=== PATIENT | male | born 1945 | race African-American/Black ===

== ENCOUNTER → 2016-07-05 | Outpatient (CLI) | payer MEDICARE, OTHER ==
[2015-01-11 22:18] VITALS: BP 159/89
[~2016-07-05] MED LIST: AMLO5TAB2 PO; APIX5TAB PO; BUSP10TA PO; CLON0.1T PO; CLON1TAB3 PO; FURO-69 PO; FURO20TA3 PO; HYDR12.58 PO; MECL12.52 PO; MEMA10TA PO; MEMA5TAB PO; POTA10CA PO; POTA10TA31 PO; WARF6TAB PO
--- NOTE | 2016-07-05 15:11 | RAD ---
Indication: Left chronic DVT and left leg swelling. Grayscale, color-flow and duplex Doppler evaluation of the left lower extremity deep venous system was performed. The left common femoral vein is patent. There is occlusive DVT in the left superficial femoral vein with partially occlusive DVT in the popliteal and posterior tibial veins. Greater saphenous vein is patent. Impression: Extensive left lower extremity DVT.
== END | disposition home or self-care (01) ==
LOC: US 14:15
PROVIDERS: ATTEND Internal Medicine
DX: I82.512 Chronic embolism and thrombosis of left femoral vein (principal); I82.402 Acute embolism and thrombosis of unspecified deep veins of left lower extremity
CPT/HCPCS: 93971

== ENCOUNTER 2018-04-04 14:15 | Inpatient (IN) | payer MEDICARE, OTHER ==
[~2018-04-04] VITALS: Ht 177.8 cm; Wt 71.7 kg
[~2018-04-04 14:15] MED LIST changes: -AMLO5TAB2 PO; +AMLO5TAB7 PO; -CLON1TAB3 PO; +CLON1TAB4 PO; -POTA10CA PO; +POTA10TA12 PO; -WARF6TAB PO; +WARF6TAB49 PO
[2018-04-04 15:00] VITALS: BP 107/58
[2018-04-04] MEDS ORDERED: ALBU0.63 NEB (16:03)
[2018-04-04] MEDS ORDERED: FLUT16SP NS (16:03)
[2018-04-04] MEDS ORDERED: WARF-31 PO (16:03)
[2018-04-04] MEDS ORDERED: GABA100C6 PO (16:03)
[2018-04-04] MEDS ORDERED: TRAM50TA PO (16:03)
[2018-04-04] MEDS ORDERED: AMLO10TA6 PO (16:03)
[2018-04-04] MEDS ORDERED: METH500T7 PO (16:03)
[2018-04-04] MEDS ORDERED: CITA20TA6 PO (16:03)
[2018-04-04] MEDS ORDERED: ATOR40TA59 PO (16:03)
[2018-04-04] MEDS: IV NORMAL SALINE 1000ML BAG 1,000 ML IV SCH (16:15)
--- NOTE | 2018-04-04 17:01 | EKG ---
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
[2018-04-04 17:09] LABS: PROTHROMBIN TIME PATIENT 52.4 SEC (11.7-14.0)
[2018-04-04 17:16] LABS: ALBUMIN 2.2 g/dL (3.4-5.0); ALBUMIN/GLOBULIN RATIO 0.4 (1.0-1.7); CALCIUM 9.2 mg/dL (8.5-10.1); CREATININE 1.7 mg/dL (0.7-1.3); GFR 48.5; POTASSIUM 4.1 mmol/L (3.5-5.1); TOTAL BILIRUBIN 0.9 mg/dL (0.2-1.0); TOTAL PROTEIN 7.7 g/dL (6.4-8.2)
[2018-04-04 18:07] LABS: BASO # 0.1 x10^3/uL (0.0-0.2); BASO % 0 % (0-3); EOS % 0 % (0-3); HEMATOCRIT 34.5 % (39.0-53.0); HEMOGLOBIN 10.8 g/dL (13.0-17.5); LYMPH # 1.3 x10^3/uL (1.0-4.8); LYMPH % 4 % (24-48); MEAN CORPUSCULAR HEMOGLOBIN 24 pg (25-35); MEAN CORPUSCULAR HGB CONC 31 g/dL (31-37); MEAN CORPUSCULAR VOLUME 76 fL (79-100); MONO % 7 % (0-9); NEUT # 26.5 x10^3uL (1.8-7.7); NEUT % 89 % (31-73); PLATELET COUNT 272 x10^3/uL (140-400); RED BLOOD COUNT 4.56 x10^6/uL (4.30-5.70); RED CELL DISTRIBUTION WIDTH 18.7 % (11.5-14.5); WHITE BLOOD COUNT 29.9 x10^3/uL (4.0-11.0)
[2018-04-04 18:49] LABS: % BANDS 16 % (0-9); % LYMPHS 6 % (24-48); % MONOS 7 % (0-10); % SEGS 71 % (35-66); ANISOCYTOSIS SLIGHT; HYPOCHROMIA SLIGHT; PLT ESTIMATE ADEQUATE (ADEQUATE)
[2018-04-04 18:50] LABS: OVALOCYTES FEW; TOXIC VACUOLATION SLIGHT
[2018-04-04 19:00] VITALS: BP 106/61
[2018-04-04] MEDS ORDERED: VANCOMYCIN PER PHARMACY MC PRN (19:00)
[2018-04-04] MEDS ORDERED: VANCOMYCIN 1.5 GM in IV NORMAL SALINE 500ML BAG 500 ML IV ONE (19:00)
[2018-04-04] MEDS ORDERED: PIP/TAZO PER PHARMACY MC PRN ×2 (19:15→19:30)
[2018-04-04] MEDS: IPRATRPIUM/ALBUTEROL 0.5/2.5MG 3 ML NEBU. NEB SCH (19:57)
[2018-04-04] MEDS ORDERED: VANCOMYCIN 1.75 GM in IV NORMAL SALINE 500ML BAG 500 ML IV ONE (20:00)
[2018-04-04] MEDS: PIPERACILLIN/TAZOBACTAM 3.375 GM in IV NORMAL SALINE 50ML 50 ML IV SCH (20:20)
[2018-04-04 20:25] LABS: INFLUENZA A PATIENT NEGATIVE (NEGATIVE); INFLUENZA B PATIENT NEGATIVE (NEGATIVE)
[2018-04-04 23:00] VITALS: BP 100/54
[2018-04-05] MEDS: PIPERACILLIN/TAZOBACTAM 3.375 GM in IV NORMAL SALINE 50ML 50 ML IV SCH ×2 (01:21→06:25)
[2018-04-05 07:00] VITALS: BP 118/64
--- NOTE | 2018-04-05 08:03 | RAD ---
Portable chest, 04/04/2018: HISTORY: Possible pneumonia The patient is rotated to the left. Comparison is made to an exam from 01/11/2015. A left-sided transvenous pacemaker remains in place with active and inactive leads extending into the right heart. The heart is at the upper limits of normal in size. There is calcific plaquing of the thoracic aorta. The pulmonary vascularity is within normal limits. There are mild patchy bibasilar opacities. The upper lung nelson are clear. There is no evidence of pleural fluid. The bony structures are demineralized. A surgical staple is noted in the right scapula. IMPRESSION: Mild patchy bibasilar infiltrates suggesting pneumonia. Electronically signed by: Scooby Wiseman MD (04/05/2018 8:00 AM) [facility]
[2018-04-05] MEDS: IPRATRPIUM/ALBUTEROL 0.5/2.5MG 3 ML NEBU. NEB SCH ×4 (08:11→20:17)
[2018-04-05] MEDS ORDERED: DEXTROSE 50% 25 GM / 50ML DISP.SYRIN. IV PRN (09:30)
--- NOTE | 2018-04-05 09:34 | PDOC ---
Provider Note Provider Note H&P dictated. #[id number] ANGI BARCENAS MD Apr 05, 2018 09:34
[2018-04-05] MEDS ORDERED: traMADol 50 MG TABLET PO PRN (10:00)
--- NOTE | 2018-04-05 10:53 | PDOC ---
Infectious Disease Note Vital Sign Vital Signs Vital Signs Date Time Temp Pulse Resp B/P (MAP) Pulse Ox O2 Delivery O2 Flow Rate FiO2 04/05/18 08:12 89 Room Air 04/05/18 08:00 2.0 04/05/18 07:00 97.7 89 18 118/64 (82) 97.7 Labs Lab Laboratory Tests Test 04/04/18 16:40 04/04/18 16:55 04/04/18 19:06 White Blood Count 29.9 x10^3/uL (4.0-11.0) Red Blood Count 4.56 x10^6/uL (4.30-5.70) Hemoglobin 10.8 g/dL (13.0-17.5) Hematocrit 34.5 % (39.0-53.0) Mean Corpuscular Volume 76 fL (79-100) Mean Corpuscular Hemoglobin 24 pg (25-35) Mean Corpuscular Hemoglobin Concent 31 g/dL (31-37) Red Cell Distribution Width 18.7 % (11.5-14.5) Platelet Count 272 x10^3/uL (140-400) Neutrophils (%) (Auto) 89 % (31-73) Lymphocytes (%) (Auto) 4 % (24-48) Monocytes (%) (Auto) 7 % (0-9) Eosinophils (%) (Auto) 0 % (0-3) Basophils (%) (Auto) 0 % (0-3) Neutrophils # (Auto) 26.5 x10^3uL (1.8-7.7) Lymphocytes # (Auto) 1.3 x10^3/uL (1.0-4.8) Monocytes # (Auto) 2.0 x10^3/uL (0.0-1.1) Eosinophils # (Auto) 0.0 x10^3/uL (0.0-0.7) Basophils # (Auto) 0.1 x10^3/uL (0.0-0.2) Segmented Neutrophils % 71 % (35-66) Band Neutrophils % 16 % (0-9) Lymphocytes % 6 % (24-48) Monocytes % 7 % (0-10) Toxic Vacuolation Slight Platelet Estimate Adequate (ADEQUATE) Hypochromasia Slight Anisocytosis Slight Ovalocytes Few Prothrombin Time 52.4 SEC (11.7-14.0) Prothromb Time International Ratio 6.0 (0.8-1.1) Sodium Level 142 mmol/L (136-145) Potassium Level 4.1 mmol/L (3.5-5.1) Chloride Level 111 mmol/L (98-107) Carbon Dioxide Level 20 mmol/L (21-32) Anion Gap 11 (6-14) Blood Urea Nitrogen 31 mg/dL (8-26) Creatinine 1.7 mg/dL (0.7-1.3) Estimated GFR (Cockcroft-Gault) 48.5 BUN/Creatinine Ratio 18 (6-20) Glucose Level 96 mg/dL (70-99) Calcium Level 9.2 mg/dL (8.5-10.1) Total Bilirubin 0.9 mg/dL (0.2-1.0) Aspartate Amino Transf (AST/SGOT) 25 U/L (15-37) Alanine Aminotransferase (ALT/SGPT) 17 U/L (16-63) Alkaline Phosphatase 65 U/L (46-116) Total Protein 7.7 g/dL (6.4-8.2) Albumin 2.2 g/dL (3.4-5.0) Albumin/Globulin Ratio 0.4 (1.0-1.7) Influenza Type A Antigen Negative (NEGATIVE) Influenza Type B Antigen Negative (NEGATIVE) Objective Assessment Fever Leukocytosis Pneumonia COPD Cardiomyopathy/AICD HTN Renal insufficiency Plan Plan of Care d/c vanc cont zosyn add doxy supportive care check cultures SEMAJ KHAN MD Apr 05, 2018 10:53
[2018-04-05 11:00] VITALS: BP 115/62
--- NOTE | 2018-04-05 11:02 | HP ---
ADMIT DATE: 04/04/2018 LOCATION: [facility]. REASON FOR ADMISSION TO THE HOSPITAL: Pneumonia, sepsis, elevated white count. HISTORY OF PRESENT ILLNESS: The patient is a 72-year-old male patient who is chronically ill, wheelchair level, has progressive dementia, contractures, has developed an upper respiratory infection for a week and got progressively worse. He has been sleeping most of the time. and family brought him yesterday, was very lethargic, was admitted to the hospital. His white count was almost 30,000. His INR was 7. The patient is on Coumadin for chronic DVTs. PAST MEDICAL HISTORY: Dementia, progressive hypertension, COPD, heart failure, DVT, pulmonary embolism, arthritis, contractures. He also has abdominal aortic aneurysm, had endovascular repair. PAST SURGICAL HISTORY: He has a pacemaker, IVC filter, umbilical hernia surgery and also abdominal aortic aneurysm endovascular repair. ALLERGIES: No known drug allergies. MEDICATIONS AT HOME: The patient is on Lasix 20 mg daily, Robaxin 500 mg daily, Coumadin 5 mg daily, albuterol 2 puffs 4 times daily, amlodipine 10 mg daily, atorvastatin 40 mg daily, buspirone 10 mg twice a day, citalopram 20 mg daily, fluticasone 1 daily, gabapentin 100 mg 3 times daily, Namenda 10 mg twice a day, potassium 10 mEq daily, tramadol 50 mg q.8h. PERSONAL HISTORY: 40 years of smoking 1 pack, still smokes 3-4 daily. Denies alcohol. The patient has tramadol for pain medications. SOCIAL HISTORY: Lives with his and son, wheelchair level activity. REVIEW OF SYSTEMS: The patient was very lethargic yesterday. Today, he is smiling and waving to me and denies any chest pain, no shortness of breath on examination. Rest of the 14-system was reviewed and negative. PHYSICAL EXAMINATION: GENERAL: Chronically ill. VITAL SIGNS: Temperature 98, pulse 108, respirations 20, blood pressure 107/58, 92 on 2 liters. HEENT: Head is atraumatic. Pupils are equal. Oral cavity, congestion from the nose. A few teeth present. Not a good dentition. Oral cavity, slight congestion posterior pharynx. NECK: Supple. Thyroid not enlarged. JVD not elevated. CHEST: Symmetrical. Has a pacemaker left side of the chest. CARDIOVASCULAR: S1, S2. LUNGS: Diminished breath sounds, a few crackles at the bases. ABDOMEN: Soft, no mass palpable. EXTERNAL GENITALIA: No Frye. RECTAL: Deferred. EXTREMITIES: The patient has 1+ edema at the ankle, right leg. Left leg has a flexion contracture of the hip as well as the knee, 2+ edema. NEUROLOGIC: The patient is awake, smiling and waving to me today. Yesterday, he was lethargic. LABORATORY DATA: White count 30,000; hemoglobin 11, platelets 272. INR is 6. Electrolytes show sodium 142, potassium 4.1, chloride 101, bicarbonate 20, anion gap 11, BUN 31, creatinine 1.7. LFTs were normal. Influenza A and B was negative. Chest x-ray shows a patchy basilar infiltrate, bibasilar opacities. EKG done, report is pending. FINAL IMPRESSION: 1. Pneumonia. 2. Sepsis. 3. Elevated white count. 4. Chronic deep venous thrombosis. History of pulmonary embolism, on Coumadin. 5. Coagulopathy. INR was 6. 6. Chronic kidney disease. 7. History of pacemaker. 8. History of abdominal aortic aneurysm, had endovascular repair. 9. Protein-calorie malnutrition. 10. General debility. PLAN: At this time is to admit to the hospital, hydrate with IV fluids. Influenza A and B was negative. Blood culture. Start on vancomycin and Zosyn. ID consult, breathing treatments, oxygen and monitor white count and electrolytes. We will get Physical Therapy Rehab consults too. ANGI BARCENAS MD DR: ESTHER/coby JOB#: [id number] / [id number]
[2018-04-05 11:07] LABS: BASO % 0 % (0-3); EOS % 0 % (0-3); HEMATOCRIT 32.7 % (39.0-53.0); HEMOGLOBIN 10.1 g/dL (13.0-17.5); LYMPH # 1.3 x10^3/uL (1.0-4.8); LYMPH % 5 % (24-48); MEAN CORPUSCULAR HEMOGLOBIN 23 pg (25-35); MEAN CORPUSCULAR HGB CONC 31 g/dL (31-37); MEAN CORPUSCULAR VOLUME 75 fL (79-100); MONO # 1.6 x10^3/uL (0.0-1.1); MONO % 7 % (0-9); NEUT # 20.4 x10^3uL (1.8-7.7); NEUT % 88 % (31-73); PLATELET COUNT 246 x10^3/uL (140-400); RED BLOOD COUNT 4.36 x10^6/uL (4.30-5.70); RED CELL DISTRIBUTION WIDTH 18.1 % (11.5-14.5); WHITE BLOOD COUNT 23.3 x10^3/uL (4.0-11.0)
[2018-04-05] MEDS: POTASSIUM CHLORIDE 10 MEQ TABLET.ER. PO SCH (11:22)
[2018-04-05] MEDS: CITALOPRAM 20 MG TABLET. PO SCH (11:22)
[2018-04-05] MEDS: DOXYCYCLINE HYCLATE 100 MG TABLET PO SCH ×2 (11:22→21:30)
[2018-04-05] MEDS: FLUTICASONE 50MCG/NASAL SPRAY 16GM BOTTLE. NS SCH (11:23)
[2018-04-05] MEDS: busPIRone 10 MG TABLET. PO SCH ×2 (11:23→21:30)
[2018-04-05] MEDS: amLODIPine BESYLATE 10 MG TABLET PO SCH (11:23)
[2018-04-05] MEDS: MEMANTINE 10 MG TABLET. PO SCH ×2 (11:23→21:30)
[2018-04-05] MEDS: IV NORMAL SALINE 1000ML BAG 1,000 ML IV SCH ×3 (11:24→22:15)
[2018-04-05 11:44] LABS: PROTHROMBIN TIME PATIENT 57.4 SEC (11.7-14.0)
[2018-04-05] MEDS: INSULIN LISPRO 300 UNITS/3 ML INSULN.PEN. SQ SCH ×2 (11:54→16:54)
[2018-04-05] MEDS ORDERED: cefTRIAXone SODIUM 2 GM in IV DEXTROSE 5% 100ML 100 ML IV SCH (12:00)
[2018-04-05] MEDS ORDERED: ALBUTEROL SULFATE 2.5 MG/3 ML NEBU. NEB SCH (12:00)
[2018-04-05] MEDS ORDERED: PHYTONADIONE 10 MG/ML ORAL SOLUTION. PO ONE (12:30)
[2018-04-05] MEDS ORDERED: NON FORMULARY ITEM (Albuterol Sulfate (Albuterol Sulfate Neb Soln) 1 VIAL) NEB SCH (13:00)
[2018-04-05] MEDS: GABAPENTIN 100 MG CAPSULE. PO SCH ×2 (14:45→21:30)
[2018-04-05 15:00] VITALS: BP 116/59
[2018-04-05 19:00] VITALS: BP 125/66
--- NOTE | 2018-04-05 20:19 | CONS ---
DATE OF CONSULTATION: 04/05/2018 REQUESTING PHYSICIAN: Dr. Morales. REASON FOR CONSULTATION: Pneumonia. HISTORY OF PRESENT ILLNESS: This is a 72-year-old gentleman with a history of multiple medical problems who came in with 3-day history of cough, shortness of breath and had fever, also had significant leukocytosis. Chest x-ray showed pneumonia. The patient is a poor historian, may even have his dementia, a history of mild dementia. The patient denies any nausea, vomiting, diarrhea. The patient says he is short of breath, but he is not wearing oxygen as the tubing is on not on him. The patient denies any headache, visual symptoms, chest pain, abdominal pain, urinary symptoms or bowel symptoms. PAST MEDICAL HISTORY: Positive for cardiac arrhythmia with AICD in place, congestive heart failure, COPD, history of DVT, IVC filter placed, spinal stenosis, has had shoulder surgery, is borderline diabetic, hypertension, renal insufficiency, urinary incontinence and urgency at times. SOCIAL HISTORY: Negative for alcohol use or drug use, but he continues to smoke. ALLERGIES: No known drug allergies. CURRENT MEDICATIONS: Reviewed. The patient is on vancomycin and Zosyn. REVIEW OF SYSTEMS: As per HPI, all other systems reviewed are negative. PHYSICAL EXAMINATION: GENERAL: Alert and oriented gentleman, not in any distress. VITAL SIGNS: Stable with a T-max 100.3. HEENT: NAD. NECK: Supple, no JVP, no lymphadenopathy. LUNGS: Decreased breath sounds, bilateral crackles present. HEART: S1, S2 regular. No gallop or murmur. ABDOMEN: Soft, nontender, no organomegaly. EXTREMITIES: No edema, cyanosis. SKIN: Unremarkable. NEUROLOGIC: He does move all the extremities and able to answer simple questions. Memory is slightly poor. LABORATORY DATA: White count is 29.9, hemoglobin is 10.8, platelets are 272,000. BUN and creatinine is 31 and 1.7. Influenza screen is negative. His creatinine was normal in 2015. Blood culture and sputum culture is pending. Chest x-ray showed bibasilar infiltrate. IMPRESSION: 1. Fever. 2. Leukocytosis. 3. Community-acquired pneumonia. 4. Chronic obstructive pulmonary disease. 5. Cardiomyopathy with automatic implantable cardioverter-defibrillator in place. 6. Hypertension. 7. Renal insufficiency, may have been acute or acute on chronic. 8. Tobaccoism. RECOMMENDATIONS: Would discontinue vancomycin, continue Zosyn, add doxycycline, supportive care. We will check cultures and continue to follow. In fact Zosyn, we can change to Rocephin. Thank you very much, Dr. Morales, for giving me the opportunity to participate in this patient's care. SEMAJ KHAN MD DR: LESLY/coby JOB#: [id number] / [id number]
[2018-04-05] MEDS ORDERED: VANCOMYCIN 1 GM in IV NORMAL SALINE 250ML 250 ML IV SCH (21:00)
[2018-04-05] MEDS: ATORVASTATIN CALCIUM 40 MG TABLET. PO SCH (21:30)
[2018-04-05 23:00] VITALS: BP 120/60
[2018-04-06 03:00] VITALS: BP 120/60
[2018-04-06 04:43] LABS: BASO % 0 % (0-3); EOS % 0 % (0-3); HEMOGLOBIN 9.8 g/dL (13.0-17.5); LYMPH # 1.3 x10^3/uL (1.0-4.8); LYMPH % 9 % (24-48); MEAN CORPUSCULAR HEMOGLOBIN 23 pg (25-35); MEAN CORPUSCULAR HGB CONC 31 g/dL (31-37); MEAN CORPUSCULAR VOLUME 74 fL (79-100); MONO % 7 % (0-9); NEUT # 11.6 x10^3uL (1.8-7.7); NEUT % 83 % (31-73); PLATELET COUNT 231 x10^3/uL (140-400); RED BLOOD COUNT 4.18 x10^6/uL (4.30-5.70); RED CELL DISTRIBUTION WIDTH 18.7 % (11.5-14.5); WHITE BLOOD COUNT 13.9 x10^3/uL (4.0-11.0)
[2018-04-06 04:51] LABS: PROTHROMBIN TIME PATIENT 19.7 SEC (11.7-14.0)
[2018-04-06 05:17] LABS: CALCIUM 8.8 mg/dL (8.5-10.1); CREATININE 1.3 mg/dL (0.7-1.3); POTASSIUM 3.2 mmol/L (3.5-5.1)
[2018-04-06 07:00] VITALS: BP 132/70
[2018-04-06] MEDS: IPRATRPIUM/ALBUTEROL 0.5/2.5MG 3 ML NEBU. NEB SCH ×4 (07:47→20:10)
[2018-04-06] MEDS: INSULIN LISPRO 300 UNITS/3 ML INSULN.PEN. SQ SCH ×3 (08:00→16:57)
[2018-04-06] MEDS: IV NORMAL SALINE 1000ML BAG 1,000 ML IV SCH (08:15)
[2018-04-06] MEDS: GABAPENTIN 100 MG CAPSULE. PO SCH ×3 (08:58→20:31)
[2018-04-06] MEDS: DOXYCYCLINE HYCLATE 100 MG TABLET PO SCH ×2 (08:58→20:31)
[2018-04-06] MEDS: POTASSIUM CHLORIDE 10 MEQ TABLET.ER. PO SCH (08:58)
[2018-04-06] MEDS: LACTOBACILLUS RHAMNOSUS GG 1 CAPSULE. PO SCH ×2 (08:58→20:31)
[2018-04-06] MEDS: MEMANTINE 10 MG TABLET. PO SCH ×2 (08:58→20:31)
[2018-04-06] MEDS: CITALOPRAM 20 MG TABLET. PO SCH (09:01)
[2018-04-06] MEDS: busPIRone 10 MG TABLET. PO SCH ×2 (09:01→20:31)
[2018-04-06] MEDS: FLUTICASONE 50MCG/NASAL SPRAY 16GM BOTTLE. NS SCH (09:01)
[2018-04-06] MEDS: amLODIPine BESYLATE 10 MG TABLET PO SCH (09:01)
--- NOTE | 2018-04-06 09:45 | PDOC ---
PROGRESS NOTES Subjective Subjective pt more awake Objective Objective Vital Signs Date Time Temp Pulse Resp B/P (MAP) Pulse Ox O2 Delivery O2 Flow Rate FiO2 04/06/18 09:01 100 132/70 04/06/18 07:48 Nasal Cannula 2.0 04/06/18 03:00 97.8 20 91 97.8 Intake and Output 04/06/18 07:00 Intake Total 2200 ml Balance 2200 ml Intake Oral 2200 ml # Voids 2 Physical Exam Abdomen: Normal bowel sounds, Soft Heart: Regular rate, Normal S1 Extremities: No clubbing General: Alert HEENT: Atraumatic Lungs: Other (crackles both bases) Psych/Mental Status: Mood NL Skin: No breakdown COMMENT left leg contractures Assessment Assessment FINAL IMPRESSION: 1. Pneumonia ,CAP suspect gram neg and gram positive. 2. Sepsis fever tachycardia. 3. Elevated white count 30. 4. Chronic deep venous thrombosis. History of pulmonary embolism, on Coumadin. 5. Coagulopathy. INR was 6. 6. Chronic kidney disease. 7. History of pacemaker. 8. History of abdominal aortic aneurysm, had endovascular repair. 9. Protein-calorie malnutrition. 10. General debility. PLAN: wbc down to 13 . cr 1.3 down with fluids inr 1.4 corrected with vitamin k. cxr both lung bases infiltrates. rehab consult. iv antibiotics,ID consult appreciated. At this time is to admit to the hospital, hydrate with IV fluids. Influenza A and B was negative. Blood culture. Start on vancomycin and Zosyn. ID consult, breathing treatments, oxygen and monitor white count and electrolytes. We will get Physical Therapy Rehab consults too. Comment Review of Relevant I have reviewed the following items chidi (where applicable) has been applied. Labs Laboratory Tests Test 04/05/18 10:50 04/05/18 11:06 04/05/18 16:45 04/06/18 03:50 White Blood Count 23.3 x10^3/uL (4.0-11.0) 13.9 x10^3/uL (4.0-11.0) Red Blood Count 4.36 x10^6/uL (4.30-5.70) 4.18 x10^6/uL (4.30-5.70) Hemoglobin 10.1 g/dL (13.0-17.5) 9.8 g/dL (13.0-17.5) Hematocrit 32.7 % (39.0-53.0) 31.0 % (39.0-53.0) Mean Corpuscular Volume 75 fL (79-100) 74 fL (79-100) Mean Corpuscular Hemoglobin 23 pg (25-35) 23 pg (25-35) Mean Corpuscular Hemoglobin Concent 31 g/dL (31-37) 31 g/dL (31-37) Red Cell Distribution Width 18.1 % (11.5-14.5) 18.7 % (11.5-14.5) Platelet Count 246 x10^3/uL (140-400) 231 x10^3/uL (140-400) Neutrophils (%) (Auto) 88 % (31-73) 83 % (31-73) Lymphocytes (%) (Auto) 5 % (24-48) 9 % (24-48) Monocytes (%) (Auto) 7 % (0-9) 7 % (0-9) Eosinophils (%) (Auto) 0 % (0-3) 0 % (0-3) Basophils (%) (Auto) 0 % (0-3) 0 % (0-3) Neutrophils # (Auto) 20.4 x10^3uL (1.8-7.7) 11.6 x10^3uL (1.8-7.7) Lymphocytes # (Auto) 1.3 x10^3/uL (1.0-4.8) 1.3 x10^3/uL (1.0-4.8) Monocytes # (Auto) 1.6 x10^3/uL (0.0-1.1) 1.0 x10^3/uL (0.0-1.1) Eosinophils # (Auto) 0.0 x10^3/uL (0.0-0.7) 0.0 x10^3/uL (0.0-0.7) Basophils # (Auto) 0.0 x10^3/uL (0.0-0.2) 0.0 x10^3/uL (0.0-0.2) Prothrombin Time 57.4 SEC (11.7-14.0) 19.7 SEC (11.7-14.0) Prothromb Time International Ratio 6.7 (0.8-1.1) 1.7 (0.8-1.1) Lactic Acid Level 1.6 mmol/L (0.4-2.0) Glucose (Fingerstick) 84 mg/dL (70-99) 80 mg/dL (70-99) Sodium Level 144 mmol/L (136-145) Potassium Level 3.2 mmol/L (3.5-5.1) Chloride Level 112 mmol/L (98-107) Carbon Dioxide Level 21 mmol/L (21-32) Anion Gap 11 (6-14) Blood Urea Nitrogen 33 mg/dL (8-26) Creatinine 1.3 mg/dL (0.7-1.3) Estimated GFR (Cockcroft-Gault) 66.0 Glucose Level 80 mg/dL (70-99) Calcium Level 8.8 mg/dL (8.5-10.1) Microbiology 04/04/18 Blood Culture - Preliminary, Resulted NO GROWTH AFTER 1 DAY Medications Current Medications Albuterol Sulfate (Ventolin Neb Soln) 2.5 mg RTQID NEB ; Start 04/05/18 at 12: 00; Status UNV Amlodipine Besylate (Norvasc) 10 mg DAILY PO Last administered on 04/06/18 09 :01; Start 04/05/18 at 11:00 Atorvastatin Calcium (Lipitor) 40 mg QHS PO Last administered on 04/05/18at 21: 30; Start 04/05/18 at 21:00 Buspirone HCl (Buspar) 10 mg BID PO Last administered on 04/06/18at 09:01; Start 04/05/18 at 11:00 Ceftriaxone Sodium 2 gm/ Dextrose 100 ml @ 200 mls/hr Q24H IV ; Start at 12:00; Stop 04/05/18 at 12:00; Status DC Ceftriaxone Sodium 2 gm/ Sodium Chloride 100 ml @ 200 mls/hr Q24H IV Last administered on 04/05/18at 12:26; Start 04/05/18 at 12:00 Citalopram Hydrobromide (CeleXA) 20 mg DAILY PO Last administered on 09:01; Start 04/05/18 at 11:00 Doxycycline Hyclate (Vibra-Tab) 100 mg BID PO Last administered on 04/06/18at 08:58; Start 04/05/18 at 12:00 Fluticasone Propionate (Flonase) 1 spray DAILY NS Last administered on at 09:01; Start 04/05/18 at 11:00 Gabapentin (Neurontin) 100 mg TID PO Last administered on 04/06/18at 08:58; Start 04/05/18 at 14:00 Insulin Human Lispro (HumaLOG) 0-5 UNITS TIDWMEALS SQ ; Start 04/05/18 at 12:00 Lactobacillus Rhamnosus (Culturelle) 1 cap BID PO Last administered on at 08:58; Start 04/06/18 at 09:00 Memantine (Namenda) 10 mg BID PO Last administered on 04/06/18at 08:58; Start 04/05/18 at 11:00 Non-Formulary Medication (Albuterol Sulfate (Albuterol Sulfate Neb Soln)) 1 vial QID NEB ; Start 04/05/18 at 13:00; Status UNV Phytonadione (Mephyton Oral Soln) 10 mg 1X ONCE PO Last administered on at 12:27; Start 04/05/18 at 12:30; Stop 04/05/18 at 12:31; Status DC Potassium Chloride (Klor-Con) 10 meq DAILY PO Last administered on 04/06/18at 08:58; Start 04/05/18 at 11:00 Tramadol HCl (Ultram) 50 mg PRN Q8HRS PRN PO PAIN; Start 04/05/18 at 10:00 Vancomycin HCl (Vancomycin Trough Level) 1 each 1X ONCE MC ; Start 04/06/18 at 20:30; Stop 04/06/18 at 20:30; Status DC Vancomycin HCl 1 gm/Sodium Chloride 250 ml @ 250 mls/hr Q24H IV ; Start at 21:00; Stop 04/05/18 at 21:00; Status DC Vitals/I & O Vital Sign - Last 24 Hours 04/05/18 04/05/18 04/05/18 04/05/18 11:00 11:21 11:23 15:00 Temp 97.7 97.7 97.7 97.7 Pulse 68 89 77 Resp 18 18 B/P (MAP) 115/62 (79) 118/64 116/59 (78) Pulse Ox 72 85 O2 Delivery 2L Nasal Cannula 2L O2 Flow Rate 2.0 04/05/18 04/05/18 04/05/18 04/05/18 15:24 19:00 20:03 23:00 Temp 98.3 97.8 98.3 97.8 Pulse 83 84 Resp 20 20 B/P (MAP) 125/66 (85) 120/60 (80) Pulse Ox 91 95 91 O2 Delivery Nasal Cannula Nasal Cannula Nasal Cannula Nasal Cannula O2 Flow Rate 2.0 3.0 2.0 3.0 04/06/18 04/06/18 04/06/18 03:00 07:48 09:01 Temp 97.8 97.8 Pulse 84 100 Resp 20 B/P (MAP) 120/60 (80) 132/70 Pulse Ox 91 O2 Delivery Nasal Cannula Nasal Cannula O2 Flow Rate 3.0 2.0 Intake and Output 04/05/18 04/05/18 04/06/18 15:00 23:00 07:00 Intake Total 800 ml 1200 ml 200 ml Balance 800 ml 1200 ml 200 ml ANGI BARCENAS MD Apr 06, 2018 09:45
[2018-04-06] MEDS ORDERED: POTASSIUM CHLORIDE 20 MEQ TABLET.ER. PO ONE (10:00)
[2018-04-06 11:00] VITALS: BP 109/53
--- NOTE | 2018-04-06 11:04 | RAD ---
Portable chest, 04/06/2018: HISTORY: Pneumonia Comparison is made to a study from 04/04/2018. A left-sided transvenous pacing device is again noted. The heart is at the upper limits of normal in size. There is now moderate right basilar infiltrate with worsening since the previous study. There are mild patchy left lower chest infiltrates. There is obscuration of the right lateral costophrenic angle due to infiltrate. A small amount pleural fluid cannot be excluded. IMPRESSION: Worsening moderate right basilar infiltrate and mild unchanged left basilar infiltrate, suggesting pneumonia. Electronically signed by: Scooby Wiseman MD (04/06/2018 11:01 AM) [facility]
--- NOTE | 2018-04-06 11:30 | PDOC ---
Infectious Disease Note Subjective Subjective pt is feeling ok, sleepy ROS ROS no n/v/d/sob low grade fever Vital Sign Vital Signs Vital Signs Date Time Temp Pulse Resp B/P (MAP) Pulse Ox O2 Delivery O2 Flow Rate FiO2 04/06/18 09:01 100 132/70 04/06/18 08:00 Nasal Cannula 2.0 04/06/18 07:00 100.1 18 86 100.1 Physical Exam PHYSICAL EXAM GENERAL: Alert and oriented gentleman, not in any distress. VITAL SIGNS: Stable HEENT: NAD. NECK: Supple, no JVP, no lymphadenopathy. LUNGS: Decreased breath sounds, bilateral crackles present. HEART: S1, S2 regular. No gallop or murmur. ABDOMEN: Soft, nontender, no organomegaly. EXTREMITIES: No edema, cyanosis. SKIN: Unremarkable. NEUROLOGIC: He does move all the extremities and able to answer simple questions. Memory is slightly poor. Labs Lab Laboratory Tests Test 04/05/18 16:45 04/06/18 03:50 Glucose (Fingerstick) 80 mg/dL (70-99) White Blood Count 13.9 x10^3/uL (4.0-11.0) Red Blood Count 4.18 x10^6/uL (4.30-5.70) Hemoglobin 9.8 g/dL (13.0-17.5) Hematocrit 31.0 % (39.0-53.0) Mean Corpuscular Volume 74 fL (79-100) Mean Corpuscular Hemoglobin 23 pg (25-35) Mean Corpuscular Hemoglobin Concent 31 g/dL (31-37) Red Cell Distribution Width 18.7 % (11.5-14.5) Platelet Count 231 x10^3/uL (140-400) Neutrophils (%) (Auto) 83 % (31-73) Lymphocytes (%) (Auto) 9 % (24-48) Monocytes (%) (Auto) 7 % (0-9) Eosinophils (%) (Auto) 0 % (0-3) Basophils (%) (Auto) 0 % (0-3) Neutrophils # (Auto) 11.6 x10^3uL (1.8-7.7) Lymphocytes # (Auto) 1.3 x10^3/uL (1.0-4.8) Monocytes # (Auto) 1.0 x10^3/uL (0.0-1.1) Eosinophils # (Auto) 0.0 x10^3/uL (0.0-0.7) Basophils # (Auto) 0.0 x10^3/uL (0.0-0.2) Prothrombin Time 19.7 SEC (11.7-14.0) Prothromb Time International Ratio 1.7 (0.8-1.1) Sodium Level 144 mmol/L (136-145) Potassium Level 3.2 mmol/L (3.5-5.1) Chloride Level 112 mmol/L (98-107) Carbon Dioxide Level 21 mmol/L (21-32) Anion Gap 11 (6-14) Blood Urea Nitrogen 33 mg/dL (8-26) Creatinine 1.3 mg/dL (0.7-1.3) Estimated GFR (Cockcroft-Gault) 66.0 Glucose Level 80 mg/dL (70-99) Calcium Level 8.8 mg/dL (8.5-10.1) Micro Microbiology 04/04/18 Blood Culture - Preliminary, Resulted NO GROWTH AFTER 1 DAY Objective Assessment Fever Leukocytosis Pneumonia COPD Cardiomyopathy/AICD HTN Renal insufficiency Plan Plan of Care cont rocephine and doxy supportive care check cultures SEMAJ KHAN MD Apr 06, 2018 11:30
[2018-04-06] MEDS: DICLOFENAC SODIUM 1% TOPICAL GEL 100GM TUBE. TP SCH ×2 (12:01→20:32)
[2018-04-06] MEDS: IRON POLYSACCHARIDE COMPLEX 150 MG CAPSULE PO SCH ×2 (12:02→20:31)
[2018-04-06 15:00] VITALS: BP 124/69
[2018-04-06] MEDS ORDERED: WARFARIN 6 MG TABLET. PO ONE (16:00)
[2018-04-06 19:00] VITALS: BP 106/68
[2018-04-06] MEDS: ATORVASTATIN CALCIUM 40 MG TABLET. PO SCH (20:31)
[2018-04-06 23:00] VITALS: BP 113/71
[2018-04-07] MEDS: IV NORMAL SALINE 1000ML BAG 1,000 ML IV SCH (02:49)
[2018-04-07 03:00] VITALS: BP 125/66
--- NOTE | 2018-04-07 04:17 | CONS ---
DATE OF CONSULTATION: LOCATION: Room 578. ATTENDING PHYSICIAN: Shayne Morales MD The patient was seen at the request of Dr. Morales for rehab evaluation. HISTORY OF PRESENT ILLNESS: This is a 72-year-old male who is chronically ill, wheelchair bound with progressive dementia, knee flexion contractures, admitted on 04/04/2018 with upper respiratory infection for about a week, got progressively worse, has been sleeping most of the time. The patient was seen by Dr. Morales in the office. He was very lethargic and he was admitted. He was noted with white cell count of 30,000, INR 7. He has been on Coumadin for chronic deep venous thrombosis. PAST MEDICAL HISTORY: Also includes hypertension, chronic obstructive pulmonary disease, heart failure, previous DVT, pulmonary embolism, degenerative joint disease, contractures, abdominal aortic aneurysm, had endovascular repair had a permanent pacemaker, IVC filter, umbilical hernia surgery and also abdominal aortic aneurysm endovascular repair. ALLERGIES: He is not known allergic to any medication. SOCIAL HISTORY: He lives with his and son. He had 40 years of smoking 1 pack of cigarettes, still smokes about 3-4 times daily. MEDICATIONS: Takes tramadol for pain. The patient since admission is being treated with diagnosis of pneumonia. A repeat chest x-ray revealed worsening of moderate right basilar infiltrate and mild unchanged left basilar infiltrate. The patient denies any pain. PHYSICAL EXAMINATION: Today revealed an elderly male. He is somewhat lethargic, but can be awakened. He moves all 4 extremities voluntarily where he had generalized muscle weakness. He had flexion contractures of both knees. Deep tendon reflexes are absent at both knees and ankles and he had equal perception of touch and pinprick sensation bilaterally. He requires help with bed mobility. I have not tested his transfers or ambulation skills at present time. 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 RECOMMENDATION: To ask physical therapy and occupational therapy to see him, to try knee immobilizer to try to stretch up his tight hamstrings. I am not sure steroid injection to his knees is going to have that much. He might need hamstring tendon lengthening, but I am not sure he is a surgical candidate at present time. Dr. Morales, I appreciate asking me to participate in care of this interesting patient. I will be glad to follow him with you as needed for his rehabilitation. ALIN KC MD DR: FAUSTINO/coby JOB#: [id number] / [id number]
[2018-04-07 07:00] VITALS: BP 140/76
[2018-04-07] MEDS: IPRATRPIUM/ALBUTEROL 0.5/2.5MG 3 ML NEBU. NEB SCH ×4 (07:42→21:35)
[2018-04-07] MEDS: INSULIN LISPRO 300 UNITS/3 ML INSULN.PEN. SQ SCH ×3 (08:00→17:00)
[2018-04-07 08:14] LABS: BASO % 1 % (0-3); EOS % 1 % (0-3); HEMATOCRIT 30.7 % (39.0-53.0); HEMOGLOBIN 9.8 g/dL (13.0-17.5); LYMPH # 1.3 x10^3/uL (1.0-4.8); LYMPH % 15 % (24-48); MEAN CORPUSCULAR HEMOGLOBIN 24 pg (25-35); MEAN CORPUSCULAR HGB CONC 32 g/dL (31-37); MEAN CORPUSCULAR VOLUME 74 fL (79-100); MONO # 0.9 x10^3/uL (0.0-1.1); MONO % 10 % (0-9); NEUT # 6.3 x10^3uL (1.8-7.7); NEUT % 74 % (31-73); PLATELET COUNT 223 x10^3/uL (140-400); RED BLOOD COUNT 4.13 x10^6/uL (4.30-5.70); RED CELL DISTRIBUTION WIDTH 18.6 % (11.5-14.5); WHITE BLOOD COUNT 8.6 x10^3/uL (4.0-11.0)
[2018-04-07 08:33] LABS: CALCIUM 8.5 mg/dL (8.5-10.1); CREATININE 1.1 mg/dL (0.7-1.3); GFR 80.1; POTASSIUM 3.6 mmol/L (3.5-5.1)
[2018-04-07 08:34] LABS: PROTHROMBIN TIME PATIENT 20.5 SEC (11.7-14.0)
[2018-04-07] MEDS: LACTOBACILLUS RHAMNOSUS GG 1 CAPSULE. PO SCH ×2 (09:12→21:35)
[2018-04-07] MEDS: POTASSIUM CHLORIDE 10 MEQ TABLET.ER. PO SCH (09:12)
[2018-04-07] MEDS: DOXYCYCLINE HYCLATE 100 MG TABLET PO SCH ×2 (09:12→21:34)
[2018-04-07] MEDS: IRON POLYSACCHARIDE COMPLEX 150 MG CAPSULE PO SCH ×2 (09:12→21:35)
[2018-04-07] MEDS: GABAPENTIN 100 MG CAPSULE. PO SCH ×3 (09:12→21:35)
[2018-04-07] MEDS: MEMANTINE 10 MG TABLET. PO SCH ×2 (09:12→21:35)
[2018-04-07] MEDS: amLODIPine BESYLATE 10 MG TABLET PO SCH (09:12)
[2018-04-07] MEDS: FLUTICASONE 50MCG/NASAL SPRAY 16GM BOTTLE. NS SCH (09:12)
[2018-04-07] MEDS: CITALOPRAM 20 MG TABLET. PO SCH (09:12)
[2018-04-07] MEDS: busPIRone 10 MG TABLET. PO SCH ×2 (09:12→21:35)
[2018-04-07] MEDS: DICLOFENAC SODIUM 1% TOPICAL GEL 100GM TUBE. TP SCH ×2 (09:14→21:40)
--- NOTE | 2018-04-07 10:20 | PDOC ---
PROGRESS NOTES Subjective Subjective pt smiling , want to go home Objective Objective Vital Signs Date Time Temp Pulse Resp B/P (MAP) Pulse Ox O2 Delivery O2 Flow Rate FiO2 04/07/18 09:12 95 140/76 04/07/18 07:43 Nasal Cannula 2.0 04/07/18 07:00 98.0 20 85 98.0 Intake and Output 04/07/18 07:00 Intake Total 1020 ml Balance 1020 ml Intake Oral 1020 ml # Voids 4 # Bowel Movements 2 Physical Exam Abdomen: Normal bowel sounds, Soft Heart: Regular rate, Normal S1 Extremities: No clubbing General: Alert HEENT: Atraumatic Lungs: Other (crackles both bases) Psych/Mental Status: Mood NL Skin: No breakdown COMMENT left leg contractures Assessment Assessment FINAL IMPRESSION: 1. Pneumonia ,CAP suspect gram neg and gram positive. 2. Sepsis fever tachycardia. 3. Elevated white count 30. 4. Chronic deep venous thrombosis. History of pulmonary embolism, on Coumadin. 5. Coagulopathy. INR was 6. 6. Chronic kidney disease. 7. History of pacemaker. 8. History of abdominal aortic aneurysm, had endovascular repair. 9. Protein-calorie malnutrition. 10. General debility. PLAN: pt want to go home. he does not want feeding tube. pt want DNR,he says he is tired,do not want cardioversion ,chest compression and intubation wbc down to 8.0 . cr 1.3 down with fluids inr 1.8on coumadin cxr both lung bases infiltrates. rehab consult appreciated. po antibiotics,ID consult appreciated.spoke with ID. po Augmentin for 7 days. Poor prognosis, spoke with pts at bed side. Comment Review of Relevant I have reviewed the following items chidi (where applicable) has been applied. Labs Laboratory Tests Test 04/06/18 11:48 04/06/18 16:39 04/06/18 21:09 04/07/18 07:49 Glucose (Fingerstick) 92 mg/dL (70-99) 82 mg/dL (70-99) 102 mg/dL (70-99) White Blood Count 8.6 x10^3/uL (4.0-11.0) Red Blood Count 4.13 x10^6/uL (4.30-5.70) Hemoglobin 9.8 g/dL (13.0-17.5) Hematocrit 30.7 % (39.0-53.0) Mean Corpuscular Volume 74 fL (79-100) Mean Corpuscular Hemoglobin 24 pg (25-35) Mean Corpuscular Hemoglobin Concent 32 g/dL (31-37) Red Cell Distribution Width 18.6 % (11.5-14.5) Platelet Count 223 x10^3/uL (140-400) Neutrophils (%) (Auto) 74 % (31-73) Lymphocytes (%) (Auto) 15 % (24-48) Monocytes (%) (Auto) 10 % (0-9) Eosinophils (%) (Auto) 1 % (0-3) Basophils (%) (Auto) 1 % (0-3) Neutrophils # (Auto) 6.3 x10^3uL (1.8-7.7) Lymphocytes # (Auto) 1.3 x10^3/uL (1.0-4.8) Monocytes # (Auto) 0.9 x10^3/uL (0.0-1.1) Eosinophils # (Auto) 0.0 x10^3/uL (0.0-0.7) Basophils # (Auto) 0.0 x10^3/uL (0.0-0.2) Prothrombin Time 20.5 SEC (11.7-14.0) Prothromb Time International Ratio 1.8 (0.8-1.1) Sodium Level 143 mmol/L (136-145) Potassium Level 3.6 mmol/L (3.5-5.1) Chloride Level 113 mmol/L (98-107) Carbon Dioxide Level 20 mmol/L (21-32) Anion Gap 10 (6-14) Blood Urea Nitrogen 18 mg/dL (8-26) Creatinine 1.1 mg/dL (0.7-1.3) Estimated GFR (Cockcroft-Gault) 80.1 Glucose Level 83 mg/dL (70-99) Calcium Level 8.5 mg/dL (8.5-10.1) Test 04/07/18 07:55 Glucose (Fingerstick) 77 mg/dL (70-99) Microbiology 04/04/18 Blood Culture - Preliminary, Resulted NO GROWTH AFTER 2 DAYS Medications Current Medications Diclofenac Sodium (Voltaren) 1 kevin BID TP Last administered on 04/07/18at 09:14 ; Start 04/06/18 at 12:00 Polysaccharide Iron Complex (Niferex 150) 150 mg BID PO Last administered on at 09:12; Start 04/06/18 at 12:00 Vancomycin HCl (Vancomycin Trough Level) 1 each 1X ONCE MC ; Start 04/06/18 at 20:30; Stop 04/06/18 at 20:30; Status DC Warfarin Sodium (Coumadin) 6 mg 1X WARF ONCE PO Last administered on at 16:04; Start 04/06/18 at 16:00; Stop 04/06/18 at 16:01; Status DC Vitals/I & O Vital Sign - Last 24 Hours 04/06/18 04/06/18 04/06/18 04/06/18 11:00 11:20 15:00 15:06 Temp 97.9 97.5 97.9 97.5 Pulse 89 95 Resp 16 20 B/P (MAP) 109/53 (71) 124/69 (87) Pulse Ox 90 86 O2 Delivery Nasal Cannula Nasal Cannula Nasal Cannula Nasal Cannula O2 Flow Rate 2.0 2.0 2.0 2.0 04/06/18 04/06/18 04/06/18 04/06/18 19:00 20:00 20:14 20:50 Temp 98.6 98.6 Pulse 96 Resp 18 B/P (MAP) 106/68 (81) Pulse Ox 92 93 O2 Delivery Nasal Cannula Nasal Cannula Nasal Cannula Room Air O2 Flow Rate 2.0 2.0 2.0 04/06/18 04/06/18 04/07/18 04/07/18 21:50 23:00 03:00 07:00 Temp 98.8 98.6 98.0 98.8 98.6 98.0 Pulse 88 90 95 Resp 17 19 20 B/P (MAP) 113/71 (85) 125/66 (85) 140/76 (97) Pulse Ox 94 91 85 O2 Delivery Nasal Cannula Nasal Cannula Nasal Cannula 2L O2 Flow Rate 2.0 2.0 2.0 04/07/18 04/07/18 07:43 09:12 Pulse 95 B/P (MAP) 140/76 O2 Delivery Nasal Cannula O2 Flow Rate 2.0 Intake and Output 04/06/18 04/06/18 04/07/18 15:00 23:00 07:00 Intake Total 660 ml 360 ml Balance 660 ml 360 ml ANGI BARCENAS MD Apr 07, 2018 10:20
--- NOTE | 2018-04-07 10:22 | PDOC ---
Infectious Disease Note Subjective Subjective pt is feeling much better ROS ROS no n/v/d/sob Vital Sign Vital Signs Vital Signs Date Time Temp Pulse Resp B/P (MAP) Pulse Ox O2 Delivery O2 Flow Rate FiO2 04/07/18 09:12 95 140/76 04/07/18 07:43 Nasal Cannula 2.0 04/07/18 07:00 98.0 20 85 98.0 Physical Exam PHYSICAL EXAM GENERAL: Alert and oriented gentleman, not in any distress. VITAL SIGNS: Stable HEENT: NAD. NECK: Supple, no JVP, no lymphadenopathy. LUNGS: Decreased breath sounds, bilateral crackles present. HEART: S1, S2 regular. No gallop or murmur. ABDOMEN: Soft, nontender, no organomegaly. EXTREMITIES: No edema, cyanosis. SKIN: Unremarkable. NEUROLOGIC: He does move all the extremities and able to answer simple questions. Memory is slightly poor. Labs Lab Laboratory Tests Test 04/06/18 11:48 04/06/18 16:39 04/06/18 21:09 04/07/18 07:49 Glucose (Fingerstick) 92 mg/dL (70-99) 82 mg/dL (70-99) 102 mg/dL (70-99) White Blood Count 8.6 x10^3/uL (4.0-11.0) Red Blood Count 4.13 x10^6/uL (4.30-5.70) Hemoglobin 9.8 g/dL (13.0-17.5) Hematocrit 30.7 % (39.0-53.0) Mean Corpuscular Volume 74 fL (79-100) Mean Corpuscular Hemoglobin 24 pg (25-35) Mean Corpuscular Hemoglobin Concent 32 g/dL (31-37) Red Cell Distribution Width 18.6 % (11.5-14.5) Platelet Count 223 x10^3/uL (140-400) Neutrophils (%) (Auto) 74 % (31-73) Lymphocytes (%) (Auto) 15 % (24-48) Monocytes (%) (Auto) 10 % (0-9) Eosinophils (%) (Auto) 1 % (0-3) Basophils (%) (Auto) 1 % (0-3) Neutrophils # (Auto) 6.3 x10^3uL (1.8-7.7) Lymphocytes # (Auto) 1.3 x10^3/uL (1.0-4.8) Monocytes # (Auto) 0.9 x10^3/uL (0.0-1.1) Eosinophils # (Auto) 0.0 x10^3/uL (0.0-0.7) Basophils # (Auto) 0.0 x10^3/uL (0.0-0.2) Prothrombin Time 20.5 SEC (11.7-14.0) Prothromb Time International Ratio 1.8 (0.8-1.1) Sodium Level 143 mmol/L (136-145) Potassium Level 3.6 mmol/L (3.5-5.1) Chloride Level 113 mmol/L (98-107) Carbon Dioxide Level 20 mmol/L (21-32) Anion Gap 10 (6-14) Blood Urea Nitrogen 18 mg/dL (8-26) Creatinine 1.1 mg/dL (0.7-1.3) Estimated GFR (Cockcroft-Gault) 80.1 Glucose Level 83 mg/dL (70-99) Calcium Level 8.5 mg/dL (8.5-10.1) Test 04/07/18 07:55 Glucose (Fingerstick) 77 mg/dL (70-99) Micro Microbiology 04/04/18 Blood Culture - Preliminary, Resulted NO GROWTH AFTER 1 DAY Objective Assessment Fever Leukocytosis Pneumonia COPD Cardiomyopathy/AICD HTN Renal insufficiency Plan Plan of Care cont rocephine and doxy/// ok to d/c on augmentin supportive care check cultures d/w SEMAJ Hummel MD Apr 07, 2018 10:21
[2018-04-07] MEDS ORDERED: AMOX1TAB61 PO (10:23)
[2018-04-07 11:00] VITALS: BP 116/71
[2018-04-07 15:04] VITALS: BP 143/87
[2018-04-07] MEDS ORDERED: WARFARIN 6 MG TABLET. PO ONE (16:00)
--- NOTE | 2018-04-07 17:14 | PDOC ---
PROGRESS NOTES Subjective Subjective No new complaints. Objective Objective Vital Signs Date Time Temp Pulse Resp B/P (MAP) Pulse Ox O2 Delivery O2 Flow Rate FiO2 04/07/18 16:10 Nasal Cannula 2.0 04/07/18 15:04 98.1 98 20 143/87 (105) 88 98.1 Intake and Output 04/07/18 07:00 Intake Total 1020 ml Balance 1020 ml Intake Oral 1020 ml # Voids 4 # Bowel Movements 2 Physical Exam Physical Exam He is supine in bed with hips and knees in flexion and he could not tolerate use of knee immobilizer to left knee.I spoke to his and they are carrying him to enter the home where he had 4 stairs to manage and they are manually picking him up to get him up and with his knee flexion contracture he could not sit in wheel chair and he had fallen forwards unless someone holds on to him. I spoke to about hamstring tendon release to help with knee flexion contracture. He would like me to try botox injection before considering tendon release. Plan Plan of Care To obtain him a Lex lift and reclining wheel chair to make it easy on his family with his care and after obtaining botox,to make arrangements for botox injections to his hamstring muscles on out patient basis. Comment Review of Relevant I have reviewed the following items chidi (where applicable) has been applied. Labs Laboratory Tests Test 04/06/18 03:50 04/06/18 11:48 04/06/18 16:39 04/06/18 21:09 White Blood Count 13.9 x10^3/uL (4.0-11.0) Red Blood Count 4.18 x10^6/uL (4.30-5.70) Hemoglobin 9.8 g/dL (13.0-17.5) Hematocrit 31.0 % (39.0-53.0) Mean Corpuscular Volume 74 fL (79-100) Mean Corpuscular Hemoglobin 23 pg (25-35) Mean Corpuscular Hemoglobin Concent 31 g/dL (31-37) Red Cell Distribution Width 18.7 % (11.5-14.5) Platelet Count 231 x10^3/uL (140-400) Neutrophils (%) (Auto) 83 % (31-73) Lymphocytes (%) (Auto) 9 % (24-48) Monocytes (%) (Auto) 7 % (0-9) Eosinophils (%) (Auto) 0 % (0-3) Basophils (%) (Auto) 0 % (0-3) Neutrophils # (Auto) 11.6 x10^3uL (1.8-7.7) Lymphocytes # (Auto) 1.3 x10^3/uL (1.0-4.8) Monocytes # (Auto) 1.0 x10^3/uL (0.0-1.1) Eosinophils # (Auto) 0.0 x10^3/uL (0.0-0.7) Basophils # (Auto) 0.0 x10^3/uL (0.0-0.2) Prothrombin Time 19.7 SEC (11.7-14.0) Prothromb Time International Ratio 1.7 (0.8-1.1) Sodium Level 144 mmol/L (136-145) Potassium Level 3.2 mmol/L (3.5-5.1) Chloride Level 112 mmol/L (98-107) Carbon Dioxide Level 21 mmol/L (21-32) Anion Gap 11 (6-14) Blood Urea Nitrogen 33 mg/dL (8-26) Creatinine 1.3 mg/dL (0.7-1.3) Estimated GFR (Cockcroft-Gault) 66.0 Glucose Level 80 mg/dL (70-99) Calcium Level 8.8 mg/dL (8.5-10.1) Glucose (Fingerstick) 92 mg/dL (70-99) 82 mg/dL (70-99) 102 mg/dL (70-99) Test 04/07/18 07:49 04/07/18 07:55 04/07/18 11:04 04/07/18 17:00 White Blood Count 8.6 x10^3/uL (4.0-11.0) Red Blood Count 4.13 x10^6/uL (4.30-5.70) Hemoglobin 9.8 g/dL (13.0-17.5) Hematocrit 30.7 % (39.0-53.0) Mean Corpuscular Volume 74 fL (79-100) Mean Corpuscular Hemoglobin 24 pg (25-35) Mean Corpuscular Hemoglobin Concent 32 g/dL (31-37) Red Cell Distribution Width 18.6 % (11.5-14.5) Platelet Count 223 x10^3/uL (140-400) Neutrophils (%) (Auto) 74 % (31-73) Lymphocytes (%) (Auto) 15 % (24-48) Monocytes (%) (Auto) 10 % (0-9) Eosinophils (%) (Auto) 1 % (0-3) Basophils (%) (Auto) 1 % (0-3) Neutrophils # (Auto) 6.3 x10^3uL (1.8-7.7) Lymphocytes # (Auto) 1.3 x10^3/uL (1.0-4.8) Monocytes # (Auto) 0.9 x10^3/uL (0.0-1.1) Eosinophils # (Auto) 0.0 x10^3/uL (0.0-0.7) Basophils # (Auto) 0.0 x10^3/uL (0.0-0.2) Prothrombin Time 20.5 SEC (11.7-14.0) Prothromb Time International Ratio 1.8 (0.8-1.1) Sodium Level 143 mmol/L (136-145) Potassium Level 3.6 mmol/L (3.5-5.1) Chloride Level 113 mmol/L (98-107) Carbon Dioxide Level 20 mmol/L (21-32) Anion Gap 10 (6-14) Blood Urea Nitrogen 18 mg/dL (8-26) Creatinine 1.1 mg/dL (0.7-1.3) Estimated GFR (Cockcroft-Gault) 80.1 Glucose Level 83 mg/dL (70-99) Calcium Level 8.5 mg/dL (8.5-10.1) Glucose (Fingerstick) 77 mg/dL (70-99) 90 mg/dL (70-99) 97 mg/dL (70-99) Laboratory Tests Test 04/06/18 21:09 04/07/18 07:49 04/07/18 07:55 04/07/18 11:04 Glucose (Fingerstick) 102 mg/dL (70-99) 77 mg/dL (70-99) 90 mg/dL (70-99) White Blood Count 8.6 x10^3/uL (4.0-11.0) Red Blood Count 4.13 x10^6/uL (4.30-5.70) Hemoglobin 9.8 g/dL (13.0-17.5) Hematocrit 30.7 % (39.0-53.0) Mean Corpuscular Volume 74 fL (79-100) Mean Corpuscular Hemoglobin 24 pg (25-35) Mean Corpuscular Hemoglobin Concent 32 g/dL (31-37) Red Cell Distribution Width 18.6 % (11.5-14.5) Platelet Count 223 x10^3/uL (140-400) Neutrophils (%) (Auto) 74 % (31-73) Lymphocytes (%) (Auto) 15 % (24-48) Monocytes (%) (Auto) 10 % (0-9) Eosinophils (%) (Auto) 1 % (0-3) Basophils (%) (Auto) 1 % (0-3) Neutrophils # (Auto) 6.3 x10^3uL (1.8-7.7) Lymphocytes # (Auto) 1.3 x10^3/uL (1.0-4.8) Monocytes # (Auto) 0.9 x10^3/uL (0.0-1.1) Eosinophils # (Auto) 0.0 x10^3/uL (0.0-0.7) Basophils # (Auto) 0.0 x10^3/uL (0.0-0.2) Prothrombin Time 20.5 SEC (11.7-14.0) Prothromb Time International Ratio 1.8 (0.8-1.1) Sodium Level 143 mmol/L (136-145) Potassium Level 3.6 mmol/L (3.5-5.1) Chloride Level 113 mmol/L (98-107) Carbon Dioxide Level 20 mmol/L (21-32) Anion Gap 10 (6-14) Blood Urea Nitrogen 18 mg/dL (8-26) Creatinine 1.1 mg/dL (0.7-1.3) Estimated GFR (Cockcroft-Gault) 80.1 Glucose Level 83 mg/dL (70-99) Calcium Level 8.5 mg/dL (8.5-10.1) Test 04/07/18 17:00 Glucose (Fingerstick) 97 mg/dL (70-99) Microbiology 04/04/18 Blood Culture - Preliminary, Resulted NO GROWTH AFTER 3 DAYS Medications Current Medications Influenza Virus Vaccine (Afluria Trivalent [id number] Syringe) 0.5 ml ONCE ONCE VAX IM ; Start 04/04/18 at 18:00; Stop 04/04/18 at 18:00; Status DC Albuterol/ Ipratropium (Duoneb) 3 ml RTQID NEB Last administered on 04/07/18at 16:00; Start 04/04/18 at 20:00 Sodium Chloride 1,000 ml @ 50 mls/hr Q20H IV Last administered on 04/07/18at 02:49; Start 04/04/18 at 16:15 Vancomycin HCl 1.5 gm/Sodium Chloride 500 ml @ 250 mls/hr 1X ONCE IV ; Start 04/04/18 at 19:00; Stop 04/04/18 at 20:59; Status UNV Vancomycin HCl (Vanco Per Pharmacy) 1 each PRN DAILY PRN MC SEE COMMENTS Last administered on 04/04/18at 22:19; Start 04/04/18 at 19:00; Stop 04/05/18 at 10 :53; Status DC Piperacillin Sod/ Tazobactam Sod 3.375 gm/Sodium Chloride 50 ml @ 100 mls/hr Q6HRS IV Last administered on 04/05/18at 06:25; Start 04/04/18 at 19:30; Stop 04/05/18 at 11:00; Status DC Piperacillin Sod/ Tazobactam Sod (Zosyn Per Pharmacy) 1 each PRN DAILY PRN MC SEE COMMENTS; Start 04/04/18 at 19:15; Stop 04/06/18 at 03:48; Status DC Vancomycin HCl 1.75 gm/Sodium Chloride 500 ml @ 250 mls/hr 1X ONCE IV Last administered on 04/04/18at 21:21; Start 04/04/18 at 20:00; Stop 04/04/18 at 21 :59; Status DC Piperacillin Sod/ Tazobactam Sod (Zosyn Per Pharmacy) 1 each PRN DAILY PRN MC SEE COMMENTS; Start 04/04/18 at 19:30; Status UNV Vancomycin HCl 1 gm/Sodium Chloride 250 ml @ 250 mls/hr Q24H IV ; Start at 21:00; Stop 04/05/18 at 21:00; Status DC Vancomycin HCl (Vancomycin Trough Level) 1 each 1X ONCE MC ; Start 04/06/18 at 20:30; Stop 04/06/18 at 20:30; Status DC Insulin Human Lispro (HumaLOG) 0-5 UNITS TIDWMEALS SQ ; Start 04/05/18 at 12:00 Dextrose (Dextrose 50%-Water Syringe) 12.5 gm PRN Q15MIN PRN IV SEE COMMENTS; Start 04/05/18 at 09:30 Amlodipine Besylate (Norvasc) 10 mg DAILY PO Last administered on 04/07/18at 09 :12; Start 04/05/18 at 11:00 Atorvastatin Calcium (Lipitor) 40 mg QHS PO Last administered on 04/06/18at 20: 31; Start 04/05/18 at 21:00 Buspirone HCl (Buspar) 10 mg BID PO Last administered on 04/07/18at 09:12; Start 04/05/18 at 11:00 Citalopram Hydrobromide (CeleXA) 20 mg DAILY PO Last administered on at 09:12; Start 04/05/18 at 11:00 Fluticasone Propionate (Flonase) 1 spray DAILY NS Last administered on at 09:12; Start 04/05/18 at 11:00 Potassium Chloride (Klor-Con) 10 meq DAILY PO Last administered on 04/07/18at 09:12; Start 04/05/18 at 11:00 Tramadol HCl (Ultram) 50 mg PRN Q8HRS PRN PO PAIN Last administered on at 20:50; Start 04/05/18 at 10:00 Non-Formulary Medication (Albuterol Sulfate (Albuterol Sulfate Neb Soln)) 1 vial QID NEB ; Start 04/05/18 at 13:00; Status UNV Gabapentin (Neurontin) 100 mg TID PO Last administered on 04/07/18at 15:14; Start 04/05/18 at 14:00 Memantine (Namenda) 10 mg BID PO Last administered on 04/07/18at 09:12; Start 04/05/18 at 11:00 Albuterol Sulfate (Ventolin Neb Soln) 2.5 mg RTQID NEB ; Start 04/05/18 at 12: 00; Status UNV Ceftriaxone Sodium 2 gm/ Dextrose 100 ml @ 200 mls/hr Q24H IV ; Start at 12:00; Stop 04/05/18 at 12:00; Status DC Doxycycline Hyclate (Vibra-Tab) 100 mg BID PO Last administered on 04/07/18at 09:12; Start 04/05/18 at 12:00 Ceftriaxone Sodium 2 gm/ Sodium Chloride 100 ml @ 200 mls/hr Q24H IV Last administered on 04/07/18at 15:13; Start 04/05/18 at 12:00 Phytonadione (Mephyton Oral Soln) 10 mg 1X ONCE PO Last administered on at 12:27; Start 04/05/18 at 12:30; Stop 04/05/18 at 12:31; Status DC Lactobacillus Rhamnosus (Culturelle) 1 cap BID PO Last administered on at 09:12; Start 04/06/18 at 09:00 Warfarin Sodium (Coumadin Per Pharmacy) 1 each PRN DAILY PRN MC SEE COMMENTS Last administered on 04/07/18at 15:10; Start 04/06/18 at 09:45 Potassium Chloride (Klor-Con) 40 meq 1X ONCE PO Last administered on at 11:44; Start 04/06/18 at 10:00; Stop 04/06/18 at 10:01; Status DC Polysaccharide Iron Complex (Niferex 150) 150 mg BID PO Last administered on at 09:12; Start 04/06/18 at 12:00 Diclofenac Sodium (Voltaren) 1 kevin BID TP Last administered on 04/07/18at 09:14 ; Start 04/06/18 at 12:00 Warfarin Sodium (Coumadin) 6 mg 1X WARF ONCE PO Last administered on at 16:04; Start 04/06/18 at 16:00; Stop 04/06/18 at 16:01; Status DC Warfarin Sodium (Coumadin) 6 mg 1X WARF ONCE PO ; Start 04/07/18 at 16:00; Stop 04/07/18 at 16:01; Status DC Active Scripts Active Reported Albuterol Sulfate Neb Soln (Albuterol Sulfate) 0.63 Mg/3 Ml Vial.neb 1 Vial NEB QID Fluticasone Propionate Nasal Hannibal (Fluticasone Propionate) 16 Gm Hannibal.susp 2 Inh NS DAILY Gabapentin 100 Mg Capsule 100 Mg PO TID Methocarbamol 500 Mg Tablet 500 Mg PO DAILY Citalopram Hbr (Citalopram Hydrobromide) 20 Mg Tablet 20 Mg PO DAILY Tramadol Hcl 50 Mg Tablet 50 Mg PO PRN Q8HRS PRN Atorvastatin Calcium 40 Mg Tablet 40 Mg PO QHS Amlodipine Besylate 10 Mg Tablet 10 Mg PO DAILY Warfarin Sodium 5 Mg Tablet 6 Mg PO DAILY Namenda (Memantine Hcl) 10 Mg Tablet 1 Tab PO BID Buspirone Hcl 10 Mg Tablet 1 Tab PO BID Furosemide 20 Mg Tablet 1 Tab PO DAILY Potassium Chloride 10 Meq Capsule.er 1 Cap PO DAILY Vitals/I & O Vital Sign - Last 24 Hours 04/06/18 04/06/18 04/06/18 04/06/18 19:00 20:00 20:14 20:50 Temp 98.6 98.6 Pulse 96 Resp 18 B/P (MAP) 106/68 (81) Pulse Ox 92 93 O2 Delivery Nasal Cannula Nasal Cannula Nasal Cannula Room Air O2 Flow Rate 2.0 2.0 2.0 04/06/18 04/06/18 04/07/18 04/07/18 21:50 23:00 03:00 07:00 Temp 98.8 98.6 98.0 98.8 98.6 98.0 Pulse 88 90 95 Resp 17 19 20 B/P (MAP) 113/71 (85) 125/66 (85) 140/76 (97) Pulse Ox 94 91 85 O2 Delivery Nasal Cannula Nasal Cannula Nasal Cannula 2L O2 Flow Rate 2.0 2.0 2.0 04/07/18 04/07/18 04/07/18 04/07/18 07:43 09:12 11:00 11:41 Temp 97.7 97.7 Pulse 95 92 Resp 20 B/P (MAP) 140/76 116/71 (86) Pulse Ox 84 O2 Delivery Nasal Cannula 2L Nasal Cannula O2 Flow Rate 2.0 2.0 04/07/18 04/07/18 15:04 16:10 Temp 98.1 98.1 Pulse 98 Resp 20 B/P (MAP) 143/87 (105) Pulse Ox 88 O2 Delivery Nasal Cannula Nasal Cannula O2 Flow Rate 2.0 2.0 Intake and Output 04/06/18 04/06/18 04/07/18 15:00 23:00 07:00 Intake Total 660 ml 360 ml Balance 660 ml 360 ml ALIN KC MD Apr 07, 2018 17:14
[2018-04-07 19:00] VITALS: BP 138/81
[2018-04-07] MEDS: ATORVASTATIN CALCIUM 40 MG TABLET. PO SCH (21:35)
== END 2018-04-07 23:15 | disposition home or self-care (01) | DRG 871 ==
LOC: 5 SOUTH 14:15
PROVIDERS: ADMIT Internal Medicine; ATTEND Internal Medicine
DX: A41.9 Sepsis, unspecified organism (principal); J18.9 Pneumonia, unspecified organism; I82.509 Chronic embolism and thrombosis of unspecified deep veins of unspecified lower extremity; J44.0 Chronic obstructive pulmonary disease with (acute) lower respiratory infection; D68.9 Coagulation defect, unspecified; I13.0 Hypertensive heart and chronic kidney disease with heart failure and stage 1 through stage 4 chronic kidney disease, or unspecified chronic kidney disease; E46 Unspecified protein-calorie malnutrition; I42.9 Cardiomyopathy, unspecified; F03.90 Unspecified dementia, unspecified severity, without behavioral disturbance, psychotic disturbance, mood disturbance, and anxiety; I50.9 Heart failure, unspecified; N18.9 Chronic kidney disease, unspecified; M48.00 Spinal stenosis, site unspecified; M17.0 Bilateral primary osteoarthritis of knee; G62.9 Polyneuropathy, unspecified; M24.561 Contracture, right knee; M24.562 Contracture, left knee; F17.210 Nicotine dependence, cigarettes, uncomplicated; Z79.01 Long term (current) use of anticoagulants; Z86.711 Personal history of pulmonary embolism; Z79.1 Long term (current) use of non-steroidal anti-inflammatories (NSAID); Z79.899 Other long term (current) drug therapy; Z86.79 Personal history of other diseases of the circulatory system; Z68.22 Body mass index [BMI] 22.0-22.9, adult; Z99.3 Dependence on wheelchair; Z95.810 Presence of automatic (implantable) cardiac defibrillator; Z95.828 Presence of other vascular implants and grafts
CPT/HCPCS: 36415; 71045; 80048; 80053; 82962; 83605; 85007; 85025; 85610; 87040; 87804; 93005; 94640; 94760; J0696; J1815; J2543; J3370; J7030; J7040; J7620

== ENCOUNTER 2018-09-21 18:13 | Emergency (ER) | payer MEDICARE, OTHER ==
[~2018-09-21] VITALS: Ht 177.8 cm; Wt 73.9 kg
[~2018-09-21 18:13] MED LIST changes: +ALBU0.63 NEB; +AMLO10TA8 PO; +AMLO5TAB10 PO; -AMLO5TAB7 PO; +AMOX1TAB61 PO; +ATOR40TA59 PO; +CITA20TA6 PO; +CLON1TAB11 PO; -CLON1TAB4 PO; +FLUT16SP NS; +GABA100C6 PO; +METH500T7 PO; +TRAM50TA PO; +WARF-31 PO
--- NOTE | 2018-09-21 19:53 | PHYS DOC ---
Past Medical History Past Medical History: Dementia, DVT, Heart Disease, Other Additional Past Medical Histor: pacemaker Past Surgical History: Pacemaker, Other Additional Past Surgical Histo: right shoulder Alcohol Use: None Drug Use: None Adult General Chief Complaint Chief Complaint: LACERATION/AVULSION HPI HPI Patient is a 72 year old male with a history of dementia and whom is bedridden as well as contracted at baseline presents to the ED complaining of laceration to left lower leg. Son states that he takes care of him and was transferring him from the wheelchair and he got his leg caught on the foot rest. States that he suffered a laceration to left lateral lower leg. States the incident happened around 9am this morning but was unable to get transportation until this evening. Denies drainage, surrounding erythema, paresthesias, calf swelling , chest pain, shortness of breath or nausea/vomiting. Review of Systems Review of Systems Constitutional: Denies fever or chills [] Eyes: Denies change in visual acuity, redness, or eye pain [] HENT: Denies nasal congestion or sore throat [] Respiratory: Denies cough or shortness of breath [] Cardiovascular: No additional information not addressed in HPI [] GI: Denies abdominal pain, nausea, vomiting, bloody stools or diarrhea [] : Denies dysuria or hematuria [] Musculoskeletal: Complains of leg laceration. Denies back pain or joint pain [] Integument: Denies rash or skin lesions [] Neurologic: Denies headache, focal weakness or sensory changes [] All other systems were reviewed and found to be within normal limits, except as documented in this note. Current Medications Current Medications Current Medications Medications (Trade) Dose Ordered Sig/Leena Start Time Stop Time Status Last Admin Dose Admin Diphtheria/ Tetanus/Acell Pertussis (Boostrix) 0.5 ml ONCE ONCE 09/21/18 20:30 09/21/18 20:31 DC 09/21/18 20:20 0.5 ML Lidocaine/Sodium Bicarbonate (Buffered Lidocaine 1%) 6 ml 1X ONCE 09/21/18 20:15 09/21/18 20:16 DC 09/21/18 20:20 6 ML Neomycin/ Polymyxin/ Bacitracin (Triple Antibiotic Ointment) 1 pkt 1X ONCE 09/21/18 21:15 09/21/18 21:15 DC 09/21/18 20:55 1 PKT Allergies Allergies Allergies Coded Allergies Type Severity Reaction Last Updated Verified No Known Drug Allergies 01/11/15 No Physical Exam Physical Exam Constitutional: Well developed, well nourished, no acute distress, non-toxic appearance. [] HENT: Normocephalic, atraumatic Neck: Normal range of motion, no tenderness, supple, no stridor. [] Cardiovascular:Heart rate regular rhythm, no murmur [] Lungs & Thorax: Bilateral breath sounds clear to auscultation [] Skin: Warm, dry, no erythema, no rash. [] Back: No tenderness, no CVA tenderness. [] Extremities: 4 cm left lateral lower leg laceration. No active bleeding. No bony tenderness, no cyanosis, no clubbing, ROM intact, no edema. [] Neurologic: normal motor function, normal sensory function at baseline. [] Psychologic: Affect normal, judgement normal, mood normal. [] Current Patient Data Vital Signs Vital Signs Date Time Temp Pulse Resp B/P (MAP) Pulse Ox O2 Delivery O2 Flow Rate FiO2 09/21/18 19:45 98.3 86 16 130/80 (97) 88 Room Air 98.3 EKG EKG [] Radiology/Procedures Radiology/Procedures [] Course & Med Decision Making Course & Med Decision Making Pertinent Labs and Imaging studies reviewed. (See chart for details) []No bony tenderness. No imaging warranted. Laceration repaired. No complications. Tetanus up-to-date. Discussed symptomatic treatment and wound care. Discussed follow-up for reevaluation 3 days. Provided contact information/ education. Discussed reasons to return to the ED. Patient understands and agrees with plan. Dragon Disclaimer Dragon Disclaimer This electronic medical record was generated, in whole or in part, using a voice recognition dictation system. Departure Departure Impression: Primary Impression: Leg laceration Disposition: HOME, SELF-CARE Condition: IMPROVED Referrals: ANGI BARCENAS MD (PCP) Patient Instructions: Laceration Care, Adult Laceration/Wound Repair Laceration/Wound Repair : Wound Location: lower extremity Wound's Depth, Shape: superficial Wound Length (cm): 4 Wound Explored: clean Irrigated w/ Saline (ccs): 500 Betadine Prep?: Yes Anesthesia: 1% Lidocaine Volume Anesthetic (ccs): 4 Wound Repaired With: sutures Suture Size/Type: 4:0, nylon Progress Tolerated well. no complications. KARINA DAVIES Sep 21, 2018 19:53
[2018-09-21] MEDS ORDERED: LIDOCAINE WITH 8.4% SOD BICARB 3 ML DISP.SYRIN. INJ ONE (20:15)
[2018-09-21] MEDS ORDERED: DIPHTH,PERTUSS(ACELL),TET TOX 0.5 ML DISP.SYRIN. VAX IM ONE (20:30)
[2018-09-21] MEDS ORDERED: NEOMY/BACITR/POLYMYXIN OINT PACKET. TP ONE ×2 (20:49→21:15)
[2018-09-21 20:55] VITALS: BP 144/88
[2018-11-02] MEDS ORDERED: SCOP1PAT11 TD (09:50)
== END 2018-09-21 20:59 | disposition home or self-care (01) ==
LOC: ER 18:13
DX: S81.812A Laceration without foreign body, left lower leg, initial encounter (principal); F03.90 Unspecified dementia, unspecified severity, without behavioral disturbance, psychotic disturbance, mood disturbance, and anxiety; Z95.0 Presence of cardiac pacemaker; Z86.718 Personal history of other venous thrombosis and embolism; Z86.79 Personal history of other diseases of the circulatory system; W23.0XXA Caught, crushed, jammed, or pinched between moving objects, initial encounter; Y93.89 Activity, other specified; Y92.89 Other specified places as the place of occurrence of the external cause; Y99.8 Other external cause status
CPT/HCPCS: 12002; 90471; 90715; 99284-25

== ENCOUNTER 2018-10-25 09:41 | Inpatient (IN) | payer MEDICARE, OTHER ==
[~2018-10-25] VITALS: Ht 175.3 cm; Wt 68.5 kg
[2018-10-25] VITALS (14 sets, daily range): BP systolic 42–145; BP diastolic 30–70
[2018-10-25] MEDS ORDERED: IV NORMAL SALINE 1000ML BAG 1,000 ML IV ONE ×5 (10:00→17:00)
[2018-10-25] MEDS ORDERED: ONDANSETRON PF 4 MG/2 ML VIAL. IV ONE (10:00)
[2018-10-25] MEDS ORDERED: fentaNYL PF VIAL 100 MCG/2 ML VIAL IV ONE (10:15)
[2018-10-25 10:26] LABS: BASO % 0 % (0-3); EOS % 0 % (0-3); HEMATOCRIT 34.5 % (39.0-53.0); HEMOGLOBIN 10.5 g/dL (13.0-17.5); LYMPH # 1.3 x10^3/uL (1.0-4.8); LYMPH % 10 % (24-48); MEAN CORPUSCULAR HEMOGLOBIN 25 pg (25-35); MEAN CORPUSCULAR HGB CONC 31 g/dL (31-37); MEAN CORPUSCULAR VOLUME 81 fL (79-100); MONO # 0.8 x10^3/uL (0.0-1.1); MONO % 6 % (0-9); NEUT # 10.4 x10^3uL (1.8-7.7); NEUT % 83 % (31-73); PLATELET COUNT 292 x10^3/uL (140-400); RED BLOOD COUNT 4.28 x10^6/uL (4.30-5.70); WHITE BLOOD COUNT 12.5 x10^3/uL (4.0-11.0)
--- NOTE | 2018-10-25 10:37 | RAD ---
Single view chest dated 10/25/2018. Comparison made to 04/06/2018. Clinical indication: Sepsis. Altered mental status. FINDINGS: Single upright view of the chest shows stable heart and mediastinal contours. Left-sided pacer in place, unchanged. Lungs are somewhat hyperinflated. There is patchy perihilar and bibasilar airspace disease, similar to slightly improved. No apparent pleural effusion or pneumothorax. IMPRESSION: Patchy perihilar and bibasilar opacity, atelectasis versus early pneumonia. The findings have improved from the 2018 exam. Electronically signed by: Raj Macdonald MD (10/25/2018 10:35 AM) [id number]
[2018-10-25 10:45] LABS: CALCIUM 8.5 mg/dL (8.5-10.1); CREATININE 1.1 mg/dL (0.7-1.3); GFR 80.1
[2018-10-25] MEDS ORDERED: cefTRIAXone IV Push 1 GM VIAL. IVP ONE (10:45)
[2018-10-25 10:50] LABS: ALBUMIN/GLOBULIN RATIO 0.4 (1.0-1.7); TOTAL BILIRUBIN 0.6 mg/dL (0.2-1.0); TOTAL PROTEIN 7.4 g/dL (6.4-8.2)
[2018-10-25] MEDS ORDERED: AZITHRMYCN 500MG IVPB FOR OMNI 250 ML IV ONE (11:15)
--- NOTE | 2018-10-25 11:15 | PHYS DOC ---
Past Medical History Past Medical History: CVA, Dementia, DVT, Heart Disease, Other Additional Past Medical Histor: pacemaker Past Surgical History: Pacemaker, Other Additional Past Surgical Histo: right shoulder Alcohol Use: None Drug Use: None Adult General Chief Complaint Chief Complaint: WEAKNESS/GENERALIZED HPI HPI Patient is a 72 year old M who presents for generalized weakness. 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 He feels generally weak all over. Denies fevers or vomiting. Denies cough. Has a wound care nurse that comes 3-4 days a week. Review of Systems Review of Systems Constitutional: Denies fever or chills Eyes: Denies change in visual acuity, redness, or eye pain HENT: Denies nasal congestion or sore throat Respiratory: Denies cough or shortness of breath Cardiovascular: No additional information not addressed in HPI GI: Denies abdominal pain, nausea, vomiting, bloody stools or diarrhea : Denies dysuria or hematuria Musculoskeletal: Denies back pain or joint pain Integument: Chronic decubitus wounds Neurologic: Denies headache, focal weakness or sensory changes All other systems were reviewed and found to be within normal limits, except as documented in this note. Current Medications Current Medications Current Medications Medications (Trade) Dose Ordered Sig/Leena Start Time Stop Time Status Last Admin Dose Admin Azithromycin 250 ml @ 250 mls/hr 1X ONCE 10/25/18 11:15 10/25/18 12:14 DC 10/25/18 11:46 250 MLS/HR Ceftriaxone Sodium (Rocephin) 1 gm 1X ONCE 10/25/18 10:45 10/25/18 10:46 DC 10/25/18 10:43 1 GM Fentanyl Citrate (Fentanyl 2ml Vial) 50 mcg 1X ONCE 10/25/18 10:15 10/25/18 10:22 DC 10/25/18 10:44 50 MCG Ondansetron HCl (Zofran) 4 mg 1X ONCE 10/25/18 10:00 10/25/18 10:02 DC 10/25/18 10:44 4 MG Sodium Chloride 1,000 ml @ 1,000 mls/hr 1X ONCE 10/25/18 10:00 10/25/18 10:59 DC 10/25/18 10:43 1,000 MLS/HR Allergies Allergies Allergies Coded Allergies Type Severity Reaction Last Updated Verified No Known Drug Allergies 01/11/15 No Physical Exam Physical Exam Constitutional: Well developed, well nourished, no acute distress, non-toxic appearance. HENT: Normocephalic, atraumatic, bilateral external ears normal, oropharynx moist, no oral exudates, nose normal. Eyes: PERRLA, EOMI, conjunctiva normal, no discharge. Neck: Normal range of motion, no tenderness, supple, no stridor. Cardiovascular:Heart rate regular rhythm, no murmur Lungs & Thorax: Bilateral breath sounds clear to auscultation Abdomen: Bowel sounds normal, soft, no tenderness, no masses, no pulsatile masses. Skin: Left sacral wound, left hip wound, left lower leg wound. Back: No tenderness, no CVA tenderness. Extremities: No tenderness, no cyanosis, no clubbing, ROM intact, no edema. Neurologic: Alert Psychologic: Affect normal, judgement normal, mood normal. Current Patient Data Vital Signs Vital Signs Date Time Temp Pulse Resp B/P (MAP) Pulse Ox O2 Delivery O2 Flow Rate FiO2 10/25/18 11:03 90 20 96 10/25/18 09:41 97.9 154/70 (98) Room Air 97.9 Lab Values Laboratory Tests Test 10/25/18 10:18 White Blood Count 12.5 x10^3/uL (4.0-11.0) H Red Blood Count 4.28 x10^6/uL (4.30-5.70) L Hemoglobin 10.5 g/dL (13.0-17.5) L Hematocrit 34.5 % (39.0-53.0) L Mean Corpuscular Volume 81 fL (79-100) Mean Corpuscular Hemoglobin 25 pg (25-35) Mean Corpuscular Hemoglobin Concent 31 g/dL (31-37) Red Cell Distribution Width 17.0 % (11.5-14.5) H Platelet Count 292 x10^3/uL (140-400) Neutrophils (%) (Auto) 83 % (31-73) H Lymphocytes (%) (Auto) 10 % (24-48) L Monocytes (%) (Auto) 6 % (0-9) Eosinophils (%) (Auto) 0 % (0-3) Basophils (%) (Auto) 0 % (0-3) Neutrophils # (Auto) 10.4 x10^3uL (1.8-7.7) H Lymphocytes # (Auto) 1.3 x10^3/uL (1.0-4.8) Monocytes # (Auto) 0.8 x10^3/uL (0.0-1.1) Eosinophils # (Auto) 0.0 x10^3/uL (0.0-0.7) Basophils # (Auto) 0.0 x10^3/uL (0.0-0.2) Sodium Level 142 mmol/L (136-145) Potassium Level 4.0 mmol/L (3.5-5.1) Chloride Level 107 mmol/L (98-107) Carbon Dioxide Level 25 mmol/L (21-32) Anion Gap 10 (6-14) Blood Urea Nitrogen 26 mg/dL (8-26) Creatinine 1.1 mg/dL (0.7-1.3) Estimated GFR (Cockcroft-Gault) 80.1 BUN/Creatinine Ratio 24 (6-20) H Glucose Level 143 mg/dL (70-99) H Lactic Acid Level 2.3 mmol/L (0.4-2.0) H Calcium Level 8.5 mg/dL (8.5-10.1) Total Bilirubin 0.6 mg/dL (0.2-1.0) Aspartate Amino Transferase (AST) 14 U/L (15-37) L Alanine Aminotransferase (ALT) 15 U/L (16-63) L Alkaline Phosphatase 62 U/L (46-116) Total Protein 7.4 g/dL (6.4-8.2) Albumin 2.0 g/dL (3.4-5.0) L Albumin/Globulin Ratio 0.4 (1.0-1.7) L Lipase 97 U/L (73-393) Laboratory Tests 10/25/18 10:18 Laboratory Tests 10/25/18 10:18 EKG EKG [] Radiology/Procedures Radiology/Procedures [] Course & Med Decision Making Course & Med Decision Making Pertinent Labs and Imaging studies reviewed. (See chart for details) 72 y/o M presents for gen weakness and mental status change. Pt meets sepsis criteria with leukocytosis and slightly elevated lactic. Rocephin and azithro given. CXR concerning for PNA. This is a possible source as are his wounds. Admit to Dr. Morales. Edna Disclaimer Edna Disclaimer This electronic medical record was generated, in whole or in part, using a voice recognition dictation system. Departure Departure Impression: Primary Impression: Sepsis Disposition: 09 ADMITTED INPATIENT Admitting Physician: Shayne Morales Condition: STABLE Referrals: SHAYNE MORALES MD (PCP) CARLA JEAN MD October 25, 2018 11:15
[2018-10-25] MEDS ORDERED: VANCOMYCIN PER PHARMACY MC PRN (15:45)
[2018-10-25] MEDS ORDERED: FURO40TA4 PO (15:49)
[2018-10-25] MEDS ORDERED: ALLO100T PO (15:49)
[2018-10-25] MEDS ORDERED: POTA10TA12 PO (15:49)
[2018-10-25] MEDS ORDERED: FAMO20TA5 PO (15:49)
[2018-10-25] MEDS ORDERED: TRAZ-118 PO (15:49)
[2018-10-25] MEDS ORDERED: BUME1TAB3 PO (15:49)
[2018-10-25] MEDS ORDERED: CARV12.511 PO (15:49)
[2018-10-25] MEDS ORDERED: ERGO500027 PO (15:49)
[2018-10-25] MEDS ORDERED: VANCOMYCIN 1.75 GM in IV NORMAL SALINE 500ML BAG 500 ML IV ONE (16:00)
--- NOTE | 2018-10-25 16:52 | EKG ---
[facility] [address] [place] [address] Test Date: 2018-10-25 Test Time: 16:19:10 Pat Name: MADHAV CARTY Department: Room: [facility] Gender: M [employer] As[employer]er: : 1945 Requested By: ANGI BARCENAS Order Number: [id number] Reading MD: Ross Schmitz Measurements Intervals [place] Rate: 114 P: DC: QRS: 82 QRSD: 138 T: 45 QT: 364 QTc: 506 Interpretive Statements SINUS TACHYCARDIA LEFT BUNDLE BRANCH BLOCK Electronically Signed On 11-17-2018 12:06:57 CDT by Ross Schmitz
--- NOTE | 2018-10-25 17:14 | NUR ---
Patient's , Lindsey, notified of transfer to bed 105 for low blood pressure and elevated temperature.
[2018-10-25] MEDS ORDERED: traZODone 50 MG TABLET. PO PRN (17:15)
[2018-10-25 17:17] LABS: PROTHROMBIN TIME PATIENT 23.4 SEC (11.7-14.0)
--- NOTE | 2018-10-25 17:28 | NUR ---
Upon arrival RN report that pressure dropped into the 50's and the patient is not as responsive. IV site infiltrated, New IV's started in the Rt forearm. Bolus restarted. BP remains in the 60-70's Pt transferred to ICU room 105. Addendum: 10/25/18 at 1732 by NARAYAN LAM RN Amended: Links added.
--- NOTE | 2018-10-25 17:37 | NUR ---
Pharmacy Warfarin Dosing Note S:Pharmacy consulted to assist with anticoagulation therapy O:MADHAV CARTY is a 72 year old M with Atrial Fibrillation, h/o DVT LABS: Last INR: 2.1 Last HGB: 10.5 Last HCT: 34.5 Last PLT: 292 Previous Regimen: 5 mg/day Drug Interaction Changes: Same Interacting Drug Ongoing Drug Interactions: allopurinol A:INR of 2.1 is within desired range. Target range for this patient is: 2 - 3 P: Warfarin dose: 5 mg today @ 1800 Bridge Therapy: None Next INR due 10/26/18 Pharmacy anticoagulation service will continue to follow. TARUN ROBINS [facility], 10/25/18 [id number]
[2018-10-25] MEDS ORDERED: WARFARIN 5 MG TABLET. PO ONE (18:00)
--- NOTE | 2018-10-25 18:06 | PDOC4 ---
OPERATIVE NOTE Date: Date: October 25, 2018 Pre-Op Diagnosis: aur USD BPH W LUTS Post-Op Diagnosis: bph w obStruction. Bulbar large caliber USD large volume AUR Procedure Performed: cysto, complex cath. Surgeon: Anesthesia Type: LOCAL Blood Loss: 2ml Specimans Obtained: none Findings: Bulbar wide caliber stricture and false passage proximal to it noted. obstructing prostate lobes Complications: none evident Operative Note: prepped and draped. 16FR FLEX CYSTO WAS USED to get into urethra. Bulbar wide caliber stricture and false passage proximal to it noted. 0.0.35 Wire navigated into proper lumen and cystoscope driven into bladder. +sediments noted. 16fr barrow tip was used to drain bladder. Tubing/bag attached. Leave till ready to discharge. ASA MEDINA MD October 25, 2018 18:06
[2018-10-25] MEDS: PIPERACILLIN/TAZOBACTAM 3.375 GM in IV NORMAL SALINE 50ML 50 ML IV SCH (18:30)
--- NOTE | 2018-10-25 18:53 | NUR ---
Pharmacy Vancomycin Dosing Note S:Consulted to monitor and dose vancomycin started 10/25/18. O:MADHAV CARTY is a 72 year old M with Sepsis. Height: 5 feet, 9 inches Weight: 66.4 kg Dosing Weight: Actual Other Antibiotics: ZOSYN 3.375G IV Q6HRS LABS: Last BUN: 26 Last Creatinine: 1.1 Creatinine Clearance: 59 mL/min Last WBC: 12.5 Tmax (past 24 hours): 102 Microbiology: BLOOD CX PENDING MRSA NASAL SWAB PENDING I/O: 1250/no output A: Patient requires vancomycin for sepsis, goal trough 15-20 mcg/ml. Patient's SCr is 1.1 with an eCrCl of 59 ml/min. Initiate the following: P: 1. Initiate Vancomycin 1750 mg IV x 1 dose, then 1000 mg IV q12h 2. Follow up Trough level on 10/27/18 at 0730 3. Pharmacy will continue to monitor, follow and adjust therapy as needed. TARUN ROBINS [facility], 10/25/18 [id number]
--- NOTE | 2018-10-25 19:00 | NUR ---
received patient 1645 post rapid, hypotention,temp 102,unresponsive, fluid bolus total 4L including ED and floor. levo titrated for effect up to 20mcg min, Dr. Morales called with update, lactic increased to 7.6
[2018-10-25] MEDS ORDERED: FLUCONAZOLE 200MG/100ML PREMIX 100 ML IV ONE (20:00)
[2018-10-25 20:56] LABS: BASE EXCESS ABG -10 mmol/L (-3-3); CORRECTED PCO2 ABG 26 mmHg; CORRECTED PH ABG 7.36; CORRECTED PO2 ABG 433 mmHg; HCO3 ABG 14 mmol/L (21-28); SAT O2 ABG 100 % (92-99)
[2018-10-25 20:57] LABS: PCO2 ABG 23 mmHg (35-46); PO2 ABG 421 mmHg (65-108)
[2018-10-25] MEDS: MEMANTINE 10 MG TABLET. PO SCH (21:00)
[2018-10-25] MEDS: ATORVASTATIN CALCIUM 40 MG TABLET. PO SCH (21:00)
[2018-10-25] MEDS ORDERED: SODIUM BICARB ADULT 8.4% 50 MEQ/50 ML DISP.SYRIN. IV ONE ×2 (21:45)
--- NOTE | 2018-10-25 21:48 | NUR ---
Per , Dr. Morrison consulted. The RN spoke with Dr. Morrison and informed on pt status, BiPap settings, ABG results, labs, medications, and transfer to ICU. Received orders to administer 2 amps bicarbonate and to "take off biPap if pt no longer tolerates it." Order entered for bicarbonate amps. Pt is currently resting with eyes closed; is currently in the room.
[2018-10-25] MEDS: NOREPINEPHRIN 8MG/250ML PREMIX 250 ML IV PRN (22:25)
--- NOTE | 2018-10-25 23:22 | NUR ---
Pt was able to vocalize to RN that his "bottom is hurting" r/t sacral wound. No medications for pain available. The RN placed a call to Dr. Morales's office. Dr. Mauricio is the on-call physician for this pm. RN called Dr. Mauricio and updated MD of pt situation. Received orders for PRN Tylenol 650 mg supp or PO Q4hrs, PRN IVP Fentanyl 25 mcg Q3hrs, and PRN PO Tramadol 50 mg Q8hrs. Orders entered into system.
[2018-10-25] MEDS ORDERED: traMADol 50 MG TABLET PO PRN (23:30)
[2018-10-25] MEDS ORDERED: ACETAMINOPHEN 325 MG TABLET. PO PRN (23:30)
[2018-10-26] VITALS (29 sets, daily range): BP systolic 73–131; BP diastolic 50–80
[2018-10-26] MEDS: fentaNYL PF VIAL 100 MCG/2 ML VIAL IV PRN ×2 (00:09→03:16)
[2018-10-26] MEDS: ACETAMINOPHEN 650 MG SUPP.RECT. PR PRN ×2 (00:10→04:28)
[2018-10-26] MEDS: PIPERACILLIN/TAZOBACTAM 3.375 GM in IV NORMAL SALINE 50ML 50 ML IV SCH ×2 (00:28→06:11)
[2018-10-26 01:28] LABS: BILIRUBIN,URINE SMALL (NEG); CLARITY,URINE CLEAR; COLOR,URINE AMBER; NITRITE,URINE NEGATIVE (NEG); PH,URINE 5.5; PROTEIN,URINE 30 mg/dL (NEG-TRACE)
[2018-10-26 01:49] LABS: BACTERIA,URINE MOD /HPF (0-FEW); SQUAMOUS EPITHELIAL CELL,UR OCC /LPF
[2018-10-26 05:24] LABS: BASO % 0 % (0-3); EOS % 0 % (0-3); HEMATOCRIT 27.9 % (39.0-53.0); HEMOGLOBIN 8.4 g/dL (13.0-17.5); LYMPH # 0.3 x10^3/uL (1.0-4.8); LYMPH % 1 % (24-48); MEAN CORPUSCULAR HEMOGLOBIN 25 pg (25-35); MEAN CORPUSCULAR HGB CONC 30 g/dL (31-37); MEAN CORPUSCULAR VOLUME 82 fL (79-100); MONO # 0.6 x10^3/uL (0.0-1.1); MONO % 2 % (0-9); NEUT # 37.1 x10^3uL (1.8-7.7); NEUT % 98 % (31-73); PLATELET COUNT 151 x10^3/uL (140-400); RED CELL DISTRIBUTION WIDTH 17.2 % (11.5-14.5); WHITE BLOOD COUNT 38.1 x10^3/uL (4.0-11.0)
[2018-10-26] MEDS: NOREPINEPHRIN 8MG/250ML PREMIX 250 ML IV PRN ×3 (06:02→18:47)
[2018-10-26 06:06] LABS: CALCIUM 7.1 mg/dL (8.5-10.1); CREATININE 1.7 mg/dL (0.7-1.3); GFR 48.3; POTASSIUM 4.1 mmol/L (3.5-5.1)
--- NOTE | 2018-10-26 06:52 | PDOC ---
Infectious Disease Note Vital Sign Vital Signs Vital Signs Date Time Temp Pulse Resp B/P (MAP) Pulse Ox O2 Delivery O2 Flow Rate FiO2 10/26/18 04:35 100 BiPAP/CPAP 10/26/18 04:00 100.7 114 28 99/60 (73) 100.7 Labs Lab Laboratory Tests Test 10/25/18 10:18 10/25/18 14:15 10/25/18 18:18 10/25/18 20:41 White Blood Count 12.5 x10^3/uL (4.0-11.0) Red Blood Count 4.28 x10^6/uL (4.30-5.70) Hemoglobin 10.5 g/dL (13.0-17.5) Hematocrit 34.5 % (39.0-53.0) Mean Corpuscular Volume 81 fL (79-100) Mean Corpuscular Hemoglobin 25 pg (25-35) Mean Corpuscular Hemoglobin Concent 31 g/dL (31-37) Red Cell Distribution Width 17.0 % (11.5-14.5) Platelet Count 292 x10^3/uL (140-400) Neutrophils (%) (Auto) 83 % (31-73) Lymphocytes (%) (Auto) 10 % (24-48) Monocytes (%) (Auto) 6 % (0-9) Eosinophils (%) (Auto) 0 % (0-3) Basophils (%) (Auto) 0 % (0-3) Neutrophils # (Auto) 10.4 x10^3uL (1.8-7.7) Lymphocytes # (Auto) 1.3 x10^3/uL (1.0-4.8) Monocytes # (Auto) 0.8 x10^3/uL (0.0-1.1) Eosinophils # (Auto) 0.0 x10^3/uL (0.0-0.7) Basophils # (Auto) 0.0 x10^3/uL (0.0-0.2) Prothrombin Time 23.4 SEC (11.7-14.0) Prothromb Time International Ratio 2.1 (0.8-1.1) Sodium Level 142 mmol/L (136-145) Potassium Level 4.0 mmol/L (3.5-5.1) Chloride Level 107 mmol/L (98-107) Carbon Dioxide Level 25 mmol/L (21-32) Anion Gap 10 (6-14) Blood Urea Nitrogen 26 mg/dL (8-26) Creatinine 1.1 mg/dL (0.7-1.3) Estimated GFR (Cockcroft-Gault) 80.1 BUN/Creatinine Ratio 24 (6-20) Glucose Level 143 mg/dL (70-99) Lactic Acid Level 2.3 mmol/L (0.4-2.0) 4.9 mmol/L (0.4-2.0) 7.6 mmol/L (0.4-2.0) Calcium Level 8.5 mg/dL (8.5-10.1) Total Bilirubin 0.6 mg/dL (0.2-1.0) Aspartate Amino Transf (AST/SGOT) 14 U/L (15-37) Alanine Aminotransferase (ALT/SGPT) 15 U/L (16-63) Alkaline Phosphatase 62 U/L (46-116) Total Protein 7.4 g/dL (6.4-8.2) Albumin 2.0 g/dL (3.4-5.0) Albumin/Globulin Ratio 0.4 (1.0-1.7) Lipase 97 U/L (73-393) Procalcitonin 29.00 ng/mL (0.00-0.10) O2 Saturation 100 % (92-99) Arterial Blood pH 7.39 (7.35-7.45) Arterial Blood pH (Temp corrected) 7.36 Arterial Blood pCO2 at Patient Temp 23 mmHg (35-46) Arterial Blood pCO2 (Temp correct) 26 mmHg Arterial Blood pO2 at Patient Temp 421 mmHg (65-108) Arterial Blood pO2 (Temp corrected) 433 mmHg Arterial Blood HCO3 14 mmol/L (21-28) Arterial Blood Base Excess -10 mmol/L (-3-3) Test 10/26/18 01:22 10/26/18 04:45 10/26/18 04:48 Urine Collection Type Unknown Urine Color Maryann Urine Clarity Clear Urine pH 5.5 Urine Specific [place] 1.020 Urine Protein 30 mg/dL (NEG-TRACE) Urine Glucose (UA) Negative mg/dL (NEG) Urine Ketones (Stick) Negative mg/dL (NEG) Urine Blood Moderate (NEG) Urine Nitrite Negative (NEG) Urine Bilirubin Small (NEG) Urine Urobilinogen Dipstick 1.0 mg/dL (0.2 mg/dL) Urine Leukocyte Esterase Moderate (NEG) Urine RBC 3-5 /HPF (0-2) Urine WBC 11-20 /HPF (0-4) Urine Squamous Epithelial Cells Occ /LPF Urine Bacteria Mod /HPF (0-FEW) Urine Mucus Slight /LPF Sodium Level 151 mmol/L (136-145) Potassium Level 4.1 mmol/L (3.5-5.1) Chloride Level 117 mmol/L (98-107) Carbon Dioxide Level 17 mmol/L (21-32) Anion Gap 17 (6-14) Blood Urea Nitrogen 28 mg/dL (8-26) Creatinine 1.7 mg/dL (0.7-1.3) Estimated GFR (Cockcroft-Gault) 48.3 Glucose Level 101 mg/dL (70-99) Calcium Level 7.1 mg/dL (8.5-10.1) White Blood Count 38.1 x10^3/uL (4.0-11.0) Red Blood Count 3.40 x10^6/uL (4.30-5.70) Hemoglobin 8.4 g/dL (13.0-17.5) Hematocrit 27.9 % (39.0-53.0) Mean Corpuscular Volume 82 fL (79-100) Mean Corpuscular Hemoglobin 25 pg (25-35) Mean Corpuscular Hemoglobin Concent 30 g/dL (31-37) Red Cell Distribution Width 17.2 % (11.5-14.5) Platelet Count 151 x10^3/uL (140-400) Neutrophils (%) (Auto) 98 % (31-73) Lymphocytes (%) (Auto) 1 % (24-48) Monocytes (%) (Auto) 2 % (0-9) Eosinophils (%) (Auto) 0 % (0-3) Basophils (%) (Auto) 0 % (0-3) Neutrophils # (Auto) 37.1 x10^3uL (1.8-7.7) Lymphocytes # (Auto) 0.3 x10^3/uL (1.0-4.8) Monocytes # (Auto) 0.6 x10^3/uL (0.0-1.1) Eosinophils # (Auto) 0.0 x10^3/uL (0.0-0.7) Basophils # (Auto) 0.0 x10^3/uL (0.0-0.2) Objective Assessment Sepsis - POA - on 24 of Levophed Urinary obstruction - s/p Frye placement 10/25 by Urology UTI - POA Multiple unstageable wounds Right hand swelling and pain for over a month per - h/o gout and states has been off gout med at home because it interacted with other meds RICK Resp failure - on Bipap ? aspiration loose stool - on abx last month Plan Plan of Care Cont Zosyn but adjust dose with RICK Hold further Vanc as he is going into Renal failure. Dose Dapto consult Renal Add Micafungin/Doxy Check c-diff and add Flagyl Add uric acid with right wrist swelling Too unstable for additional imaging at this point Surgery has lubna Consulted F/u labs and cults Local wound care Critically ill Guarded prognosis D/w about the critical nature of illness D/w nursing 35 mins CC # [id number] CAROL LAUREANO MD October 26, 2018 06:52
--- NOTE | 2018-10-26 07:42 | NUR ---
This RN noted trending down of pt BP and UO. Dr. Morales called and notified of low output, increased BUN, creatinine, and decreasing BP. Received orders to consult Dr. Guaman, give 500 ml NS bolus, and to continue titrating Levophed as needed up to 30 mcg. Calls placed this am for consults of both Dr. Guaman and Dr. Casper. Dr Roy notified this shift of pt lactic acid of 7.6. See VS, I&O.
[2018-10-26] MEDS: MICAFUNGIN 100 MG in IV DEXTROSE 5% 100ML 100 ML IV SCH (07:53)
[2018-10-26] MEDS ORDERED: VANCOMYCIN 1 GM in IV NORMAL SALINE 250ML 250 ML IV SCH (08:00)
[2018-10-26] MEDS ORDERED: DAPTOmycin (GENERIC) IVPB 380 MG in IV NORMAL SALINE 50ML 50 ML IV SCH (08:00)
--- NOTE | 2018-10-26 08:22 | PDOC2 ---
MARIA ELENA CHUNG [employer]TER 10/26/18 0822: CONSULT Date of Consult Date of Consult DATE: 10/26/18 TIME: 08:12 Reason for Consult Reason for Consult: sacral and left hip decub Referring Physician Referring Physician: ER Identification/Chief Complaint Chief Complaint generalized weakness Source Source: Caregiver, Chart review History of Present Illness Reason for Visit: Bed/wheelchair bound patient admitted with worsening weakness. Hypotensive, requiring pressor support. Worsening renal function. Decub to scarum and left hip. Past Medical History Cardiovascular: CHF, HTN Pulmonary: Asthma, Pulmonary embolus CENTRAL NERVOUS SYSTEM: Dementia GI: Peptic Ulcer disease Psych: Anxiety, Depression Musculoskeletal: Muscle atrophy Renal/: UTI Endocrine: Diabetes Past Surgical History Past Surgical History: Pacemaker Family History Family History: Family History Unknown Social History Quit ALCOHOL: none Drugs: None Lives: with Family Current Medications Current Medications Current Medications Ondansetron HCl (Zofran) 4 mg 1X ONCE IV Last administered on 10/25/18at 10:44; Start 10/25/18 at 10:00; Stop 10/25/18 at 10:02; Status DC Sodium Chloride 1,000 ml @ 1,000 mls/hr 1X ONCE IV Last administered on 10/25/18at 10:43; Start 10/25/18 at 10:00; Stop 10/25/18 at 10:59; Status DC Fentanyl Citrate (Fentanyl 2ml Vial) 50 mcg 1X ONCE IV Last administered on 10/25/18at 10:44; Start 10/25/18 at 10:15; Stop 10/25/18 at 10:22; Status DC Ceftriaxone Sodium (Rocephin) 1 gm 1X ONCE IVP Last administered on 10/25/18at 10:43; Start 10/25/18 at 10:45; Stop 10/25/18 at 10:46; Status DC Azithromycin 250 ml @ 250 mls/hr 1X ONCE IV Last administered on 10/25/18at 11:46; Start 10/25/18 at 11:15; Stop 10/25/18 at 12:14; Status DC Sodium Chloride 1,000 ml @ 1,000 mls/hr 1X ONCE IV Last administered on at 15:25; Start 10/25/18 at 15:30; Stop 10/25/18 at 16:29; Status DC Vancomycin HCl (Vanco Per Pharmacy) 1 each PRN DAILY PRN MC SEE COMMENTS Last administered on 10/25/18at 18:52; Start 10/25/18 at 15:45; Stop 10/26/18 at 06:25; Status DC Vancomycin HCl 1.75 gm/Sodium Chloride 500 ml @ 250 mls/hr 1X ONCE IV Last administered on 10/25/18at 19:43; Start 10/25/18 at 16:00; Stop 10/25/18 at 17:59; Status DC Norepinephrine Bitartrate 250 ml @ 1.875 mls/ hr CONT PRN IV SEE I/O RECORD Last administered on 10/26/18at 06:02; Start 10/25/18 at 16:45 Piperacillin Sod/ Tazobactam Sod 3.375 gm/Sodium Chloride 50 ml @ 100 mls/hr Q6HRS IV Last administered on 10/26/18at 06:11; Start 10/25/18 at 18:00; Stop 10/26/18 at 06:25; Status DC Sodium Chloride 1,000 ml @ 100 mls/hr 1X ONCE IV Last administered on 10/25/18at 18:37; Start 10/25/18 at 17:00; Stop 10/26/18 at 02:59; Status DC Allopurinol (Zyloprim) 100 mg DAILY PO ; Start 10/26/18 at 09:00 Atorvastatin Calcium (Lipitor) 40 mg QHS PO ; Start 10/25/18 at 21:00 Memantine (Namenda) 10 mg BID PO ; Start 10/25/18 at 21:00 Trazodone HCl (Desyrel) 50 mg PRN QHS PRN PO INSOMNIA; Start 10/25/18 at 17:15 Warfarin Sodium (Coumadin Per Pharmacy) 1 each PRN DAILY PRN MC SEE COMMENTS Last administered on 10/25/18at 17:32; Start 10/25/18 at 17:00 Warfarin Sodium (Coumadin) 5 mg 1X WARF ONCE PO ; Start 10/25/18 at 18:00; Stop 10/25/18 at 18:01; Status DC Vancomycin HCl 1 gm/Sodium Chloride 250 ml @ 250 mls/hr Q12H IV ; Start 10/26/18 at 08:00; Stop 10/26/18 at 08:00; Status DC Vancomycin HCl (Vancomycin Trough Level) 1 each 1X ONCE MC ; Start 10/27/18 at 07:30; Stop 10/27/18 at 07:31 Sodium Chloride 1,000 ml @ 1,000 mls/hr 1X ONCE IV Last administered on 10/25/18at 16:45; Start 10/25/18 at 16:45; Stop 10/25/18 at 19:04; Status DC Sodium Chloride 1,000 ml @ 1,000 mls/hr 1X ONCE IV Last administered on 10/25/18at 16:45; Start 10/25/18 at 16:45; Stop 10/25/18 at 19:04; Status DC Fluconazole/ Sodium Chloride 100 ml @ 100 mls/hr 1X ONCE IV Last administered on 10/25/18at 22:26; Start 10/25/18 at 20:00; Stop 10/25/18 at 20:59; Status DC Sodium Bicarbonate (Sodium Bicarb Adult 8.4% Syr) 50 meq 1X ONCE IV Last administered on 10/25/18at 22:27; Start 10/25/18 at 21:45; Stop 10/25/18 at 21:50; Status DC Sodium Bicarbonate (Sodium Bicarb Adult 8.4% Syr) 50 meq 1X ONCE IV Last administered on 10/25/18at 22:27; Start 10/25/18 at 21:45; Stop 10/25/18 at 21:50; Status DC Acetaminophen (Tylenol) 650 mg PRN Q4HRS PRN PO MILD PAIN / TEMP; Start 10/25/18 at 23:30 Acetaminophen (Tylenol Supp) 650 mg PRN Q4HRS PRN NC MILD PAIN / TEMP Last administered on 10/26/18at 04:28; Start 10/25/18 at 23:30 Fentanyl Citrate (Fentanyl 2ml Vial) 25 mcg PRN Q3HRS PRN IV PAIN Last administered on 10/26/18at 03:16; Start 10/25/18 at 23:30 Tramadol HCl (Ultram) 50 mg PRN Q8HRS PRN PO PAIN; Start 10/25/18 at 23:30 Micafungin Sodium 100 mg/Dextrose 100 ml @ 100 mls/hr Q24H IV Last administered on 10/26/18at 07:53; Start 10/26/18 at 06:30 Doxycycline Hyclate 100 mg/ Dextrose 100 ml @ 50 mls/hr Q12HR IV ; Start 10/26/18 at 09:00 Piperacillin Sod/ Tazobactam Sod 2.25 gm/Sodium Chloride 50 ml @ 100 mls/hr Q6HRS IV ; Start 10/26/18 at 12:00 Daptomycin 380 mg/ Sodium Chloride 50 ml @ 100 mls/hr Q48H IV ; Start 10/26/18 at 08:00 Metronidazole 100 ml @ 100 mls/hr Q8HRS IV ; Start 10/26/18 at 14:00 Active Scripts Active Reported Vitamin D2 (Ergocalciferol (Vitamin D2)) 50,000 Unit Capsule 1 Cap PO WEEKLY Trazodone Hcl 50 Mg Tablet 1 Tab PO QHS PRN Famotidine 20 Mg Tablet 20 Mg PO BID Carvedilol (Carvedilol) 12.5 Mg Tablet 12.5 Mg PO BIDWMEALS Bumetanide 1 Mg Tablet 1 Tab PO DAILY Allopurinol 100 Mg Tablet 1 Tab PO DAILY Furosemide 40 Mg Tablet 1 Tab PO DAILY Klor-Con 10 (Potassium Chloride) 10 Meq Tablet.er 2 Tab PO DAILY Methocarbamol 500 Mg Tablet 500 Mg PO TID PRN Citalopram Hbr (Citalopram Hydrobromide) 20 Mg Tablet 20 Mg PO DAILY Tramadol Hcl 50 Mg Tablet 50 Mg PO PRN Q8HRS PRN Atorvastatin Calcium 40 Mg Tablet 40 Mg PO QHS Amlodipine Besylate 10 Mg Tablet 10 Mg PO DAILY Warfarin Sodium 5 Mg Tablet 1 Tab PO DAILY Namenda (Memantine Hcl) 10 Mg Tablet 1 Tab PO BID Allergies Allergies: Coded Allergies: No Known Drug Allergies (Unverified , 01/11/15) ROS General: YES: Fatigue, Other (+ fevers) PSYCHOLOGICAL ROS: YES: Anxiety, Depression Eyes: No Blurry vision, No Double vision HEENT: No: Heacaches, Sore Throat Hematological and Lymphatic: YES: Bleeding Problems, Blood Clots Respiratory: YES: Shortness of breath; No: Cough Cardiovascular: No Chest Pain, No Palpitations Gastrointestinal: Yes Diarrhea; No Nausea, No Vomiting Genitourinary: YES Retention; No Hematuria Musculoskeletal: Yes Joint Pain, Yes Muscular Weakness Neurological: Yes Confusion, Yes Impaired Coord/balance Skin: Yes Other (see hpi) Physical Exam General: Cooperative, No acute distress HEENT: Atraumatic, Mucous membr. moist/pink Lungs: Other (bipap) Heart: Other (tachy) Abdomen: Soft, No tenderness Extremities: Other (contracted extremities ) Skin: Other (scaral decub with boggy tissue to edges, wound tunnels, foul odor, left hip some necrosis to central area of ulcer) Neuro: Sensation intact Psych/Mental Status: Mood NL Vitals VITALS Vital Signs Date Time Temp Pulse Resp B/P (MAP) Pulse Ox O2 Delivery O2 Flow Rate FiO2 10/26/18 07:02 100 BiPAP/CPAP 10/26/18 07:00 82 24 86/71 (76) 10/26/18 04:00 100.7 100.7 Labs Labs Laboratory Tests Test 10/25/18 10:18 10/25/18 14:15 10/25/18 18:18 10/25/18 20:41 White Blood Count 12.5 x10^3/uL (4.0-11.0) Red Blood Count 4.28 x10^6/uL (4.30-5.70) Hemoglobin 10.5 g/dL (13.0-17.5) Hematocrit 34.5 % (39.0-53.0) Mean Corpuscular Volume 81 fL (79-100) Mean Corpuscular Hemoglobin 25 pg (25-35) Mean Corpuscular Hemoglobin Concent 31 g/dL (31-37) Red Cell Distribution Width 17.0 % (11.5-14.5) Platelet Count 292 x10^3/uL (140-400) Neutrophils (%) (Auto) 83 % (31-73) Lymphocytes (%) (Auto) 10 % (24-48) Monocytes (%) (Auto) 6 % (0-9) Eosinophils (%) (Auto) 0 % (0-3) Basophils (%) (Auto) 0 % (0-3) Neutrophils # (Auto) 10.4 x10^3uL (1.8-7.7) Lymphocytes # (Auto) 1.3 x10^3/uL (1.0-4.8) Monocytes # (Auto) 0.8 x10^3/uL (0.0-1.1) Eosinophils # (Auto) 0.0 x10^3/uL (0.0-0.7) Basophils # (Auto) 0.0 x10^3/uL (0.0-0.2) Prothrombin Time 23.4 SEC (11.7-14.0) Prothromb Time International Ratio 2.1 (0.8-1.1) Sodium Level 142 mmol/L (136-145) Potassium Level 4.0 mmol/L (3.5-5.1) Chloride Level 107 mmol/L (98-107) Carbon Dioxide Level 25 mmol/L (21-32) Anion Gap 10 (6-14) Blood Urea Nitrogen 26 mg/dL (8-26) Creatinine 1.1 mg/dL (0.7-1.3) Estimated GFR (Cockcroft-Gault) 80.1 BUN/Creatinine Ratio 24 (6-20) Glucose Level 143 mg/dL (70-99) Lactic Acid Level 2.3 mmol/L (0.4-2.0) 4.9 mmol/L (0.4-2.0) 7.6 mmol/L (0.4-2.0) Calcium Level 8.5 mg/dL (8.5-10.1) Total Bilirubin 0.6 mg/dL (0.2-1.0) Aspartate Amino Transf (AST/SGOT) 14 U/L (15-37) Alanine Aminotransferase (ALT/SGPT) 15 U/L (16-63) Alkaline Phosphatase 62 U/L (46-116) Total Protein 7.4 g/dL (6.4-8.2) Albumin 2.0 g/dL (3.4-5.0) Albumin/Globulin Ratio 0.4 (1.0-1.7) Lipase 97 U/L (73-393) Procalcitonin 29.00 ng/mL (0.00-0.10) O2 Saturation 100 % (92-99) Arterial Blood pH 7.39 (7.35-7.45) Arterial Blood pH (Temp corrected) 7.36 Arterial Blood pCO2 at Patient Temp 23 mmHg (35-46) Arterial Blood pCO2 (Temp correct) 26 mmHg Arterial Blood pO2 at Patient Temp 421 mmHg (65-108) Arterial Blood pO2 (Temp corrected) 433 mmHg Arterial Blood HCO3 14 mmol/L (21-28) Arterial Blood Base Excess -10 mmol/L (-3-3) Test 10/26/18 01:22 10/26/18 04:45 10/26/18 04:48 Urine Collection Type Unknown Urine Color Maryann Urine Clarity Clear Urine pH 5.5 Urine Specific [place] 1.020 Urine Protein 30 mg/dL (NEG-TRACE) Urine Glucose (UA) Negative mg/dL (NEG) Urine Ketones (Stick) Negative mg/dL (NEG) Urine Blood Moderate (NEG) Urine Nitrite Negative (NEG) Urine Bilirubin Small (NEG) Urine Urobilinogen Dipstick 1.0 mg/dL (0.2 mg/dL) Urine Leukocyte Esterase Moderate (NEG) Urine RBC 3-5 /HPF (0-2) Urine WBC 11-20 /HPF (0-4) Urine Squamous Epithelial Cells Occ /LPF Urine Bacteria Mod /HPF (0-FEW) Urine Mucus Slight /LPF Prothrombin Time 26.0 SEC (11.7-14.0) Prothromb Time International Ratio 2.4 (0.8-1.1) Sodium Level 151 mmol/L (136-145) Potassium Level 4.1 mmol/L (3.5-5.1) Chloride Level 117 mmol/L (98-107) Carbon Dioxide Level 17 mmol/L (21-32) Anion Gap 17 (6-14) Blood Urea Nitrogen 28 mg/dL (8-26) Creatinine 1.7 mg/dL (0.7-1.3) Estimated GFR (Cockcroft-Gault) 48.3 Glucose Level 101 mg/dL (70-99) Lactic Acid Level 6.3 mmol/L (0.4-2.0) Calcium Level 7.1 mg/dL (8.5-10.1) White Blood Count 38.1 x10^3/uL (4.0-11.0) Red Blood Count 3.40 x10^6/uL (4.30-5.70) Hemoglobin 8.4 g/dL (13.0-17.5) Hematocrit 27.9 % (39.0-53.0) Mean Corpuscular Volume 82 fL (79-100) Mean Corpuscular Hemoglobin 25 pg (25-35) Mean Corpuscular Hemoglobin Concent 30 g/dL (31-37) Red Cell Distribution Width 17.2 % (11.5-14.5) Platelet Count 151 x10^3/uL (140-400) Neutrophils (%) (Auto) 98 % (31-73) Lymphocytes (%) (Auto) 1 % (24-48) Monocytes (%) (Auto) 2 % (0-9) Eosinophils (%) (Auto) 0 % (0-3) Basophils (%) (Auto) 0 % (0-3) Neutrophils # (Auto) 37.1 x10^3uL (1.8-7.7) Lymphocytes # (Auto) 0.3 x10^3/uL (1.0-4.8) Monocytes # (Auto) 0.6 x10^3/uL (0.0-1.1) Eosinophils # (Auto) 0.0 x10^3/uL (0.0-0.7) Basophils # (Auto) 0.0 x10^3/uL (0.0-0.2) Laboratory Tests Test 10/25/18 10:18 10/25/18 14:15 10/25/18 18:18 10/25/18 20:41 White Blood Count 12.5 x10^3/uL (4.0-11.0) Red Blood Count 4.28 x10^6/uL (4.30-5.70) Hemoglobin 10.5 g/dL (13.0-17.5) Hematocrit 34.5 % (39.0-53.0) Mean Corpuscular Volume 81 fL (79-100) Mean Corpuscular Hemoglobin 25 pg (25-35) Mean Corpuscular Hemoglobin Concent 31 g/dL (31-37) Red Cell Distribution Width 17.0 % (11.5-14.5) Platelet Count 292 x10^3/uL (140-400) Neutrophils (%) (Auto) 83 % (31-73) Lymphocytes (%) (Auto) 10 % (24-48) Monocytes (%) (Auto) 6 % (0-9) Eosinophils (%) (Auto) 0 % (0-3) Basophils (%) (Auto) 0 % (0-3) Neutrophils # (Auto) 10.4 x10^3uL (1.8-7.7) Lymphocytes # (Auto) 1.3 x10^3/uL (1.0-4.8) Monocytes # (Auto) 0.8 x10^3/uL (0.0-1.1) Eosinophils # (Auto) 0.0 x10^3/uL (0.0-0.7) Basophils # (Auto) 0.0 x10^3/uL (0.0-0.2) Prothrombin Time 23.4 SEC (11.7-14.0) Prothromb Time International Ratio 2.1 (0.8-1.1) Sodium Level 142 mmol/L (136-145) Potassium Level 4.0 mmol/L (3.5-5.1) Chloride Level 107 mmol/L (98-107) Carbon Dioxide Level 25 mmol/L (21-32) Anion Gap 10 (6-14) Blood Urea Nitrogen 26 mg/dL (8-26) Creatinine 1.1 mg/dL (0.7-1.3) Estimated GFR (Cockcroft-Gault) 80.1 BUN/Creatinine Ratio 24 (6-20) Glucose Level 143 mg/dL (70-99) Lactic Acid Level 2.3 mmol/L (0.4-2.0) 4.9 mmol/L (0.4-2.0) 7.6 mmol/L (0.4-2.0) Calcium Level 8.5 mg/dL (8.5-10.1) Total Bilirubin 0.6 mg/dL (0.2-1.0) Aspartate Amino Transf (AST/SGOT) 14 U/L (15-37) Alanine Aminotransferase (ALT/SGPT) 15 U/L (16-63) Alkaline Phosphatase 62 U/L (46-116) Total Protein 7.4 g/dL (6.4-8.2) Albumin 2.0 g/dL (3.4-5.0) Albumin/Globulin Ratio 0.4 (1.0-1.7) Lipase 97 U/L (73-393) Procalcitonin 29.00 ng/mL (0.00-0.10) O2 Saturation 100 % (92-99) Arterial Blood pH 7.39 (7.35-7.45) Arterial Blood pH (Temp corrected) 7.36 Arterial Blood pCO2 at Patient Temp 23 mmHg (35-46) Arterial Blood pCO2 (Temp correct) 26 mmHg Arterial Blood pO2 at Patient Temp 421 mmHg (65-108) Arterial Blood pO2 (Temp corrected) 433 mmHg Arterial Blood HCO3 14 mmol/L (21-28) Arterial Blood Base Excess -10 mmol/L (-3-3) Test 10/26/18 01:22 10/26/18 04:45 10/26/18 04:48 Urine Collection Type Unknown Urine Color Maryann Urine Clarity Clear Urine pH 5.5 Urine Specific [place] 1.020 Urine Protein 30 mg/dL (NEG-TRACE) Urine Glucose (UA) Negative mg/dL (NEG) Urine Ketones (Stick) Negative mg/dL (NEG) Urine Blood Moderate (NEG) Urine Nitrite Negative (NEG) Urine Bilirubin Small (NEG) Urine Urobilinogen Dipstick 1.0 mg/dL (0.2 mg/dL) Urine Leukocyte Esterase Moderate (NEG) Urine RBC 3-5 /HPF (0-2) Urine WBC 11-20 /HPF (0-4) Urine Squamous Epithelial Cells Occ /LPF Urine Bacteria Mod /HPF (0-FEW) Urine Mucus Slight /LPF Prothrombin Time 26.0 SEC (11.7-14.0) Prothromb Time International Ratio 2.4 (0.8-1.1) Sodium Level 151 mmol/L (136-145) Potassium Level 4.1 mmol/L (3.5-5.1) Chloride Level 117 mmol/L (98-107) Carbon Dioxide Level 17 mmol/L (21-32) Anion Gap 17 (6-14) Blood Urea Nitrogen 28 mg/dL (8-26) Creatinine 1.7 mg/dL (0.7-1.3) Estimated GFR (Cockcroft-Gault) 48.3 Glucose Level 101 mg/dL (70-99) Lactic Acid Level 6.3 mmol/L (0.4-2.0) Calcium Level 7.1 mg/dL (8.5-10.1) White Blood Count 38.1 x10^3/uL (4.0-11.0) Red Blood Count 3.40 x10^6/uL (4.30-5.70) Hemoglobin 8.4 g/dL (13.0-17.5) Hematocrit 27.9 % (39.0-53.0) Mean Corpuscular Volume 82 fL (79-100) Mean Corpuscular Hemoglobin 25 pg (25-35) Mean Corpuscular Hemoglobin Concent 30 g/dL (31-37) Red Cell Distribution Width 17.2 % (11.5-14.5) Platelet Count 151 x10^3/uL (140-400) Neutrophils (%) (Auto) 98 % (31-73) Lymphocytes (%) (Auto) 1 % (24-48) Monocytes (%) (Auto) 2 % (0-9) Eosinophils (%) (Auto) 0 % (0-3) Basophils (%) (Auto) 0 % (0-3) Neutrophils # (Auto) 37.1 x10^3uL (1.8-7.7) Lymphocytes # (Auto) 0.3 x10^3/uL (1.0-4.8) Monocytes # (Auto) 0.6 x10^3/uL (0.0-1.1) Eosinophils # (Auto) 0.0 x10^3/uL (0.0-0.7) Basophils # (Auto) 0.0 x10^3/uL (0.0-0.2) Assessment/Plan Assessment/Plan sepsis on Levophed worsening renal function sacral wound--necrosis, boggy wound appearance, foul odor INR 2.4, on Coumadin UTI, surgically placed irving wound care, supportive measures will review with Dr Garcia, represents a very poor surgical candidate for debridement RAMU GARCIA MD 10/26/18 0848: CONSULT Assessment/Plan Assessment/Plan pt seen and examined at bedside sepsis 2/2 sacral decub vs urinary tract (required instrumentation last evening for catheter placement), anticoagulated not a surgical candidate at present wound care d/w Ms Morillo, questions answered will follow with you Thanks for consult MARIA ELENA CHUNG APRN October 26, 2018 08:22 RAMU GARCIA MD October 26, 2018 08:48
[2018-10-26] MEDS: ALLOPURINOL 100 MG TABLET. PO SCH (09:06)
[2018-10-26] MEDS: MEMANTINE 10 MG TABLET. PO SCH ×2 (09:06→21:36)
[2018-10-26] MEDS: DOXYCYCLINE HYCLATE 100 MG in IV DEXTROSE 5% 100ML 100 ML IV SCH ×2 (09:06→21:36)
--- NOTE | 2018-10-26 09:28 | PDOC ---
JOSE RAMSAY FLARE MAN 10/26/18 0928: SUBJECTIVE Subjective Pt resting comfortably, non verbal. Family member is in room, reports that he did have some blood out of his catheter after procedure, but is mostly yellow no w. OBJECTIVE Objective Physical Exam: General appearance: Non verbal, but appears comfortable. Head: Normocephalic, without obvious abnormality Eyes: conjunctivae/corneas clear. PERRL, EOM's intact. Fundi benign Lungs:on Bipap, regular respirations with machine assistance. Abdomen: soft, non-tender. . No masses, no organomegaly Pelvic: slight swelling from 3rd spacing of fluid, no open wounds, non tender on exam. Frye catheter in place draining clear yellow urine. Device in good working order. Vital Signs Vital Signs Date Time Temp Pulse Resp B/P (MAP) Pulse Ox O2 Delivery O2 Flow Rate FiO2 10/26/18 09:00 97 24 88/60 (69) 100 BiPAP/CPAP 10/26/18 08:00 100.1 97 24 95/78 (84) 100 BiPAP/CPAP 100.1 10/26/18 08:00 Bi-pap 10/26/18 07:02 100 BiPAP/CPAP 10/26/18 07:00 82 24 86/71 (76) 100 BiPAP/CPAP 10/26/18 06:45 106 26 94/66 (75) 100 BiPAP/CPAP 10/26/18 06:30 108 24 84/55 (65) 100 BiPAP/CPAP 10/26/18 06:15 108 25 73/50 (58) 100 BiPAP/CPAP 10/26/18 06:00 112 22 95/50 (65) 100 BiPAP/CPAP 10/26/18 05:45 112 20 85/56 (66) 100 BiPAP/CPAP 10/26/18 05:00 112 24 96/55 (69) 100 BiPAP/CPAP 10/26/18 04:35 100 BiPAP/CPAP 10/26/18 04:30 114 22 99/60 (73) 100 BiPAP/CPAP 10/26/18 04:00 Bi-pap 10/26/18 04:00 100.7 114 28 99/60 (73) 100 BiPAP/CPAP 100.7 10/26/18 03:46 22 BiPAP/CPAP 10/26/18 03:16 24 BiPAP/CPAP 10/26/18 03:00 114 24 106/71 (83) 100 BiPAP/CPAP 10/26/18 02:00 118 26 94/67 (76) 100 BiPAP/CPAP 10/26/18 01:44 100 BiPAP/CPAP 10/26/18 01:00 118 20 96/77 (83) 100 BiPAP/CPAP 10/26/18 00:39 100 10/26/18 00:09 28 BiPAP/CPAP 10/26/18 00:00 Bi-pap 10/26/18 00:00 100.6 120 20 118/59 (78) 100 BiPAP/CPAP 100.6 10/25/18 23:33 100 BiPAP/CPAP 10/25/18 23:00 118 20 112/64 (80) 100 BiPAP/CPAP 10/25/18 22:00 120 20 114/63 (80) 100 BiPAP/CPAP 10/25/18 21:00 124 20 111/61 (78) 100 BiPAP/CPAP 10/25/18 20:52 BiPAP/CPAP 10/25/18 20:21 100 BiPAP/CPAP 10/25/18 20:00 Bi-pap 10/25/18 20:00 102.4 116 20 94/58 (70) 100 BiPAP/CPAP 102.4 10/25/18 19:00 120 20 135/70 (91) 100 BiPAP/CPAP 10/25/18 18:15 24 87/67 (74) BiPAP/CPAP 10/25/18 18:00 126 20 116/59 (78) BiPAP/CPAP 10/25/18 17:30 108 20 123/63 (83) BiPAP/CPAP 10/25/18 17:28 BiPAP/CPAP 10/25/18 17:15 104 20 79/57 (64) BiPAP/CPAP 10/25/18 17:10 114 20 42/32 (35) BiPAP/CPAP 10/25/18 17:00 99.9 120 28 71/52 (58) NonRebreather Mask 99.9 10/25/18 17:00 Non-Rebreather 10/25/18 16:40 120 80/66 (71) Room Air 10/25/18 15:56 102.9 106 18 86/30 (48) 95 Room Air 102.9 10/25/18 15:56 102.9 127 18 59/30 (40) 95 Room Air 102.9 10/25/18 13:50 97.7 95 18 145/69 (94) 96 Room Air 97.7 10/25/18 12:33 86 13 97 10/25/18 12:03 86 20 97 10/25/18 11:33 90 22 97 10/25/18 11:03 90 20 96 10/25/18 10:33 86 19 100 10/25/18 09:41 97.9 78 20 154/70 (98) 95 Room Air 97.9 I & O Intake and Output 10/26/18 06:59 Intake Total 5617.4 ml Output Total 477 ml Balance 5140.4 ml Intake IV Total 5617.4 ml Output Urine Total 477 ml # Voids 1 # Bowel Movements 3 PHYSICAL EXAM Physical Exam Physical Exam: General appearance: Non verbal, but appears comfortable. Head: Normocephalic, without obvious abnormality Eyes: conjunctivae/corneas clear. PERRL, EOM's intact. Fundi benign Lungs:on Bipap, regular respirations with machine assistance. Abdomen: soft, non-tender. . No masses, no organomegaly Pelvic: slight swelling from 3rd spacing of fluid, no open wounds, non tender on exam. Frye catheter in place draining clear yellow urine. Device in good working order. ASSESSMENT/PLAN Assessment/Plan Pt is SP day one difficult catheter placement with Dr. Snyder of [facility] [place]. Today, Frye catheter is in good condition, draining clear yellow urine. Nursing to maintain until patient is ready for discharge. Swelling to genitalia from 3rd spacing of fluid, not too significant at this point. Support drainage by elevating with rolled towels, may use ice packs PRN if patient appears uncomfortable from this. Will follow peripherally until discharge. COMMENT Lab Laboratory Tests Test 10/25/18 10:18 10/25/18 14:15 10/25/18 18:18 10/25/18 20:41 White Blood Count 12.5 x10^3/uL (4.0-11.0) Red Blood Count 4.28 x10^6/uL (4.30-5.70) Hemoglobin 10.5 g/dL (13.0-17.5) Hematocrit 34.5 % (39.0-53.0) Mean Corpuscular Volume 81 fL (79-100) Mean Corpuscular Hemoglobin 25 pg (25-35) Mean Corpuscular Hemoglobin Concent 31 g/dL (31-37) Red Cell Distribution Width 17.0 % (11.5-14.5) Platelet Count 292 x10^3/uL (140-400) Neutrophils (%) (Auto) 83 % (31-73) Lymphocytes (%) (Auto) 10 % (24-48) Monocytes (%) (Auto) 6 % (0-9) Eosinophils (%) (Auto) 0 % (0-3) Basophils (%) (Auto) 0 % (0-3) Neutrophils # (Auto) 10.4 x10^3uL (1.8-7.7) Lymphocytes # (Auto) 1.3 x10^3/uL (1.0-4.8) Monocytes # (Auto) 0.8 x10^3/uL (0.0-1.1) Eosinophils # (Auto) 0.0 x10^3/uL (0.0-0.7) Basophils # (Auto) 0.0 x10^3/uL (0.0-0.2) Prothrombin Time 23.4 SEC (11.7-14.0) Prothromb Time International Ratio 2.1 (0.8-1.1) Sodium Level 142 mmol/L (136-145) Potassium Level 4.0 mmol/L (3.5-5.1) Chloride Level 107 mmol/L (98-107) Carbon Dioxide Level 25 mmol/L (21-32) Anion Gap 10 (6-14) Blood Urea Nitrogen 26 mg/dL (8-26) Creatinine 1.1 mg/dL (0.7-1.3) Estimated GFR (Cockcroft-Gault) 80.1 BUN/Creatinine Ratio 24 (6-20) Glucose Level 143 mg/dL (70-99) Lactic Acid Level 2.3 mmol/L (0.4-2.0) 4.9 mmol/L (0.4-2.0) 7.6 mmol/L (0.4-2.0) Calcium Level 8.5 mg/dL (8.5-10.1) Total Bilirubin 0.6 mg/dL (0.2-1.0) Aspartate Amino Transf (AST/SGOT) 14 U/L (15-37) Alanine Aminotransferase (ALT/SGPT) 15 U/L (16-63) Alkaline Phosphatase 62 U/L (46-116) Total Protein 7.4 g/dL (6.4-8.2) Albumin 2.0 g/dL (3.4-5.0) Albumin/Globulin Ratio 0.4 (1.0-1.7) Lipase 97 U/L (73-393) Procalcitonin 29.00 ng/mL (0.00-0.10) O2 Saturation 100 % (92-99) Arterial Blood pH 7.39 (7.35-7.45) Arterial Blood pH (Temp corrected) 7.36 Arterial Blood pCO2 at Patient Temp 23 mmHg (35-46) Arterial Blood pCO2 (Temp correct) 26 mmHg Arterial Blood pO2 at Patient Temp 421 mmHg (65-108) Arterial Blood pO2 (Temp corrected) 433 mmHg Arterial Blood HCO3 14 mmol/L (21-28) Arterial Blood Base Excess -10 mmol/L (-3-3) Test 10/26/18 01:22 10/26/18 04:45 10/26/18 04:48 Urine Collection Type Unknown Urine Color Maryann Urine Clarity Clear Urine pH 5.5 Urine Specific [place] 1.020 Urine Protein 30 mg/dL (NEG-TRACE) Urine Glucose (UA) Negative mg/dL (NEG) Urine Ketones (Stick) Negative mg/dL (NEG) Urine Blood Moderate (NEG) Urine Nitrite Negative (NEG) Urine Bilirubin Small (NEG) Urine Urobilinogen Dipstick 1.0 mg/dL (0.2 mg/dL) Urine Leukocyte Esterase Moderate (NEG) Urine RBC 3-5 /HPF (0-2) Urine WBC 11-20 /HPF (0-4) Urine Squamous Epithelial Cells Occ /LPF Urine Bacteria Mod /HPF (0-FEW) Urine Mucus Slight /LPF Prothrombin Time 26.0 SEC (11.7-14.0) Prothromb Time International Ratio 2.4 (0.8-1.1) Sodium Level 151 mmol/L (136-145) Potassium Level 4.1 mmol/L (3.5-5.1) Chloride Level 117 mmol/L (98-107) Carbon Dioxide Level 17 mmol/L (21-32) Anion Gap 17 (6-14) Blood Urea Nitrogen 28 mg/dL (8-26) Creatinine 1.7 mg/dL (0.7-1.3) Estimated GFR (Cockcroft-Gault) 48.3 Glucose Level 101 mg/dL (70-99) Lactic Acid Level 6.3 mmol/L (0.4-2.0) Uric Acid 6.2 mg/dL (3.5-7.2) Calcium Level 7.1 mg/dL (8.5-10.1) White Blood Count 38.1 x10^3/uL (4.0-11.0) Red Blood Count 3.40 x10^6/uL (4.30-5.70) Hemoglobin 8.4 g/dL (13.0-17.5) Hematocrit 27.9 % (39.0-53.0) Mean Corpuscular Volume 82 fL (79-100) Mean Corpuscular Hemoglobin 25 pg (25-35) Mean Corpuscular Hemoglobin Concent 30 g/dL (31-37) Red Cell Distribution Width 17.2 % (11.5-14.5) Platelet Count 151 x10^3/uL (140-400) Neutrophils (%) (Auto) 98 % (31-73) Lymphocytes (%) (Auto) 1 % (24-48) Monocytes (%) (Auto) 2 % (0-9) Eosinophils (%) (Auto) 0 % (0-3) Basophils (%) (Auto) 0 % (0-3) Neutrophils # (Auto) 37.1 x10^3uL (1.8-7.7) Lymphocytes # (Auto) 0.3 x10^3/uL (1.0-4.8) Monocytes # (Auto) 0.6 x10^3/uL (0.0-1.1) Eosinophils # (Auto) 0.0 x10^3/uL (0.0-0.7) Basophils # (Auto) 0.0 x10^3/uL (0.0-0.2) ASA SNYDER MD 11/04/18 1627: ASSESSMENT/PLAN Assessment/Plan Agree w above JOSE RAMSAY APRN October 26, 2018 09:28 ASA SNYDER MD November 04, 2018 16:27
--- NOTE | 2018-10-26 09:39 | PDOC ---
Provider Note Provider Note Pt seen in ICU,H&P dictated.#[id number]. total time spent coordinating care 43 mts ANGI BARCENAS MD October 26, 2018 09:39
--- NOTE | 2018-10-26 09:39 | NUR ---
Pharmacy Warfarin Dosing Note S:Pharmacy consulted to assist with anticoagulation therapy started with target INR: 2 -3 O:MADHAV CARTY is a 72 year old M with Atrial Fibrillation h/o DVT LABS: Last INR: 2.4 Last HGB: 8.4 Last HCT: 27.9 Last PLT: 151 Last dose of Hold given on 10/25/18 at Previous Regimen: 5 mg/day Vitamin K given: N Drug Interaction Changes: Same Interacting Drug Ongoing Drug Interactions: allopurinol A:INR of 2.4 is within desired range. Target range for this patient is: 2 -3 P: Warfarin dose: 2 mg Today at 1600 Bridge Therapy: None Next INR due tomorrow. Pharmacy anticoagulation service will continue to follow. NARAYAN ZAPATA [facility], 10/26/18 [id number]
--- NOTE | 2018-10-26 09:45 | CONS ---
DATE OF CONSULTATION: ATTENDING PHYSICIAN: Dr. Morales. REASON FOR CONSULTATION: Septic shock. HISTORY OF PRESENT ILLNESS: The patient is a 73-year-old male who lives at home with his son. 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 He was brought into the hospital with progressive weakness. He has a nurse who takes care of his wound. The patient progressively got worse and hypotensive. He was transferred to the ICU. He is in septic shock. Despite aggressive fluid resuscitation with 4-1/2 liters, he is requiring 24 mcg of Levophed. The patient's urine output is very minimal. Despite getting 4-1/2 liters of fluid, his BUN and creatinine today are 28 and 1.7. His lactic acid was markedly elevated at 7.6, which increased from 2.3, now it is trending down to 6.3. His procalcitonin level was 2.9. He is lethargic. He is currently on BiPAP. ABG showed a pH of 7.39, pCO2 of 23 and a pO2 of 421 with a bicarbonate of 14. He is down to 40% FiO2 with the BiPAP. The etiology of the septic shock likely is urinary tract infection. He had difficulty in urination and was seen by urologist who did cystoscopy, and the patient was noted to have a stricture and false passage proximal to it with enlarged prostate. Frye catheter was placed. PAST MEDICAL HISTORY: Significant for history of multiple comorbidities. History of paralysis, history of chronic wounds. History of DVT, heart disease, pacemaker, CVA and dementia. PAST SURGICAL HISTORY: Including right shoulder surgery. ALLERGIES: None. MEDICATIONS: Reviewed including broad-spectrum antibiotic, vancomycin, Zosyn, daptomycin and micafungin. He is also on Coumadin. REVIEW OF SYSTEMS: Unable to obtain from the patient. SOCIAL HISTORY: Smoked for about 30+ years before quitting. PHYSICAL EXAMINATION: GENERAL: Lethargic, on BiPAP. VITAL SIGNS: His T-max is 100.1, yesterday was 100.7. Blood pressure latest is in the 110s. On 24 mcg of Levophed. Pulse ox is 97% on 40% BiPAP. HEENT: Sclerae nonicteric. NECK: Supple. LUNGS: Diminished breath sounds at the bases. CARDIOVASCULAR: Regular rate and rhythm. ABDOMEN: Soft, nontender. EXTREMITIES: With wound on the left gluteus. 1+ edema. LABORATORY DATA: Reviewed. ABGs as discussed in my history of present illness. BUN 28, creatinine 1.7. Lactic acid peaked at 7.6, now 6.3. INR 2.4. White cell count is 38,000, hemoglobin 8.4 and platelets are 151. His chest x-ray revealed faint mild interstitial infiltrates, which was done yesterday. However, followup chest x-ray will be done today to make sure he is not in CHF. His echocardiogram on 09/02/2014 had shown an EF of 55-60% and mild mitral regurgitation. IMPRESSION: 1. Acute respiratory failure secondary to septic shock. 2. Septic shock. Likely sources could be urinary tract infection and gluteal wounds. 3. Positive blood cultures with gram-negative rods. Currently on broad spectrum antibiotics. 4. Encephalopathy secondary to septic shock. 5. Acute tubular necrosis/acute kidney injury, contributed by septic shock. 6. 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 7. History of deep venous thrombosis, on therapeutic INR. 8. History of pacemaker. 9. History of cerebrovascular accident and dementia. RECOMMENDATIONS: 1. Continue with present BiPAP. 2. Continue broad-spectrum antibiotics. 3. Follow all blood cultures. 4. Follow renal recommendation and monitor urine output closely. 5. Followup chest x-ray to make sure he is not in heart failure from all the fluid resuscitation. 6. Obtain echocardiogram. 7. Follow infectious disease recommendation. 8. Continue Coumadin. 9. Monitor lactic acid. 10. P.r.n. bronchodilators. 11. Continue vasopressor support. 12. Discussed with the patient's at the bedside. Explained to her grim prognosis. Advance directives discussed. She is comfortable with DNR/DNI; however, she wants to check with the kids before making a confirmed decision. In the meantime, we will continue present aggressive care. Critical care time 40 minutes. Discussed with RN and RT. MILTON CARROLL MD DR: NARENDRA/coby JOB#: [id number] / [id number]
--- NOTE | 2018-10-26 10:06 | RAD ---
INDICATION: Altered mental status COMPARISON: One day prior FINDINGS: Single view of chest obtained. Cardiac silhouette is similar prior with calcific atherosclerosis as well as pacemaker. Mild interstitial opacities bilaterally. Patchy opacity again seen at the right lung base. The right upper lung there is a couple of obliquely oriented lines identified. One of these is likely secondary to a skin fold given the morphology however the other at the right upper chest could be secondary to a pleural line measuring approximately 18 mm from the costal margin. Postoperative changes to the right scapula again seen. High-riding left humeral head which can be sequela of chronic rotator cuff disease. IMPRESSION: 1. At the right upper chest there is a couple of obliquely oriented lines identified. One of them is likely secondary to a skin fold and the other is not definitely a skin fold and could be secondary to a pleural line from a small right apical pneumothorax. Follow-up exam could be obtained to ensure that this does not increase in severity. Report called to the patient's floor at 9:55 AM on date of exam. 2. Patchy opacity at the right chest base is again seen which could be from atelectasis or infiltrate. 3. Mild interstitial opacities bilaterally. Can be seen with mild edema or interstitial infiltrate. Electronically signed by: Tre Garsia MD (10/26/2018 10:03 AM) [place] [id number]
[2018-10-26 10:20] LABS: % BANDS 14 % (0-9); % METAS 1 % (0-0); % MONOS 1 % (0-10); % MYELOS 1 % (0-0); % SEGS 83 % (35-66); NUCLEATED RBC 1
[2018-10-26 10:24] LABS: ANISOCYTOSIS PRESENT; PLT ESTIMATE ADEQUATE (ADEQUATE)
--- NOTE | 2018-10-26 10:32 | HP ---
ADMIT DATE: 10/25/2018 LOCATION: ICU, room 105. REASON FOR ADMISSION TO THE HOSPITAL: Infected wounds, sepsis, hypotension and lactic acidosis. HISTORY OF PRESENT ILLNESS: The patient is a 73-year-old who has been chronically ill, has been declining steadily, and he has been at home basically on bed and sometimes gets up to wheelchair to be fed. He has been declining, has developed some wounds. I have not seen him in the office for more than 6 months. He has been seeing a home health nurse as well as home visiting physicians, and he has developed wounds on the gluteal as well as sacrum, got progressively worse, and the patient was brought to the hospital, he was found to have elevated white count and the wounds were infected smelling bad. The patient was admitted to medical floor, and x-ray shows questionable infiltrates in the lung. In the floor, the patient developed hypotension, sepsis, increased lactic acid. The patient was given fluid bolus, was transferred to ICU, was given total 2 liters without much improvement. The patient was started on Levophed. The patient had a problem with urination, not able to urinate, and Urology was consulted. The patient had a Irving catheter placed using a cystoscopy by Urology. This was yesterday evening. The patient had a fever of 102. Blood cultures positive for gram-negative, lactic acidosis. The patient has started putting any urine early this morning. He also was hypoxic, was put on BiPAP. PAST MEDICAL HISTORY: The patient has a history of hypertension, dementia, CVA, pacemaker, coronary artery disease, congestive heart failure and also has contractures. He also has AAA, had endovascular repair, pacemaker, shoulder surgery. ALLERGIES: No known allergies. PERSONAL HISTORY: Smokes 1 pack, smoked for many years. The patient has been declining and is mostly in the bed now, once in a while gets up to the wheelchair to be fed and has developed contractures of upper extremities, has developed wounds now. MEDICATIONS AT HOME: The patient is on Coumadin for anticoagulation secondary to atrial fibrillation, amlodipine 10 mg daily, Bumex 1 mg daily, Coreg 12.5 twice a day, citalopram 20 mg daily, vitamin D 50,000 once a week, Pepcid 20 mg daily, Lasix 40 mg daily, methocarbamol 500 mg 3 times daily, potassium 20 mEq daily, tramadol 50 mg q.6, Coumadin 5 mg daily, allopurinol 100 mg daily, atorvastatin 40 mg daily, Namenda 10 mg twice a day, trazodone 50 mg at bedtime. REVIEW OF SYSTEMS: The patient is too weak to answer. He recognized me, nods his head a little bit. Otherwise, he does not move much. PHYSICAL EXAMINATION: GENERAL: Chronically sick, has been declining over a couple of years I have known him. VITAL SIGNS: T-max was 102.4 yesterday, pulse 116, respirations 20, blood pressure 94/58, on BiPAP, is on Levophed at least 20 mcg. HEENT: Head is atraumatic. Pupils equal. Oral cavity, few teeth present. NECK: Supple. CHEST: Symmetrical. CARDIOVASCULAR: S1, S2, has a pacemaker. LUNGS: Diminished breath sounds. Few crackles at base. ABDOMEN: Soft, no mass palpable. The patient has a Irving catheter placed by urologist yesterday. RECTAL: Deferred. EXTREMITIES: Contractures of upper extremity, right upper, with a wrist drop. The patient has flexion of the hips and the knees. Has some calluses, decreased pulses in both feet. The patient has skin breakdown over the left trochanteric area, which is stage 2, looking at the pictures also has a deep wound on the sacral area, 2 cm deep, foul smelling and necrotic. LABORATORY DATA: White count was 12, hematocrit 38, hemoglobin 10, platelets 292. INR is 2.4. Electrolytes show sodium 142, potassium 4.0, chloride 107, bicarbonate 25, anion gap 10, BUN 26, creatinine 1.1, glucose 143. Lactic acid 2.3, went up to 4.9, peaked to 7.6, now coming down to 6.3. Procalcitonin was high at 29. Urine shows moderate leukocyte esterase, 11-20 wbc's. Blood culture shows gram-negative, one out of four. FINAL IMPRESSION: 1. Sepsis with hypotension, on Levophed. 2. Lactic acidosis. 3. Gram-negative bacteremia, positive blood cultures. 4. Infected wounds over the sacrum as well as trochanteric area. 5. Chronic atrial fibrillation, on Coumadin. 6. Chronic systolic heart failure, on cardiac medication. 7. History of previous stroke with contractures. 8. Protein-calorie malnutrition, severe. 9. General debility. 10. Hyperlipidemia. 11. History of AAA endovascular repair. 12. Acute tubular necrosis. The patient has no urine output early this morning. 13.Urethral stricture/bph had cystoscopy and placement of irving in OR PLAN: At this time, the patient was admitted to the hospital. Cultures were done, drawn on broad-spectrum antibiotic, vancomycin and Zosyn. ID was consulted. The patient was admitted to the ICU. The patient was placed on BiPAP after the blood gas was done. The patient was given total of 4 liters of fluid, started on Levophed and the patient also had BPH with bladder obstruction, had a Irving catheter placed by Urology. The patient's overall condition remains critical. Prognosis is poor. Discussed with the patient's at bedside and will have palliative team consult and also have surgical consult for the wounds. ANGI BARCENAS MD DR: ESTHER/coby JOB#: [id number] / [id number] THOM
--- NOTE | 2018-10-26 10:44 | PDOC2 ---
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 He was brought into the hospital with progressive weakness. The patient progressively got worse and hypotensive. He was transferred to the ICU. He is in septic shock. Despite aggressive fluid resuscitation with 4-1/2 liters, he is requiring 24 mcg of Levophed. His urine output is very minimal BUN and creatinine today are 28 and 1.7, lactic acid was markedly elevated at 7.6, which increased from 2.3, now it is trending down to 6.3. He is lethargic and currently on BiPAP. He had difficulty in urination and was seen by urologist who did cystoscopy, and the patient was noted to have a stricture and false passage proximal to it with enlarged prostate. Frye catheter was placed. As per no PHx of Kidney problems. Past Medical History Cardiovascular: CHF, HTN Pulmonary: Asthma, Pulmonary embolus CENTRAL NERVOUS SYSTEM: Dementia GI: Peptic Ulcer disease Psych: Anxiety, Depression Musculoskeletal: Muscle atrophy Renal/: UTI Endocrine: Diabetes Past Surgical History Past Surgical History: Pacemaker Family History Family History: Family History Unknown Social History Quit ALCOHOL: none Drugs: None Lives: with Family Current Medications Current Medications Current Medications Ondansetron HCl (Zofran) 4 mg 1X ONCE IV Last administered on 10/25/18at 10:44; Start 10/25/18 at 10:00; Stop 10/25/18 at 10:02; Status DC Sodium Chloride 1,000 ml @ 1,000 mls/hr 1X ONCE IV Last administered on 10/25/18at 10:43; Start 10/25/18 at 10:00; Stop 10/25/18 at 10:59; Status DC Fentanyl Citrate (Fentanyl 2ml Vial) 50 mcg 1X ONCE IV Last administered on 10/25/18at 10:44; Start 10/25/18 at 10:15; Stop 10/25/18 at 10:22; Status DC Ceftriaxone Sodium (Rocephin) 1 gm 1X ONCE IVP Last administered on 10/25/18at 10:43; Start 10/25/18 at 10:45; Stop 10/25/18 at 10:46; Status DC Azithromycin 250 ml @ 250 mls/hr 1X ONCE IV Last administered on 10/25/18at 11:46; Start 10/25/18 at 11:15; Stop 10/25/18 at 12:14; Status DC Sodium Chloride 1,000 ml @ 1,000 mls/hr 1X ONCE IV Last administered on 10/25/18at 15:25; Start 10/25/18 at 15:30; Stop 10/25/18 at 16:29; Status DC Vancomycin HCl (Vanco Per Pharmacy) 1 each PRN DAILY PRN MC SEE COMMENTS Last administered on 10/25/18at 18:52; Start 10/25/18 at 15:45; Stop 10/26/18 at 06: 25; Status DC Vancomycin HCl 1.75 gm/Sodium Chloride 500 ml @ 250 mls/hr 1X ONCE IV Last administered on 10/25/18at 19:43; Start 10/25/18 at 16:00; Stop 10/25/18 at 17:59; Status DC Norepinephrine Bitartrate 250 ml @ 1.875 mls/ hr CONT PRN IV SEE I/O RECORD Last administered on 10/26/18at 06:02; Start 10/25/18 at 16:45 Piperacillin Sod/ Tazobactam Sod 3.375 gm/Sodium Chloride 50 ml @ 100 mls/hr Q6HRS IV Last administered on 10/26/18at 06:11; Start 10/25/18 at 18:00; Stop 10/26/18 at 06:25; Status DC Sodium Chloride 1,000 ml @ 100 mls/hr 1X ONCE IV Last administered on 10/25/18at 18:37; Start 10/25/18 at 17:00; Stop 10/26/18 at 02:59; Status DC Allopurinol (Zyloprim) 100 mg DAILY PO Last administered on 10/26/18at 09:06; Start 10/26/18 at 09:00 Atorvastatin Calcium (Lipitor) 40 mg QHS PO ; Start 10/25/18 at 21:00 Memantine (Namenda) 10 mg BID PO Last administered on 10/26/18at 09:06; Start 10/25/18 at 21:00 Trazodone HCl (Desyrel) 50 mg PRN QHS PRN PO INSOMNIA; Start 10/25/18 at 17:15 Warfarin Sodium (Coumadin Per Pharmacy) 1 each PRN DAILY PRN MC SEE COMMENTS Last administered on 10/26/18at 09:39; Start 10/25/18 at 17:00 Warfarin Sodium (Coumadin) 5 mg 1X WARF ONCE PO ; Start 10/25/18 at 18:00; Stop 10/25/18 at 18:01; Status DC Vancomycin HCl 1 gm/Sodium Chloride 250 ml @ 250 mls/hr Q12H IV ; Start 10/26/18 at 08:00; Stop 10/26/18 at 08:00; Status DC Vancomycin HCl (Vancomycin Trough Level) 1 each 1X ONCE MC ; Start 10/27/18 at 07:30; Stop 10/27/18 at 07:31 Sodium Chloride 1,000 ml @ 1,000 mls/hr 1X ONCE IV Last administered on 10/25/18at 16:45; Start 10/25/18 at 16:45; Stop 10/25/18 at 19:04; Status DC Sodium Chloride 1,000 ml @ 1,000 mls/hr 1X ONCE IV Last administered on 10/25/18at 16:45; Start 10/25/18 at 16:45; Stop 10/25/18 at 19:04; Status DC Fluconazole/ Sodium Chloride 100 ml @ 100 mls/hr 1X ONCE IV Last administered on 10/25/18at 22:26; Start 10/25/18 at 20:00; Stop 10/25/18 at 20:59; Status DC Sodium Bicarbonate (Sodium Bicarb Adult 8.4% Syr) 50 meq 1X ONCE IV Last administered on 10/25/18at 22:27; Start 10/25/18 at 21:45; Stop 10/25/18 at 21:50; Status DC Sodium Bicarbonate (Sodium Bicarb Adult 8.4% Syr) 50 meq 1X ONCE IV Last administered on 10/25/18at 22:27; Start 10/25/18 at 21:45; Stop 10/25/18 at 21:50; Status DC Acetaminophen (Tylenol) 650 mg PRN Q4HRS PRN PO MILD PAIN / TEMP; Start 10/25/18 at 23:30 Acetaminophen (Tylenol Supp) 650 mg PRN Q4HRS PRN [place] MILD PAIN / TEMP Last administered on 10/26/18at 04:28; Start 10/25/18 at 23:30 Fentanyl Citrate (Fentanyl 2ml Vial) 25 mcg PRN Q3HRS PRN IV PAIN Last administered on 10/26/18at 03:16; Start 10/25/18 at 23:30 Tramadol HCl (Ultram) 50 mg PRN Q8HRS PRN PO PAIN; Start 10/25/18 at 23:30 Micafungin Sodium 100 mg/Dextrose 100 ml @ 100 mls/hr Q24H IV Last administered on 10/26/18at 07:53; Start 10/26/18 at 06:30 Doxycycline Hyclate 100 mg/ Dextrose 100 ml @ 50 mls/hr Q12HR IV Last administered on 10/26/18at 09:06; Start 10/26/18 at 09:00 Piperacillin Sod/ Tazobactam Sod 2.25 gm/Sodium Chloride 50 ml @ 100 mls/hr Q6HRS IV ; Start 10/26/18 at 12:00 Daptomycin 380 mg/ Sodium Chloride 50 ml @ 100 mls/hr Q48H IV Last administered on 10/26/18at 09:58; Start 10/26/18 at 08:00 Metronidazole 100 ml @ 100 mls/hr Q8HRS IV ; Start 10/26/18 at 14:00 Warfarin Sodium (Coumadin) 5 mg 1X WARF ONCE PO ; Start 10/26/18 at 16:00; Stop 10/26/18 at 16:01; Status Cancel Warfarin Sodium (Coumadin) 2 mg 1X WARF ONCE PO ; Start 10/26/18 at 16:00; Stop 10/26/18 at 16:01 Active Scripts Active Reported Vitamin D2 (Ergocalciferol (Vitamin D2)) 50,000 Unit Capsule 1 Cap PO WEEKLY Trazodone Hcl 50 Mg Tablet 1 Tab PO QHS PRN Famotidine 20 Mg Tablet 20 Mg PO BID Carvedilol (Carvedilol) 12.5 Mg Tablet 12.5 Mg PO BIDWMEALS Bumetanide 1 Mg Tablet 1 Tab PO DAILY Allopurinol 100 Mg Tablet 1 Tab PO DAILY Furosemide 40 Mg Tablet 1 Tab PO DAILY Klor-Con 10 (Potassium Chloride) 10 Meq Tablet.er 2 Tab PO DAILY Methocarbamol 500 Mg Tablet 500 Mg PO TID PRN Citalopram Hbr (Citalopram Hydrobromide) 20 Mg Tablet 20 Mg PO DAILY Tramadol Hcl 50 Mg Tablet 50 Mg PO PRN Q8HRS PRN Atorvastatin Calcium 40 Mg Tablet 40 Mg PO QHS Amlodipine Besylate 10 Mg Tablet 10 Mg PO DAILY Warfarin Sodium 5 Mg Tablet 1 Tab PO DAILY Namenda (Memantine Hcl) 10 Mg Tablet 1 Tab PO BID Allergies Allergies: Coded Allergies: No Known Drug Allergies (Unverified , 01/11/15) ROS Review of System Unable to Obtain Physical Exam Physical Exam GENERAL: Propped up , awake, Non verbal HEENT: OM moist NECK: Supple. LUNGS: Diminished breath sounds at the bases. CARDIOVASCULAR: Regular rate and rhythm. ABDOMEN: Soft, nontender. EXTREMITIES: wound on the left gluteus. 1+ edema NEURO - Non verbal , Contractures Frye + Skin No rash Vital Signs Vital Signs Date Time Temp Pulse Resp B/P (MAP) Pulse Ox O2 Delivery O2 Flow Rate FiO2 10/26/18 09:00 97 24 88/60 (69) 100 BiPAP/CPAP 10/26/18 08:00 100.1 100.1 Assessment & Plan RICK - Suspect ATN sepsis sec to UTI Intermittent RICK since 2013 Renal US ordered supportive care No emergent indication for HEADRIG SAWYER currently wants to continue aggressive care including HEADRIG SAWYER if indicated Difficult Frye placement Renal US Urology following UTI- On Abx ID following Hypernatremia- recd IV Na Hco3 BP low , IVF NS bolus as needed Hypotension- 2/2 sepsis On Levophed IV NS bolus prn Dw Pt's and RN Labs Labs Laboratory Tests Test 10/25/18 10:18 10/25/18 14:15 10/25/18 18:18 10/25/18 20:41 White Blood Count 12.5 x10^3/uL (4.0-11.0) Red Blood Count 4.28 x10^6/uL (4.30-5.70) Hemoglobin 10.5 g/dL (13.0-17.5) Hematocrit 34.5 % (39.0-53.0) Mean Corpuscular Volume 81 fL (79-100) Mean Corpuscular Hemoglobin 25 pg (25-35) Mean Corpuscular Hemoglobin Concent 31 g/dL (31-37) Red Cell Distribution Width 17.0 % (11.5-14.5) Platelet Count 292 x10^3/uL (140-400) Neutrophils (%) (Auto) 83 % (31-73) Lymphocytes (%) (Auto) 10 % (24-48) Monocytes (%) (Auto) 6 % (0-9) Eosinophils (%) (Auto) 0 % (0-3) Basophils (%) (Auto) 0 % (0-3) Neutrophils # (Auto) 10.4 x10^3uL (1.8-7.7) Lymphocytes # (Auto) 1.3 x10^3/uL (1.0-4.8) Monocytes # (Auto) 0.8 x10^3/uL (0.0-1.1) Eosinophils # (Auto) 0.0 x10^3/uL (0.0-0.7) Basophils # (Auto) 0.0 x10^3/uL (0.0-0.2) Prothrombin Time 23.4 SEC (11.7-14.0) Prothromb Time International Ratio 2.1 (0.8-1.1) Sodium Level 142 mmol/L (136-145) Potassium Level 4.0 mmol/L (3.5-5.1) Chloride Level 107 mmol/L (98-107) Carbon Dioxide Level 25 mmol/L (21-32) Anion Gap 10 (6-14) Blood Urea Nitrogen 26 mg/dL (8-26) Creatinine 1.1 mg/dL (0.7-1.3) Estimated GFR (Cockcroft-Gault) 80.1 BUN/Creatinine Ratio 24 (6-20) Glucose Level 143 mg/dL (70-99) Lactic Acid Level 2.3 mmol/L (0.4-2.0) 4.9 mmol/L (0.4-2.0) 7.6 mmol/L (0.4-2.0) Calcium Level 8.5 mg/dL (8.5-10.1) Total Bilirubin 0.6 mg/dL (0.2-1.0) Aspartate Amino Transf (AST/SGOT) 14 U/L (15-37) Alanine Aminotransferase (ALT/SGPT) 15 U/L (16-63) Alkaline Phosphatase 62 U/L (46-116) Total Protein 7.4 g/dL (6.4-8.2) Albumin 2.0 g/dL (3.4-5.0) Albumin/Globulin Ratio 0.4 (1.0-1.7) Lipase 97 U/L (73-393) Procalcitonin 29.00 ng/mL (0.00-0.10) O2 Saturation 100 % (92-99) Arterial Blood pH 7.39 (7.35-7.45) Arterial Blood pH (Temp corrected) 7.36 Arterial Blood pCO2 at Patient Temp 23 mmHg (35-46) Arterial Blood pCO2 (Temp correct) 26 mmHg Arterial Blood pO2 at Patient Temp 421 mmHg (65-108) Arterial Blood pO2 (Temp corrected) 433 mmHg Arterial Blood HCO3 14 mmol/L (21-28) Arterial Blood Base Excess -10 mmol/L (-3-3) Test 10/26/18 01:22 10/26/18 04:45 10/26/18 04:48 Urine Collection Type Unknown Urine Color Maryann Urine Clarity Clear Urine pH 5.5 Urine Specific [place] 1.020 Urine Protein 30 mg/dL (NEG-TRACE) Urine Glucose (UA) Negative mg/dL (NEG) Urine Ketones (Stick) Negative mg/dL (NEG) Urine Blood Moderate (NEG) Urine Nitrite Negative (NEG) Urine Bilirubin Small (NEG) Urine Urobilinogen Dipstick 1.0 mg/dL (0.2 mg/dL) Urine Leukocyte Esterase Moderate (NEG) Urine RBC 3-5 /HPF (0-2) Urine WBC 11-20 /HPF (0-4) Urine Squamous Epithelial Cells Occ /LPF Urine Bacteria Mod /HPF (0-FEW) Urine Mucus Slight /LPF Prothrombin Time 26.0 SEC (11.7-14.0) Prothromb Time International Ratio 2.4 (0.8-1.1) Sodium Level 151 mmol/L (136-145) Potassium Level 4.1 mmol/L (3.5-5.1) Chloride Level 117 mmol/L (98-107) Carbon Dioxide Level 17 mmol/L (21-32) Anion Gap 17 (6-14) Blood Urea Nitrogen 28 mg/dL (8-26) Creatinine 1.7 mg/dL (0.7-1.3) Estimated GFR (Cockcroft-Gault) 48.3 Glucose Level 101 mg/dL (70-99) Lactic Acid Level 6.3 mmol/L (0.4-2.0) Uric Acid 6.2 mg/dL (3.5-7.2) Calcium Level 7.1 mg/dL (8.5-10.1) White Blood Count 38.1 x10^3/uL (4.0-11.0) Red Blood Count 3.40 x10^6/uL (4.30-5.70) Hemoglobin 8.4 g/dL (13.0-17.5) Hematocrit 27.9 % (39.0-53.0) Mean Corpuscular Volume 82 fL (79-100) Mean Corpuscular Hemoglobin 25 pg (25-35) Mean Corpuscular Hemoglobin Concent 30 g/dL (31-37) Red Cell Distribution Width 17.2 % (11.5-14.5) Platelet Count 151 x10^3/uL (140-400) Neutrophils (%) (Auto) 98 % (31-73) Lymphocytes (%) (Auto) 1 % (24-48) Monocytes (%) (Auto) 2 % (0-9) Eosinophils (%) (Auto) 0 % (0-3) Basophils (%) (Auto) 0 % (0-3) Neutrophils # (Auto) 37.1 x10^3uL (1.8-7.7) Lymphocytes # (Auto) 0.3 x10^3/uL (1.0-4.8) Monocytes # (Auto) 0.6 x10^3/uL (0.0-1.1) Eosinophils # (Auto) 0.0 x10^3/uL (0.0-0.7) Basophils # (Auto) 0.0 x10^3/uL (0.0-0.2) Laboratory Tests Test 10/25/18 10:18 10/25/18 14:15 10/25/18 18:18 10/25/18 20:41 White Blood Count 12.5 x10^3/uL (4.0-11.0) Red Blood Count 4.28 x10^6/uL (4.30-5.70) Hemoglobin 10.5 g/dL (13.0-17.5) Hematocrit 34.5 % (39.0-53.0) Mean Corpuscular Volume 81 fL (79-100) Mean Corpuscular Hemoglobin 25 pg (25-35) Mean Corpuscular Hemoglobin Concent 31 g/dL (31-37) Red Cell Distribution Width 17.0 % (11.5-14.5) Platelet Count 292 x10^3/uL (140-400) Neutrophils (%) (Auto) 83 % (31-73) Lymphocytes (%) (Auto) 10 % (24-48) Monocytes (%) (Auto) 6 % (0-9) Eosinophils (%) (Auto) 0 % (0-3) Basophils (%) (Auto) 0 % (0-3) Neutrophils # (Auto) 10.4 x10^3uL (1.8-7.7) Lymphocytes # (Auto) 1.3 x10^3/uL (1.0-4.8) Monocytes # (Auto) 0.8 x10^3/uL (0.0-1.1) Eosinophils # (Auto) 0.0 x10^3/uL (0.0-0.7) Basophils # (Auto) 0.0 x10^3/uL (0.0-0.2) Prothrombin Time 23.4 SEC (11.7-14.0) Prothromb Time International Ratio 2.1 (0.8-1.1) Sodium Level 142 mmol/L (136-145) Potassium Level 4.0 mmol/L (3.5-5.1) Chloride Level 107 mmol/L (98-107) Carbon Dioxide Level 25 mmol/L (21-32) Anion Gap 10 (6-14) Blood Urea Nitrogen 26 mg/dL (8-26) Creatinine 1.1 mg/dL (0.7-1.3) Estimated GFR (Cockcroft-Gault) 80.1 BUN/Creatinine Ratio 24 (6-20) Glucose Level 143 mg/dL (70-99) Lactic Acid Level 2.3 mmol/L (0.4-2.0) 4.9 mmol/L (0.4-2.0) 7.6 mmol/L (0.4-2.0) Calcium Level 8.5 mg/dL (8.5-10.1) Total Bilirubin 0.6 mg/dL (0.2-1.0) Aspartate Amino Transf (AST/SGOT) 14 U/L (15-37) Alanine Aminotransferase (ALT/SGPT) 15 U/L (16-63) Alkaline Phosphatase 62 U/L (46-116) Total Protein 7.4 g/dL (6.4-8.2) Albumin 2.0 g/dL (3.4-5.0) Albumin/Globulin Ratio 0.4 (1.0-1.7) Lipase 97 U/L (73-393) Procalcitonin 29.00 ng/mL (0.00-0.10) O2 Saturation 100 % (92-99) Arterial Blood pH 7.39 (7.35-7.45) Arterial Blood pH (Temp corrected) 7.36 Arterial Blood pCO2 at Patient Temp 23 mmHg (35-46) Arterial Blood pCO2 (Temp correct) 26 mmHg Arterial Blood pO2 at Patient Temp 421 mmHg (65-108) Arterial Blood pO2 (Temp corrected) 433 mmHg Arterial Blood HCO3 14 mmol/L (21-28) Arterial Blood Base Excess -10 mmol/L (-3-3) Test 10/26/18 01:22 10/26/18 04:45 10/26/18 04:48 Urine Collection Type Unknown Urine Color Maryann Urine Clarity Clear Urine pH 5.5 Urine Specific [place] 1.020 Urine Protein 30 mg/dL (NEG-TRACE) Urine Glucose (UA) Negative mg/dL (NEG) Urine Ketones (Stick) Negative mg/dL (NEG) Urine Blood Moderate (NEG) Urine Nitrite Negative (NEG) Urine Bilirubin Small (NEG) Urine Urobilinogen Dipstick 1.0 mg/dL (0.2 mg/dL) Urine Leukocyte Esterase Moderate (NEG) Urine RBC 3-5 /HPF (0-2) Urine WBC 11-20 /HPF (0-4) Urine Squamous Epithelial Cells Occ /LPF Urine Bacteria Mod /HPF (0-FEW) Urine Mucus Slight /LPF Prothrombin Time 26.0 SEC (11.7-14.0) Prothromb Time International Ratio 2.4 (0.8-1.1) Sodium Level 151 mmol/L (136-145) Potassium Level 4.1 mmol/L (3.5-5.1) Chloride Level 117 mmol/L (98-107) Carbon Dioxide Level 17 mmol/L (21-32) Anion Gap 17 (6-14) Blood Urea Nitrogen 28 mg/dL (8-26) Creatinine 1.7 mg/dL (0.7-1.3) Estimated GFR (Cockcroft-Gault) 48.3 Glucose Level 101 mg/dL (70-99) Lactic Acid Level 6.3 mmol/L (0.4-2.0) Uric Acid 6.2 mg/dL (3.5-7.2) Calcium Level 7.1 mg/dL (8.5-10.1) White Blood Count 38.1 x10^3/uL (4.0-11.0) Red Blood Count 3.40 x10^6/uL (4.30-5.70) Hemoglobin 8.4 g/dL (13.0-17.5) Hematocrit 27.9 % (39.0-53.0) Mean Corpuscular Volume 82 fL (79-100) Mean Corpuscular Hemoglobin 25 pg (25-35) Mean Corpuscular Hemoglobin Concent 30 g/dL (31-37) Red Cell Distribution Width 17.2 % (11.5-14.5) Platelet Count 151 x10^3/uL (140-400) Neutrophils (%) (Auto) 98 % (31-73) Lymphocytes (%) (Auto) 1 % (24-48) Monocytes (%) (Auto) 2 % (0-9) Eosinophils (%) (Auto) 0 % (0-3) Basophils (%) (Auto) 0 % (0-3) Neutrophils # (Auto) 37.1 x10^3uL (1.8-7.7) Lymphocytes # (Auto) 0.3 x10^3/uL (1.0-4.8) Monocytes # (Auto) 0.6 x10^3/uL (0.0-1.1) Eosinophils # (Auto) 0.0 x10^3/uL (0.0-0.7) Basophils # (Auto) 0.0 x10^3/uL (0.0-0.2) Review All relevant outside records, renal labs, imaging studies, telemetry/EKG's were reviewed. TRANG DONIS MD October 26, 2018 10:44
[2018-10-26] MEDS ORDERED: SODIUM HYPOCHLORITE 0.125% 473 ML BOTTLE. TP PRN (11:00)
[2018-10-26] MEDS ORDERED: IV NORMAL SALINE 500ML BAG 500 ML IV PRN (11:00)
--- NOTE | 2018-10-26 11:34 | RAD ---
Renal ultrasound, 10/26/2018: HISTORY: Acute renal insufficiency, decreased urine output The right kidney measures 9.8 cm in length. There is no evidence of hydronephrosis or a renal mass. The right renal parenchymal echogenicity appears to be slightly increased. The left kidney could not be visualized due to difficulties in patient positioning. The urinary bladder is collapsed due to the presence of a Frye catheter and not adequately visualized. IMPRESSION: 1. Limited exam. 2. Mildly increased right renal parenchymal echogenicity suggesting medical renal disease. 3. No evidence of right renal obstruction. 4. Nonvisualization of the left kidney. Electronically signed by: Scooby Wiseman MD (10/26/2018 11:31 AM) [facility]
--- NOTE | 2018-10-26 11:34 | NUR ---
Wound Care Wound care consult for multiple wounds pt has unstageable PU to left hip and sacrum as well as trauma wound to left lateral leg. Discussed with Dr Knowles and receive verbal order to consult WC physician to assess. Robyn Bailey present for assessment. Cleansed all wounds and redressed. Sacral wound was packed with Dakin's soaked gauze roll and covered with ABD and tape, recommend to change BID and PRN. Left hip and left lateral leg dressed with Medihoney alginate and foam dressings, recommend to change every 3 days. WC instructions left in room, discussed with and Arlen HOOVER. Pt is working with home health to obtain gel mattress and Roho cushion for wheelchair. No other wounds noted at this time. Pt on ICU bed at this time, recommend P500 if transferred to different unit. will continue to follow for possible changes.
[2018-10-26] MEDS: SODIUM HYPOCHLORITE 0.125% 473 ML BOTTLE. TP SCH ×2 (11:52→21:37)
[2018-10-26] MEDS: PIPERACILLIN/TAZOBACTAM 2.25 GM in IV NORMAL SALINE 50ML 50 ML IV SCH ×2 (11:55→17:30)
--- NOTE | 2018-10-26 12:46 | NUR ---
SS following for discharge planning. SS reviewed pt chart. Pt is from home with spouse. No discharge needs noted at this time. SS will continue to follow for discharge planning.
--- NOTE | 2018-10-26 13:44 | PDOC2 ---
Chief Complaint: Chief Complaint: Pt admitted with coccyx wound and left hip wound Problems: (1) Pressure injury of coccygeal region, unstageable (2) Unstageable pressure ulcer of left hip (3) Sepsis Vital Signs: Vital Signs: Vital Signs Date Time Temp Pulse Resp B/P (MAP) Pulse Ox O2 Delivery O2 Flow Rate FiO2 10/25/18 09:41 97.9 78 20 154/70 (98) 95 Room Air 97.9 Vital Signs Date Time Temp Pulse Resp B/P (MAP) Pulse Ox O2 Delivery O2 Flow Rate FiO2 10/26/18 12:00 Bi-pap 10/26/18 12:00 97.8 91 22 113/74 (87) 99 97.8 Allergies: Allergies: Allergies Coded Allergies Type Severity Reaction Last Updated Verified No Known Drug Allergies 01/11/15 No Medications: Home Meds Reported Medications Ergocalciferol (Vitamin D2) (VITAMIN D2) 50,000 Unit Capsule, 1 CAP PO WEEKLY for REPLACEMENT, #4 CAP 5 Refills 10/25/18 Trazodone Hcl (TRAZODONE HCL) 50 Mg Tablet, 1 TAB PO QHS PRN for INSOMNIA, #30 TAB 2 Refills 10/25/18 Famotidine (FAMOTIDINE) 20 Mg Tablet, 20 MG PO BID for UNKNOWN, TAB 10/25/18 Carvedilol (CARVEDILOL ) 12.5 Mg Tablet, 12.5 MG PO BIDWMEALS for CARDIAC, TAB 10/25/18 Bumetanide (BUMETANIDE) 1 Mg Tablet, 1 TAB PO DAILY for UNKNOWN, #30 TAB 5 Refills 10/25/18 Allopurinol (ALLOPURINOL) 100 Mg Tablet, 1 TAB PO DAILY for UNKNOWN, #30 TAB 5 Refills 10/25/18 Furosemide (FUROSEMIDE) 40 Mg Tablet, 1 TAB PO DAILY for CHF, #90 TAB 3 Refills 10/25/18 Potassium Chloride (KLOR-CON 10) 10 Meq Tablet.er, 2 TAB PO DAILY for REPLACEMENT, #90 TAB 1 Refill 10/25/18 Methocarbamol (METHOCARBAMOL) 500 Mg Tablet, 500 MG PO TID PRN for PAIN 04/04/18 Citalopram Hydrobromide (CITALOPRAM HBR) 20 Mg Tablet, 20 MG PO DAILY 04/04/18 Tramadol Hcl (TRAMADOL HCL) 50 Mg Tablet, 50 MG PO PRN Q8HRS PRN for PAIN 04/04/18 Atorvastatin Calcium (ATORVASTATIN CALCIUM) 40 Mg Tablet, 40 MG PO QHS 04/04/18 Amlodipine Besylate (AMLODIPINE BESYLATE) 10 Mg Tablet, 10 MG PO DAILY 04/04/18 Warfarin Sodium (WARFARIN SODIUM) 5 Mg Tablet, 1 TAB PO DAILY for UNKNOWN 04/04/18 Memantine Hcl (NAMENDA) 10 Mg Tablet, 1 TAB PO BID, #180 TAB 1 Refill 09/01/14 Discontinued Reported Medications Furosemide (FUROSEMIDE) 20 Mg Tablet, 1 TAB PO DAILY, #90 TAB 1 Refill 08/14/14 PCP: PCP: Dr Morales Pain: Pain Location: Coccyx Pain Description: Intermittent Scale (pain): 8 Date of Onset History obtained through at pt's bedside. Pt has been chronically ill, declining over last 6 months. Pt primarily bed-bound, but does get up to w/c for meals on occasion. Pt seen at home by HH and visiting physicians. Pt was brought to the hospital secondary to worsening wound conditions. Coccyx wound present for greater to 1 month prior to hospital admission. Depth significantly worsened over last week with increased odorous drainage. Pt's states left hip wound present for approximately 1 month prior to admission. Pt was being treated at home by HH with Santyl and advanced wound dressings. Pt with hx of right stage 4 pressure ulcer which has been healed out. Surgical Date Surgery, Dr Knowles and Pretty Aly, consulted. Pt not currently a surgical candidate. PMH Significant for history of multiple comorbidities. History of paralysis, history of chronic wounds. History of DVT, heart disease, pacemaker, CVA and dementia. Surgical History Right shoulder surgery PSH Pt lives at home with his who is his primary all source intelligence analyst. HH visits on M, W, F. History of tobaccoism. Review of Systems: Pt not verbal while this LIGHT RAIL TRAIN OPERATOR was in room, unable to access. Physical Exam Pt awake, nonverbal. at bedside who is a good historian. Elderly, AA in NAD. Pt in ICU. Resp even and unlabored. Pt on supplemental O2. LE with 2+ pitting edema. Abdomen soft, nondistended, and nontender. Pt with open wound to lateral left jane. reports previous skin tear which required sutures. Following suture removal, wound did not close secondary to underlying edema. Left hip wound with 100% slough/eschar covering. Edges attached and not rolling. No surrounding edema present. Coccyx wound with 100% slough/eschar. Tunnel present at 12 o'clock. Moderate amount of odorous, serosanguineous drainage. Measurements documented by nursing. A/P Sepsis - blood culture revealing gram negative rods at this time. ID guiding abx treatment. Unstageable coccyx pressure ulcer, admitted with - pt not a surgical candidate at this time. - apply Dakin's soaked gauze to wound bed. Cover with Abd and secure with Medipore. Change bid or prn if dressing saturated or loose. - Pt on ICU bed for offloading with q2h turning per nursing staff. Unstageable left hip pressure ulcer, admitted with - Cleanse and pat dry. Apply honey alginate to wound. Change every 3 days or prn if dressing loose or saturated. - Pt on ICU bed for offloading with q2h turning per nursing staff. Skin tear to left lateral leg with stagnate wound healing secondary to poor vascular status and underlying edema - Cleanse and pat dry. Apply honey alginate to wound. Change every 3 days or prn if dressing loose or saturated. Thank you for the consult. Our team will continue to follow the pt for wound care. [facility]NG [employer] ASSIST[employer]ACH October 26, 2018 13:44
--- NOTE | 2018-10-26 14:38 | NUR ---
pt seen by wound care today. orders received. and son at bedside. pt sating 97 to 100% on room air. titrating levophed drip.
--- NOTE | 2018-10-26 15:11 | PDOC2 ---
PALLIATIVE CARE Palliative Care Note Palliative Care Consult requested by Dr. Morales to address goals of care. Medical Assessment per medical record 1. Acute respiratory failure secondary to septic shock. 2. Septic shock. Likely sources could be urinary tract infection and gluteal wounds. 3. Positive blood cultures with gram-negative rods. Currently on broad spectrum antibiotics. 4. Encephalopathy secondary to septic shock. 5. Acute tubular necrosis/acute kidney injury, contributed by septic shock. 6. 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 7. History of deep venous thrombosis, on therapeutic INR. 8. History of pacemaker. 9. History of cerebrovascular accident and dementia. Patient resting. not here. Spoke with son Jesu. Code Status; Full code Plan Family meeting tomorrow at 10a. AL AGUERO October 26, 2018 15:11
[2018-10-26] MEDS ORDERED: WARFARIN 5 MG TABLET. PO ONE (16:00)
[2018-10-26] MEDS ORDERED: WARFARIN 2 MG TABLET. PO ONE (16:00)
[2018-10-26] MEDS ORDERED: methylPREDNISolone SOD SUCC PF 125 MG/2 ML VIAL. IV ONE (17:30)
[2018-10-26] MEDS: AMINO AC 3%/ELECTROLYTE/GLYCER 1,000 ML IV SCH (17:30)
--- NOTE | 2018-10-26 17:54 | CONS ---
DATE OF CONSULTATION: 10/26/2018 The patient's room is ICU 5. REQUESTING PHYSICIAN: Shayne Morales M.D. REASON FOR CONSULTATION: Sepsis. HISTORY OF PRESENT ILLNESS: The patient is a 73-year-old gentleman with a history of spinal stenosis, paralysis, essentially bedbound, also has progressive dementia and contractures and who is being cared for at home by his family. He has multiple wounds additionally, and he gets wound care at home. Ms. Morillo states that his wounds have been progressing over the last several weeks as she has been unable to get Santyl, and she states that she brought him to the hospital to get his wound cleaned up. According to the ER note, he was feeling weak all over. No fevers or vomiting. On arrival, he had a temperature of 97.9 and white blood cell count was 12.5. Cultures were obtained. He was given a dose of azithromycin and Rocephin and was admitted to the floor. I was consulted in the afternoon. I discussed the case with the pharmacist to find out what his previous antibiotics have been used and previous cultures and continued the Rocephin and added vancomycin. Over the course of the day, it appears he had difficulty with urine output. Urology was consulted and he underwent a cystoscope with complex catheterization and found to have bulbar wide caliber stricture and false passage proximal to it noted with obstructing prostate lobes. Over the evening, he developed low blood pressure and developed a temperature, he was found to have a lactic acid of 4.9. Fluid boluses were started. He was transferred to the Intensive Care Unit. He had received a dose of fluconazole and Zosyn was instituted. Over the course of the night, his urine output has decreased. He did have a T-max of 102.9. He has been placed on Levophed and it is now increased to 24 mcg. The patient is alert. He is currently on BiPAP. PAST MEDICAL HISTORY: Positive for congestive heart failure, progressive dementia, aspiration, bilateral lower extremity DVTs, history of alcohol abuse, spinal stenosis, COPD, contractures, arthritis, abdominal aortic aneurysm, history of gout, and history of multiple wounds. PAST SURGICAL HISTORY: Positive for pacemaker, IVC filter placement, umbilical hernia surgery, abdominal aortic aneurysm, endovascular repair, and history of previous PEG tube. REVIEW OF SYSTEMS: Unobtainable. ALLERGIES: No known drug allergies. SOCIAL HISTORY: He lives with and son. He has been bedbound. He does have a history of tobacco abuse and history of alcohol abuse. FAMILY HISTORY: Noncontributory. CURRENT MEDICATIONS: He received azithromycin x 1, Rocephin x 1, fluconazole x 1. He has been placed on vancomycin. He also received Zosyn. He is on Levophed, allopurinol, Lipitor, trazodone, and Coumadin. PHYSICAL EXAMINATION: VITAL SIGNS: T-max was 102.9 axillary, currently 100.7; pulse 114, respirations 28, blood pressure 99/60, and satting 100% on BiPAP. CONSTITUTIONAL: He is alert. He is lying on his right side. He is on BiPAP. HEENT: Pupils equal and reactive. NECK: Without JVD. LUNGS: Without wheeze. HEART: S1, S2, tachycardic. ABDOMEN: Soft. Decreased, but positive bowel sounds. Frye is in place. EXTREMITIES: Contracted, there is 2-3+ edema in his lower extremities. His right wrist is contracted, it is swollen, but slightly warm and painful to move. SKIN: Without signs of rash. He has multiple unstageable pressure ulcers on his left hip. On his coccyx area, there is a foul odor and foul drainage through that wound and it is deep. SKIN: Without warmth or rash. NEUROLOGIC: He is alert. LABORATORY DATA: Today, white count is increased to 38.1 from 12.5, hemoglobin currently of 8.4, platelets of 151, and neutrophils are 98. Creatinine on arrival, as discussed with pharmacy yesterday is 1.1. He had normal liver function study tests. Lipase was 97. Creatinine this morning of 1.7. Lactic acid had increased to 7.6, but it has now decreased to 6.3. Procalcitonin of 29. Urinalysis is consistent with a urinary tract infection. Chest x-ray: Patchy perihilar and bibasilar opacities. Findings have improved from 2018 exam. IMPRESSION: 1. Sepsis present on admission, currently on 24 mcg of Levophed. 2. Urinary obstruction, status post Frye placement on 10/25 by Urology. 3. Urinary tract infection present on admission. 4. Multiple unstageable wound. 5. Right hand swelling and pain for over a month, per his . He has a history of gout, but the states he has been off his gout medicine at home because it interacted with other medications. 6. Acute kidney injury. 7. Respiratory failure, currently on BiPAP. They do feed him at home. reports that he has been coughing some with water aspiration. 8. Loose stools. He has had some loose stools. He has been on antibiotics last month, per his . RECOMMENDATIONS: For now, continue the Zosyn, but adjust the dose with his acute kidney injury. We will hold further vancomycin as he is going into renal failure with decreased urine output and we will dose daptomycin and consult Renal. We will add micafungin and doxycycline. IV doxycycline will help with respiratory stuff. Given recent antibiotic use and loose stools, we will check for C. diff. and add Flagyl, add uric acid given his ____. Currently, he is too unstable for additional imaging at this point. Surgery has been consulted. Follow up labs and cultures. Again local wound care. He is critically ill with guarded prognosis. I discussed with his about the critical nature of his illness. This was discussed with nursing as well. I spent 35 minutes of critical care time and reviewed previous records. Thank you for asking us to participate in this patient's care. If you have any questions, please do not hesitate to contact me. CAROL LAUREANO MD DR: GUANACO/coby JOB#: [id number] / [id number]
[2018-10-26] MEDS: ATORVASTATIN CALCIUM 40 MG TABLET. PO SCH (21:36)
[2018-10-27] VITALS (25 sets, daily range): BP systolic 109–160; BP diastolic 9–92
[2018-10-27] MEDS: PIPERACILLIN/TAZOBACTAM 2.25 GM in IV NORMAL SALINE 50ML 50 ML IV SCH ×2 (00:34→06:33)
[2018-10-27 05:36] LABS: PROTHROMBIN TIME PATIENT 29.5 SEC (11.7-14.0)
[2018-10-27 05:42] LABS: BASO % 0 % (0-3); EOS # 0.7 x10^3/uL (0.0-0.7); EOS % 1 % (0-3); HEMATOCRIT 28.4 % (39.0-53.0); HEMOGLOBIN 8.8 g/dL (13.0-17.5); LYMPH # 1.1 x10^3/uL (1.0-4.8); LYMPH % 2 % (24-48); MEAN CORPUSCULAR HEMOGLOBIN 25 pg (25-35); MEAN CORPUSCULAR HGB CONC 31 g/dL (31-37); MEAN CORPUSCULAR VOLUME 81 fL (79-100); MONO # 1.6 x10^3/uL (0.0-1.1); MONO % 3 % (0-9); NEUT # 47.8 x10^3uL (1.8-7.7); NEUT % 93 % (31-73); PLATELET COUNT 105 x10^3/uL (140-400); RED BLOOD COUNT 3.51 x10^6/uL (4.30-5.70); RED CELL DISTRIBUTION WIDTH 17.5 % (11.5-14.5)
[2018-10-27 05:57] LABS: WHITE BLOOD COUNT 51.3 x10^3/uL (4.0-11.0)
[2018-10-27 06:00] LABS: ALBUMIN 1.4 g/dL (3.4-5.0); ALBUMIN/GLOBULIN RATIO 0.3 (1.0-1.7); CALCIUM 7.8 mg/dL (8.5-10.1); CREATININE 1.5 mg/dL (0.7-1.3); GFR 55.8; TOTAL BILIRUBIN 0.7 mg/dL (0.2-1.0)
[2018-10-27 06:02] LABS: CREATININE 1.5 mg/dL (0.7-1.3); GFR 55.8
--- NOTE | 2018-10-27 06:05 | PDOC ---
Infectious Disease Note Subjective Subjective States ok. Denies F/C/S/N/SOA/pain ROS ROS O/w neg. ? reliability Vital Sign Vital Signs Vital Signs Date Time Temp Pulse Resp B/P (MAP) Pulse Ox O2 Delivery O2 Flow Rate FiO2 10/27/18 04:00 Room Air 10/27/18 00:00 99.5 83 16 140/89 (106) 99 99.5 Physical Exam PHYSICAL EXAM CONSTITUTIONAL: He is alert. He is more upright on his left side. HEENT: Pupils equal and reactive. OC/Op - dry NECK: Without JVD. LUNGS: Without wheeze. HEART: S1, S2, ABDOMEN: Soft. Decreased, but positive bowel sounds. : Frye is in place. EXTREMITIES: Contracted, there is 2+ edema in his lower extremities. His right wrist is contracted, it is swollen, but slightly warm and painful to move. SKIN: Without signs of rash. He has multiple unstageable pressure ulcers on his left hip. On his coccyx area, there is still a foul odor and foul drainage through that wound and it is deep. SKIN: Without warmth or rash. NEUROLOGIC: He is alert. Labs Lab Laboratory Tests Test 10/27/18 05:00 White Blood Count 51.3 x10^3/uL (4.0-11.0) Red Blood Count 3.51 x10^6/uL (4.30-5.70) Hemoglobin 8.8 g/dL (13.0-17.5) Hematocrit 28.4 % (39.0-53.0) Mean Corpuscular Volume 81 fL (79-100) Mean Corpuscular Hemoglobin 25 pg (25-35) Mean Corpuscular Hemoglobin Concent 31 g/dL (31-37) Red Cell Distribution Width 17.5 % (11.5-14.5) Platelet Count 105 x10^3/uL (140-400) Neutrophils (%) (Auto) 93 % (31-73) Lymphocytes (%) (Auto) 2 % (24-48) Monocytes (%) (Auto) 3 % (0-9) Eosinophils (%) (Auto) 1 % (0-3) Basophils (%) (Auto) 0 % (0-3) Neutrophils # (Auto) 47.8 x10^3uL (1.8-7.7) Lymphocytes # (Auto) 1.1 x10^3/uL (1.0-4.8) Monocytes # (Auto) 1.6 x10^3/uL (0.0-1.1) Eosinophils # (Auto) 0.7 x10^3/uL (0.0-0.7) Basophils # (Auto) 0.0 x10^3/uL (0.0-0.2) Prothrombin Time 29.5 SEC (11.7-14.0) Prothromb Time International Ratio 2.8 (0.8-1.1) Micro Microbiology 10/25/18 Blood Culture - Preliminary, Resulted NO GROWTH AFTER 1 DAY Objective Assessment GNR Sepsis - POA 10/25 - down to 8 of Levophed Leukocytosis - in part sepsis/ reactive and steroids Urinary obstruction - s/p Frye placement 10/25 by Urology UTI - POA Multiple unstageable wounds - not a surgical candidate Lactic acidosis - slowly correcting MRSA + Right hand swelling and pain for over a month per - h/o gout and states has been off gout med at home because it interacted with other meds - some better -uric acid 6.2 RICK -stable Resp failure - off Bipap - states cont to cough at times loose stool - on abx last month - better Plan Plan of Care F/u GNR blood Contact for MRSA repeat blood cults today Cont Zosyn but increase dose as RICK - stable Cont Dapto for now Cont Micafungin/Doxy Check c-diff and add Flagyl Too unstable for additional imaging at this point Surgery has lubna Consulted F/u labs and cults Local wound care Critically ill with complex medical decision making Guarded prognosis D/w about the critical nature of illness still although some better today. ? her insight D/w nursing CAROL LAUREANO MD October 27, 2018 06:05
[2018-10-27] MEDS: AMINO AC 3%/ELECTROLYTE/GLYCER 1,000 ML IV SCH ×2 (06:30→19:42)
[2018-10-27] MEDS: MICAFUNGIN 100 MG in IV DEXTROSE 5% 100ML 100 ML IV SCH (06:39)
[2018-10-27 06:51] LABS: % BANDS 40 % (0-9); % LYMPHS 3 % (24-48); % METAS 1 % (0-0); % MONOS 3 % (0-10); % SEGS 53 % (35-66); ANISOCYTOSIS SLIGHT; NUCLEATED RBC 1; OVALOCYTES FEW; PLT ESTIMATE DECREASED (ADEQUATE)
[2018-10-27 06:52] LABS: BURR CELLS FEW; TOXIC VACUOLATION SLIGHT
--- NOTE | 2018-10-27 08:58 | PDOC ---
SURGICAL PROGRESS NOTE Subjective sleeping, sleeping Vital Signs Vital Signs Date Time Temp Pulse Resp B/P (MAP) Pulse Ox O2 Delivery O2 Flow Rate FiO2 10/27/18 08:00 96 20 136/77 (96) 91 Room Air 10/27/18 07:00 98.4 98.4 I&O Intake and Output 10/27/18 07:00 Intake Total 1807 ml Output Total 1115 ml Balance 692 ml Intake Oral 180 ml IV Total 1627 ml Output Urine Total 1115 ml General: No acute distress Abdomen: Soft Labs Laboratory Tests Test 10/25/18 10:18 10/25/18 14:15 10/25/18 17:00 10/25/18 18:18 White Blood Count 12.5 x10^3/uL (4.0-11.0) Red Blood Count 4.28 x10^6/uL (4.30-5.70) Hemoglobin 10.5 g/dL (13.0-17.5) Hematocrit 34.5 % (39.0-53.0) Mean Corpuscular Volume 81 fL (79-100) Mean Corpuscular Hemoglobin 25 pg (25-35) Mean Corpuscular Hemoglobin Concent 31 g/dL (31-37) Red Cell Distribution Width 17.0 % (11.5-14.5) Platelet Count 292 x10^3/uL (140-400) Neutrophils (%) (Auto) 83 % (31-73) Lymphocytes (%) (Auto) 10 % (24-48) Monocytes (%) (Auto) 6 % (0-9) Eosinophils (%) (Auto) 0 % (0-3) Basophils (%) (Auto) 0 % (0-3) Neutrophils # (Auto) 10.4 x10^3uL (1.8-7.7) Lymphocytes # (Auto) 1.3 x10^3/uL (1.0-4.8) Monocytes # (Auto) 0.8 x10^3/uL (0.0-1.1) Eosinophils # (Auto) 0.0 x10^3/uL (0.0-0.7) Basophils # (Auto) 0.0 x10^3/uL (0.0-0.2) Prothrombin Time 23.4 SEC (11.7-14.0) Prothromb Time International Ratio 2.1 (0.8-1.1) Sodium Level 142 mmol/L (136-145) Potassium Level 4.0 mmol/L (3.5-5.1) Chloride Level 107 mmol/L (98-107) Carbon Dioxide Level 25 mmol/L (21-32) Anion Gap 10 (6-14) Blood Urea Nitrogen 26 mg/dL (8-26) Creatinine 1.1 mg/dL (0.7-1.3) Estimated GFR (Cockcroft-Gault) 80.1 BUN/Creatinine Ratio 24 (6-20) Glucose Level 143 mg/dL (70-99) Lactic Acid Level 2.3 mmol/L (0.4-2.0) 4.9 mmol/L (0.4-2.0) 7.6 mmol/L (0.4-2.0) Calcium Level 8.5 mg/dL (8.5-10.1) Total Bilirubin 0.6 mg/dL (0.2-1.0) Aspartate Amino Transf (AST/SGOT) 14 U/L (15-37) Alanine Aminotransferase (ALT/SGPT) 15 U/L (16-63) Alkaline Phosphatase 62 U/L (46-116) Total Protein 7.4 g/dL (6.4-8.2) Albumin 2.0 g/dL (3.4-5.0) Albumin/Globulin Ratio 0.4 (1.0-1.7) Lipase 97 U/L (73-393) Nasal Screen MRSA (PCR) Positive (Negative) Procalcitonin 29.00 ng/mL (0.00-0.10) Test 10/25/18 20:41 10/26/18 01:22 10/26/18 04:45 10/26/18 04:48 O2 Saturation 100 % (92-99) Arterial Blood pH 7.39 (7.35-7.45) Arterial Blood pH (Temp corrected) 7.36 Arterial Blood pCO2 at Patient Temp 23 mmHg (35-46) Arterial Blood pCO2 (Temp correct) 26 mmHg Arterial Blood pO2 at Patient Temp 421 mmHg (65-108) Arterial Blood pO2 (Temp corrected) 433 mmHg Arterial Blood HCO3 14 mmol/L (21-28) Arterial Blood Base Excess -10 mmol/L (-3-3) Urine Collection Type Unknown Urine Color Maryann Urine Clarity Clear Urine pH 5.5 Urine Specific [place] 1.020 Urine Protein 30 mg/dL (NEG-TRACE) Urine Glucose (UA) Negative mg/dL (NEG) Urine Ketones (Stick) Negative mg/dL (NEG) Urine Blood Moderate (NEG) Urine Nitrite Negative (NEG) Urine Bilirubin Small (NEG) Urine Urobilinogen Dipstick 1.0 mg/dL (0.2 mg/dL) Urine Leukocyte Esterase Moderate (NEG) Urine RBC 3-5 /HPF (0-2) Urine WBC 11-20 /HPF (0-4) Urine Squamous Epithelial Cells Occ /LPF Urine Bacteria Mod /HPF (0-FEW) Urine Mucus Slight /LPF Prothrombin Time 26.0 SEC (11.7-14.0) Prothromb Time International Ratio 2.4 (0.8-1.1) Sodium Level 151 mmol/L (136-145) Potassium Level 4.1 mmol/L (3.5-5.1) Chloride Level 117 mmol/L (98-107) Carbon Dioxide Level 17 mmol/L (21-32) Anion Gap 17 (6-14) Blood Urea Nitrogen 28 mg/dL (8-26) Creatinine 1.7 mg/dL (0.7-1.3) Estimated GFR (Cockcroft-Gault) 48.3 Glucose Level 101 mg/dL (70-99) Lactic Acid Level 6.3 mmol/L (0.4-2.0) Uric Acid 6.2 mg/dL (3.5-7.2) Calcium Level 7.1 mg/dL (8.5-10.1) White Blood Count 38.1 x10^3/uL (4.0-11.0) Red Blood Count 3.40 x10^6/uL (4.30-5.70) Hemoglobin 8.4 g/dL (13.0-17.5) Hematocrit 27.9 % (39.0-53.0) Mean Corpuscular Volume 82 fL (79-100) Mean Corpuscular Hemoglobin 25 pg (25-35) Mean Corpuscular Hemoglobin Concent 30 g/dL (31-37) Red Cell Distribution Width 17.2 % (11.5-14.5) Platelet Count 151 x10^3/uL (140-400) Neutrophils (%) (Auto) 98 % (31-73) Lymphocytes (%) (Auto) 1 % (24-48) Monocytes (%) (Auto) 2 % (0-9) Eosinophils (%) (Auto) 0 % (0-3) Basophils (%) (Auto) 0 % (0-3) Neutrophils # (Auto) 37.1 x10^3uL (1.8-7.7) Lymphocytes # (Auto) 0.3 x10^3/uL (1.0-4.8) Monocytes # (Auto) 0.6 x10^3/uL (0.0-1.1) Eosinophils # (Auto) 0.0 x10^3/uL (0.0-0.7) Basophils # (Auto) 0.0 x10^3/uL (0.0-0.2) Segmented Neutrophils % 83 % (35-66) Band Neutrophils % 14 % (0-9) Monocytes % 1 % (0-10) Metamyelocytes % 1 % (0-0) Myelocytes % 1 % (0-0) Nucleated Red Blood Cells 1 Platelet Estimate Adequate (ADEQUATE) Large Platelets Present Anisocytosis Present Test 10/27/18 05:00 White Blood Count 51.3 x10^3/uL (4.0-11.0) Red Blood Count 3.51 x10^6/uL (4.30-5.70) Hemoglobin 8.8 g/dL (13.0-17.5) Hematocrit 28.4 % (39.0-53.0) Mean Corpuscular Volume 81 fL (79-100) Mean Corpuscular Hemoglobin 25 pg (25-35) Mean Corpuscular Hemoglobin Concent 31 g/dL (31-37) Red Cell Distribution Width 17.5 % (11.5-14.5) Platelet Count 105 x10^3/uL (140-400) Neutrophils (%) (Auto) 93 % (31-73) Lymphocytes (%) (Auto) 2 % (24-48) Monocytes (%) (Auto) 3 % (0-9) Eosinophils (%) (Auto) 1 % (0-3) Basophils (%) (Auto) 0 % (0-3) Neutrophils # (Auto) 47.8 x10^3uL (1.8-7.7) Lymphocytes # (Auto) 1.1 x10^3/uL (1.0-4.8) Monocytes # (Auto) 1.6 x10^3/uL (0.0-1.1) Eosinophils # (Auto) 0.7 x10^3/uL (0.0-0.7) Basophils # (Auto) 0.0 x10^3/uL (0.0-0.2) Segmented Neutrophils % 53 % (35-66) Band Neutrophils % 40 % (0-9) Lymphocytes % 3 % (24-48) Monocytes % 3 % (0-10) Metamyelocytes % 1 % (0-0) Nucleated Red Blood Cells 1 Toxic Vacuolation Slight Dohle Bodies Present Platelet Estimate Decreased (ADEQUATE) Anisocytosis Slight Ovalocytes Few [place] Cells Few Prothrombin Time 29.5 SEC (11.7-14.0) Prothromb Time International Ratio 2.8 (0.8-1.1) Sodium Level 152 mmol/L (136-145) Potassium Level 4.0 mmol/L (3.5-5.1) Chloride Level 118 mmol/L (98-107) Carbon Dioxide Level 16 mmol/L (21-32) Anion Gap 18 (6-14) Blood Urea Nitrogen 33 mg/dL (8-26) Creatinine 1.5 mg/dL (0.7-1.3) Estimated GFR (Cockcroft-Gault) 55.8 BUN/Creatinine Ratio 22 (6-20) Glucose Level 95 mg/dL (70-99) Lactic Acid Level 5.2 mmol/L (0.4-2.0) Calcium Level 7.8 mg/dL (8.5-10.1) Total Bilirubin 0.7 mg/dL (0.2-1.0) Aspartate Amino Transf (AST/SGOT) 75 U/L (15-37) Alanine Aminotransferase (ALT/SGPT) 34 U/L (16-63) Alkaline Phosphatase 79 U/L (46-116) Total Protein 6.0 g/dL (6.4-8.2) Albumin 1.4 g/dL (3.4-5.0) Albumin/Globulin Ratio 0.3 (1.0-1.7) Laboratory Tests Test 10/27/18 05:00 White Blood Count 51.3 x10^3/uL (4.0-11.0) Red Blood Count 3.51 x10^6/uL (4.30-5.70) Hemoglobin 8.8 g/dL (13.0-17.5) Hematocrit 28.4 % (39.0-53.0) Mean Corpuscular Volume 81 fL (79-100) Mean Corpuscular Hemoglobin 25 pg (25-35) Mean Corpuscular Hemoglobin Concent 31 g/dL (31-37) Red Cell Distribution Width 17.5 % (11.5-14.5) Platelet Count 105 x10^3/uL (140-400) Neutrophils (%) (Auto) 93 % (31-73) Lymphocytes (%) (Auto) 2 % (24-48) Monocytes (%) (Auto) 3 % (0-9) Eosinophils (%) (Auto) 1 % (0-3) Basophils (%) (Auto) 0 % (0-3) Neutrophils # (Auto) 47.8 x10^3uL (1.8-7.7) Lymphocytes # (Auto) 1.1 x10^3/uL (1.0-4.8) Monocytes # (Auto) 1.6 x10^3/uL (0.0-1.1) Eosinophils # (Auto) 0.7 x10^3/uL (0.0-0.7) Basophils # (Auto) 0.0 x10^3/uL (0.0-0.2) Segmented Neutrophils % 53 % (35-66) Band Neutrophils % 40 % (0-9) Lymphocytes % 3 % (24-48) Monocytes % 3 % (0-10) Metamyelocytes % 1 % (0-0) Nucleated Red Blood Cells 1 Toxic Vacuolation Slight Dohle Bodies Present Platelet Estimate Decreased (ADEQUATE) Anisocytosis Slight Ovalocytes Few [place] Cells Few Prothrombin Time 29.5 SEC (11.7-14.0) Prothromb Time International Ratio 2.8 (0.8-1.1) Sodium Level 152 mmol/L (136-145) Potassium Level 4.0 mmol/L (3.5-5.1) Chloride Level 118 mmol/L (98-107) Carbon Dioxide Level 16 mmol/L (21-32) Anion Gap 18 (6-14) Blood Urea Nitrogen 33 mg/dL (8-26) Creatinine 1.5 mg/dL (0.7-1.3) Estimated GFR (Cockcroft-Gault) 55.8 BUN/Creatinine Ratio 22 (6-20) Glucose Level 95 mg/dL (70-99) Lactic Acid Level 5.2 mmol/L (0.4-2.0) Calcium Level 7.8 mg/dL (8.5-10.1) Total Bilirubin 0.7 mg/dL (0.2-1.0) Aspartate Amino Transf (AST/SGOT) 75 U/L (15-37) Alanine Aminotransferase (ALT/SGPT) 34 U/L (16-63) Alkaline Phosphatase 79 U/L (46-116) Total Protein 6.0 g/dL (6.4-8.2) Albumin 1.4 g/dL (3.4-5.0) Albumin/Globulin Ratio 0.3 (1.0-1.7) Problem List continue wound care less pressor support MARIA ELENA CHUNG [employer] October 27, 2018 08:58
[2018-10-27] MEDS: MEMANTINE 10 MG TABLET. PO SCH ×2 (09:02→21:00)
[2018-10-27] MEDS: ALLOPURINOL 100 MG TABLET. PO SCH (09:02)
[2018-10-27] MEDS: DOXYCYCLINE HYCLATE 100 MG in IV DEXTROSE 5% 100ML 100 ML IV SCH ×2 (09:06→21:50)
[2018-10-27] MEDS: methylPREDNISolone SOD SUCC PF 40 MG/ML VIAL. IV SCH (09:06)
[2018-10-27] MEDS: SODIUM HYPOCHLORITE 0.125% 473 ML BOTTLE. TP SCH ×2 (09:07→21:00)
--- NOTE | 2018-10-27 09:12 | NUR ---
IP: Pt is mrsa screen + requiring contact precautions.
--- NOTE | 2018-10-27 09:35 | PDOC ---
SUBJECTIVE ROS sleeping , no new concerns voiced by RN. UOP improved OBJECTIVE Vital Signs Vital Signs Date Time Temp Pulse Resp B/P (MAP) Pulse Ox O2 Delivery O2 Flow Rate FiO2 10/27/18 08:30 124/67 (86) 10/27/18 08:00 96 20 91 Room Air 10/27/18 07:00 98.4 98.4 I & 0 Intake and Output 10/27/18 07:00 Intake Total 1807 ml Output Total 1115 ml Balance 692 ml Intake Oral 180 ml IV Total 1627 ml Output Urine Total 1115 ml PHYSICAL EXAM Physical Exam GENERAL: NAD HEENT: OM moist NECK: Supple. LUNGS: Diminished breath sounds at the bases. CARDIOVASCULAR: Regular rate and rhythm. ABDOMEN: Soft, nontender. EXTREMITIES: wound on the left gluteus. 1+ edema NEURO - Non verbal , Contractures Frye + Skin No rash DIAGNOSIS/ASSESSMENT Assessment & Plan RICK - Suspect ATN sepsis sec to UTI Intermittent RICK since 2013 Renal US - cw Chr med disease Stable renal fucntion, UOP improved ,recd IV NS boluses wants to continue aggressive care including PR[employer] if indicated Difficult Frye placement Placed by uro UTI- On Abx ID following Hypernatremia- recd IV Na Hco3 Monitor , may need D5W if no improvement Hypotension- 2/2 sepsis On Levophed - BP improved , titrating down COMMENT/RELEVANT DATA Meds Current Medications Medications (Trade) Dose Ordered Sig/Leena Start Time Stop Time Status Last Admin Dose Admin Acetaminophen (Tylenol Supp) 650 mg PRN Q4HRS PRN 10/25/18 23:30 10/26/18 04:28 650 MG Acetaminophen (Tylenol) 650 mg PRN Q4HRS PRN 10/25/18 23:30 Allopurinol (Zyloprim) 100 mg DAILY 10/26/18 09:00 10/27/18 09:02 100 MG Amino Acids/ Glycerin/ Electrolytes 1,000 ml @ 80 mls/hr [id number] 10/26/18 18:00 10/27/18 06:30 80 MLS/HR Atorvastatin Calcium (Lipitor) 40 mg QHS 10/25/18 21:00 10/26/18 21:36 40 MG Azithromycin 250 ml @ 250 mls/hr 1X ONCE 10/25/18 11:15 10/25/18 12:14 DC 10/25/18 11:46 250 MLS/HR Ceftriaxone Sodium (Rocephin) 1 gm 1X ONCE 10/25/18 10:45 10/25/18 10:46 DC 10/25/18 10:43 1 GM Daptomycin 380 mg/ Sodium Chloride 50 ml @ 100 mls/hr Q24H 10/27/18 10:00 Doxycycline Hyclate 100 mg/ Dextrose 100 ml @ 50 mls/hr Q12HR 10/26/18 09:00 10/27/18 09:06 50 MLS/HR Fentanyl Citrate (Fentanyl 2ml Vial) 25 mcg PRN Q3HRS PRN 10/25/18 23:30 10/26/18 03:16 25 MCG Fluconazole/ Sodium Chloride 100 ml @ 100 mls/hr 1X ONCE 10/25/18 20:00 10/25/18 20:59 DC 10/25/18 22:26 100 MLS/HR Memantine (Namenda) 10 mg BID 10/25/18 21:00 10/27/18 09:02 10 MG Methylprednisolone Sodium Succinate (SOLU-Medrol 40MG VIAL) 40 mg DAILY 10/27/18 09:00 10/27/18 09:06 40 MG Methylprednisolone Sodium Succinate (SOLU-Medrol 125MG VIAL) 80 mg 1X ONCE 10/26/18 17:30 10/26/18 17:31 DC 10/26/18 17:29 80 MG Metronidazole 100 ml @ 100 mls/hr Q8HRS 10/26/18 14:00 10/27/18 06:33 100 MLS/HR Micafungin Sodium 100 mg/Dextrose 100 ml @ 100 mls/hr Q24H 10/26/18 06:30 10/27/18 06:39 100 MLS/HR Norepinephrine Bitartrate 250 ml @ 1.875 mls/ hr CONT PRN 10/25/18 16:45 10/26/18 18:47 24.4 MLS/HR Ondansetron HCl (Zofran) 4 mg 1X ONCE 10/25/18 10:00 10/25/18 10:02 DC 10/25/18 10:44 4 MG Piperacillin Sod/ Tazobactam Sod 2.25 gm/Sodium Chloride 50 ml @ 100 mls/hr Q6HRS 10/26/18 12:00 10/27/18 06:53 DC 10/27/18 06:33 100 MLS/HR Piperacillin Sod/ Tazobactam Sod 3.375 gm/Sodium Chloride 50 ml @ 100 mls/hr Q6HRS 10/27/18 12:00 Sodium Hypochlorite (Dakin'S 1/4 Strength) 1 kevin BID 10/26/18 11:30 10/27/18 09:07 1 KEVIN Sodium Bicarbonate (Sodium Bicarb Adult 8.4% Syr) 50 meq 1X ONCE 10/25/18 21:45 10/25/18 21:50 DC 10/25/18 22:27 50 MEQ Sodium Chloride 500 ml @ 500 mls/hr PRN 1X PRN 10/26/18 11:00 Tramadol HCl (Ultram) 50 mg PRN Q8HRS PRN 10/25/18 23:30 10/26/18 17:37 50 MG Trazodone HCl (Desyrel) 50 mg PRN QHS PRN 10/25/18 17:15 Vancomycin HCl (Vanco Per Pharmacy) 1 each PRN DAILY PRN 10/25/18 15:45 10/26/18 06:25 DC 10/25/18 18:52 1 EACH Vancomycin HCl (Vancomycin Trough Level) 1 each 1X ONCE 10/27/18 07:30 10/27/18 07:30 DC Vancomycin HCl 1.75 gm/Sodium Chloride 500 ml @ 250 mls/hr 1X ONCE 10/25/18 16:00 10/25/18 17:59 DC 10/25/18 19:43 250 MLS/HR Vancomycin HCl 1 gm/Sodium Chloride 250 ml @ 250 mls/hr Q12H 10/26/18 08:00 10/26/18 08:00 DC Warfarin Sodium (Coumadin Per Pharmacy) 1 each PRN DAILY PRN 10/25/18 17:00 10/26/18 09:39 1 EACH Warfarin Sodium (Coumadin) 2 mg 1X WARF ONCE 10/26/18 16:00 10/26/18 16:01 DC 10/26/18 17:31 2 MG Lab Laboratory Tests Test 10/27/18 05:00 White Blood Count 51.3 x10^3/uL (4.0-11.0) Red Blood Count 3.51 x10^6/uL (4.30-5.70) Hemoglobin 8.8 g/dL (13.0-17.5) Hematocrit 28.4 % (39.0-53.0) Mean Corpuscular Volume 81 fL (79-100) Mean Corpuscular Hemoglobin 25 pg (25-35) Mean Corpuscular Hemoglobin Concent 31 g/dL (31-37) Red Cell Distribution Width 17.5 % (11.5-14.5) Platelet Count 105 x10^3/uL (140-400) Neutrophils (%) (Auto) 93 % (31-73) Lymphocytes (%) (Auto) 2 % (24-48) Monocytes (%) (Auto) 3 % (0-9) Eosinophils (%) (Auto) 1 % (0-3) Basophils (%) (Auto) 0 % (0-3) Neutrophils # (Auto) 47.8 x10^3uL (1.8-7.7) Lymphocytes # (Auto) 1.1 x10^3/uL (1.0-4.8) Monocytes # (Auto) 1.6 x10^3/uL (0.0-1.1) Eosinophils # (Auto) 0.7 x10^3/uL (0.0-0.7) Basophils # (Auto) 0.0 x10^3/uL (0.0-0.2) Segmented Neutrophils % 53 % (35-66) Band Neutrophils % 40 % (0-9) Lymphocytes % 3 % (24-48) Monocytes % 3 % (0-10) Metamyelocytes % 1 % (0-0) Nucleated Red Blood Cells 1 Toxic Vacuolation Slight Dohle Bodies Present Platelet Estimate Decreased (ADEQUATE) Anisocytosis Slight Ovalocytes Few Sydnee Cells Few Prothrombin Time 29.5 SEC (11.7-14.0) Prothromb Time International Ratio 2.8 (0.8-1.1) Sodium Level 152 mmol/L (136-145) Potassium Level 4.0 mmol/L (3.5-5.1) Chloride Level 118 mmol/L (98-107) Carbon Dioxide Level 16 mmol/L (21-32) Anion Gap 18 (6-14) Blood Urea Nitrogen 33 mg/dL (8-26) Creatinine 1.5 mg/dL (0.7-1.3) Estimated GFR (Cockcroft-Gault) 55.8 BUN/Creatinine Ratio 22 (6-20) Glucose Level 95 mg/dL (70-99) Lactic Acid Level 5.2 mmol/L (0.4-2.0) Calcium Level 7.8 mg/dL (8.5-10.1) Total Bilirubin 0.7 mg/dL (0.2-1.0) Aspartate Amino Transf (AST/SGOT) 75 U/L (15-37) Alanine Aminotransferase (ALT/SGPT) 34 U/L (16-63) Alkaline Phosphatase 79 U/L (46-116) Total Protein 6.0 g/dL (6.4-8.2) Albumin 1.4 g/dL (3.4-5.0) Albumin/Globulin Ratio 0.3 (1.0-1.7) Results All relevant outside records, renal labs, imaging studies, telemetry/EKG's were reviewed. Other US Renal 1. Limited exam. 2. Mildly increased right renal parenchymal echogenicity suggesting medical renal disease. 3. No evidence of right renal obstruction. 4. Nonvisualization of the left kidney. TRANG DONIS MD October 27, 2018 09:35
--- NOTE | 2018-10-27 09:59 | PDOC ---
PROGRESS NOTES Subjective Subjective pt more awake talking few words Objective Objective Vital Signs Date Time Temp Pulse Resp B/P (MAP) Pulse Ox O2 Delivery O2 Flow Rate FiO2 10/27/18 08:30 124/67 (86) 10/27/18 08:00 96 20 91 Room Air 10/27/18 07:00 98.4 98.4 Intake and Output 10/27/18 06:59 Intake Total 2058.29 ml Output Total 1005 ml Balance 1053.29 ml Intake Oral 180 ml IV Total 1878.29 ml Output Urine Total 1005 ml Physical Exam Abdomen: Soft Heart: Regular rate, Normal S1, Normal S2, Other (tachy) Extremities: Other (contracted extremities ) General: No acute distress HEENT: Atraumatic, Mucous membr. moist/pink Lungs: Other (sonal crackes) Neck: Supple Neuro: Sensation intact Psych/Mental Status: Mood NL Skin: Other (scaral decub with boggy tissue to edges, wound tunnels, foul odor, left hip some necrosis to central area of ulcer) Assessment Assessment FINAL IMPRESSION: 1. Severe Sepsis with hypotension, on Levophed. 2. Lactic acidosis. 3. Gram-negative bacteremia, positive blood cultures. 4. Infected wounds over the sacrum as well as trochanteric area. 5. Chronic atrial fibrillation, on Coumadin. 6. Chronic systolic heart failure, on cardiac medication. 7. History of previous stroke with contractures. 8. Protein-calorie malnutrition, severe. 9. General debility. 10. Hyperlipidemia. 11. History of AAA endovascular repair. 12. Acute tubular necrosis. 13.Urethral stenosis and bph PLAN: pt is being weaned off Levophed 3 mcg now . urine out put improved now cr 1.5 sono kidneys scarring left kidney cystoscopy and placement of irving iv antibiotics dapto+zosyn+doxycycline procalamine for nutrition central /piccline spoke with pts small dose of steroids for hypotension and sepsis. inr 2.8 on coumadin NA 151 monitor At this time, the patient was admitted to the hospital. Cultures were done, drawn on broad-spectrum antibiotic, vancomycin and Zosyn. ID was consulted. The patient was admitted to the ICU. The patient was placed on BiPAP after the blood gas was done. The patient was given total of 4 liters of fluid, started on Levophed and the patient also had BPH with bladder obstruction, had a Irving catheter placed by Urology. The patient's overall condition remains critical. Prognosis is poor. Discussed with the patient's at bedside and will have palliative team consult and also have surgical consult for the wounds. Comment Review of Relevant I have reviewed the following items chidi (where applicable) has been applied. Labs Laboratory Tests Test 10/27/18 05:00 White Blood Count 51.3 x10^3/uL (4.0-11.0) Red Blood Count 3.51 x10^6/uL (4.30-5.70) Hemoglobin 8.8 g/dL (13.0-17.5) Hematocrit 28.4 % (39.0-53.0) Mean Corpuscular Volume 81 fL (79-100) Mean Corpuscular Hemoglobin 25 pg (25-35) Mean Corpuscular Hemoglobin Concent 31 g/dL (31-37) Red Cell Distribution Width 17.5 % (11.5-14.5) Platelet Count 105 x10^3/uL (140-400) Neutrophils (%) (Auto) 93 % (31-73) Lymphocytes (%) (Auto) 2 % (24-48) Monocytes (%) (Auto) 3 % (0-9) Eosinophils (%) (Auto) 1 % (0-3) Basophils (%) (Auto) 0 % (0-3) Neutrophils # (Auto) 47.8 x10^3uL (1.8-7.7) Lymphocytes # (Auto) 1.1 x10^3/uL (1.0-4.8) Monocytes # (Auto) 1.6 x10^3/uL (0.0-1.1) Eosinophils # (Auto) 0.7 x10^3/uL (0.0-0.7) Basophils # (Auto) 0.0 x10^3/uL (0.0-0.2) Segmented Neutrophils % 53 % (35-66) Band Neutrophils % 40 % (0-9) Lymphocytes % 3 % (24-48) Monocytes % 3 % (0-10) Metamyelocytes % 1 % (0-0) Nucleated Red Blood Cells 1 Toxic Vacuolation Slight Dohle Bodies Present Platelet Estimate Decreased (ADEQUATE) Anisocytosis Slight Ovalocytes Few [place] Cells Few Prothrombin Time 29.5 SEC (11.7-14.0) Prothromb Time International Ratio 2.8 (0.8-1.1) Sodium Level 152 mmol/L (136-145) Potassium Level 4.0 mmol/L (3.5-5.1) Chloride Level 118 mmol/L (98-107) Carbon Dioxide Level 16 mmol/L (21-32) Anion Gap 18 (6-14) Blood Urea Nitrogen 33 mg/dL (8-26) Creatinine 1.5 mg/dL (0.7-1.3) Estimated GFR (Cockcroft-Gault) 55.8 BUN/Creatinine Ratio 22 (6-20) Glucose Level 95 mg/dL (70-99) Lactic Acid Level 5.2 mmol/L (0.4-2.0) Calcium Level 7.8 mg/dL (8.5-10.1) Total Bilirubin 0.7 mg/dL (0.2-1.0) Aspartate Amino Transf (AST/SGOT) 75 U/L (15-37) Alanine Aminotransferase (ALT/SGPT) 34 U/L (16-63) Alkaline Phosphatase 79 U/L (46-116) Total Protein 6.0 g/dL (6.4-8.2) Albumin 1.4 g/dL (3.4-5.0) Albumin/Globulin Ratio 0.3 (1.0-1.7) Microbiology 10/25/18 Blood Culture - Preliminary, Resulted NO GROWTH AFTER 1 DAY Medications Current Medications Amino Acids/ Glycerin/ Electrolytes 1,000 ml @ 80 mls/hr [id number] IV Last administered on 10/27/18at 06:30; Start 10/26/18 at 18:00 Daptomycin 380 mg/ Sodium Chloride 50 ml @ 100 mls/hr Q24H IV ; Start 10/27/18 at 10:00 Methylprednisolone Sodium Succinate (SOLU-Medrol 40MG VIAL) 40 mg DAILY IV Last administered on 10/27/18at 09:06; Start 10/27/18 at 09:00 Methylprednisolone Sodium Succinate (SOLU-Medrol 125MG VIAL) 80 mg 1X ONCE IV Last administered on 10/26/18at 17:29; Start 10/26/18 at 17:30; Stop 10/26/18 at 17:31; Status DC Metronidazole 100 ml @ 100 mls/hr Q8HRS IV Last administered on 10/27/18at 06:33; Start 10/26/18 at 14:00 Piperacillin Sod/ Tazobactam Sod 2.25 gm/Sodium Chloride 50 ml @ 100 mls/hr Q6H RS IV Last administered on 10/27/18at 06:33; Start 10/26/18 at 12:00; Stop 10/27/18 at 06:53; Status DC Piperacillin Sod/ Tazobactam Sod 3.375 gm/Sodium Chloride 50 ml @ 100 mls/hr Q6HRS IV ; Start 10/27/18 at 12:00 Sodium Hypochlorite (Dakin'S 1/4 Strength) 1 kevin BID TP Last administered on 10/27/18at 09:07; Start 10/26/18 at 11:30 Sodium Hypochlorite (Dakin'S 1/4 Strength) 1 kevin PRN Q1HR PRN TP WOUND CARE; Start 10/26/18 at 11:00 Sodium Chloride 500 ml @ 500 mls/hr PRN 1X PRN IV Low BP ; Start 10/26/18 at 11:00 Vancomycin HCl (Vancomycin Trough Level) 1 each 1X ONCE MC ; Start 10/27/18 at 07:30; Stop 10/27/18 at 07:30; Status DC Warfarin Sodium (Coumadin) 2 mg 1X WARF ONCE PO Last administered on 10/26/18at 17:31; Start 10/26/18 at 16:00; Stop 10/26/18 at 16:01; Status DC Warfarin Sodium (Coumadin) 5 mg 1X WARF ONCE PO ; Start 10/26/18 at 16:00; Stop 10/26/18 at 16:01; Status Cancel Vitals/I & O Vital Sign - Last 24 Hours 10/26/18 10/26/18 10/26/18 10/26/18 10:00 11:00 12:00 12:00 Temp 97.8 97.8 Pulse 96 89 91 Resp 24 24 22 B/P (MAP) 113/64 (80) 106/68 (81) 113/74 (87) Pulse Ox 100 100 99 O2 Delivery Room Air Room Air Room Air Bi-pap 10/26/18 10/26/18 10/26/18 10/26/18 13:00 14:03 15:00 15:48 Temp 97.9 97.9 Pulse 94 93 83 98 Resp 22 22 24 24 B/P (MAP) 116/70 (85) 120/73 (89) 100/58 (72) 98/72 (81) Pulse Ox 100 100 100 99 O2 Delivery Room Air Room Air Room Air Room Air 10/26/18 10/26/18 10/26/18 10/26/18 15:53 17:00 17:37 18:08 Pulse 91 84 Resp 22 B/P (MAP) 97/70 (79) 96/72 (80) Pulse Ox 100 99 100 O2 Delivery Room Air Room Air Room Air Room Air 10/26/18 10/26/18 10/26/18 10/26/18 18:40 19:00 20:00 20:00 Temp 99.1 99.1 Pulse 69 84 Resp 20 12 14 B/P (MAP) 131/80 (97) 120/67 (84) Pulse Ox 100 98 97 O2 Delivery Room Air Room Air Room Air Room Air 10/26/18 10/26/18 10/26/18 10/27/18 21:00 22:00 23:00 00:00 Temp 99.5 99.5 Pulse 86 88 87 83 Resp 12 12 15 16 B/P (MAP) 117/76 (90) 115/74 (88) 113/71 (85) 140/89 (106) Pulse Ox 98 99 99 99 O2 Delivery Room Air Room Air Room Air Room Air 10/27/18 10/27/18 10/27/18 10/27/18 00:00 01:00 02:00 03:00 Pulse 87 92 93 Resp 15 19 21 B/P (MAP) 113/71 (85) 152/82 (105) 111/70 (84) Pulse Ox 99 99 100 O2 Delivery Room Air Room Air Room Air Room Air 10/27/18 10/27/18 10/27/18 10/27/18 04:00 04:00 05:00 06:00 Temp 99.8 99.8 Pulse 94 97 83 Resp 17 15 14 B/P (MAP) 141/76 (97) 115/75 (88) 139/79 (99) Pulse Ox 100 100 100 O2 Delivery Room Air Room Air Room Air Room Air 10/27/18 10/27/18 10/27/18 07:00 08:00 08:30 Temp 98.4 98.4 Pulse 92 96 Resp 31 20 B/P (MAP) 147/74 (98) 136/77 (96) 124/67 (86) Pulse Ox 100 91 O2 Delivery Room Air Room Air Intake and Output 10/26/18 10/26/18 10/27/18 14:59 22:59 06:59 Intake Total 681.29 ml 627 ml 750 ml Output Total 325 ml 350 ml 330 ml Balance 356.29 ml 277 ml 420 ml Nutrition Consultation Dietary Evaluation: Recommendations by RD: Decrease Calorie Intake, Protein supplementation Comments: REC diet as appropriate per [employer] ASSOCIATE/MD, RN to clarify diet order REC Mark BID w/thickener as needed REC MVI - wound healing REC Glucerna TID w/thickener as needed Expected Outcomes/Goals: PO intake to meet >75% est needs Interpretation of weight loss: >7.5% in 3 months Malnutrition Findings: Weight Status: Appropriate ANGI BARCENAS MD October 27, 2018 09:59
[2018-10-27] MEDS ORDERED: PANTOPRAZOLE IV PUSH 40 MG VIAL. IVP ONE (10:00)
--- NOTE | 2018-10-27 11:02 | PDOC ---
SOBIAJOSE L COMPUTER SCIENCE PROFESSOR 10/27/18 1102: SUBJECTIVE Subjective Nursing has no concerns for Urology at this time. Catheter working well. Pt non verbal. OBJECTIVE Objective Physical Exam: General appearance: Non verbal, but appears comfortable. Head: Normocephalic, without obvious abnormality Eyes: conjunctivae/corneas clear. PERRL, EOM's intact. Fundi benign Lungs:on Bipap, regular respirations with machine assistance. Abdomen: soft, non-tender. . No masses, no organomegaly Pelvic: slight swelling from 3rd spacing of fluid, no open wounds, non tender on exam. Frye catheter in place draining clear yellow urine. Device in good working order. Vital Signs Vital Signs Date Time Temp Pulse Resp B/P (MAP) Pulse Ox O2 Delivery O2 Flow Rate FiO2 10/27/18 08:30 124/67 (86) 10/27/18 08:00 96 20 136/77 (96) 91 Room Air 10/27/18 07:00 98.4 92 31 147/74 (98) 100 Room Air 98.4 10/27/18 06:00 83 14 139/79 (99) 100 Room Air 10/27/18 05:00 97 15 115/75 (88) 100 Room Air 10/27/18 04:00 Room Air 10/27/18 04:00 99.8 94 17 141/76 (97) 100 Room Air 99.8 10/27/18 03:00 93 21 111/70 (84) 100 Room Air 10/27/18 02:00 92 19 152/82 (105) 99 Room Air 10/27/18 01:00 87 15 113/71 (85) 99 Room Air 10/27/18 00:00 Room Air 10/27/18 00:00 99.5 83 16 140/89 (106) 99 Room Air 99.5 10/26/18 23:00 87 15 113/71 (85) 99 Room Air 10/26/18 22:00 88 12 115/74 (88) 99 Room Air 10/26/18 21:00 86 12 117/76 (90) 98 Room Air 10/26/18 20:00 99.1 84 14 120/67 (84) 97 Room Air 99.1 10/26/18 20:00 Room Air 10/26/18 19:00 69 12 131/80 (97) 98 Room Air 10/26/18 18:40 20 100 Room Air 10/26/18 18:08 84 22 96/72 (80) 100 Room Air 10/26/18 17:37 22 99 Room Air 10/26/18 17:00 91 22 97/70 (79) 100 Room Air 10/26/18 15:53 Room Air 10/26/18 15:48 98 24 98/72 (81) 99 Room Air 10/26/18 15:00 97.9 83 24 100/58 (72) 100 Room Air 97.9 10/26/18 14:03 93 22 120/73 (89) 100 Room Air 10/26/18 13:00 94 22 116/70 (85) 100 Room Air 10/26/18 12:00 Bi-pap 10/26/18 12:00 97.8 91 22 113/74 (87) 99 Room Air 97.8 I & O Intake and Output 10/27/18 07:00 Intake Total 1807 ml Output Total 1115 ml Balance 692 ml Intake Oral 180 ml IV Total 1627 ml Output Urine Total 1115 ml PHYSICAL EXAM Physical Exam Physical Exam: General appearance: Non verbal, but appears comfortable. Head: Normocephalic, without obvious abnormality Eyes: conjunctivae/corneas clear. PERRL, EOM's intact. Fundi benign Lungs:on Bipap, regular respirations with machine assistance. Abdomen: soft, non-tender. . No masses, no organomegaly Pelvic: slight swelling from 3rd spacing of fluid, no open wounds, non tender on exam. Frye catheter in place draining clear yellow urine. Device in good working order. ASSESSMENT/PLAN Assessment/Plan Pt is SP day one difficult catheter placement with Dr. Snyder of [facility] [place]. Today, Frye catheter is in good condition, draining clear yellow urine. Nursing to maintain until patient is ready for discharge. Swelling to genitalia from 3rd spacing of fluid, not too significant at this point. Support drainage by elevating with rolled towels, may use ice packs PRN if patient appears uncomfortable from this. Will follow peripherally over the weekend but please call with concerns if Uro logy needed. COMMENT Lab Laboratory Tests Test 10/27/18 05:00 White Blood Count 51.3 x10^3/uL (4.0-11.0) Red Blood Count 3.51 x10^6/uL (4.30-5.70) Hemoglobin 8.8 g/dL (13.0-17.5) Hematocrit 28.4 % (39.0-53.0) Mean Corpuscular Volume 81 fL (79-100) Mean Corpuscular Hemoglobin 25 pg (25-35) Mean Corpuscular Hemoglobin Concent 31 g/dL (31-37) Red Cell Distribution Width 17.5 % (11.5-14.5) Platelet Count 105 x10^3/uL (140-400) Neutrophils (%) (Auto) 93 % (31-73) Lymphocytes (%) (Auto) 2 % (24-48) Monocytes (%) (Auto) 3 % (0-9) Eosinophils (%) (Auto) 1 % (0-3) Basophils (%) (Auto) 0 % (0-3) Neutrophils # (Auto) 47.8 x10^3uL (1.8-7.7) Lymphocytes # (Auto) 1.1 x10^3/uL (1.0-4.8) Monocytes # (Auto) 1.6 x10^3/uL (0.0-1.1) Eosinophils # (Auto) 0.7 x10^3/uL (0.0-0.7) Basophils # (Auto) 0.0 x10^3/uL (0.0-0.2) Segmented Neutrophils % 53 % (35-66) Band Neutrophils % 40 % (0-9) Lymphocytes % 3 % (24-48) Monocytes % 3 % (0-10) Metamyelocytes % 1 % (0-0) Nucleated Red Blood Cells 1 Toxic Vacuolation Slight Dohle Bodies Present Platelet Estimate Decreased (ADEQUATE) Anisocytosis Slight Ovalocytes Few [place] Cells Few Prothrombin Time 29.5 SEC (11.7-14.0) Prothromb Time International Ratio 2.8 (0.8-1.1) Sodium Level 152 mmol/L (136-145) Potassium Level 4.0 mmol/L (3.5-5.1) Chloride Level 118 mmol/L (98-107) Carbon Dioxide Level 16 mmol/L (21-32) Anion Gap 18 (6-14) Blood Urea Nitrogen 33 mg/dL (8-26) Creatinine 1.5 mg/dL (0.7-1.3) Estimated GFR (Cockcroft-Gault) 55.8 BUN/Creatinine Ratio 22 (6-20) Glucose Level 95 mg/dL (70-99) Lactic Acid Level 5.2 mmol/L (0.4-2.0) Calcium Level 7.8 mg/dL (8.5-10.1) Total Bilirubin 0.7 mg/dL (0.2-1.0) Aspartate Amino Transf (AST/SGOT) 75 U/L (15-37) Alanine Aminotransferase (ALT/SGPT) 34 U/L (16-63) Alkaline Phosphatase 79 U/L (46-116) Total Protein 6.0 g/dL (6.4-8.2) Albumin 1.4 g/dL (3.4-5.0) Albumin/Globulin Ratio 0.3 (1.0-1.7) Nutrition Consultation Dietary Evaluation: Recommendations by RD: Decrease Calorie Intake, Protein supplementation Comments: REC diet as appropriate per [employer] HAND/MD, RN to clarify diet order REC Mark BID w/thickener as needed REC MVI - wound healing REC Glucerna TID w/thickener as needed Expected Outcomes/Goals: PO intake to meet >75% est needs Interpretation of weight loss: >7.5% in 3 months Malnutrition Findings: Weight Status: Appropriate ASA SNYDER MD 11/04/18 1628: ASSESSMENT/PLAN Assessment/Plan agree w above JOSE RAMSAY APRN October 27, 2018 11:02 ASA SNYDER MD November 04, 2018 16:28
--- NOTE | 2018-10-27 11:03 | NUR ---
PICC Pre-insertion note: Allergies and reactions NKDA INR 2.8 BUN 33 Cr 1.5 Platelets 105 Blood culture done yes blood culture results no growth x1 day Order Verified yes Consent signed yes Previous PICC placement unknown Past Medical/Surgical history and current diagnosis reviewed yes Patient Medical /Surgical History Related to PICC line placement Arrhythmias Automatic Implantable Cardioverter Defibrillator (AICD) Deep Vein Thrombosis (DVT) Diabetes History of acute/chronic renal failure Infectious Disease consult Pacemaker Pulmonary Embolism (PE) Renal consult Septicemia/Bacteremia Special considerations for PICC line placement Anticoagulation therapy Arm contractures/ Compromised arm Infections Scar(s) near insertion site PICC placement indication Caustic medication class drug usage, retirement antibiotic usage, Multiple/ Frequent blood draws, name of PICC Nurse Melly Griffith RN
--- NOTE | 2018-10-27 11:26 | PDOC ---
PULMONARY PROGRESS NOTES Subjective DOWN TO 3 MICS OF LEVOPHED OFF BIPAP LESS SOA Vitals Vital Signs Date Time Temp Pulse Resp B/P (MAP) Pulse Ox O2 Delivery O2 Flow Rate FiO2 10/27/18 08:30 124/67 (86) 10/27/18 08:00 96 20 91 Room Air 10/27/18 07:00 98.4 98.4 General: Confused Lungs: Clear Cardiovascular: S1, S2 Abdomen: Soft, Non-tender Extremities: No Edema, Other Skin: Warm Labs Laboratory Tests Test 10/25/18 14:15 10/25/18 17:00 10/25/18 18:18 10/25/18 20:41 Lactic Acid Level 4.9 mmol/L (0.4-2.0) 7.6 mmol/L (0.4-2.0) Nasal Screen MRSA (PCR) Positive (Negative) Procalcitonin 29.00 ng/mL (0.00-0.10) O2 Saturation 100 % (92-99) Arterial Blood pH 7.39 (7.35-7.45) Arterial Blood pH (Temp corrected) 7.36 Arterial Blood pCO2 at Patient Temp 23 mmHg (35-46) Arterial Blood pCO2 (Temp correct) 26 mmHg Arterial Blood pO2 at Patient Temp 421 mmHg (65-108) Arterial Blood pO2 (Temp corrected) 433 mmHg Arterial Blood HCO3 14 mmol/L (21-28) Arterial Blood Base Excess -10 mmol/L (-3-3) Test 10/26/18 01:22 10/26/18 04:45 10/26/18 04:48 10/27/18 05:00 Urine Collection Type Unknown Urine Color Maryann Urine Clarity Clear Urine pH 5.5 Urine Specific [place] 1.020 Urine Protein 30 mg/dL (NEG-TRACE) Urine Glucose (UA) Negative mg/dL (NEG) Urine Ketones (Stick) Negative mg/dL (NEG) Urine Blood Moderate (NEG) Urine Nitrite Negative (NEG) Urine Bilirubin Small (NEG) Urine Urobilinogen Dipstick 1.0 mg/dL (0.2 mg/dL) Urine Leukocyte Esterase Moderate (NEG) Urine RBC 3-5 /HPF (0-2) Urine WBC 11-20 /HPF (0-4) Urine Squamous Epithelial Cells Occ /LPF Urine Bacteria Mod /HPF (0-FEW) Urine Mucus Slight /LPF Prothrombin Time 26.0 SEC (11.7-14.0) 29.5 SEC (11.7-14.0) Prothromb Time International Ratio 2.4 (0.8-1.1) 2.8 (0.8-1.1) Sodium Level 151 mmol/L (136-145) 152 mmol/L (136-145) Potassium Level 4.1 mmol/L (3.5-5.1) 4.0 mmol/L (3.5-5.1) Chloride Level 117 mmol/L (98-107) 118 mmol/L (98-107) Carbon Dioxide Level 17 mmol/L (21-32) 16 mmol/L (21-32) Anion Gap 17 (6-14) 18 (6-14) Blood Urea Nitrogen 28 mg/dL (8-26) 33 mg/dL (8-26) Creatinine 1.7 mg/dL (0.7-1.3) 1.5 mg/dL (0.7-1.3) Estimated GFR (Cockcroft-Gault) 48.3 55.8 Glucose Level 101 mg/dL (70-99) 95 mg/dL (70-99) Lactic Acid Level 6.3 mmol/L (0.4-2.0) 5.2 mmol/L (0.4-2.0) Uric Acid 6.2 mg/dL (3.5-7.2) Calcium Level 7.1 mg/dL (8.5-10.1) 7.8 mg/dL (8.5-10.1) White Blood Count 38.1 x10^3/uL (4.0-11.0) 51.3 x10^3/uL (4.0-11.0) Red Blood Count 3.40 x10^6/uL (4.30-5.70) 3.51 x10^6/uL (4.30-5.70) Hemoglobin 8.4 g/dL (13.0-17.5) 8.8 g/dL (13.0-17.5) Hematocrit 27.9 % (39.0-53.0) 28.4 % (39.0-53.0) Mean Corpuscular Volume 82 fL (79-100) 81 fL (79-100) Mean Corpuscular Hemoglobin 25 pg (25-35) 25 pg (25-35) Mean Corpuscular Hemoglobin Concent 30 g/dL (31-37) 31 g/dL (31-37) Red Cell Distribution Width 17.2 % (11.5-14.5) 17.5 % (11.5-14.5) Platelet Count 151 x10^3/uL (140-400) 105 x10^3/uL (140-400) Neutrophils (%) (Auto) 98 % (31-73) 93 % (31-73) Lymphocytes (%) (Auto) 1 % (24-48) 2 % (24-48) Monocytes (%) (Auto) 2 % (0-9) 3 % (0-9) Eosinophils (%) (Auto) 0 % (0-3) 1 % (0-3) Basophils (%) (Auto) 0 % (0-3) 0 % (0-3) Neutrophils # (Auto) 37.1 x10^3uL (1.8-7.7) 47.8 x10^3uL (1.8-7.7) Lymphocytes # (Auto) 0.3 x10^3/uL (1.0-4.8) 1.1 x10^3/uL (1.0-4.8) Monocytes # (Auto) 0.6 x10^3/uL (0.0-1.1) 1.6 x10^3/uL (0.0-1.1) Eosinophils # (Auto) 0.0 x10^3/uL (0.0-0.7) 0.7 x10^3/uL (0.0-0.7) Basophils # (Auto) 0.0 x10^3/uL (0.0-0.2) 0.0 x10^3/uL (0.0-0.2) Segmented Neutrophils % 83 % (35-66) 53 % (35-66) Band Neutrophils % 14 % (0-9) 40 % (0-9) Monocytes % 1 % (0-10) 3 % (0-10) Metamyelocytes % 1 % (0-0) 1 % (0-0) Myelocytes % 1 % (0-0) Nucleated Red Blood Cells 1 1 Platelet Estimate Adequate (ADEQUATE) Decreased (ADEQUATE) Large Platelets Present Anisocytosis Present Slight Lymphocytes % 3 % (24-48) Toxic Vacuolation Slight Dohle Bodies Present Ovalocytes Few [place] Cells Few BUN/Creatinine Ratio 22 (6-20) Total Bilirubin 0.7 mg/dL (0.2-1.0) Aspartate Amino Transf (AST/SGOT) 75 U/L (15-37) Alanine Aminotransferase (ALT/SGPT) 34 U/L (16-63) Alkaline Phosphatase 79 U/L (46-116) Total Protein 6.0 g/dL (6.4-8.2) Albumin 1.4 g/dL (3.4-5.0) Albumin/Globulin Ratio 0.3 (1.0-1.7) Laboratory Tests Test 10/27/18 05:00 White Blood Count 51.3 x10^3/uL (4.0-11.0) Red Blood Count 3.51 x10^6/uL (4.30-5.70) Hemoglobin 8.8 g/dL (13.0-17.5) Hematocrit 28.4 % (39.0-53.0) Mean Corpuscular Volume 81 fL (79-100) Mean Corpuscular Hemoglobin 25 pg (25-35) Mean Corpuscular Hemoglobin Concent 31 g/dL (31-37) Red Cell Distribution Width 17.5 % (11.5-14.5) Platelet Count 105 x10^3/uL (140-400) Neutrophils (%) (Auto) 93 % (31-73) Lymphocytes (%) (Auto) 2 % (24-48) Monocytes (%) (Auto) 3 % (0-9) Eosinophils (%) (Auto) 1 % (0-3) Basophils (%) (Auto) 0 % (0-3) Neutrophils # (Auto) 47.8 x10^3uL (1.8-7.7) Lymphocytes # (Auto) 1.1 x10^3/uL (1.0-4.8) Monocytes # (Auto) 1.6 x10^3/uL (0.0-1.1) Eosinophils # (Auto) 0.7 x10^3/uL (0.0-0.7) Basophils # (Auto) 0.0 x10^3/uL (0.0-0.2) Segmented Neutrophils % 53 % (35-66) Band Neutrophils % 40 % (0-9) Lymphocytes % 3 % (24-48) Monocytes % 3 % (0-10) Metamyelocytes % 1 % (0-0) Nucleated Red Blood Cells 1 Toxic Vacuolation Slight Dohle Bodies Present Platelet Estimate Decreased (ADEQUATE) Anisocytosis Slight Ovalocytes Few [place] Cells Few Prothrombin Time 29.5 SEC (11.7-14.0) Prothromb Time International Ratio 2.8 (0.8-1.1) Sodium Level 152 mmol/L (136-145) Potassium Level 4.0 mmol/L (3.5-5.1) Chloride Level 118 mmol/L (98-107) Carbon Dioxide Level 16 mmol/L (21-32) Anion Gap 18 (6-14) Blood Urea Nitrogen 33 mg/dL (8-26) Creatinine 1.5 mg/dL (0.7-1.3) Estimated GFR (Cockcroft-Gault) 55.8 BUN/Creatinine Ratio 22 (6-20) Glucose Level 95 mg/dL (70-99) Lactic Acid Level 5.2 mmol/L (0.4-2.0) Calcium Level 7.8 mg/dL (8.5-10.1) Total Bilirubin 0.7 mg/dL (0.2-1.0) Aspartate Amino Transf (AST/SGOT) 75 U/L (15-37) Alanine Aminotransferase (ALT/SGPT) 34 U/L (16-63) Alkaline Phosphatase 79 U/L (46-116) Total Protein 6.0 g/dL (6.4-8.2) Albumin 1.4 g/dL (3.4-5.0) Albumin/Globulin Ratio 0.3 (1.0-1.7) Medications Active Scripts Medications Dose Route/Sig Max Daily Dose Days Date Category Vitamin D2 (Ergocalciferol (Vitamin D2)) 50,000 Unit Capsule 1 Cap PO WEEKLY 10/25/18 Reported Trazodone Hcl 50 Mg Tablet 1 Tab PO QHS PRN 10/25/18 Reported Famotidine 20 Mg Tablet 20 Mg PO BID 10/25/18 Reported Carvedilol (Carvedilol) 12.5 Mg Tablet 12.5 Mg PO BIDWMEALS 10/25/18 Reported Bumetanide 1 Mg Tablet 1 Tab PO DAILY 10/25/18 Reported Allopurinol 100 Mg Tablet 1 Tab PO DAILY 10/25/18 Reported Furosemide 40 Mg Tablet 1 Tab PO DAILY 10/25/18 Reported Klor-Con 10 (Potassium Chloride) 10 Meq Tablet.er 2 Tab PO DAILY 10/25/18 Reported Methocarbamol 500 Mg Tablet 500 Mg PO TID PRN 04/04/18 Reported Citalopram Hbr (Citalopram Hydrobromide) 20 Mg Tablet 20 Mg PO DAILY 04/04/18 Reported Tramadol Hcl 50 Mg Tablet 50 Mg PO PRN Q8HRS PRN 04/04/18 Reported Atorvastatin Calcium 40 Mg Tablet 40 Mg PO QHS 04/04/18 Reported Amlodipine Besylate 10 Mg Tablet 10 Mg PO DAILY 04/04/18 Reported Warfarin Sodium 5 Mg Tablet 1 Tab PO DAILY 04/04/18 Reported Namenda (Memantine Hcl) 10 Mg Tablet 1 Tab PO BID 09/01/14 Reported Impression . 1. Acute respiratory failure secondary to septic shock. 2. Septic shock. Likely sources could be urinary tract infection and gluteal wounds. 3. Positive blood cultures with gram-negative rods. Currently on broad spectrum antibiotics. 4. Encephalopathy secondary to septic shock. 5. Acute tubular necrosis/acute kidney injury, contributed by septic shock. 6. 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 7. History of deep venous thrombosis, on therapeutic INR. 8. History of pacemaker. 9. History of cerebrovascular accident and dementia. 10. Severe metabolic acidosis, lactic acidosis, improving 11. Abnormal cxr 10/26. suspect small PTX,vs skin fold. repeat cxr today 12. Leukocytosis, sig increase/ ? Leukemoid reaction Plan . 1. Continue with prn BiPAP. 2. Continue broad-spectrum antibiotics. 3. Follow all blood cultures. 4. Follow renal recommendation and monitor urine output closely. 5. Followup chest x-ray to make sure he is not in heart failure from all the fluid resuscitation. 6. Obtain echocardiogram. 7. Follow infectious disease recommendation. 8. Continue Coumadin. 9. Monitor lactic acid. 10. P.r.n. bronchodilators. 11. Continue to wean vasopressor support. 12. DNR 13. repeat cxr today reviewed with radiologist. This is likely skin fold Critical care time 30 minutes. Discussed with RN and RT. MILTON CARROLL MD October 27, 2018 11:26
--- NOTE | 2018-10-27 11:55 | NUR ---
PICC Insertion unsuccessful note to follow: Procedure: Following complete explanation of the PICC procedure including the indications, risks, and potential complications, informed consent was obtained. The possibility for infection was discussed along with signs, symptoms, and prevention. All the questions were answered. Written and verbal patient education was provided. Hand hygiene performed. Standardized central line checklist was utilized. The patient was placed in the supine position, the arm was prepped with chlorhexidine and patient draped with maximum sterile barrier. 3 mL 1% lidocaine was infiltrated into the skin to provide local anesthesia. A thorough assessment of right upper extremity completed. Using real-time ultrasound guidance and standardized micro puncture set, the Basilic vein was punctured, multiple attempts with unsuccessful wire insertion. Procedure was discontinued do to patient discomfort and unsuccessful attempt.
[2018-10-27] MEDS: DAPTOmycin (GENERIC) IVPB 380 MG in IV NORMAL SALINE 50ML 50 ML IV SCH (12:06)
[2018-10-27] MEDS ORDERED: LIDOCAINE WITH 8.4% SOD BICARB 3 ML DISP.SYRIN. ONE (12:22)
--- NOTE | 2018-10-27 12:55 | RAD ---
EXAM: CHEST 1 VIEW History: Pneumothorax COMPARISON: 10/26/2018 TECHNIQUE: Single portable radiograph of the chest FINDINGS: Mild cardiomegaly. Left-sided cardiac pacer is unchanged. Mild prominent appearing bilateral interstitial lung markings likely mild congestive changes similar to prior exam. Small right apical pneumothorax is unchanged. IMPRESSION: 1. Unchanged small right apical pneumothorax. 2. Mild congestive changes unchanged. Electronically signed by: Doc Dill MD (10/27/2018 12:52 PM) [place] [id number]
--- NOTE | 2018-10-27 13:43 | PDOC2 ---
PALLIATIVE CARE Palliative Care Note Palliative Care Patient opens eyes to verbal stimulation. Does not follow commands Met with Lindsey, son Corby was included on phone. Jesu, son whom the meeting was arranged with and stated he would notify family not here. Per patient has 3 children of hers and patient has 3 children. Reviewed Medical condition per medical record; 1. Acute respiratory failure secondary to septic shock. 2. Septic shock. likely source wound/UTI 3. Positive blood cultures with gram-negative rods. Currently on broad spectrum antibiotics. 4. Encephalopathy secondary to septic shock. 5. Acute tubular necrosis/acute kidney injury, contributed by septic shock. 6. 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 7. History of deep venous thrombosis, on therapeutic INR. 8. History of pacemaker. 9. History of cerebrovascular accident and dementia. 10. Severe metabolic acidosis, lactic acidosis, improving 11. Abnormal cxr 10/26. suspect small PTX,vs skin fold. repeat cxr today 12. Leukocytosis, sig increase/ ? Leukemoid reaction Levophed for pressure support. Antibiotics; dressing changes. Albumin 1.4. Met with patient's and Corby-son whom patient lives with. Lindsey- states she is the POA and [facility] should have copy of document. Discussed goals of care. Continue current treatment plan including Full Code and aggressive care. vs comfort care with hospice support vs limited care to see if patient could improve. Lindsey states patient has been saying 'Im tired and ready to go" states patient has been a DNR before but then changed to full code. Discussed Code Status; requests DNR/DNI; concerned that patient would suffer more if CPR were done---fx ribs and be in pain if he were to survive. Corby supports this decision. understands without this attempt at resuscitation patient likely would . would like to continue to treat infections to see if he could get better. She eventually would like him to go home with Hospice support. stated patient has AICD. She would like to have it deactivated. Plan: DNR/DNI. Deactivate AICD; Per Medical Records ([facility]) copy of DPOA named Jesu as POA No signature of patient on document. [id number] Copy of POA was faxed from [facility] naming Lindsey as DPOA. per request of Lindsey. 2 witnesses signed. Dated 06/25/15 Plan: DNR,DNI per request of Lindsey- and son Corby supportive of the decision Patient does not have AICD. [facility] states patient has dual chamber pacemaker, not MRI compatible (per Vicente HOOVER) Continue current treatment plan. Above reviewed with Cristal HOOVER who will call Dr. Morales to update and for orders. Above reviewed with Stefany HOOVER Director ICU/Polishing Machine Tender. [id number] Message to call jose alfredo Nails. [phone]. Attempted to call. No answer AL AGUERO October 27, 2018 13:43
[2018-10-27] MEDS: PIPERACILLIN/TAZOBACTAM 3.375 GM in IV NORMAL SALINE 50ML 50 ML IV SCH ×2 (13:54→18:31)
[2018-10-27] MEDS: PANTOPRAZOLE IV PUSH 40 MG VIAL. IVP SCH (13:54)
[2018-10-27] MEDS ORDERED: SODIUM HYPOCHLORITE 0.125% 473 ML BOTTLE. TP PRN (14:00)
--- NOTE | 2018-10-27 14:07 | RAD ---
EXAM: CHEST 1 VIEW History: Central line placement COMPARISON: Same day exam TECHNIQUE: Single portable radiograph of the chest Findings/ impression: Lower lung volumes and technique accentuates heart size and pulmonary vascularity. Left-sided cardiac pacer is identified. Right-sided internal jugular line is identified. Prominent appearing bilateral interstitial lung markings likely congestive changes similar to prior exam. The previously visualized questionable pneumothorax in the right apical lung is not evident on this examination suggesting probable artifact from skinfold. Electronically signed by: Doc Dill MD (10/27/2018 2:04 PM) [place] [id number]
--- NOTE | 2018-10-27 15:03 | NUR ---
Pharmacy Warfarin Dosing Note S: Pharmacy consulted to assist with anticoagulation therapy O: MADHAV RUDOLPH is a 72 year old M with Atrial Fibrillation, h/o DVT LABS: Last INR: 2.8 Last HGB: 8.8 Last HCT: 28.4 Last PLT: 105 Last dose of 2 mg given on 10/26/18 at 1730 Vitamin K given: N Ongoing Drug Interactions: allopurinol A:INR of 2.8 is within desired range. Target range for this patient is: 2 - 3 P: Warfarin dose: 2 mg Today at 1600 Bridge Therapy: None Next INR due 10/28/18 Pharmacy anticoagulation service will continue to follow. TARUN ROBINS [facility], 10/27/18 [id number]
--- NOTE | 2018-10-27 15:07 | RAD ---
Procedure: Ultrasound-guided placement of right internal jugular central venous catheter10/27/2018 3:03 PM Clinical Indication: Poor IV access Discussion: The risks and benefits of the procedure were discussed the patient and/or their hospital sales representative. Informed consent was obtained. A timeout procedure was performed. All elements of maximal sterile barrier technique including the use of a cap, mask, sterile gown, sterile gloves, large sterile sheet, appropriate hand hygiene, and 2% chlorhexidine for cutaneous antisepsis (or acceptable alternative antiseptic per current guidelines) were followed for this procedure. The patient was prepped and draped in the usual sterile fashion. Ultrasound interrogation of the right neck revealed patency and compressibility of the right internal jugular vein. A 21-gauge micropuncture was then used to gain access to this vein under ultrasound guidance. A hard copy ultrasound image was recorded. A guidewire was advanced centrally. 5 Italian sheath was placed. Over a wire following dilatation, a triple-lumen central venous catheter was advanced centrally. Catheter was found to flush and aspirate normally. Follow-up chest radiograph demonstrates tip at the cavoatrial junction. Catheter secured in place and a sterile dressing was applied. No immediate complications were identified. Impression: Successful ultrasound-guided placement of right internal jugular triple-lumen central venous catheter
[2018-10-27] MEDS ORDERED: WARFARIN 2 MG TABLET. PO ONE (16:00)
--- NOTE | 2018-10-27 16:41 | NUR ---
Wound Care: Placed Veraflow wound vac dressing to wounds on sacrum and L lateral hip (see detailed assessment). Applied skin prep, and ostomy ring to periwounds, and hydrocolloid to edge of dressing nearest anus to protect from stool incontinence. Silver waffle foam and solid foam placed in each wound. Bridged to L anterior thigh.. Pt on ICU bed. Dressing to L lateral lower leg CDI. Plan to follow up Tuesday10/30/18 Addendum: 10/27/18 at 1728 by GARO ROSA RN Veraflow settings Dakins solution 30cc x5min Q4H. Pictured and measured discoloration to RFA (see detailed assessment)
[2018-10-27] MEDS: ATORVASTATIN CALCIUM 40 MG TABLET. PO SCH (21:00)
[2018-10-28] VITALS (24 sets, daily range): BP systolic 134–159; BP diastolic 71–98
[2018-10-28] MEDS: PIPERACILLIN/TAZOBACTAM 3.375 GM in IV NORMAL SALINE 50ML 50 ML IV SCH ×4 (00:08→18:38)
[2018-10-28 05:24] LABS: BASO % 0 % (0-3); EOS # 0.3 x10^3/uL (0.0-0.7); EOS % 1 % (0-3); HEMATOCRIT 26.7 % (39.0-53.0); LYMPH # 0.6 x10^3/uL (1.0-4.8); LYMPH % 2 % (24-48); MEAN CORPUSCULAR HEMOGLOBIN 24 pg (25-35); MEAN CORPUSCULAR HGB CONC 30 g/dL (31-37); MEAN CORPUSCULAR VOLUME 81 fL (79-100); MONO # 0.9 x10^3/uL (0.0-1.1); MONO % 2 % (0-9); NEUT # 38.8 x10^3uL (1.8-7.7); NEUT % 96 % (31-73); PLATELET COUNT 74 x10^3/uL (140-400); RED CELL DISTRIBUTION WIDTH 17.7 % (11.5-14.5)
[2018-10-28 05:29] LABS: WHITE BLOOD COUNT 40.6 x10^3/uL (4.0-11.0)
[2018-10-28 05:46] LABS: PROTHROMBIN TIME PATIENT 26.7 SEC (11.7-14.0)
[2018-10-28 06:08] LABS: CALCIUM 8.4 mg/dL (8.5-10.1); CREATININE 1.3 mg/dL (0.7-1.3); GFR 65.8; POTASSIUM 3.5 mmol/L (3.5-5.1)
[2018-10-28 06:26] LABS: CHOLESTEROL/HDL RATIO 4.2
--- NOTE | 2018-10-28 06:28 | PDOC ---
PULMONARY PROGRESS NOTES Subjective off levo, off bipap, has cough, no sob Vitals Vital Signs Date Time Temp Pulse Resp B/P (MAP) Pulse Ox O2 Delivery O2 Flow Rate FiO2 10/28/18 06:00 61 22 142/93 (109) 100 Room Air 10/28/18 04:00 99.8 99.8 General: Alert HEENT: Other (nc at perrl nose clear) Lungs: Wheezing, Crackles Cardiovascular: S1, S2 Abdomen: Soft, Non-tender Neuro Exam: Alert Extremities: No Edema, Other Skin: Warm Labs Laboratory Tests Test 10/27/18 05:00 10/27/18 14:20 10/28/18 05:00 White Blood Count 51.3 x10^3/uL (4.0-11.0) 40.6 x10^3/uL (4.0-11.0) Red Blood Count 3.51 x10^6/uL (4.30-5.70) 3.30 x10^6/uL (4.30-5.70) Hemoglobin 8.8 g/dL (13.0-17.5) 8.0 g/dL (13.0-17.5) Hematocrit 28.4 % (39.0-53.0) 26.7 % (39.0-53.0) Mean Corpuscular Volume 81 fL (79-100) 81 fL (79-100) Mean Corpuscular Hemoglobin 25 pg (25-35) 24 pg (25-35) Mean Corpuscular Hemoglobin Concent 31 g/dL (31-37) 30 g/dL (31-37) Red Cell Distribution Width 17.5 % (11.5-14.5) 17.7 % (11.5-14.5) Platelet Count 105 x10^3/uL (140-400) 74 x10^3/uL (140-400) Neutrophils (%) (Auto) 93 % (31-73) 96 % (31-73) Lymphocytes (%) (Auto) 2 % (24-48) 2 % (24-48) Monocytes (%) (Auto) 3 % (0-9) 2 % (0-9) Eosinophils (%) (Auto) 1 % (0-3) 1 % (0-3) Basophils (%) (Auto) 0 % (0-3) 0 % (0-3) Neutrophils # (Auto) 47.8 x10^3uL (1.8-7.7) 38.8 x10^3uL (1.8-7.7) Lymphocytes # (Auto) 1.1 x10^3/uL (1.0-4.8) 0.6 x10^3/uL (1.0-4.8) Monocytes # (Auto) 1.6 x10^3/uL (0.0-1.1) 0.9 x10^3/uL (0.0-1.1) Eosinophils # (Auto) 0.7 x10^3/uL (0.0-0.7) 0.3 x10^3/uL (0.0-0.7) Basophils # (Auto) 0.0 x10^3/uL (0.0-0.2) 0.0 x10^3/uL (0.0-0.2) Segmented Neutrophils % 53 % (35-66) Band Neutrophils % 40 % (0-9) Lymphocytes % 3 % (24-48) Monocytes % 3 % (0-10) Metamyelocytes % 1 % (0-0) Nucleated Red Blood Cells 1 Toxic Vacuolation Slight Dohle Bodies Present Platelet Estimate Decreased (ADEQUATE) Anisocytosis Slight Ovalocytes Few [place] Cells Few Prothrombin Time 29.5 SEC (11.7-14.0) 26.7 SEC (11.7-14.0) Prothromb Time International Ratio 2.8 (0.8-1.1) 2.5 (0.8-1.1) Sodium Level 152 mmol/L (136-145) 152 mmol/L (136-145) Potassium Level 4.0 mmol/L (3.5-5.1) 3.5 mmol/L (3.5-5.1) Chloride Level 118 mmol/L (98-107) 119 mmol/L (98-107) Carbon Dioxide Level 16 mmol/L (21-32) 18 mmol/L (21-32) Anion Gap 18 (6-14) 15 (6-14) Blood Urea Nitrogen 33 mg/dL (8-26) 42 mg/dL (8-26) Creatinine 1.5 mg/dL (0.7-1.3) 1.3 mg/dL (0.7-1.3) Estimated GFR (Cockcroft-Gault) 55.8 65.8 BUN/Creatinine Ratio 22 (6-20) Glucose Level 95 mg/dL (70-99) 101 mg/dL (70-99) Lactic Acid Level 5.2 mmol/L (0.4-2.0) Calcium Level 7.8 mg/dL (8.5-10.1) 8.4 mg/dL (8.5-10.1) Total Bilirubin 0.7 mg/dL (0.2-1.0) Aspartate Amino Transf (AST/SGOT) 75 U/L (15-37) Alanine Aminotransferase (ALT/SGPT) 34 U/L (16-63) Alkaline Phosphatase 79 U/L (46-116) Total Protein 6.0 g/dL (6.4-8.2) Albumin 1.4 g/dL (3.4-5.0) Albumin/Globulin Ratio 0.3 (1.0-1.7) Clostridium difficile Toxin B Gene Negative (Negative) Laboratory Tests Test 10/27/18 14:20 10/28/18 05:00 Clostridium difficile Toxin B Gene Negative (Negative) White Blood Count 40.6 x10^3/uL (4.0-11.0) Red Blood Count 3.30 x10^6/uL (4.30-5.70) Hemoglobin 8.0 g/dL (13.0-17.5) Hematocrit 26.7 % (39.0-53.0) Mean Corpuscular Volume 81 fL (79-100) Mean Corpuscular Hemoglobin 24 pg (25-35) Mean Corpuscular Hemoglobin Concent 30 g/dL (31-37) Red Cell Distribution Width 17.7 % (11.5-14.5) Platelet Count 74 x10^3/uL (140-400) Neutrophils (%) (Auto) 96 % (31-73) Lymphocytes (%) (Auto) 2 % (24-48) Monocytes (%) (Auto) 2 % (0-9) Eosinophils (%) (Auto) 1 % (0-3) Basophils (%) (Auto) 0 % (0-3) Neutrophils # (Auto) 38.8 x10^3uL (1.8-7.7) Lymphocytes # (Auto) 0.6 x10^3/uL (1.0-4.8) Monocytes # (Auto) 0.9 x10^3/uL (0.0-1.1) Eosinophils # (Auto) 0.3 x10^3/uL (0.0-0.7) Basophils # (Auto) 0.0 x10^3/uL (0.0-0.2) Prothrombin Time 26.7 SEC (11.7-14.0) Prothromb Time International Ratio 2.5 (0.8-1.1) Sodium Level 152 mmol/L (136-145) Potassium Level 3.5 mmol/L (3.5-5.1) Chloride Level 119 mmol/L (98-107) Carbon Dioxide Level 18 mmol/L (21-32) Anion Gap 15 (6-14) Blood Urea Nitrogen 42 mg/dL (8-26) Creatinine 1.3 mg/dL (0.7-1.3) Estimated GFR (Cockcroft-Gault) 65.8 Glucose Level 101 mg/dL (70-99) Calcium Level 8.4 mg/dL (8.5-10.1) Medications Active Scripts Medications Dose Route/Sig Max Daily Dose Days Date Category Vitamin D2 (Ergocalciferol (Vitamin D2)) 50,000 Unit Capsule 1 Cap PO WEEKLY 10/25/18 Reported Trazodone Hcl 50 Mg Tablet 1 Tab PO QHS PRN 10/25/18 Reported Famotidine 20 Mg Tablet 20 Mg PO BID 10/25/18 Reported Carvedilol (Carvedilol) 12.5 Mg Tablet 12.5 Mg PO BIDWMEALS 10/25/18 Reported Bumetanide 1 Mg Tablet 1 Tab PO DAILY 10/25/18 Reported Allopurinol 100 Mg Tablet 1 Tab PO DAILY 10/25/18 Reported Furosemide 40 Mg Tablet 1 Tab PO DAILY 10/25/18 Reported Klor-Con 10 (Potassium Chloride) 10 Meq Tablet.er 2 Tab PO DAILY 10/25/18 Reported Methocarbamol 500 Mg Tablet 500 Mg PO TID PRN 04/04/18 Reported Citalopram Hbr (Citalopram Hydrobromide) 20 Mg Tablet 20 Mg PO DAILY 04/04/18 Reported Tramadol Hcl 50 Mg Tablet 50 Mg PO PRN Q8HRS PRN 04/04/18 Reported Atorvastatin Calcium 40 Mg Tablet 40 Mg PO QHS 04/04/18 Reported Amlodipine Besylate 10 Mg Tablet 10 Mg PO DAILY 04/04/18 Reported Warfarin Sodium 5 Mg Tablet 1 Tab PO DAILY 04/04/18 Reported Namenda (Memantine Hcl) 10 Mg Tablet 1 Tab PO BID 09/01/14 Reported Impression . 1. Acute respiratory failure secondary to septic shock. 2. Septic shock. Likely sources could be urinary tract infection and gluteal wounds. 3. Positive blood cultures with gram-negative rods. Currently on broad spectrum antibiotics. 4. Encephalopathy secondary to septic shock, improving. 5. Acute tubular necrosis/acute kidney injury, contributed by septic shock. 6. 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 7. History of deep venous thrombosis, on therapeutic INR. 8. History of pacemaker. 9. History of cerebrovascular accident and dementia. 10. Severe metabolic acidosis, lactic acidosis, improving 11. Abnormal cxr 10/26. no PTX, 12. Leukocytosis, sig increase/ ? Leukemoid reaction Plan . 1. prn BiPAP. 2. Continue broad-spectrum antibiotics per id, Dapto, Zosyn, Micafungin and Dox y 3. Follow all blood cultures. 4. Follow renal recommendation and monitor urine output closely. 5. Followup chest x-ray to make sure he is not in heart failure from all the fluid resuscitation. 6. Obtain echocardiogram. 7. Follow infectious disease recommendation. 8. Continue Coumadin. 9. Monitor lactic acid. 10. change bronchodilators to qid, add pulmicort. 11. Continue to wean vasopressor support. 12. DNR 13. repeat cxr,. no ptx Discussed with RN and RT. LULU ROLLINS MD October 28, 2018 06:28
[2018-10-28] MEDS: MICAFUNGIN 100 MG in IV DEXTROSE 5% 100ML 100 ML IV SCH (06:34)
[2018-10-28] MEDS: ALLOPURINOL 100 MG TABLET. PO SCH (09:00)
[2018-10-28] MEDS: MEMANTINE 10 MG TABLET. PO SCH ×2 (09:00→20:30)
[2018-10-28] MEDS: PANTOPRAZOLE IV PUSH 40 MG VIAL. IVP SCH (09:38)
[2018-10-28] MEDS: methylPREDNISolone SOD SUCC PF 40 MG/ML VIAL. IV SCH (09:38)
[2018-10-28] MEDS: DOXYCYCLINE HYCLATE 100 MG in IV DEXTROSE 5% 100ML 100 ML IV SCH ×2 (09:39→20:27)
[2018-10-28] MEDS: DAPTOmycin (GENERIC) IVPB 380 MG in IV NORMAL SALINE 50ML 50 ML IV SCH (09:39)
--- NOTE | 2018-10-28 09:42 | PDOC ---
Infectious Disease Note Subjective Subjective Loose stools Denies pain No fevers PPN Vital Sign Vital Signs Vital Signs Date Time Temp Pulse Resp B/P (MAP) Pulse Ox O2 Delivery O2 Flow Rate FiO2 10/28/18 07:00 97.7 65 32 135/79 (97) 100 Room Air 97.7 Physical Exam PHYSICAL EXAM GENERAL: Awake, weak appearing HEENT: Pupils equal and reactive. OC/Op - dry LUNGS: Clear anteriorly HEART: S1, S2, pacemaker ABDOMEN: Soft, NT : Frye is in place. EXTREMITIES: Contracted, there is 2+ edema in his lower extremities. His right wrist is contracted, it is swollen, but slightly warm and painful to move. SKIN: Without signs of rash. He has multiple unstageable pressure ulcers on his left hip. Coccyx area wound vac SKIN: Without warmth or rash. NEUROLOGIC: Awake, responds some RIJ (10/27) clean Labs Lab Laboratory Tests Test 10/27/18 14:20 10/28/18 05:00 Clostridium difficile Toxin B Gene Negative (Negative) White Blood Count 40.6 x10^3/uL (4.0-11.0) Red Blood Count 3.30 x10^6/uL (4.30-5.70) Hemoglobin 8.0 g/dL (13.0-17.5) Hematocrit 26.7 % (39.0-53.0) Mean Corpuscular Volume 81 fL (79-100) Mean Corpuscular Hemoglobin 24 pg (25-35) Mean Corpuscular Hemoglobin Concent 30 g/dL (31-37) Red Cell Distribution Width 17.7 % (11.5-14.5) Platelet Count 74 x10^3/uL (140-400) Neutrophils (%) (Auto) 96 % (31-73) Lymphocytes (%) (Auto) 2 % (24-48) Monocytes (%) (Auto) 2 % (0-9) Eosinophils (%) (Auto) 1 % (0-3) Basophils (%) (Auto) 0 % (0-3) Neutrophils # (Auto) 38.8 x10^3uL (1.8-7.7) Lymphocytes # (Auto) 0.6 x10^3/uL (1.0-4.8) Monocytes # (Auto) 0.9 x10^3/uL (0.0-1.1) Eosinophils # (Auto) 0.3 x10^3/uL (0.0-0.7) Basophils # (Auto) 0.0 x10^3/uL (0.0-0.2) Prothrombin Time 26.7 SEC (11.7-14.0) Prothromb Time International Ratio 2.5 (0.8-1.1) Sodium Level 152 mmol/L (136-145) Potassium Level 3.5 mmol/L (3.5-5.1) Chloride Level 119 mmol/L (98-107) Carbon Dioxide Level 18 mmol/L (21-32) Anion Gap 15 (6-14) Blood Urea Nitrogen 42 mg/dL (8-26) Creatinine 1.3 mg/dL (0.7-1.3) Estimated GFR (Cockcroft-Gault) 65.8 Glucose Level 101 mg/dL (70-99) Calcium Level 8.4 mg/dL (8.5-10.1) Triglycerides Level 78 mg/dL (0-150) Cholesterol Level 63 mg/dL (0-200) LDL Cholesterol, Calculated 32 mg/dL (0-100) VLDL Cholesterol, Calculated 16 mg/dL (0-40) Non-HDL Cholesterol Calculated 48 mg/dL (0-129) HDL Cholesterol 15 mg/dL (40-60) Cholesterol/HDL Ratio 4.2 Micro 10/27. BLOOD CULTURE Preliminary NO GROWTH AFTER 1 DAY 10/25. BLOOD CULTURE Final GRAM NEGATIVE RODS, IN 1 OF 4 BOTTLES, TWO SETS DRAWN. 10/26. URINE CULTURE RES 1 Final No growth Objective Assessment GNR Sepsis with hypotension POA 10/25 - off Levophed. repeat BC 10/27 neg so far Leukocytosis - in part sepsis/ reactive and steroids Urinary obstruction - s/p Frye placement 10/25 by Urology UTI - POA Multiple unstageable wounds - not a surgical candidate Lactic acidosis - slowly correcting MRSA + Right hand swelling and pain for over a month per - h/o gout and states has been off gout med at home because it interacted with other meds - some better -uric acid 6.2 RICK -stable Resp failure - off Bipap - states cont to cough at times Loose stools, C. diff neg, 10/27 Plan Plan of Care Awaiting GNR ID/susceptibilities Repeat blood cults 10/27 neg so far Cont Dapto, Zosyn, Micafungin and Doxy C-diff neg, d/c Flagyl Too unstable for additional imaging at this point Not surgical candidate F/u labs and cults Local wound care Contact for MRSA Critically ill with complex medical decision making DNR/DNI Guarded prognosis D/w nursing Patient seen, examined, I agree with above assessment and plan as laid out by GLOBAL COMMODITY MANAGER. LAbs and Micro reviewed Maintaining good uo off pressors D/W CECILIA NOVA APRN October 28, 2018 09:42 KULDEEP KHAN MD October 28, 2018 14:06
[2018-10-28] MEDS: IPRATRPIUM/ALBUTEROL 0.5/2.5MG 3 ML NEBU. NEB SCH ×4 (10:06→19:23)
[2018-10-28] MEDS: AMINO AC 3%/ELECTROLYTE/GLYCER 1,000 ML IV SCH ×2 (11:26→20:26)
--- NOTE | 2018-10-28 11:48 | PDOC ---
IM PROGRESS NOTES- Subjective Subjective Patient is a poor historian but he is able to open his eyes. I cannot understand his speech and unable to do full systems review. Objective Vitals Vital Signs Date Time Temp Pulse Resp B/P (MAP) Pulse Ox O2 Delivery O2 Flow Rate FiO2 10/28/18 11:00 85 24 156/95 (115) 100 Room Air 10/28/18 07:00 97.7 97.7 Input & Output Intake and Output 10/28/18 07:00 Intake Total 1280 ml Output Total 1270 ml Balance 10 ml IV Total 1280 ml Output Urine Total 1270 ml Physical Exam Physical Exam General appearance - alert, chronically ill-appearing, forgetful speech is not clear. Mental Status - alert, fused Chest -decreased breath sounds at bases Heart - S1 and S2 normal Abdomen - soft, nontender, nondistended, no masses or organomegaly Neurological - alert Musculoskeletal - no muscular tenderness noted Extremities - no pedal edema Skin -has a sacral wound Labs Laboratory Tests Test 10/27/18 05:00 10/27/18 14:20 10/28/18 05:00 White Blood Count 51.3 x10^3/uL (4.0-11.0) 40.6 x10^3/uL (4.0-11.0) Red Blood Count 3.51 x10^6/uL (4.30-5.70) 3.30 x10^6/uL (4.30-5.70) Hemoglobin 8.8 g/dL (13.0-17.5) 8.0 g/dL (13.0-17.5) Hematocrit 28.4 % (39.0-53.0) 26.7 % (39.0-53.0) Mean Corpuscular Volume 81 fL (79-100) 81 fL (79-100) Mean Corpuscular Hemoglobin 25 pg (25-35) 24 pg (25-35) Mean Corpuscular Hemoglobin Concent 31 g/dL (31-37) 30 g/dL (31-37) Red Cell Distribution Width 17.5 % (11.5-14.5) 17.7 % (11.5-14.5) Platelet Count 105 x10^3/uL (140-400) 74 x10^3/uL (140-400) Neutrophils (%) (Auto) 93 % (31-73) 96 % (31-73) Lymphocytes (%) (Auto) 2 % (24-48) 2 % (24-48) Monocytes (%) (Auto) 3 % (0-9) 2 % (0-9) Eosinophils (%) (Auto) 1 % (0-3) 1 % (0-3) Basophils (%) (Auto) 0 % (0-3) 0 % (0-3) Neutrophils # (Auto) 47.8 x10^3uL (1.8-7.7) 38.8 x10^3uL (1.8-7.7) Lymphocytes # (Auto) 1.1 x10^3/uL (1.0-4.8) 0.6 x10^3/uL (1.0-4.8) Monocytes # (Auto) 1.6 x10^3/uL (0.0-1.1) 0.9 x10^3/uL (0.0-1.1) Eosinophils # (Auto) 0.7 x10^3/uL (0.0-0.7) 0.3 x10^3/uL (0.0-0.7) Basophils # (Auto) 0.0 x10^3/uL (0.0-0.2) 0.0 x10^3/uL (0.0-0.2) Segmented Neutrophils % 53 % (35-66) Band Neutrophils % 40 % (0-9) Lymphocytes % 3 % (24-48) Monocytes % 3 % (0-10) Metamyelocytes % 1 % (0-0) Nucleated Red Blood Cells 1 Toxic Vacuolation Slight Dohle Bodies Present Platelet Estimate Decreased (ADEQUATE) Anisocytosis Slight Ovalocytes Few Sydnee Cells Few Prothrombin Time 29.5 SEC (11.7-14.0) 26.7 SEC (11.7-14.0) Prothromb Time International Ratio 2.8 (0.8-1.1) 2.5 (0.8-1.1) Sodium Level 152 mmol/L (136-145) 152 mmol/L (136-145) Potassium Level 4.0 mmol/L (3.5-5.1) 3.5 mmol/L (3.5-5.1) Chloride Level 118 mmol/L (98-107) 119 mmol/L (98-107) Carbon Dioxide Level 16 mmol/L (21-32) 18 mmol/L (21-32) Anion Gap 18 (6-14) 15 (6-14) Blood Urea Nitrogen 33 mg/dL (8-26) 42 mg/dL (8-26) Creatinine 1.5 mg/dL (0.7-1.3) 1.3 mg/dL (0.7-1.3) Estimated GFR (Cockcroft-Gault) 55.8 65.8 BUN/Creatinine Ratio 22 (6-20) Glucose Level 95 mg/dL (70-99) 101 mg/dL (70-99) Lactic Acid Level 5.2 mmol/L (0.4-2.0) Calcium Level 7.8 mg/dL (8.5-10.1) 8.4 mg/dL (8.5-10.1) Total Bilirubin 0.7 mg/dL (0.2-1.0) Aspartate Amino Transf (AST/SGOT) 75 U/L (15-37) Alanine Aminotransferase (ALT/SGPT) 34 U/L (16-63) Alkaline Phosphatase 79 U/L (46-116) Total Protein 6.0 g/dL (6.4-8.2) Albumin 1.4 g/dL (3.4-5.0) Albumin/Globulin Ratio 0.3 (1.0-1.7) Clostridium difficile Toxin B Gene Negative (Negative) Triglycerides Level 78 mg/dL (0-150) Cholesterol Level 63 mg/dL (0-200) LDL Cholesterol, Calculated 32 mg/dL (0-100) VLDL Cholesterol, Calculated 16 mg/dL (0-40) Non-HDL Cholesterol Calculated 48 mg/dL (0-129) HDL Cholesterol 15 mg/dL (40-60) Cholesterol/HDL Ratio 4.2 Laboratory Tests Test 10/27/18 14:20 10/28/18 05:00 Clostridium difficile Toxin B Gene Negative (Negative) White Blood Count 40.6 x10^3/uL (4.0-11.0) Red Blood Count 3.30 x10^6/uL (4.30-5.70) Hemoglobin 8.0 g/dL (13.0-17.5) Hematocrit 26.7 % (39.0-53.0) Mean Corpuscular Volume 81 fL (79-100) Mean Corpuscular Hemoglobin 24 pg (25-35) Mean Corpuscular Hemoglobin Concent 30 g/dL (31-37) Red Cell Distribution Width 17.7 % (11.5-14.5) Platelet Count 74 x10^3/uL (140-400) Neutrophils (%) (Auto) 96 % (31-73) Lymphocytes (%) (Auto) 2 % (24-48) Monocytes (%) (Auto) 2 % (0-9) Eosinophils (%) (Auto) 1 % (0-3) Basophils (%) (Auto) 0 % (0-3) Neutrophils # (Auto) 38.8 x10^3uL (1.8-7.7) Lymphocytes # (Auto) 0.6 x10^3/uL (1.0-4.8) Monocytes # (Auto) 0.9 x10^3/uL (0.0-1.1) Eosinophils # (Auto) 0.3 x10^3/uL (0.0-0.7) Basophils # (Auto) 0.0 x10^3/uL (0.0-0.2) Prothrombin Time 26.7 SEC (11.7-14.0) Prothromb Time International Ratio 2.5 (0.8-1.1) Sodium Level 152 mmol/L (136-145) Potassium Level 3.5 mmol/L (3.5-5.1) Chloride Level 119 mmol/L (98-107) Carbon Dioxide Level 18 mmol/L (21-32) Anion Gap 15 (6-14) Blood Urea Nitrogen 42 mg/dL (8-26) Creatinine 1.3 mg/dL (0.7-1.3) Estimated GFR (Cockcroft-Gault) 65.8 Glucose Level 101 mg/dL (70-99) Calcium Level 8.4 mg/dL (8.5-10.1) Triglycerides Level 78 mg/dL (0-150) Cholesterol Level 63 mg/dL (0-200) LDL Cholesterol, Calculated 32 mg/dL (0-100) VLDL Cholesterol, Calculated 16 mg/dL (0-40) Non-HDL Cholesterol Calculated 48 mg/dL (0-129) HDL Cholesterol 15 mg/dL (40-60) Cholesterol/HDL Ratio 4.2 Meds Current Medications Albuterol/ Ipratropium (Duoneb) 3 ml RTQID NEB ; Start 10/28/18 at 08:00 Budesonide (Pulmicort) 0.5 mg RTBID NEB ; Start 10/28/18 at 08:00 Lidocaine/Sodium Bicarbonate (Buffered Lidocaine 1%) 3 ml STK-MED ONCE .ROUTE ; Start 10/27/18 at 12:22; Stop 10/27/18 at 12:23; Status DC Piperacillin Sod/ Tazobactam Sod 3.375 gm/Sodium Chloride 50 ml @ 100 mls/hr Q6HRS IV Last administered on 10/28/18at 11:24; Start 10/27/18 at 12:00 Sodium Hypochlorite (Dakin'S 1/4 Strength) 1 kevin PRN DAILY PRN TP SEE COMMENTS; Start 10/27/18 at 14:00 Warfarin Sodium (Coumadin) 2 mg 1X WARF ONCE PO ; Start 10/27/18 at 16:00; Stop 10/27/18 at 16:01; Status DC Assessment Assessment FINAL IMPRESSION: 1. Severe Sepsis with hypotension, on Levophed. 2. Lactic acidosis. 3. Gram-negative bacteremia, positive blood cultures. 4. Infected wounds over the sacrum as well as trochanteric area. 5. Chronic atrial fibrillation, on Coumadin. 6. Chronic systolic heart failure, on cardiac medication. 7. History of previous stroke with contractures. 8. Protein-calorie malnutrition, severe. 9. General debility. 10. Hyperlipidemia. 11. History of AAA endovascular repair. 12. Acute tubular necrosis. 13.Urethral stenosis and bph PLAN: pt is being weaned off Levophed 3 mcg now . urine out put improved now cr 1.5 sono kidneys scarring left kidney cystoscopy and placement of irving iv antibiotics dapto+zosyn+doxycycline procalamine for nutrition central /piccline spoke with pts small dose of steroids for hypotension and sepsis. inr 2.8 on coumadin NA 151 monitor The patient was admitted to the ICU. The patient was placed on BiPAP after the blood gas was done. The patient was given total of 4 liters of fluid, started on Levophed and the patient also had BPH with bladder obstruction, had a Irving catheter placed by Urology. The patient's overall condition remains critical. Prognosis is poor. Condition and treatment discussed with the patient's family at bedside. Hypernatremia- continue PPN. Hypotension better. Patient is off Levophed since 3 PM yesterday. Hypokalemia- K is 3.5 Acute renal failure- improving Prognosis is very poor. Sepsis- gram-negative rods. ID pending. Continue daptomycin and Zosyn and micafungin and doxycycline. Flagyl was discontinued because C. difficile PCR is negative. Plan Plan For more details regarding further plans, please refer to the orders. Nutrition Consultation Dietary Evaluation: Recommendations by RD: Decrease Calorie Intake, Protein supplementation, PPN/TPN Comments: REC re-start PPN when able for short-term non-oral nutrition REC advance diet as able per ATTENDING RADIOLOGIST recommendations; recommend Mark BID, MVI, and Glucerna supplements, thickened as needed, if able per ATTENDING RADIOLOGIST If extended NPO, recommend feeding tube placement for tube feeds to adequately meet nutrition needs Expected Outcomes/Goals: PO intake to meet >75% est needs - not met, new goal established New goal 10/27: Nutrition as appropriate per ATTENDING RADIOLOGIST and goals of care Interpretation of weight loss: >7.5% in 3 months Malnutrition Findings: Weight Status: Appropriate MUNA JACKSON MD October 28, 2018 11:48
[2018-10-28] MEDS: SODIUM HYPOCHLORITE 0.125% 473 ML BOTTLE. TP SCH ×2 (12:01→20:30)
[2018-10-28] MEDS: BUDESONIDE 0.5 MG/2 ML NEBU. NEB SCH ×2 (12:22→19:23)
--- NOTE | 2018-10-28 16:55 | NUR ---
Patient recognized and says he needs to get the bad blood out of his body. Oral care given hourly. Patient has been off levophed since 10/27/18 at 1500, VSS, discussed changing PO coumadin to IV medication with Dr. Mauricio. Son, Jesu visited and asked for Vannessa Abdi's number. Office number given.
--- NOTE | 2018-10-28 18:39 | PDOC ---
SURGICAL PROGRESS NOTE Subjective unable to understand his speech Vital Signs Vital Signs Date Time Temp Pulse Resp B/P (MAP) Pulse Ox O2 Delivery O2 Flow Rate FiO2 10/28/18 18:00 66 22 144/85 (104) 100 Room Air 10/28/18 13:00 97.6 97.6 I&O Intake and Output 10/28/18 07:00 Intake Total 1330 ml Output Total 1270 ml Balance 60 ml IV Total 1330 ml Output Urine Total 1270 ml PATIENT HAS A HARMON: Yes (accurate I and O) General: No acute distress Abdomen: Soft Labs Laboratory Tests Test 10/27/18 05:00 10/27/18 14:20 10/28/18 05:00 White Blood Count 51.3 x10^3/uL (4.0-11.0) 40.6 x10^3/uL (4.0-11.0) Red Blood Count 3.51 x10^6/uL (4.30-5.70) 3.30 x10^6/uL (4.30-5.70) Hemoglobin 8.8 g/dL (13.0-17.5) 8.0 g/dL (13.0-17.5) Hematocrit 28.4 % (39.0-53.0) 26.7 % (39.0-53.0) Mean Corpuscular Volume 81 fL (79-100) 81 fL (79-100) Mean Corpuscular Hemoglobin 25 pg (25-35) 24 pg (25-35) Mean Corpuscular Hemoglobin Concent 31 g/dL (31-37) 30 g/dL (31-37) Red Cell Distribution Width 17.5 % (11.5-14.5) 17.7 % (11.5-14.5) Platelet Count 105 x10^3/uL (140-400) 74 x10^3/uL (140-400) Neutrophils (%) (Auto) 93 % (31-73) 96 % (31-73) Lymphocytes (%) (Auto) 2 % (24-48) 2 % (24-48) Monocytes (%) (Auto) 3 % (0-9) 2 % (0-9) Eosinophils (%) (Auto) 1 % (0-3) 1 % (0-3) Basophils (%) (Auto) 0 % (0-3) 0 % (0-3) Neutrophils # (Auto) 47.8 x10^3uL (1.8-7.7) 38.8 x10^3uL (1.8-7.7) Lymphocytes # (Auto) 1.1 x10^3/uL (1.0-4.8) 0.6 x10^3/uL (1.0-4.8) Monocytes # (Auto) 1.6 x10^3/uL (0.0-1.1) 0.9 x10^3/uL (0.0-1.1) Eosinophils # (Auto) 0.7 x10^3/uL (0.0-0.7) 0.3 x10^3/uL (0.0-0.7) Basophils # (Auto) 0.0 x10^3/uL (0.0-0.2) 0.0 x10^3/uL (0.0-0.2) Segmented Neutrophils % 53 % (35-66) Band Neutrophils % 40 % (0-9) Lymphocytes % 3 % (24-48) Monocytes % 3 % (0-10) Metamyelocytes % 1 % (0-0) Nucleated Red Blood Cells 1 Toxic Vacuolation Slight Dohle Bodies Present Platelet Estimate Decreased (ADEQUATE) Anisocytosis Slight Ovalocytes Few [place] Cells Few Prothrombin Time 29.5 SEC (11.7-14.0) 26.7 SEC (11.7-14.0) Prothromb Time International Ratio 2.8 (0.8-1.1) 2.5 (0.8-1.1) Sodium Level 152 mmol/L (136-145) 152 mmol/L (136-145) Potassium Level 4.0 mmol/L (3.5-5.1) 3.5 mmol/L (3.5-5.1) Chloride Level 118 mmol/L (98-107) 119 mmol/L (98-107) Carbon Dioxide Level 16 mmol/L (21-32) 18 mmol/L (21-32) Anion Gap 18 (6-14) 15 (6-14) Blood Urea Nitrogen 33 mg/dL (8-26) 42 mg/dL (8-26) Creatinine 1.5 mg/dL (0.7-1.3) 1.3 mg/dL (0.7-1.3) Estimated GFR (Cockcroft-Gault) 55.8 65.8 BUN/Creatinine Ratio 22 (6-20) Glucose Level 95 mg/dL (70-99) 101 mg/dL (70-99) Lactic Acid Level 5.2 mmol/L (0.4-2.0) Calcium Level 7.8 mg/dL (8.5-10.1) 8.4 mg/dL (8.5-10.1) Total Bilirubin 0.7 mg/dL (0.2-1.0) Aspartate Amino Transf (AST/SGOT) 75 U/L (15-37) Alanine Aminotransferase (ALT/SGPT) 34 U/L (16-63) Alkaline Phosphatase 79 U/L (46-116) Total Protein 6.0 g/dL (6.4-8.2) Albumin 1.4 g/dL (3.4-5.0) Albumin/Globulin Ratio 0.3 (1.0-1.7) Clostridium difficile Toxin B Gene Negative (Negative) Triglycerides Level 78 mg/dL (0-150) Cholesterol Level 63 mg/dL (0-200) LDL Cholesterol, Calculated 32 mg/dL (0-100) VLDL Cholesterol, Calculated 16 mg/dL (0-40) Non-HDL Cholesterol Calculated 48 mg/dL (0-129) HDL Cholesterol 15 mg/dL (40-60) Cholesterol/HDL Ratio 4.2 Laboratory Tests Test 10/28/18 05:00 White Blood Count 40.6 x10^3/uL (4.0-11.0) Red Blood Count 3.30 x10^6/uL (4.30-5.70) Hemoglobin 8.0 g/dL (13.0-17.5) Hematocrit 26.7 % (39.0-53.0) Mean Corpuscular Volume 81 fL (79-100) Mean Corpuscular Hemoglobin 24 pg (25-35) Mean Corpuscular Hemoglobin Concent 30 g/dL (31-37) Red Cell Distribution Width 17.7 % (11.5-14.5) Platelet Count 74 x10^3/uL (140-400) Neutrophils (%) (Auto) 96 % (31-73) Lymphocytes (%) (Auto) 2 % (24-48) Monocytes (%) (Auto) 2 % (0-9) Eosinophils (%) (Auto) 1 % (0-3) Basophils (%) (Auto) 0 % (0-3) Neutrophils # (Auto) 38.8 x10^3uL (1.8-7.7) Lymphocytes # (Auto) 0.6 x10^3/uL (1.0-4.8) Monocytes # (Auto) 0.9 x10^3/uL (0.0-1.1) Eosinophils # (Auto) 0.3 x10^3/uL (0.0-0.7) Basophils # (Auto) 0.0 x10^3/uL (0.0-0.2) Prothrombin Time 26.7 SEC (11.7-14.0) Prothromb Time International Ratio 2.5 (0.8-1.1) Sodium Level 152 mmol/L (136-145) Potassium Level 3.5 mmol/L (3.5-5.1) Chloride Level 119 mmol/L (98-107) Carbon Dioxide Level 18 mmol/L (21-32) Anion Gap 15 (6-14) Blood Urea Nitrogen 42 mg/dL (8-26) Creatinine 1.3 mg/dL (0.7-1.3) Estimated GFR (Cockcroft-Gault) 65.8 Glucose Level 101 mg/dL (70-99) Calcium Level 8.4 mg/dL (8.5-10.1) Triglycerides Level 78 mg/dL (0-150) Cholesterol Level 63 mg/dL (0-200) LDL Cholesterol, Calculated 32 mg/dL (0-100) VLDL Cholesterol, Calculated 16 mg/dL (0-40) Non-HDL Cholesterol Calculated 48 mg/dL (0-129) HDL Cholesterol 15 mg/dL (40-60) Cholesterol/HDL Ratio 4.2 Assessment/Plan sepsis sacral decub no new surgical recs RAMU GARCIA MD October 28, 2018 18:39
[2018-10-28] MEDS: ATORVASTATIN CALCIUM 40 MG TABLET. PO SCH (20:30)
[2018-10-29] VITALS (24 sets, daily range): BP systolic 116–174; BP diastolic 69–117
[2018-10-29] MEDS: PIPERACILLIN/TAZOBACTAM 3.375 GM in IV NORMAL SALINE 50ML 50 ML IV SCH ×4 (00:47→18:30)
[2018-10-29 05:12] LABS: BASO % 0 % (0-3); EOS # 0.2 x10^3/uL (0.0-0.7); EOS % 1 % (0-3); HEMATOCRIT 26.7 % (39.0-53.0); HEMOGLOBIN 8.2 g/dL (13.0-17.5); LYMPH # 1.2 x10^3/uL (1.0-4.8); LYMPH % 4 % (24-48); MEAN CORPUSCULAR HEMOGLOBIN 25 pg (25-35); MEAN CORPUSCULAR HGB CONC 31 g/dL (31-37); MEAN CORPUSCULAR VOLUME 80 fL (79-100); MONO # 0.5 x10^3/uL (0.0-1.1); MONO % 2 % (0-9); NEUT # 26.5 x10^3uL (1.8-7.7); NEUT % 93 % (31-73); PLATELET COUNT 57 x10^3/uL (140-400); RED BLOOD COUNT 3.34 x10^6/uL (4.30-5.70); RED CELL DISTRIBUTION WIDTH 17.5 % (11.5-14.5); WHITE BLOOD COUNT 28.4 x10^3/uL (4.0-11.0)
[2018-10-29 05:23] LABS: PROTHROMBIN TIME PATIENT 25.9 SEC (11.7-14.0)
[2018-10-29 05:43] LABS: ALBUMIN 1.2 g/dL (3.4-5.0); ALBUMIN/GLOBULIN RATIO 0.3 (1.0-1.7); CALCIUM 8.4 mg/dL (8.5-10.1); CREATININE 1.2 mg/dL (0.7-1.3); GFR 72.2; POTASSIUM 3.5 mmol/L (3.5-5.1); TOTAL BILIRUBIN 0.6 mg/dL (0.2-1.0); TOTAL PROTEIN 5.4 g/dL (6.4-8.2)
[2018-10-29] MEDS: MICAFUNGIN 100 MG in IV DEXTROSE 5% 100ML 100 ML IV SCH (06:12)
--- NOTE | 2018-10-29 06:45 | PDOC ---
PULMONARY PROGRESS NOTES Subjective more alert has cough, no sob Vitals Vital Signs Date Time Temp Pulse Resp B/P (MAP) Pulse Ox O2 Delivery O2 Flow Rate FiO2 10/29/18 06:00 86 22 146/79 (101) 100 Room Air 10/29/18 04:00 98.7 98.7 General: Alert HEENT: Other (nc at perrl nose clear) Lungs: Other (a few rhonchi) Cardiovascular: S1, S2 Abdomen: Soft, Non-tender Neuro Exam: Alert Extremities: No Edema, Other Skin: Warm Labs Laboratory Tests Test 10/27/18 14:20 10/28/18 05:00 10/29/18 04:30 Clostridium difficile Toxin B Gene Negative (Negative) White Blood Count 40.6 x10^3/uL (4.0-11.0) 28.4 x10^3/uL (4.0-11.0) Red Blood Count 3.30 x10^6/uL (4.30-5.70) 3.34 x10^6/uL (4.30-5.70) Hemoglobin 8.0 g/dL (13.0-17.5) 8.2 g/dL (13.0-17.5) Hematocrit 26.7 % (39.0-53.0) 26.7 % (39.0-53.0) Mean Corpuscular Volume 81 fL (79-100) 80 fL (79-100) Mean Corpuscular Hemoglobin 24 pg (25-35) 25 pg (25-35) Mean Corpuscular Hemoglobin Concent 30 g/dL (31-37) 31 g/dL (31-37) Red Cell Distribution Width 17.7 % (11.5-14.5) 17.5 % (11.5-14.5) Platelet Count 74 x10^3/uL (140-400) 57 x10^3/uL (140-400) Neutrophils (%) (Auto) 96 % (31-73) 93 % (31-73) Lymphocytes (%) (Auto) 2 % (24-48) 4 % (24-48) Monocytes (%) (Auto) 2 % (0-9) 2 % (0-9) Eosinophils (%) (Auto) 1 % (0-3) 1 % (0-3) Basophils (%) (Auto) 0 % (0-3) 0 % (0-3) Neutrophils # (Auto) 38.8 x10^3uL (1.8-7.7) 26.5 x10^3uL (1.8-7.7) Lymphocytes # (Auto) 0.6 x10^3/uL (1.0-4.8) 1.2 x10^3/uL (1.0-4.8) Monocytes # (Auto) 0.9 x10^3/uL (0.0-1.1) 0.5 x10^3/uL (0.0-1.1) Eosinophils # (Auto) 0.3 x10^3/uL (0.0-0.7) 0.2 x10^3/uL (0.0-0.7) Basophils # (Auto) 0.0 x10^3/uL (0.0-0.2) 0.0 x10^3/uL (0.0-0.2) Prothrombin Time 26.7 SEC (11.7-14.0) 25.9 SEC (11.7-14.0) Prothromb Time International Ratio 2.5 (0.8-1.1) 2.4 (0.8-1.1) Sodium Level 152 mmol/L (136-145) 149 mmol/L (136-145) Potassium Level 3.5 mmol/L (3.5-5.1) 3.5 mmol/L (3.5-5.1) Chloride Level 119 mmol/L (98-107) 118 mmol/L (98-107) Carbon Dioxide Level 18 mmol/L (21-32) 18 mmol/L (21-32) Anion Gap 15 (6-14) 13 (6-14) Blood Urea Nitrogen 42 mg/dL (8-26) 48 mg/dL (8-26) Creatinine 1.3 mg/dL (0.7-1.3) 1.2 mg/dL (0.7-1.3) Estimated GFR (Cockcroft-Gault) 65.8 72.2 Glucose Level 101 mg/dL (70-99) 88 mg/dL (70-99) Calcium Level 8.4 mg/dL (8.5-10.1) 8.4 mg/dL (8.5-10.1) Triglycerides Level 78 mg/dL (0-150) Cholesterol Level 63 mg/dL (0-200) LDL Cholesterol, Calculated 32 mg/dL (0-100) VLDL Cholesterol, Calculated 16 mg/dL (0-40) Non-HDL Cholesterol Calculated 48 mg/dL (0-129) HDL Cholesterol 15 mg/dL (40-60) Cholesterol/HDL Ratio 4.2 BUN/Creatinine Ratio 40 (6-20) Total Bilirubin 0.6 mg/dL (0.2-1.0) Aspartate Amino Transf (AST/SGOT) 73 U/L (15-37) Alanine Aminotransferase (ALT/SGPT) 38 U/L (16-63) Alkaline Phosphatase 209 U/L (46-116) Total Protein 5.4 g/dL (6.4-8.2) Albumin 1.2 g/dL (3.4-5.0) Albumin/Globulin Ratio 0.3 (1.0-1.7) Laboratory Tests Test 10/29/18 04:30 White Blood Count 28.4 x10^3/uL (4.0-11.0) Red Blood Count 3.34 x10^6/uL (4.30-5.70) Hemoglobin 8.2 g/dL (13.0-17.5) Hematocrit 26.7 % (39.0-53.0) Mean Corpuscular Volume 80 fL (79-100) Mean Corpuscular Hemoglobin 25 pg (25-35) Mean Corpuscular Hemoglobin Concent 31 g/dL (31-37) Red Cell Distribution Width 17.5 % (11.5-14.5) Platelet Count 57 x10^3/uL (140-400) Neutrophils (%) (Auto) 93 % (31-73) Lymphocytes (%) (Auto) 4 % (24-48) Monocytes (%) (Auto) 2 % (0-9) Eosinophils (%) (Auto) 1 % (0-3) Basophils (%) (Auto) 0 % (0-3) Neutrophils # (Auto) 26.5 x10^3uL (1.8-7.7) Lymphocytes # (Auto) 1.2 x10^3/uL (1.0-4.8) Monocytes # (Auto) 0.5 x10^3/uL (0.0-1.1) Eosinophils # (Auto) 0.2 x10^3/uL (0.0-0.7) Basophils # (Auto) 0.0 x10^3/uL (0.0-0.2) Prothrombin Time 25.9 SEC (11.7-14.0) Prothromb Time International Ratio 2.4 (0.8-1.1) Sodium Level 149 mmol/L (136-145) Potassium Level 3.5 mmol/L (3.5-5.1) Chloride Level 118 mmol/L (98-107) Carbon Dioxide Level 18 mmol/L (21-32) Anion Gap 13 (6-14) Blood Urea Nitrogen 48 mg/dL (8-26) Creatinine 1.2 mg/dL (0.7-1.3) Estimated GFR (Cockcroft-Gault) 72.2 BUN/Creatinine Ratio 40 (6-20) Glucose Level 88 mg/dL (70-99) Calcium Level 8.4 mg/dL (8.5-10.1) Total Bilirubin 0.6 mg/dL (0.2-1.0) Aspartate Amino Transf (AST/SGOT) 73 U/L (15-37) Alanine Aminotransferase (ALT/SGPT) 38 U/L (16-63) Alkaline Phosphatase 209 U/L (46-116) Total Protein 5.4 g/dL (6.4-8.2) Albumin 1.2 g/dL (3.4-5.0) Albumin/Globulin Ratio 0.3 (1.0-1.7) Medications Active Scripts Medications Dose Route/Sig Max Daily Dose Days Date Category Vitamin D2 (Ergocalciferol (Vitamin D2)) 50,000 Unit Capsule 1 Cap PO WEEKLY 10/25/18 Reported Trazodone Hcl 50 Mg Tablet 1 Tab PO QHS PRN 10/25/18 Reported Famotidine 20 Mg Tablet 20 Mg PO BID 10/25/18 Reported Carvedilol (Carvedilol) 12.5 Mg Tablet 12.5 Mg PO BIDWMEALS 10/25/18 Reported Bumetanide 1 Mg Tablet 1 Tab PO DAILY 10/25/18 Reported Allopurinol 100 Mg Tablet 1 Tab PO DAILY 10/25/18 Reported Furosemide 40 Mg Tablet 1 Tab PO DAILY 10/25/18 Reported Klor-Con 10 (Potassium Chloride) 10 Meq Tablet.er 2 Tab PO DAILY 10/25/18 Reported Methocarbamol 500 Mg Tablet 500 Mg PO TID PRN 04/04/18 Reported Citalopram Hbr (Citalopram Hydrobromide) 20 Mg Tablet 20 Mg PO DAILY 04/04/18 Reported Tramadol Hcl 50 Mg Tablet 50 Mg PO PRN Q8HRS PRN 04/04/18 Reported Atorvastatin Calcium 40 Mg Tablet 40 Mg PO QHS 04/04/18 Reported Amlodipine Besylate 10 Mg Tablet 10 Mg PO DAILY 04/04/18 Reported Warfarin Sodium 5 Mg Tablet 1 Tab PO DAILY 04/04/18 Reported Namenda (Memantine Hcl) 10 Mg Tablet 1 Tab PO BID 09/01/14 Reported Impression . 1. Acute respiratory failure secondary to septic shock. 2. Septic shock. 3. Positive blood cultures with gram-negative rods. Currently on broad spectrum antibiotics. 4. Encephalopathy secondary to septic shock, improving. 5. Acute kidney injury, contributed by septic shock. 6. 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 7. History of deep venous thrombosis, on coumadin. 8. History of pacemaker. 9. History of cerebrovascular accident and dementia. 10. Severe metabolic acidosis, lactic acidosis, resolved 11. Abnormal cxr 10/26. no PTX, 12. Leukocytosis, improving Plan . 1. prn BiPAP. 2. Continue broad-spectrum antibiotics per id, Dapto, Zosyn, Micafungin and Doxy 3. Follow all blood cultures. 4. Follow renal recommendation and monitor urine output closely. 5. Followup chest x-ray 6. Obtain echocardiogram. 7. Follow infectious disease recommendation. 8. Continue Coumadin. 9. Monitor lactic acid. 10. cont bonchodilators qid, and pulmicort. 11. off levo 12. DNR 13. repeat cxr,. no ptx Discussed with RN and RT. LULU ROLLINS MD October 29, 2018 06:45
[2018-10-29] MEDS: MEMANTINE 10 MG TABLET. PO SCH ×2 (08:21→20:31)
[2018-10-29] MEDS: ALLOPURINOL 100 MG TABLET. PO SCH (08:21)
[2018-10-29] MEDS: BUDESONIDE 0.5 MG/2 ML NEBU. NEB SCH ×2 (08:25→19:48)
[2018-10-29] MEDS: IPRATRPIUM/ALBUTEROL 0.5/2.5MG 3 ML NEBU. NEB SCH ×4 (08:25→19:48)
--- NOTE | 2018-10-29 08:30 | PDOC ---
Infectious Disease Note Subjective Subjective Says feeling alright Denies pain/SOA/upset stomach Loose stools No fevers last 24 hours PPN Vital Sign Vital Signs Vital Signs Date Time Temp Pulse Resp B/P (MAP) Pulse Ox O2 Delivery O2 Flow Rate FiO2 10/29/18 06:00 86 22 146/79 (101) 100 Room Air 10/29/18 04:00 98.7 98.7 Physical Exam PHYSICAL EXAM GENERAL: Awake, NAD HEENT: Pupils equal and reactive. OC/Op - dry LUNGS: Clear anteriorly HEART: S1, S2, paced ABDOMEN: Soft, NT : Frye is in place. EXTREMITIES: Contracted, there is 2+ edema in his lower extremities. His right wrist is contracted, it is swollen, but slightly warm and painful to move. SKIN: Without signs of rash. He has multiple unstageable pressure ulcers on his left hip. Coccyx area wound vac SKIN: Without warmth or rash. NEUROLOGIC: Awake, responding RIJ (10/27) clean Labs Lab Laboratory Tests Test 10/29/18 04:30 White Blood Count 28.4 x10^3/uL (4.0-11.0) Red Blood Count 3.34 x10^6/uL (4.30-5.70) Hemoglobin 8.2 g/dL (13.0-17.5) Hematocrit 26.7 % (39.0-53.0) Mean Corpuscular Volume 80 fL (79-100) Mean Corpuscular Hemoglobin 25 pg (25-35) Mean Corpuscular Hemoglobin Concent 31 g/dL (31-37) Red Cell Distribution Width 17.5 % (11.5-14.5) Platelet Count 57 x10^3/uL (140-400) Neutrophils (%) (Auto) 93 % (31-73) Lymphocytes (%) (Auto) 4 % (24-48) Monocytes (%) (Auto) 2 % (0-9) Eosinophils (%) (Auto) 1 % (0-3) Basophils (%) (Auto) 0 % (0-3) Neutrophils # (Auto) 26.5 x10^3uL (1.8-7.7) Lymphocytes # (Auto) 1.2 x10^3/uL (1.0-4.8) Monocytes # (Auto) 0.5 x10^3/uL (0.0-1.1) Eosinophils # (Auto) 0.2 x10^3/uL (0.0-0.7) Basophils # (Auto) 0.0 x10^3/uL (0.0-0.2) Prothrombin Time 25.9 SEC (11.7-14.0) Prothromb Time International Ratio 2.4 (0.8-1.1) Sodium Level 149 mmol/L (136-145) Potassium Level 3.5 mmol/L (3.5-5.1) Chloride Level 118 mmol/L (98-107) Carbon Dioxide Level 18 mmol/L (21-32) Anion Gap 13 (6-14) Blood Urea Nitrogen 48 mg/dL (8-26) Creatinine 1.2 mg/dL (0.7-1.3) Estimated GFR (Cockcroft-Gault) 72.2 BUN/Creatinine Ratio 40 (6-20) Glucose Level 88 mg/dL (70-99) Calcium Level 8.4 mg/dL (8.5-10.1) Total Bilirubin 0.6 mg/dL (0.2-1.0) Aspartate Amino Transf (AST/SGOT) 73 U/L (15-37) Alanine Aminotransferase (ALT/SGPT) 38 U/L (16-63) Alkaline Phosphatase 209 U/L (46-116) Total Protein 5.4 g/dL (6.4-8.2) Albumin 1.2 g/dL (3.4-5.0) Albumin/Globulin Ratio 0.3 (1.0-1.7) Micro 10/27. BLOOD CULTURE Preliminary NO GROWTH AFTER 2 DAY 10/25. BLOOD CULTURE Final GRAM NEGATIVE RODS, IN 1 OF 4 BOTTLES, TWO SETS DRAWN. 10/26. URINE CULTURE RES 1 Final No growth Objective Assessment GNR sepsis with hypotension POA 10/25 - off Levophed. repeat BC 10/27 neg so far Leukocytosis - in part sepsis/ reactive and steroids, trending down Urinary obstruction - s/p Frye placement 10/25 by Urology UTI - POA Multiple unstageable wounds - not a surgical candidate Lactic acidosis - slowly correcting MRSA + Right hand swelling and pain for over a month per - h/o gout and states has been off gout med at home because it interacted with other meds - some better -uric acid 6.2 RICK -stable Resp failure - off Bipap - states cont to cough at times Loose stools, C. diff neg, 10/27 Thrombocytopenia Plan Plan of Care Awaiting GNR ID/susceptibilities Repeat blood cults 10/27 neg so far Cont Dapto, Zosyn, Micafungin and Doxy Not surgical candidate CBC in am f/u Local wound care Contact for MRSA Critically ill with complex medical decision making DNR/DNI Guarded prognosis Patient seen, examined, I agree with above A/P. CECILIA CURTIS APRN October 29, 2018 08:30 KULDEEP KHAN MD October 29, 2018 14:37
[2018-10-29] MEDS: AMINO AC 3%/ELECTROLYTE/GLYCER 1,000 ML IV SCH (08:43)
[2018-10-29] MEDS: PANTOPRAZOLE IV PUSH 40 MG VIAL. IVP SCH (08:43)
[2018-10-29] MEDS: DOXYCYCLINE HYCLATE 100 MG in IV DEXTROSE 5% 100ML 100 ML IV SCH ×2 (08:43→20:34)
[2018-10-29] MEDS: SODIUM HYPOCHLORITE 0.125% 473 ML BOTTLE. TP SCH ×2 (08:44→20:34)
[2018-10-29] MEDS: fentaNYL PF VIAL 100 MCG/2 ML VIAL IV PRN ×2 (09:01→16:26)
[2018-10-29] MEDS: methylPREDNISolone SOD SUCC PF 40 MG/ML VIAL. IV SCH (09:01)
[2018-10-29] MEDS: DAPTOmycin (GENERIC) IVPB 380 MG in IV NORMAL SALINE 50ML 50 ML IV SCH (10:43)
--- NOTE | 2018-10-29 11:35 | PDOC ---
IM PROGRESS NOTES- Subjective Subjective Patient is a poor historian but he is able to open his eyes. He is more alert and denies any pain or dyspnea. Objective Vitals Vital Signs Date Time Temp Pulse Resp B/P (MAP) Pulse Ox O2 Delivery O2 Flow Rate FiO2 10/29/18 09:23 18 10/29/18 08:26 100 Room Air 10/29/18 06:00 86 146/79 (101) 10/29/18 04:00 98.7 98.7 Input & Output Intake and Output 10/29/18 06:59 Intake Total 2359 ml Output Total 1225 ml Balance 1134 ml IV Total 2166 ml Other 193 ml Output Urine Total 1225 ml Physical Exam Physical Exam General appearance - alert, chronically ill-appearing, forgetful Mental Status - alert, forgetful, more appropriate Chest -decreased breath sounds at bases Heart - S1 and S2 normal Abdomen - soft, nontender, nondistended, no masses or organomegaly Neurological - alert Musculoskeletal - no muscular tenderness noted Extremities - no pedal edema Skin -has a sacral wound Labs Laboratory Tests Test 10/27/18 14:20 10/28/18 05:00 10/29/18 04:30 Clostridium difficile Toxin B Gene Negative (Negative) White Blood Count 40.6 x10^3/uL (4.0-11.0) 28.4 x10^3/uL (4.0-11.0) Red Blood Count 3.30 x10^6/uL (4.30-5.70) 3.34 x10^6/uL (4.30-5.70) Hemoglobin 8.0 g/dL (13.0-17.5) 8.2 g/dL (13.0-17.5) Hematocrit 26.7 % (39.0-53.0) 26.7 % (39.0-53.0) Mean Corpuscular Volume 81 fL (79-100) 80 fL (79-100) Mean Corpuscular Hemoglobin 24 pg (25-35) 25 pg (25-35) Mean Corpuscular Hemoglobin Concent 30 g/dL (31-37) 31 g/dL (31-37) Red Cell Distribution Width 17.7 % (11.5-14.5) 17.5 % (11.5-14.5) Platelet Count 74 x10^3/uL (140-400) 57 x10^3/uL (140-400) Neutrophils (%) (Auto) 96 % (31-73) 93 % (31-73) Lymphocytes (%) (Auto) 2 % (24-48) 4 % (24-48) Monocytes (%) (Auto) 2 % (0-9) 2 % (0-9) Eosinophils (%) (Auto) 1 % (0-3) 1 % (0-3) Basophils (%) (Auto) 0 % (0-3) 0 % (0-3) Neutrophils # (Auto) 38.8 x10^3uL (1.8-7.7) 26.5 x10^3uL (1.8-7.7) Lymphocytes # (Auto) 0.6 x10^3/uL (1.0-4.8) 1.2 x10^3/uL (1.0-4.8) Monocytes # (Auto) 0.9 x10^3/uL (0.0-1.1) 0.5 x10^3/uL (0.0-1.1) Eosinophils # (Auto) 0.3 x10^3/uL (0.0-0.7) 0.2 x10^3/uL (0.0-0.7) Basophils # (Auto) 0.0 x10^3/uL (0.0-0.2) 0.0 x10^3/uL (0.0-0.2) Prothrombin Time 26.7 SEC (11.7-14.0) 25.9 SEC (11.7-14.0) Prothromb Time International Ratio 2.5 (0.8-1.1) 2.4 (0.8-1.1) Sodium Level 152 mmol/L (136-145) 149 mmol/L (136-145) Potassium Level 3.5 mmol/L (3.5-5.1) 3.5 mmol/L (3.5-5.1) Chloride Level 119 mmol/L (98-107) 118 mmol/L (98-107) Carbon Dioxide Level 18 mmol/L (21-32) 18 mmol/L (21-32) Anion Gap 15 (6-14) 13 (6-14) Blood Urea Nitrogen 42 mg/dL (8-26) 48 mg/dL (8-26) Creatinine 1.3 mg/dL (0.7-1.3) 1.2 mg/dL (0.7-1.3) Estimated GFR (Cockcroft-Gault) 65.8 72.2 Glucose Level 101 mg/dL (70-99) 88 mg/dL (70-99) Calcium Level 8.4 mg/dL (8.5-10.1) 8.4 mg/dL (8.5-10.1) Triglycerides Level 78 mg/dL (0-150) Cholesterol Level 63 mg/dL (0-200) LDL Cholesterol, Calculated 32 mg/dL (0-100) VLDL Cholesterol, Calculated 16 mg/dL (0-40) Non-HDL Cholesterol Calculated 48 mg/dL (0-129) HDL Cholesterol 15 mg/dL (40-60) Cholesterol/HDL Ratio 4.2 BUN/Creatinine Ratio 40 (6-20) Total Bilirubin 0.6 mg/dL (0.2-1.0) Aspartate Amino Transf (AST/SGOT) 73 U/L (15-37) Alanine Aminotransferase (ALT/SGPT) 38 U/L (16-63) Alkaline Phosphatase 209 U/L (46-116) Total Protein 5.4 g/dL (6.4-8.2) Albumin 1.2 g/dL (3.4-5.0) Albumin/Globulin Ratio 0.3 (1.0-1.7) Laboratory Tests Test 10/29/18 04:30 White Blood Count 28.4 x10^3/uL (4.0-11.0) Red Blood Count 3.34 x10^6/uL (4.30-5.70) Hemoglobin 8.2 g/dL (13.0-17.5) Hematocrit 26.7 % (39.0-53.0) Mean Corpuscular Volume 80 fL (79-100) Mean Corpuscular Hemoglobin 25 pg (25-35) Mean Corpuscular Hemoglobin Concent 31 g/dL (31-37) Red Cell Distribution Width 17.5 % (11.5-14.5) Platelet Count 57 x10^3/uL (140-400) Neutrophils (%) (Auto) 93 % (31-73) Lymphocytes (%) (Auto) 4 % (24-48) Monocytes (%) (Auto) 2 % (0-9) Eosinophils (%) (Auto) 1 % (0-3) Basophils (%) (Auto) 0 % (0-3) Neutrophils # (Auto) 26.5 x10^3uL (1.8-7.7) Lymphocytes # (Auto) 1.2 x10^3/uL (1.0-4.8) Monocytes # (Auto) 0.5 x10^3/uL (0.0-1.1) Eosinophils # (Auto) 0.2 x10^3/uL (0.0-0.7) Basophils # (Auto) 0.0 x10^3/uL (0.0-0.2) Prothrombin Time 25.9 SEC (11.7-14.0) Prothromb Time International Ratio 2.4 (0.8-1.1) Sodium Level 149 mmol/L (136-145) Potassium Level 3.5 mmol/L (3.5-5.1) Chloride Level 118 mmol/L (98-107) Carbon Dioxide Level 18 mmol/L (21-32) Anion Gap 13 (6-14) Blood Urea Nitrogen 48 mg/dL (8-26) Creatinine 1.2 mg/dL (0.7-1.3) Estimated GFR (Cockcroft-Gault) 72.2 BUN/Creatinine Ratio 40 (6-20) Glucose Level 88 mg/dL (70-99) Calcium Level 8.4 mg/dL (8.5-10.1) Total Bilirubin 0.6 mg/dL (0.2-1.0) Aspartate Amino Transf (AST/SGOT) 73 U/L (15-37) Alanine Aminotransferase (ALT/SGPT) 38 U/L (16-63) Alkaline Phosphatase 209 U/L (46-116) Total Protein 5.4 g/dL (6.4-8.2) Albumin 1.2 g/dL (3.4-5.0) Albumin/Globulin Ratio 0.3 (1.0-1.7) Assessment Assessment FINAL IMPRESSION: 1. Severe Sepsis with hypotension, on Levophed. 2. Lactic acidosis. 3. Gram-negative bacteremia, positive blood cultures. 4. Infected wounds over the sacrum as well as trochanteric area. 5. Chronic atrial fibrillation, on Coumadin. 6. Chronic systolic heart failure, on cardiac medication. 7. History of previous stroke with contractures. 8. Protein-calorie malnutrition, severe. 9. General debility. 10. Hyperlipidemia. 11. History of AAA endovascular repair. 12. Acute tubular necrosis. 13.Urethral stenosis and bph PLAN: pt is being weaned off Levophed 3 mcg now . urine out put improved now cr 1.5 sono kidneys scarring left kidney cystoscopy and placement of irving iv antibiotics dapto+zosyn+doxycycline procalamine for nutrition central /piccline spoke with pts small dose of steroids for hypotension and sepsis. inr 2.8 on coumadin NA 151 monitor The patient was admitted to the ICU. The patient was placed on BiPAP after the blood gas was done. The patient was given total of 4 liters of fluid, started on Levophed and the patient also had BPH with bladder obstruction, had a Irving catheter placed by Urology. The patient's overall condition remains critical. Prognosis is poor. Condition and treatment discussed with the patient's family at bedside. Hypernatremia- continue PPN. Sodium has decreased to 149. Improving slowly. Hypotension better. Patient is off Levophed . Hypokalemia- K is 3.5 Acute renal failure-changed BUN is 48 that his increased creatinine 1.2 Leukocytosis- improving WBC count is 28.4 Prognosis is very poor. Sepsis- gram-negative rods. ID pending. Continue daptomycin and Zosyn and micafungin and doxycycline. Flagyl was discontinued because C. difficile PCR is negative. Plan Plan For more details regarding further plans, please refer to the orders. Nutrition Consultation Dietary Evaluation: Recommendations by RD: Decrease Calorie Intake, Protein supplementation, PPN/TPN Comments: REC re-start PPN when able for short-term non-oral nutrition REC advance diet as able per CHECKER IN recommendations; recommend Mark BID, MVI, and Glucerna supplements, thickened as needed, if able per CHECKER IN If extended NPO, recommend feeding tube placement for tube feeds to adequately meet nutrition needs Expected Outcomes/Goals: PO intake to meet >75% est needs - not met, new goal established New goal 10/27: Nutrition as appropriate per CHECKER IN and goals of care Interpretation of weight loss: >7.5% in 3 months Malnutrition Findings: Weight Status: Appropriate MUNA JACKSON MD October 29, 2018 11:35
[2018-10-29] MEDS: ATORVASTATIN CALCIUM 40 MG TABLET. PO SCH (20:31)
[2018-10-30] VITALS (19 sets, daily range): BP systolic 112–156; BP diastolic 74–110
[2018-10-30] MEDS: PIPERACILLIN/TAZOBACTAM 3.375 GM in IV NORMAL SALINE 50ML 50 ML IV SCH ×5 (00:27→23:47)
[2018-10-30] MEDS: AMINO AC 3%/ELECTROLYTE/GLYCER 1,000 ML IV SCH ×2 (05:08→15:49)
[2018-10-30 06:07] LABS: BASO # 0.1 x10^3/uL (0.0-0.2); BASO % 0 % (0-3); EOS # 0.3 x10^3/uL (0.0-0.7); EOS % 1 % (0-3); HEMATOCRIT 35.6 % (39.0-53.0); HEMOGLOBIN 10.7 g/dL (13.0-17.5); LYMPH # 1.4 x10^3/uL (1.0-4.8); LYMPH % 7 % (24-48); MEAN CORPUSCULAR HEMOGLOBIN 24 pg (25-35); MEAN CORPUSCULAR HGB CONC 30 g/dL (31-37); MEAN CORPUSCULAR VOLUME 80 fL (79-100); MONO # 0.8 x10^3/uL (0.0-1.1); MONO % 4 % (0-9); NEUT # 15.9 x10^3uL (1.8-7.7); NEUT % 87 % (31-73); PLATELET COUNT 70 x10^3/uL (140-400); RED BLOOD COUNT 4.45 x10^6/uL (4.30-5.70); RED CELL DISTRIBUTION WIDTH 17.7 % (11.5-14.5); WHITE BLOOD COUNT 18.3 x10^3/uL (4.0-11.0)
[2018-10-30] MEDS: MICAFUNGIN 100 MG in IV DEXTROSE 5% 100ML 100 ML IV SCH (06:27)
[2018-10-30 06:40] LABS: ALBUMIN 1.3 g/dL (3.4-5.0); ALBUMIN/GLOBULIN RATIO 0.3 (1.0-1.7); CALCIUM 8.3 mg/dL (8.5-10.1); CREATININE 1.2 mg/dL (0.7-1.3); GFR 72.2; TOTAL BILIRUBIN 0.7 mg/dL (0.2-1.0); TOTAL PROTEIN 5.9 g/dL (6.4-8.2)
[2018-10-30 06:48] LABS: PROTHROMBIN TIME PATIENT 24.2 SEC (11.7-14.0)
--- NOTE | 2018-10-30 07:32 | PDOC ---
Infectious Disease Note Subjective Subjective Says feeling alright Denies pain/SOA/upset stomach Loose stools No fevers last 24 hours PPN ROS ROS no n/v/d/sob Vital Sign Vital Signs Vital Signs Date Time Temp Pulse Resp B/P (MAP) Pulse Ox O2 Delivery O2 Flow Rate FiO2 10/30/18 06:00 83 20 142/89 (106) 100 Room Air 10/30/18 04:00 98.2 98.2 10/29/18 19:00 2.0 Physical Exam PHYSICAL EXAM GENERAL: Awake, NAD HEENT: Pupils equal and reactive. OC/Op - dry LUNGS: Clear anteriorly HEART: S1, S2, paced ABDOMEN: Soft, NT : Frye is in place. EXTREMITIES: Contracted, there is 2+ edema in his lower extremities. His right wrist is contracted, it is swollen, but slightly warm and painful to move. SKIN: Without signs of rash. He has multiple unstageable pressure ulcers on his left hip. Coccyx area wound vac SKIN: Without warmth or rash. NEUROLOGIC: Awake, responding RIJ (10/27) clean Labs Lab Laboratory Tests Test 10/29/18 17:58 10/30/18 05:30 10/30/18 06:26 Glucose (Fingerstick) 106 mg/dL (70-99) 100 mg/dL (70-99) White Blood Count 18.3 x10^3/uL (4.0-11.0) Red Blood Count 4.45 x10^6/uL (4.30-5.70) Hemoglobin 10.7 g/dL (13.0-17.5) Hematocrit 35.6 % (39.0-53.0) Mean Corpuscular Volume 80 fL (79-100) Mean Corpuscular Hemoglobin 24 pg (25-35) Mean Corpuscular Hemoglobin Concent 30 g/dL (31-37) Red Cell Distribution Width 17.7 % (11.5-14.5) Platelet Count 70 x10^3/uL (140-400) Neutrophils (%) (Auto) 87 % (31-73) Lymphocytes (%) (Auto) 7 % (24-48) Monocytes (%) (Auto) 4 % (0-9) Eosinophils (%) (Auto) 1 % (0-3) Basophils (%) (Auto) 0 % (0-3) Neutrophils # (Auto) 15.9 x10^3uL (1.8-7.7) Lymphocytes # (Auto) 1.4 x10^3/uL (1.0-4.8) Monocytes # (Auto) 0.8 x10^3/uL (0.0-1.1) Eosinophils # (Auto) 0.3 x10^3/uL (0.0-0.7) Basophils # (Auto) 0.1 x10^3/uL (0.0-0.2) Prothrombin Time 24.2 SEC (11.7-14.0) Prothromb Time International Ratio 2.2 (0.8-1.1) Sodium Level 145 mmol/L (136-145) Potassium Level 4.0 mmol/L (3.5-5.1) Chloride Level 114 mmol/L (98-107) Carbon Dioxide Level 17 mmol/L (21-32) Anion Gap 14 (6-14) Blood Urea Nitrogen 51 mg/dL (8-26) Creatinine 1.2 mg/dL (0.7-1.3) Estimated GFR (Cockcroft-Gault) 72.2 BUN/Creatinine Ratio 43 (6-20) Glucose Level 110 mg/dL (70-99) Calcium Level 8.3 mg/dL (8.5-10.1) Total Bilirubin 0.7 mg/dL (0.2-1.0) Aspartate Amino Transf (AST/SGOT) 43 U/L (15-37) Alanine Aminotransferase (ALT/SGPT) 34 U/L (16-63) Alkaline Phosphatase 268 U/L (46-116) Total Protein 5.9 g/dL (6.4-8.2) Albumin 1.3 g/dL (3.4-5.0) Albumin/Globulin Ratio 0.3 (1.0-1.7) Micro Microbiology 10/27/18 Blood Culture - Preliminary, Resulted NO GROWTH AFTER 2 DAYS 10/26/18 Urine Culture - Final, Complete 10/26/18 Urine Culture Result 1 (KAI) - Final, Complete Objective Assessment GNR sepsis with hypotension POA 10/25 - off Levophed. repeat BC 10/27 neg so far Leukocytosis - in part sepsis/ reactive and steroids, trending down Urinary obstruction - s/p Frye placement 10/25 by Urology UTI - POA Multiple unstageable wounds - not a surgical candidate Lactic acidosis - slowly correcting MRSA + Right hand swelling and pain for over a month per - h/o gout and states has been off gout med at home because it interacted with other meds - some better -uric acid 6.2 RICK -stable Resp failure - off Bipap - states cont to cough at times Loose stools, C. diff neg, 10/27 Thrombocytopenia Plan Plan of Care Awaiting GNR ID/susceptibilities Repeat blood cults 10/27 neg so far Cont Dapto, Zosyn, Micafungin and Doxy Not surgical candidate CBC in am f/u BC Local wound care Contact for MRSA DNR/DNI prognosis poor SEMAJ KHAN MD October 30, 2018 07:32
[2018-10-30] MEDS: BUDESONIDE 0.5 MG/2 ML NEBU. NEB SCH ×2 (08:00→19:31)
[2018-10-30] MEDS: methylPREDNISolone SOD SUCC PF 40 MG/ML VIAL. IV SCH (08:36)
[2018-10-30] MEDS: DOXYCYCLINE HYCLATE 100 MG in IV DEXTROSE 5% 100ML 100 ML IV SCH ×2 (08:37→20:54)
[2018-10-30] MEDS: SODIUM HYPOCHLORITE 0.125% 473 ML BOTTLE. TP SCH ×2 (08:37→20:54)
[2018-10-30] MEDS: PANTOPRAZOLE IV PUSH 40 MG VIAL. IVP SCH (08:37)
[2018-10-30] MEDS: MEMANTINE 10 MG TABLET. PO SCH (08:44)
[2018-10-30 08:45] LABS: % BANDS 1 % (0-9); % LYMPHS 8 % (24-48); % MONOS 6 % (0-10); % SEGS 85 % (35-66); NUCLEATED RBC 7
[2018-10-30] MEDS: ALLOPURINOL 100 MG TABLET. PO SCH (08:45)
[2018-10-30 08:47] LABS: ANISOCYTOSIS SLIGHT; PLT ESTIMATE DECREASED (ADEQUATE)
[2018-10-30 08:48] LABS: POIKILOCYTOSIS MOD
[2018-10-30] MEDS: IPRATRPIUM/ALBUTEROL 0.5/2.5MG 3 ML NEBU. NEB SCH ×4 (08:48→19:31)
[2018-10-30 08:49] LABS: BURR CELLS PRESENT; OVALOCYTES PRESENT
--- NOTE | 2018-10-30 08:49 | PDOC ---
PULMONARY PROGRESS NOTES Subjective NOT SOA NO CHEST PAIN Vitals Vital Signs Date Time Temp Pulse Resp B/P (MAP) Pulse Ox O2 Delivery O2 Flow Rate FiO2 10/30/18 08:04 Room Air 10/30/18 08:00 100 26 155/95 (115) 100 10/30/18 07:00 98.0 98.0 10/29/18 19:00 2.0 General: Alert HEENT: Other (nc at perrl nose clear) Lungs: Other (a few rhonchi) Cardiovascular: S1, S2 Abdomen: Soft, Non-tender Neuro Exam: Alert Extremities: No Edema, Other Skin: Warm Labs Laboratory Tests Test 10/29/18 04:30 10/29/18 17:58 10/30/18 05:30 10/30/18 06:26 White Blood Count 28.4 x10^3/uL (4.0-11.0) 18.3 x10^3/uL (4.0-11.0) Red Blood Count 3.34 x10^6/uL (4.30-5.70) 4.45 x10^6/uL (4.30-5.70) Hemoglobin 8.2 g/dL (13.0-17.5) 10.7 g/dL (13.0-17.5) Hematocrit 26.7 % (39.0-53.0) 35.6 % (39.0-53.0) Mean Corpuscular Volume 80 fL (79-100) 80 fL (79-100) Mean Corpuscular Hemoglobin 25 pg (25-35) 24 pg (25-35) Mean Corpuscular Hemoglobin Concent 31 g/dL (31-37) 30 g/dL (31-37) Red Cell Distribution Width 17.5 % (11.5-14.5) 17.7 % (11.5-14.5) Platelet Count 57 x10^3/uL (140-400) 70 x10^3/uL (140-400) Neutrophils (%) (Auto) 93 % (31-73) 87 % (31-73) Lymphocytes (%) (Auto) 4 % (24-48) 7 % (24-48) Monocytes (%) (Auto) 2 % (0-9) 4 % (0-9) Eosinophils (%) (Auto) 1 % (0-3) 1 % (0-3) Basophils (%) (Auto) 0 % (0-3) 0 % (0-3) Neutrophils # (Auto) 26.5 x10^3uL (1.8-7.7) 15.9 x10^3uL (1.8-7.7) Lymphocytes # (Auto) 1.2 x10^3/uL (1.0-4.8) 1.4 x10^3/uL (1.0-4.8) Monocytes # (Auto) 0.5 x10^3/uL (0.0-1.1) 0.8 x10^3/uL (0.0-1.1) Eosinophils # (Auto) 0.2 x10^3/uL (0.0-0.7) 0.3 x10^3/uL (0.0-0.7) Basophils # (Auto) 0.0 x10^3/uL (0.0-0.2) 0.1 x10^3/uL (0.0-0.2) Prothrombin Time 25.9 SEC (11.7-14.0) 24.2 SEC (11.7-14.0) Prothromb Time International Ratio 2.4 (0.8-1.1) 2.2 (0.8-1.1) Sodium Level 149 mmol/L (136-145) 145 mmol/L (136-145) Potassium Level 3.5 mmol/L (3.5-5.1) 4.0 mmol/L (3.5-5.1) Chloride Level 118 mmol/L (98-107) 114 mmol/L (98-107) Carbon Dioxide Level 18 mmol/L (21-32) 17 mmol/L (21-32) Anion Gap 13 (6-14) 14 (6-14) Blood Urea Nitrogen 48 mg/dL (8-26) 51 mg/dL (8-26) Creatinine 1.2 mg/dL (0.7-1.3) 1.2 mg/dL (0.7-1.3) Estimated GFR (Cockcroft-Gault) 72.2 72.2 BUN/Creatinine Ratio 40 (6-20) 43 (6-20) Glucose Level 88 mg/dL (70-99) 110 mg/dL (70-99) Calcium Level 8.4 mg/dL (8.5-10.1) 8.3 mg/dL (8.5-10.1) Total Bilirubin 0.6 mg/dL (0.2-1.0) 0.7 mg/dL (0.2-1.0) Aspartate Amino Transf (AST/SGOT) 73 U/L (15-37) 43 U/L (15-37) Alanine Aminotransferase (ALT/SGPT) 38 U/L (16-63) 34 U/L (16-63) Alkaline Phosphatase 209 U/L (46-116) 268 U/L (46-116) Total Protein 5.4 g/dL (6.4-8.2) 5.9 g/dL (6.4-8.2) Albumin 1.2 g/dL (3.4-5.0) 1.3 g/dL (3.4-5.0) Albumin/Globulin Ratio 0.3 (1.0-1.7) 0.3 (1.0-1.7) Glucose (Fingerstick) 106 mg/dL (70-99) 100 mg/dL (70-99) Laboratory Tests Test 10/29/18 17:58 10/30/18 05:30 10/30/18 06:26 Glucose (Fingerstick) 106 mg/dL (70-99) 100 mg/dL (70-99) White Blood Count 18.3 x10^3/uL (4.0-11.0) Red Blood Count 4.45 x10^6/uL (4.30-5.70) Hemoglobin 10.7 g/dL (13.0-17.5) Hematocrit 35.6 % (39.0-53.0) Mean Corpuscular Volume 80 fL (79-100) Mean Corpuscular Hemoglobin 24 pg (25-35) Mean Corpuscular Hemoglobin Concent 30 g/dL (31-37) Red Cell Distribution Width 17.7 % (11.5-14.5) Platelet Count 70 x10^3/uL (140-400) Neutrophils (%) (Auto) 87 % (31-73) Lymphocytes (%) (Auto) 7 % (24-48) Monocytes (%) (Auto) 4 % (0-9) Eosinophils (%) (Auto) 1 % (0-3) Basophils (%) (Auto) 0 % (0-3) Neutrophils # (Auto) 15.9 x10^3uL (1.8-7.7) Lymphocytes # (Auto) 1.4 x10^3/uL (1.0-4.8) Monocytes # (Auto) 0.8 x10^3/uL (0.0-1.1) Eosinophils # (Auto) 0.3 x10^3/uL (0.0-0.7) Basophils # (Auto) 0.1 x10^3/uL (0.0-0.2) Prothrombin Time 24.2 SEC (11.7-14.0) Prothromb Time International Ratio 2.2 (0.8-1.1) Sodium Level 145 mmol/L (136-145) Potassium Level 4.0 mmol/L (3.5-5.1) Chloride Level 114 mmol/L (98-107) Carbon Dioxide Level 17 mmol/L (21-32) Anion Gap 14 (6-14) Blood Urea Nitrogen 51 mg/dL (8-26) Creatinine 1.2 mg/dL (0.7-1.3) Estimated GFR (Cockcroft-Gault) 72.2 BUN/Creatinine Ratio 43 (6-20) Glucose Level 110 mg/dL (70-99) Calcium Level 8.3 mg/dL (8.5-10.1) Total Bilirubin 0.7 mg/dL (0.2-1.0) Aspartate Amino Transf (AST/SGOT) 43 U/L (15-37) Alanine Aminotransferase (ALT/SGPT) 34 U/L (16-63) Alkaline Phosphatase 268 U/L (46-116) Total Protein 5.9 g/dL (6.4-8.2) Albumin 1.3 g/dL (3.4-5.0) Albumin/Globulin Ratio 0.3 (1.0-1.7) Medications Active Scripts Medications Dose Route/Sig Max Daily Dose Days Date Category Vitamin D2 (Ergocalciferol (Vitamin D2)) 50,000 Unit Capsule 1 Cap PO WEEKLY 10/25/18 Reported Trazodone Hcl 50 Mg Tablet 1 Tab PO QHS PRN 10/25/18 Reported Famotidine 20 Mg Tablet 20 Mg PO BID 10/25/18 Reported Carvedilol (Carvedilol) 12.5 Mg Tablet 12.5 Mg PO BIDWMEALS 10/25/18 Reported Bumetanide 1 Mg Tablet 1 Tab PO DAILY 10/25/18 Reported Allopurinol 100 Mg Tablet 1 Tab PO DAILY 10/25/18 Reported Furosemide 40 Mg Tablet 1 Tab PO DAILY 10/25/18 Reported Klor-Con 10 (Potassium Chloride) 10 Meq Tablet.er 2 Tab PO DAILY 10/25/18 Reported Methocarbamol 500 Mg Tablet 500 Mg PO TID PRN 04/04/18 Reported Citalopram Hbr (Citalopram Hydrobromide) 20 Mg Tablet 20 Mg PO DAILY 04/04/18 Reported Tramadol Hcl 50 Mg Tablet 50 Mg PO PRN Q8HRS PRN 04/04/18 Reported Atorvastatin Calcium 40 Mg Tablet 40 Mg PO QHS 04/04/18 Reported Amlodipine Besylate 10 Mg Tablet 10 Mg PO DAILY 04/04/18 Reported Warfarin Sodium 5 Mg Tablet 1 Tab PO DAILY 04/04/18 Reported Namenda (Memantine Hcl) 10 Mg Tablet 1 Tab PO BID 09/01/14 Reported Impression . 1. Acute respiratory failure secondary to septic shock. 2. Septic shock. 3. Positive blood cultures with gram-negative rods. 4. Encephalopathy secondary to septic shock, improving. 5. Acute kidney injury, contributed by septic shock. 6. 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 7. History of deep venous thrombosis, on coumadin. 8. History of pacemaker. 9. History of cerebrovascular accident and dementia. 10. Severe metabolic acidosis, lactic acidosis, resolved 11. Abnormal cxr 10/26. no PTX, 12. Leukocytosis, improving Plan . ANTIBX PER ID SPOKE WITH NPO FOR NOW CXR ROSMERY INFILTRATES POOR SKILLED NURSING PROGNOSIS 1. prn BiPAP. 2. Continue broad-spectrum antibiotics per id, Dapto, Zosyn, Micafungin and Doxy 3. Follow all blood cultures. 4. Follow renal recommendation and monitor urine output closely. 5. Followup chest x-ray 6. Obtain echocardiogram. 7. Follow infectious disease recommendation. 8. Continue Coumadin. 9. Monitor lactic acid. 10. cont bonchodilators qid, and pulmicort. 11. off levo 12. DNR 13. repeat cxr,. no ptx . RONNI PIMENTEL MD October 30, 2018 08:49
[2018-10-30] MEDS: DAPTOmycin (GENERIC) IVPB 380 MG in IV NORMAL SALINE 50ML 50 ML IV SCH (08:50)
--- NOTE | 2018-10-30 08:51 | PDOC ---
SOB[employer]SE Euseb[employer] 10/30/18 0851: SUBJECTIVE Subjective Pt non verbal. Spouse at bedside, has questions about SP tube. OBJECTIVE Objective Physical Exam: General appearance: Non verbal, appears comfortable. Head: Normocephalic, without obvious abnormality Eyes: conjunctivae/corneas clear. PERRL, EOM's intact. Fundi benign Lungs: Regular respirations, non labored breathing Abdomen: soft, non-tender.No masses, no organomegaly Pelvic: + Frye catheter in place draining clear yellow urine. No swelling noted to scrotum or penis. Small amount of discharge noted around urethral meatus that is sero-sanguinous. Vital Signs Vital Signs Date Time Temp Pulse Resp B/P (MAP) Pulse Ox O2 Delivery O2 Flow Rate FiO2 10/30/18 08:04 Room Air 10/30/18 08:00 100 26 155/95 (115) 100 Room Air 10/30/18 07:00 98.0 100 26 141/93 (109) 100 Room Air 98.0 10/30/18 06:00 83 20 142/89 (106) 100 Room Air 10/30/18 05:00 75 27 139/89 (106) 100 Room Air 10/30/18 04:00 98.2 84 23 147/110 (122) 100 Room Air 98.2 10/30/18 04:00 Room Air 10/30/18 03:00 89 15 153/105 (121) 100 Room Air 10/30/18 02:00 100 17 147/91 (109) 100 Room Air 10/30/18 01:00 88 29 112/97 (102) 100 Room Air 10/30/18 00:00 Room Air 10/30/18 00:00 98.7 88 10 156/100 (118) 100 Room Air 98.7 10/29/18 23:00 84 10 140/89 (106) 100 Room Air 10/29/18 22:00 89 16 151/101 (118) 100 Room Air 10/29/18 21:00 84 20 134/80 (98) 100 Room Air 10/29/18 20:00 100.1 84 16 143/94 (110) 100 Room Air 100.1 10/29/18 19:51 100 Room Air 10/29/18 19:49 100 Room Air 10/29/18 19:35 Room Air 10/29/18 19:00 87 19 144/89 (107) 100 Nasal Cannula 2.0 10/29/18 18:08 20 10/29/18 18:00 90 20 147/95 (112) 100 Nasal Cannula 2.0 10/29/18 17:00 82 20 138/88 (105) 100 Nasal Cannula 2.0 10/29/18 16:26 22 10/29/18 16:08 100 Room Air 10/29/18 16:00 98.8 84 20 158/106 (123) 100 Nasal Cannula 2.0 98.8 10/29/18 16:00 Nasal Cannula 2.0 10/29/18 15:00 89 20 156/117 (130) 100 Nasal Cannula 2.0 10/29/18 14:00 87 20 161/98 (119) 100 Nasal Cannula 2.0 10/29/18 13:00 78 18 154/94 (114) 100 Nasal Cannula 2.0 10/29/18 12:00 84 19 174/100 (124) 100 Room Air 10/29/18 12:00 Nasal Cannula 2.0 10/29/18 11:44 100 Room Air 10/29/18 11:00 76 21 116/98 (104) 100 Room Air 10/29/18 10:00 80 22 154/83 (106) 100 Room Air 10/29/18 09:01 20 10/29/18 09:00 70 22 146/80 (102) 100 Room Air I & O Intake and Output 10/30/18 07:00 Intake Total 2433 ml Output Total 2360 ml Balance 73 ml IV Total 2433 ml Output Urine Total 2360 ml PHYSICAL EXAM Physical Exam Physical Exam: General appearance: Non verbal, appears comfortable. Head: Normocephalic, without obvious abnormality Eyes: conjunctivae/corneas clear. PERRL, EOM's intact. Fundi benign Lungs: Regular respirations, non labored breathing Abdomen: soft, non-tender.No masses, no organomegaly Pelvic: + Frye catheter in place draining clear yellow urine. No swelling noted to scrotum or penis. Small amount of discharge noted around urethral meatus that is sero-sanguinous. ASSESSMENT/PLAN Assessment/Plan Family member would like to speak with IR about an SP tube for ease of changing the catheter-Consult entered. Swelling to scrotal area gone and Frye in good condition. Nursing to maintain for now. All questions answered. COMMENT Lab Laboratory Tests Test 10/29/18 17:58 10/30/18 05:30 10/30/18 06:26 Glucose (Fingerstick) 106 mg/dL (70-99) 100 mg/dL (70-99) White Blood Count 18.3 x10^3/uL (4.0-11.0) Red Blood Count 4.45 x10^6/uL (4.30-5.70) Hemoglobin 10.7 g/dL (13.0-17.5) Hematocrit 35.6 % (39.0-53.0) Mean Corpuscular Volume 80 fL (79-100) Mean Corpuscular Hemoglobin 24 pg (25-35) Mean Corpuscular Hemoglobin Concent 30 g/dL (31-37) Red Cell Distribution Width 17.7 % (11.5-14.5) Platelet Count 70 x10^3/uL (140-400) Neutrophils (%) (Auto) 87 % (31-73) Lymphocytes (%) (Auto) 7 % (24-48) Monocytes (%) (Auto) 4 % (0-9) Eosinophils (%) (Auto) 1 % (0-3) Basophils (%) (Auto) 0 % (0-3) Neutrophils # (Auto) 15.9 x10^3uL (1.8-7.7) Lymphocytes # (Auto) 1.4 x10^3/uL (1.0-4.8) Monocytes # (Auto) 0.8 x10^3/uL (0.0-1.1) Eosinophils # (Auto) 0.3 x10^3/uL (0.0-0.7) Basophils # (Auto) 0.1 x10^3/uL (0.0-0.2) Prothrombin Time 24.2 SEC (11.7-14.0) Prothromb Time International Ratio 2.2 (0.8-1.1) Sodium Level 145 mmol/L (136-145) Potassium Level 4.0 mmol/L (3.5-5.1) Chloride Level 114 mmol/L (98-107) Carbon Dioxide Level 17 mmol/L (21-32) Anion Gap 14 (6-14) Blood Urea Nitrogen 51 mg/dL (8-26) Creatinine 1.2 mg/dL (0.7-1.3) Estimated GFR (Cockcroft-Gault) 72.2 BUN/Creatinine Ratio 43 (6-20) Glucose Level 110 mg/dL (70-99) Calcium Level 8.3 mg/dL (8.5-10.1) Total Bilirubin 0.7 mg/dL (0.2-1.0) Aspartate Amino Transf (AST/SGOT) 43 U/L (15-37) Alanine Aminotransferase (ALT/SGPT) 34 U/L (16-63) Alkaline Phosphatase 268 U/L (46-116) Total Protein 5.9 g/dL (6.4-8.2) Albumin 1.3 g/dL (3.4-5.0) Albumin/Globulin Ratio 0.3 (1.0-1.7) Nutrition Consultation Dietary Evaluation: Recommendations by RD: Decrease Calorie Intake, Protein supplementation, PPN/TPN Comments: REC re-start PPN when able for short-term non-oral nutrition REC advance diet as able per [employer] recommendations; recommend Mark BID, MVI, and Glucerna supplements, thickened as needed, if able per [employer] If extended NPO, recommend feeding tube placement for tube feeds to adequately meet nutrition needs Expected Outcomes/Goals: PO intake to meet >75% est needs - not met, new goal established New goal 10/27: Nutrition as appropriate per [employer] and goals of care Interpretation of weight loss: >7.5% in 3 months Malnutrition Findings: Weight Status: Appropriate ANTONINO LION MD 10/31/18 1010: ASSESSMENT/PLAN Assessment/Plan I have seen patient and agree with planned procedure ASA MEDINA MD 11/04/18 1629: JOSE RAMSAY [employer] October 30, 2018 08:51 ANTONINO LION MD October 31, 2018 10:10 ASA MEDINA MD November 04, 2018 16:29
--- NOTE | 2018-10-30 09:33 | PDOC ---
SURGICAL PROGRESS NOTE Subjective d/w nursing vac in place to sacral wound off pressors Vital Signs Vital Signs Date Time Temp Pulse Resp B/P (MAP) Pulse Ox O2 Delivery O2 Flow Rate FiO2 10/30/18 09:05 100 23 151/97 (115) 100 Room Air 10/30/18 07:00 98.0 98.0 10/29/18 19:00 2.0 I&O Intake and Output 10/30/18 07:00 Intake Total 2433 ml Output Total 2360 ml Balance 73 ml IV Total 2433 ml Output Urine Total 2360 ml General: Cooperative HEENT: Other (cough present ) Skin: Other (vac in place) Labs Laboratory Tests Test 10/29/18 04:30 10/29/18 17:58 10/30/18 05:30 10/30/18 06:26 White Blood Count 28.4 x10^3/uL (4.0-11.0) 18.3 x10^3/uL (4.0-11.0) Red Blood Count 3.34 x10^6/uL (4.30-5.70) 4.45 x10^6/uL (4.30-5.70) Hemoglobin 8.2 g/dL (13.0-17.5) 10.7 g/dL (13.0-17.5) Hematocrit 26.7 % (39.0-53.0) 35.6 % (39.0-53.0) Mean Corpuscular Volume 80 fL (79-100) 80 fL (79-100) Mean Corpuscular Hemoglobin 25 pg (25-35) 24 pg (25-35) Mean Corpuscular Hemoglobin Concent 31 g/dL (31-37) 30 g/dL (31-37) Red Cell Distribution Width 17.5 % (11.5-14.5) 17.7 % (11.5-14.5) Platelet Count 57 x10^3/uL (140-400) 70 x10^3/uL (140-400) Neutrophils (%) (Auto) 93 % (31-73) 87 % (31-73) Lymphocytes (%) (Auto) 4 % (24-48) 7 % (24-48) Monocytes (%) (Auto) 2 % (0-9) 4 % (0-9) Eosinophils (%) (Auto) 1 % (0-3) 1 % (0-3) Basophils (%) (Auto) 0 % (0-3) 0 % (0-3) Neutrophils # (Auto) 26.5 x10^3uL (1.8-7.7) 15.9 x10^3uL (1.8-7.7) Lymphocytes # (Auto) 1.2 x10^3/uL (1.0-4.8) 1.4 x10^3/uL (1.0-4.8) Monocytes # (Auto) 0.5 x10^3/uL (0.0-1.1) 0.8 x10^3/uL (0.0-1.1) Eosinophils # (Auto) 0.2 x10^3/uL (0.0-0.7) 0.3 x10^3/uL (0.0-0.7) Basophils # (Auto) 0.0 x10^3/uL (0.0-0.2) 0.1 x10^3/uL (0.0-0.2) Prothrombin Time 25.9 SEC (11.7-14.0) 24.2 SEC (11.7-14.0) Prothromb Time International Ratio 2.4 (0.8-1.1) 2.2 (0.8-1.1) Sodium Level 149 mmol/L (136-145) 145 mmol/L (136-145) Potassium Level 3.5 mmol/L (3.5-5.1) 4.0 mmol/L (3.5-5.1) Chloride Level 118 mmol/L (98-107) 114 mmol/L (98-107) Carbon Dioxide Level 18 mmol/L (21-32) 17 mmol/L (21-32) Anion Gap 13 (6-14) 14 (6-14) Blood Urea Nitrogen 48 mg/dL (8-26) 51 mg/dL (8-26) Creatinine 1.2 mg/dL (0.7-1.3) 1.2 mg/dL (0.7-1.3) Estimated GFR (Cockcroft-Gault) 72.2 72.2 BUN/Creatinine Ratio 40 (6-20) 43 (6-20) Glucose Level 88 mg/dL (70-99) 110 mg/dL (70-99) Calcium Level 8.4 mg/dL (8.5-10.1) 8.3 mg/dL (8.5-10.1) Total Bilirubin 0.6 mg/dL (0.2-1.0) 0.7 mg/dL (0.2-1.0) Aspartate Amino Transf (AST/SGOT) 73 U/L (15-37) 43 U/L (15-37) Alanine Aminotransferase (ALT/SGPT) 38 U/L (16-63) 34 U/L (16-63) Alkaline Phosphatase 209 U/L (46-116) 268 U/L (46-116) Total Protein 5.4 g/dL (6.4-8.2) 5.9 g/dL (6.4-8.2) Albumin 1.2 g/dL (3.4-5.0) 1.3 g/dL (3.4-5.0) Albumin/Globulin Ratio 0.3 (1.0-1.7) 0.3 (1.0-1.7) Glucose (Fingerstick) 106 mg/dL (70-99) 100 mg/dL (70-99) Segmented Neutrophils % 85 % (35-66) Band Neutrophils % 1 % (0-9) Lymphocytes % 8 % (24-48) Monocytes % 6 % (0-10) Nucleated Red Blood Cells 7 Platelet Estimate Decreased (ADEQUATE) Large Platelets Present Poikilocytosis Mod Anisocytosis Slight Ovalocytes Present Sydnee Cells Present Laboratory Tests Test 10/29/18 17:58 10/30/18 05:30 10/30/18 06:26 Glucose (Fingerstick) 106 mg/dL (70-99) 100 mg/dL (70-99) White Blood Count 18.3 x10^3/uL (4.0-11.0) Red Blood Count 4.45 x10^6/uL (4.30-5.70) Hemoglobin 10.7 g/dL (13.0-17.5) Hematocrit 35.6 % (39.0-53.0) Mean Corpuscular Volume 80 fL (79-100) Mean Corpuscular Hemoglobin 24 pg (25-35) Mean Corpuscular Hemoglobin Concent 30 g/dL (31-37) Red Cell Distribution Width 17.7 % (11.5-14.5) Platelet Count 70 x10^3/uL (140-400) Neutrophils (%) (Auto) 87 % (31-73) Lymphocytes (%) (Auto) 7 % (24-48) Monocytes (%) (Auto) 4 % (0-9) Eosinophils (%) (Auto) 1 % (0-3) Basophils (%) (Auto) 0 % (0-3) Neutrophils # (Auto) 15.9 x10^3uL (1.8-7.7) Lymphocytes # (Auto) 1.4 x10^3/uL (1.0-4.8) Monocytes # (Auto) 0.8 x10^3/uL (0.0-1.1) Eosinophils # (Auto) 0.3 x10^3/uL (0.0-0.7) Basophils # (Auto) 0.1 x10^3/uL (0.0-0.2) Segmented Neutrophils % 85 % (35-66) Band Neutrophils % 1 % (0-9) Lymphocytes % 8 % (24-48) Monocytes % 6 % (0-10) Nucleated Red Blood Cells 7 Platelet Estimate Decreased (ADEQUATE) Large Platelets Present Poikilocytosis Mod Anisocytosis Slight Ovalocytes Present Sydnee Cells Present Prothrombin Time 24.2 SEC (11.7-14.0) Prothromb Time International Ratio 2.2 (0.8-1.1) Sodium Level 145 mmol/L (136-145) Potassium Level 4.0 mmol/L (3.5-5.1) Chloride Level 114 mmol/L (98-107) Carbon Dioxide Level 17 mmol/L (21-32) Anion Gap 14 (6-14) Blood Urea Nitrogen 51 mg/dL (8-26) Creatinine 1.2 mg/dL (0.7-1.3) Estimated GFR (Cockcroft-Gault) 72.2 BUN/Creatinine Ratio 43 (6-20) Glucose Level 110 mg/dL (70-99) Calcium Level 8.3 mg/dL (8.5-10.1) Total Bilirubin 0.7 mg/dL (0.2-1.0) Aspartate Amino Transf (AST/SGOT) 43 U/L (15-37) Alanine Aminotransferase (ALT/SGPT) 34 U/L (16-63) Alkaline Phosphatase 268 U/L (46-116) Total Protein 5.9 g/dL (6.4-8.2) Albumin 1.3 g/dL (3.4-5.0) Albumin/Globulin Ratio 0.3 (1.0-1.7) Assessment/Plan continue wound care no surgical plans MARIA ELENA CHUNG APRN October 30, 2018 09:33
--- NOTE | 2018-10-30 09:59 | NUR ---
Pharmacy Warfarin Dosing Note S:Pharmacy consulted to assist with anticoagulation therapy started with target INR: 2 -3 O:MADHAV URDOLPH is a 72 year old M with Atrial Fibrillation h/o DVT LABS: Last INR: 2.2 Last HGB: 10.7 Last HCT: 35.6 Last PLT: 70 Last dose of Hold given on 10/28/18 at 1600 Previous Regimen: 5 mg/day Vitamin K given: N Drug Interaction Changes: Same Interacting Drug Ongoing Drug Interactions: allopurinol A:INR of 2.2 is within desired range. Target range for this patient is: 2 -3 P: Warfarin dose: Hold Today at 1600 DUE TO NO NPO ROUTE AVAILABLE Next INR due TOMORROW. Pharmacy anticoagulation service will continue to follow. NARAYAN ZAPATA [facility], 10/30/18 [id number]
[2018-10-30] MEDS: fentaNYL PF VIAL 100 MCG/2 ML VIAL IV PRN ×3 (11:01→23:51)
--- NOTE | 2018-10-30 14:29 | NUR ---
SS following up with discharge planning. Pt is from home with family. Palliative Care following for goals of care. SS will continue to follow for discharge planning.
[2018-10-30] MEDS ORDERED: cloNIDine TTS-1 1 PATCH PATCH.TDWK TD SCH (15:30)
[2018-10-30] MEDS: METOPROLOL TARTRATE 5 MG/5 ML VIAL. IVP SCH ×2 (15:43→20:53)
--- NOTE | 2018-10-30 15:58 | NUR ---
Wound Care: Replaced Veraflow wound vac dressing to wounds on sacrum and L lateral hip. Wounds still have foul odor but it is reduced from Tuesday, slough is beginning to soften as well. Applied skin prep, and ostomy ring to periwounds, and hydrocolloid to edge of dressing nearest anus to protect from stool incontinence. NPWT: 125 mmHg continuous suction, Kay waffle foam and solid foam placed in each wound with 30 ml. Dakins soak for 5 min every 4 hours. Bridged to L anterior thigh. No change noted to discoloration on right forearm from IV infiltration. Pt on ICU bed. Dressing to L lateral lower leg changed. Plan to follow up for next vac change Tuesday. Addendum: 10/30/18 at 1619 by MARCIO LUNDY RN bilateral Heel medix boots ordered for prevention
--- NOTE | 2018-10-30 16:34 | NUR ---
wound care performed by team. medi boots applied bilateral. pt continues to be npo. po meds discontinued and pt started on iv lopressor for bp and catapress tts [address] davis spoke with dpoa about supra pubic catheter.
--- NOTE | 2018-10-30 17:21 | PDOC ---
PROGRESS NOTES Subjective Subjective moved out of ICU this evening Objective Objective Vital Signs Date Time Temp Pulse Resp B/P (MAP) Pulse Ox O2 Delivery O2 Flow Rate FiO2 10/30/18 16:15 20 100 Room Air 10/30/18 15:43 100 145/89 10/30/18 15:00 98.0 98.0 10/29/18 19:00 2.0 Intake and Output 10/30/18 07:00 Intake Total 2433 ml Output Total 2360 ml Balance 73 ml IV Total 2433 ml Output Urine Total 2360 ml Physical Exam Abdomen: Soft Heart: Regular rate, Normal S1, Normal S2, Other (tachy) Extremities: Other (contracted extremities ) General: Cooperative HEENT: Other (cough present ) Lungs: Other (sonal crackes) Neck: Supple Neuro: Sensation intact Psych/Mental Status: Mood NL Skin: Other (vac in place) Assessment Assessment FINAL IMPRESSION: 1. Severe Sepsis with hypotension, off levophed 2. Lactic acidosis. 3. Gram-negative bacteremia, positive blood cultures. 4. Infected wounds over the sacrum as well as trochanteric area. 5. Chronic atrial fibrillation, on Coumadin. 6. Chronic systolic heart failure, on cardiac medication. 7. History of previous stroke with contractures. 8. Protein-calorie malnutrition, severe. 9. General debility. 10. Hyperlipidemia. 11. History of AAA endovascular repair. 12. Acute tubular necrosis. 13.Urethral stenosis and bph PLAN: clinically improving wbc 18 down from 50 cr stable iv antibiotics procalamine for nutrition aspirating cr 1.5 sono kidneys scarring left kidney cystoscopy and placement of irving iv antibiotics dapto+zosyn+doxycycline procalamine for nutrition central /piccline spoke with pts small dose of steroids for hypotension and sepsis. inr 2.4 on coumadin Comment Review of Relevant I have reviewed the following items chidi (where applicable) has been applied. Labs Laboratory Tests Test 10/29/18 17:58 10/30/18 05:30 10/30/18 06:26 Glucose (Fingerstick) 106 mg/dL (70-99) 100 mg/dL (70-99) White Blood Count 18.3 x10^3/uL (4.0-11.0) Red Blood Count 4.45 x10^6/uL (4.30-5.70) Hemoglobin 10.7 g/dL (13.0-17.5) Hematocrit 35.6 % (39.0-53.0) Mean Corpuscular Volume 80 fL (79-100) Mean Corpuscular Hemoglobin 24 pg (25-35) Mean Corpuscular Hemoglobin Concent 30 g/dL (31-37) Red Cell Distribution Width 17.7 % (11.5-14.5) Platelet Count 70 x10^3/uL (140-400) Neutrophils (%) (Auto) 87 % (31-73) Lymphocytes (%) (Auto) 7 % (24-48) Monocytes (%) (Auto) 4 % (0-9) Eosinophils (%) (Auto) 1 % (0-3) Basophils (%) (Auto) 0 % (0-3) Neutrophils # (Auto) 15.9 x10^3uL (1.8-7.7) Lymphocytes # (Auto) 1.4 x10^3/uL (1.0-4.8) Monocytes # (Auto) 0.8 x10^3/uL (0.0-1.1) Eosinophils # (Auto) 0.3 x10^3/uL (0.0-0.7) Basophils # (Auto) 0.1 x10^3/uL (0.0-0.2) Segmented Neutrophils % 85 % (35-66) Band Neutrophils % 1 % (0-9) Lymphocytes % 8 % (24-48) Monocytes % 6 % (0-10) Nucleated Red Blood Cells 7 Platelet Estimate Decreased (ADEQUATE) Large Platelets Present Poikilocytosis Mod Anisocytosis Slight Ovalocytes Present Sydnee Cells Present Prothrombin Time 24.2 SEC (11.7-14.0) Prothromb Time International Ratio 2.2 (0.8-1.1) Sodium Level 145 mmol/L (136-145) Potassium Level 4.0 mmol/L (3.5-5.1) Chloride Level 114 mmol/L (98-107) Carbon Dioxide Level 17 mmol/L (21-32) Anion Gap 14 (6-14) Blood Urea Nitrogen 51 mg/dL (8-26) Creatinine 1.2 mg/dL (0.7-1.3) Estimated GFR (Cockcroft-Gault) 72.2 BUN/Creatinine Ratio 43 (6-20) Glucose Level 110 mg/dL (70-99) Calcium Level 8.3 mg/dL (8.5-10.1) Total Bilirubin 0.7 mg/dL (0.2-1.0) Aspartate Amino Transf (AST/SGOT) 43 U/L (15-37) Alanine Aminotransferase (ALT/SGPT) 34 U/L (16-63) Alkaline Phosphatase 268 U/L (46-116) Total Protein 5.9 g/dL (6.4-8.2) Albumin 1.3 g/dL (3.4-5.0) Albumin/Globulin Ratio 0.3 (1.0-1.7) Microbiology 10/27/18 Blood Culture - Preliminary, Resulted NO GROWTH AFTER 3 DAYS 10/26/18 Urine Culture - Final, Complete 10/26/18 Urine Culture Result 1 (KAI) - Final, Complete Medications Current Medications Clonidine HCl (Catapres Tts-1) 1 patch WEEKLY TD Last administered on 10/30/18at 15:45; Start 10/30/18 at 15:30 Metoprolol Tartrate (Lopressor Vial) 5 mg BID IVP Last administered on 10/30/18at 15:43; Start 10/30/18 at 15:15 Warfarin Sodium (Coumadin - No Dose Today) 1 each 1X WARF ONCE MC ; Start 10/30/18 at 16:00; Stop 10/30/18 at 16:01; Status DC Vitals/I & O Vital Sign - Last 24 Hours 10/29/18 10/29/18 10/29/18 10/29/18 18:00 19:00 19:35 19:49 Pulse 90 87 Resp 19 B/P (MAP) 147/95 (112) 144/89 (107) Pulse Ox 100 100 100 O2 Delivery Nasal Cannula Nasal Cannula Room Air Room Air O2 Flow Rate 2.0 2.0 10/29/18 10/29/18 10/29/18 10/29/18 19:51 20:00 21:00 22:00 Temp 100.1 100.1 Pulse 84 84 89 Resp 16 20 16 B/P (MAP) 143/94 (110) 134/80 (98) 151/101 (118) Pulse Ox 100 100 100 100 O2 Delivery Room Air Room Air Room Air Room Air 10/29/18 10/30/18 10/30/18 10/30/18 23:00 00:00 00:00 01:00 Temp 98.7 98.7 Pulse 84 88 88 Resp 10 10 29 B/P (MAP) 140/89 (106) 156/100 (118) 112/97 (102) Pulse Ox 100 100 100 O2 Delivery Room Air Room Air Room Air Room Air 10/30/18 10/30/18 10/30/18 10/30/18 02:00 03:00 04:00 04:00 Temp 98.2 98.2 Pulse 100 89 84 Resp 17 15 23 B/P (MAP) 147/91 (109) 153/105 (121) 147/110 (122) Pulse Ox 100 100 100 O2 Delivery Room Air Room Air Room Air Room Air 10/30/18 10/30/18 10/30/18 10/30/18 05:00 06:00 07:00 08:00 Temp 98.0 98.0 Pulse 75 83 100 100 Resp 27 20 26 26 B/P (MAP) 139/89 (106) 142/89 (106) 141/93 (109) 155/95 (115) Pulse Ox 100 100 100 100 O2 Delivery Room Air Room Air Room Air Room Air 10/30/18 10/30/18 10/30/18 10/30/18 08:04 08:53 09:05 10:00 Pulse 100 92 Resp 23 23 B/P (MAP) 151/97 (115) 153/102 (119) Pulse Ox 100 100 O2 Delivery Room Air Room Air Room Air Room Air 10/30/18 10/30/18 10/30/18 10/30/18 11:00 11:01 12:00 12:00 Temp 98.0 98.0 Pulse 92 81 Resp 24 24 21 B/P (MAP) 141/92 (108) 144/105 (118) Pulse Ox 100 100 100 O2 Delivery Room Air Room Air Room Air Room Air 10/30/18 10/30/18 10/30/18 10/30/18 13:00 13:00 14:01 15:00 Temp 98.0 98.0 Pulse 85 86 100 Resp 21 20 24 B/P (MAP) 139/100 (113) 144/92 (109) 145/89 (107) Pulse Ox 100 100 100 100 O2 Delivery Room Air Room Air Room Air Room Air 10/30/18 10/30/18 10/30/18 10/30/18 15:43 15:44 16:14 16:15 Pulse 100 Resp 24 20 B/P (MAP) 145/89 Pulse Ox 100 100 100 O2 Delivery Room Air Room Air Room Air Intake and Output 10/29/18 10/29/18 10/30/18 15:00 23:00 07:00 Intake Total 1496 ml 937 ml Output Total 1220 ml 690 ml 450 ml Balance -1220 ml 806 ml 487 ml Nutrition Consultation Dietary Evaluation: Recommendations by RD: Decrease Calorie Intake, Protein supplementation, PPN/TPN Comments: REC re-start PPN when able for short-term non-oral nutrition recommend feeding tube placement for tube feeds to adequately meet nutrition needs Expected Outcomes/Goals: New goal 10/27: Nutrition as appropriate per [employer] and goals of care -ongoing Interpretation of weight loss: >7.5% in 3 months Malnutrition Findings: Weight Status: Appropriate ANGI BARCENAS MD October 30, 2018 17:21
[2018-10-31 03:00] VITALS: BP 135/81
[2018-10-31] MEDS: AMINO AC 3%/ELECTROLYTE/GLYCER 1,000 ML IV SCH ×2 (03:58→10:30)
[2018-10-31] MEDS: PIPERACILLIN/TAZOBACTAM 3.375 GM in IV NORMAL SALINE 50ML 50 ML IV SCH ×2 (05:03→12:40)
[2018-10-31 05:51] LABS: PROTHROMBIN TIME PATIENT 27.8 SEC (11.7-14.0)
[2018-10-31] MEDS: MICAFUNGIN 100 MG in IV DEXTROSE 5% 100ML 100 ML IV SCH (05:56)
[2018-10-31 05:58] LABS: CALCIUM 8.1 mg/dL (8.5-10.1); CREATININE 1.4 mg/dL (0.7-1.3); GFR 60.4; POTASSIUM 4.2 mmol/L (3.5-5.1)
[2018-10-31 07:00] VITALS: BP 140/89
[2018-10-31] MEDS: IPRATRPIUM/ALBUTEROL 0.5/2.5MG 3 ML NEBU. NEB SCH ×4 (07:48→21:12)
[2018-10-31] MEDS: BUDESONIDE 0.5 MG/2 ML NEBU. NEB SCH (07:48)
[2018-10-31 08:04] LABS: BASO % 0 % (0-3); EOS % 0 % (0-3); HEMATOCRIT 34.9 % (39.0-53.0); HEMOGLOBIN 10.5 g/dL (13.0-17.5); LYMPH # 1.3 x10^3/uL (1.0-4.8); LYMPH % 8 % (24-48); MEAN CORPUSCULAR HEMOGLOBIN 24 pg (25-35); MEAN CORPUSCULAR HGB CONC 30 g/dL (31-37); MEAN CORPUSCULAR VOLUME 81 fL (79-100); MONO # 0.1 x10^3/uL (0.0-1.1); MONO % 0 % (0-9); NEUT # 15.5 x10^3uL (1.8-7.7); NEUT % 91 % (31-73); PLATELET COUNT 79 x10^3/uL (140-400); RED BLOOD COUNT 4.32 x10^6/uL (4.30-5.70)
[2018-10-31] MEDS: fentaNYL PF VIAL 100 MCG/2 ML VIAL IV PRN ×4 (08:27→21:13)
[2018-10-31] MEDS: methylPREDNISolone SOD SUCC PF 40 MG/ML VIAL. IV SCH (08:27)
[2018-10-31] MEDS: PANTOPRAZOLE IV PUSH 40 MG VIAL. IVP SCH (08:27)
[2018-10-31] MEDS: DOXYCYCLINE HYCLATE 100 MG in IV DEXTROSE 5% 100ML 100 ML IV SCH (08:28)
[2018-10-31] MEDS: SODIUM HYPOCHLORITE 0.125% 473 ML BOTTLE. TP SCH ×2 (08:28→22:24)
--- NOTE | 2018-10-31 09:08 | PDOC ---
PULMONARY PROGRESS NOTES Subjective PAT IN PAIN DESPITE IF FENTANYL MOANING NOT MORE SOA Vitals Vital Signs Date Time Temp Pulse Resp B/P (MAP) Pulse Ox O2 Delivery O2 Flow Rate FiO2 10/31/18 08:27 Room Air 10/31/18 07:51 96 10/31/18 07:00 98.0 91 20 140/89 (106) 98.0 General: Alert HEENT: Other (nc at perrl nose clear) Lungs: Other (a few rhonchi) Cardiovascular: S1, S2 Abdomen: Soft, Non-tender Neuro Exam: Alert Extremities: No Edema, Other Skin: Warm Labs Laboratory Tests Test 10/29/18 17:58 10/30/18 05:30 10/30/18 06:26 10/31/18 05:00 Glucose (Fingerstick) 106 mg/dL (70-99) 100 mg/dL (70-99) White Blood Count 18.3 x10^3/uL (4.0-11.0) 17.0 x10^3/uL (4.0-11.0) Red Blood Count 4.45 x10^6/uL (4.30-5.70) 4.32 x10^6/uL (4.30-5.70) Hemoglobin 10.7 g/dL (13.0-17.5) 10.5 g/dL (13.0-17.5) Hematocrit 35.6 % (39.0-53.0) 34.9 % (39.0-53.0) Mean Corpuscular Volume 80 fL (79-100) 81 fL (79-100) Mean Corpuscular Hemoglobin 24 pg (25-35) 24 pg (25-35) Mean Corpuscular Hemoglobin Concent 30 g/dL (31-37) 30 g/dL (31-37) Red Cell Distribution Width 17.7 % (11.5-14.5) 18.0 % (11.5-14.5) Platelet Count 70 x10^3/uL (140-400) 79 x10^3/uL (140-400) Neutrophils (%) (Auto) 87 % (31-73) 91 % (31-73) Lymphocytes (%) (Auto) 7 % (24-48) 8 % (24-48) Monocytes (%) (Auto) 4 % (0-9) 0 % (0-9) Eosinophils (%) (Auto) 1 % (0-3) 0 % (0-3) Basophils (%) (Auto) 0 % (0-3) 0 % (0-3) Neutrophils # (Auto) 15.9 x10^3uL (1.8-7.7) 15.5 x10^3uL (1.8-7.7) Lymphocytes # (Auto) 1.4 x10^3/uL (1.0-4.8) 1.3 x10^3/uL (1.0-4.8) Monocytes # (Auto) 0.8 x10^3/uL (0.0-1.1) 0.1 x10^3/uL (0.0-1.1) Eosinophils # (Auto) 0.3 x10^3/uL (0.0-0.7) 0.0 x10^3/uL (0.0-0.7) Basophils # (Auto) 0.1 x10^3/uL (0.0-0.2) 0.0 x10^3/uL (0.0-0.2) Segmented Neutrophils % 85 % (35-66) Band Neutrophils % 1 % (0-9) Lymphocytes % 8 % (24-48) Monocytes % 6 % (0-10) Nucleated Red Blood Cells 7 Platelet Estimate Decreased (ADEQUATE) Large Platelets Present Poikilocytosis Mod Anisocytosis Slight Ovalocytes Present Sydnee Cells Present Prothrombin Time 24.2 SEC (11.7-14.0) 27.8 SEC (11.7-14.0) Prothromb Time International Ratio 2.2 (0.8-1.1) 2.6 (0.8-1.1) Sodium Level 145 mmol/L (136-145) 144 mmol/L (136-145) Potassium Level 4.0 mmol/L (3.5-5.1) 4.2 mmol/L (3.5-5.1) Chloride Level 114 mmol/L (98-107) 113 mmol/L (98-107) Carbon Dioxide Level 17 mmol/L (21-32) 17 mmol/L (21-32) Anion Gap 14 (6-14) 14 (6-14) Blood Urea Nitrogen 51 mg/dL (8-26) 56 mg/dL (8-26) Creatinine 1.2 mg/dL (0.7-1.3) 1.4 mg/dL (0.7-1.3) Estimated GFR (Cockcroft-Gault) 72.2 60.4 BUN/Creatinine Ratio 43 (6-20) Glucose Level 110 mg/dL (70-99) 112 mg/dL (70-99) Calcium Level 8.3 mg/dL (8.5-10.1) 8.1 mg/dL (8.5-10.1) Total Bilirubin 0.7 mg/dL (0.2-1.0) Aspartate Amino Transf (AST/SGOT) 43 U/L (15-37) Alanine Aminotransferase (ALT/SGPT) 34 U/L (16-63) Alkaline Phosphatase 268 U/L (46-116) Total Protein 5.9 g/dL (6.4-8.2) Albumin 1.3 g/dL (3.4-5.0) Albumin/Globulin Ratio 0.3 (1.0-1.7) Laboratory Tests Test 10/31/18 05:00 White Blood Count 17.0 x10^3/uL (4.0-11.0) Red Blood Count 4.32 x10^6/uL (4.30-5.70) Hemoglobin 10.5 g/dL (13.0-17.5) Hematocrit 34.9 % (39.0-53.0) Mean Corpuscular Volume 81 fL (79-100) Mean Corpuscular Hemoglobin 24 pg (25-35) Mean Corpuscular Hemoglobin Concent 30 g/dL (31-37) Red Cell Distribution Width 18.0 % (11.5-14.5) Platelet Count 79 x10^3/uL (140-400) Neutrophils (%) (Auto) 91 % (31-73) Lymphocytes (%) (Auto) 8 % (24-48) Monocytes (%) (Auto) 0 % (0-9) Eosinophils (%) (Auto) 0 % (0-3) Basophils (%) (Auto) 0 % (0-3) Neutrophils # (Auto) 15.5 x10^3uL (1.8-7.7) Lymphocytes # (Auto) 1.3 x10^3/uL (1.0-4.8) Monocytes # (Auto) 0.1 x10^3/uL (0.0-1.1) Eosinophils # (Auto) 0.0 x10^3/uL (0.0-0.7) Basophils # (Auto) 0.0 x10^3/uL (0.0-0.2) Prothrombin Time 27.8 SEC (11.7-14.0) Prothromb Time International Ratio 2.6 (0.8-1.1) Sodium Level 144 mmol/L (136-145) Potassium Level 4.2 mmol/L (3.5-5.1) Chloride Level 113 mmol/L (98-107) Carbon Dioxide Level 17 mmol/L (21-32) Anion Gap 14 (6-14) Blood Urea Nitrogen 56 mg/dL (8-26) Creatinine 1.4 mg/dL (0.7-1.3) Estimated GFR (Cockcroft-Gault) 60.4 Glucose Level 112 mg/dL (70-99) Calcium Level 8.1 mg/dL (8.5-10.1) Medications Active Scripts Medications Dose Route/Sig Max Daily Dose Days Date Category Vitamin D2 (Ergocalciferol (Vitamin D2)) 50,000 Unit Capsule 1 Cap PO WEEKLY 10/25/18 Reported Trazodone Hcl 50 Mg Tablet 1 Tab PO QHS PRN 10/25/18 Reported Famotidine 20 Mg Tablet 20 Mg PO BID 10/25/18 Reported Carvedilol (Carvedilol) 12.5 Mg Tablet 12.5 Mg PO BIDWMEALS 10/25/18 Reported Bumetanide 1 Mg Tablet 1 Tab PO DAILY 10/25/18 Reported Allopurinol 100 Mg Tablet 1 Tab PO DAILY 10/25/18 Reported Furosemide 40 Mg Tablet 1 Tab PO DAILY 10/25/18 Reported Klor-Con 10 (Potassium Chloride) 10 Meq Tablet.er 2 Tab PO DAILY 10/25/18 Reported Methocarbamol 500 Mg Tablet 500 Mg PO TID PRN 04/04/18 Reported Citalopram Hbr (Citalopram Hydrobromide) 20 Mg Tablet 20 Mg PO DAILY 04/04/18 Reported Tramadol Hcl 50 Mg Tablet 50 Mg PO PRN Q8HRS PRN 04/04/18 Reported Atorvastatin Calcium 40 Mg Tablet 40 Mg PO QHS 04/04/18 Reported Amlodipine Besylate 10 Mg Tablet 10 Mg PO DAILY 04/04/18 Reported Warfarin Sodium 5 Mg Tablet 1 Tab PO DAILY 04/04/18 Reported Namenda (Memantine Hcl) 10 Mg Tablet 1 Tab PO BID 09/01/14 Reported Impression . 1. Acute respiratory failure secondary to septic shock. 2. Septic shock. 3. Positive blood cultures with gram-negative rods. 4. Encephalopathy secondary to septic shock, improving. 5. Acute kidney injury, contributed by septic shock. 6. 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 7. History of deep venous thrombosis, on coumadin. 8. History of pacemaker. 9. History of cerebrovascular accident and dementia. 10. Severe metabolic acidosis, lactic acidosis, resolved 11. Abnormal cxr 10/26. no PTX, 12. Leukocytosis, improving Plan . INCREASE FENTANYL TO 50MCG MAY NEED IF MORPHINE PALLIATIVE CARE INVOLVED ANTIBX PER ID SPOKE WITH NPO FOR NOW CXR ROSMERY INFILTRATES POOR LONG-TERM PROGNOSIS . RONNI PIMENTEL MD October 31, 2018 09:08
[2018-10-31] MEDS: METOPROLOL TARTRATE 5 MG/5 ML VIAL. IVP SCH ×2 (09:34→21:12)
--- NOTE | 2018-10-31 10:06 | PDOC ---
PROGRESS NOTES Subjective Subjective weak and congested Objective Objective Vital Signs Date Time Temp Pulse Resp B/P (MAP) Pulse Ox O2 Delivery O2 Flow Rate FiO2 10/31/18 09:34 91 140/89 10/31/18 09:12 Room Air 10/31/18 07:51 96 10/31/18 07:00 98.0 20 98.0 Intake and Output 10/31/18 07:00 Intake Total 2589 ml Output Total 1605 ml Balance 984 ml Intake Oral 0 ml IV Total 2589 ml Output Urine Total 1605 ml # Bowel Movements 1 Physical Exam Abdomen: Soft Heart: Regular rate, Normal S1, Normal S2, Other (tachy) Extremities: Other (contracted extremities ) General: moderate distress HEENT: Other (cough present ) Lungs: Other (sonal crackes) Neck: Supple Skin: Other (vac in place) Assessment Assessment FINAL IMPRESSION: 1. Severe Sepsis with hypotension, 2. Lactic acidosis. 3. Gram-negative bacteremia, positive blood cultures.E Coli 4. Infected wounds over the sacrum as well as trochanteric area. 5. Chronic atrial fibrillation, on Coumadin. 6. Chronic systolic heart failure, on cardiac medication. 7. History of previous stroke with contractures. 8. Protein-calorie malnutrition, severe. 9. General debility. 10. Hyperlipidemia. 11. History of AAA endovascular repair. 12. Acute tubular necrosis. 13.Urethral stenosis and bph PLAN: E Coli bacteremia,ELBS clinically improving wbc 18 down from 50 cr stable iv antibiotics procalamine for nutrition aspirating cr 1.5 sono kidneys scarring left kidney cystoscopy and placement of irving iv antibiotics dapto+zosyn+doxycycline procalamine for nutrition central /piccline spoke with pts small dose of steroids for hypotension and sepsis. inr 2.4 on coumadin. pts wanting feeding tube and suprapubic catheter Comment Review of Relevant I have reviewed the following items chidi (where applicable) has been applied. Labs Laboratory Tests Test 10/31/18 05:00 White Blood Count 17.0 x10^3/uL (4.0-11.0) Red Blood Count 4.32 x10^6/uL (4.30-5.70) Hemoglobin 10.5 g/dL (13.0-17.5) Hematocrit 34.9 % (39.0-53.0) Mean Corpuscular Volume 81 fL (79-100) Mean Corpuscular Hemoglobin 24 pg (25-35) Mean Corpuscular Hemoglobin Concent 30 g/dL (31-37) Red Cell Distribution Width 18.0 % (11.5-14.5) Platelet Count 79 x10^3/uL (140-400) Neutrophils (%) (Auto) 91 % (31-73) Lymphocytes (%) (Auto) 8 % (24-48) Monocytes (%) (Auto) 0 % (0-9) Eosinophils (%) (Auto) 0 % (0-3) Basophils (%) (Auto) 0 % (0-3) Neutrophils # (Auto) 15.5 x10^3uL (1.8-7.7) Lymphocytes # (Auto) 1.3 x10^3/uL (1.0-4.8) Monocytes # (Auto) 0.1 x10^3/uL (0.0-1.1) Eosinophils # (Auto) 0.0 x10^3/uL (0.0-0.7) Basophils # (Auto) 0.0 x10^3/uL (0.0-0.2) Prothrombin Time 27.8 SEC (11.7-14.0) Prothromb Time International Ratio 2.6 (0.8-1.1) Sodium Level 144 mmol/L (136-145) Potassium Level 4.2 mmol/L (3.5-5.1) Chloride Level 113 mmol/L (98-107) Carbon Dioxide Level 17 mmol/L (21-32) Anion Gap 14 (6-14) Blood Urea Nitrogen 56 mg/dL (8-26) Creatinine 1.4 mg/dL (0.7-1.3) Estimated GFR (Cockcroft-Gault) 60.4 Glucose Level 112 mg/dL (70-99) Calcium Level 8.1 mg/dL (8.5-10.1) Microbiology 10/27/18 Blood Culture - Preliminary, Resulted NO GROWTH AFTER 4 DAYS 10/26/18 Urine Culture - Final, Complete 10/26/18 Urine Culture Result 1 (KAI) - Final, Complete Medications Current Medications Clonidine HCl (Catapres Tts-1) 1 patch WEEKLY TD Last administered on 10/30/18at 15:45; Start 10/30/18 at 15:30 Metoprolol Tartrate (Lopressor Vial) 5 mg BID IVP Last administered on 10/31/18at 09:34; Start 10/30/18 at 15:15 Warfarin Sodium (Coumadin - No Dose Today) 1 each 1X WARF ONCE MC ; Start 10/30/18 at 16:00; Stop 10/30/18 at 16:01; Status DC Vitals/I & O Vital Sign - Last 24 Hours 10/30/18 10/30/18 10/30/18 10/30/18 11:00 11:01 12:00 12:00 Temp 98.0 98.0 Pulse 92 81 Resp 24 24 21 B/P (MAP) 141/92 (108) 144/105 (118) Pulse Ox 100 100 100 O2 Delivery Room Air Room Air Room Air Room Air 10/30/18 10/30/18 10/30/18 10/30/18 13:00 13:00 14:01 15:00 Temp 98.0 98.0 Pulse 85 86 100 Resp 24 B/P (MAP) 139/100 (113) 144/92 (109) 145/89 (107) Pulse Ox 100 100 100 100 O2 Delivery Room Air Room Air Room Air Room Air 10/30/18 10/30/18 10/30/18 10/30/18 15:43 15:44 16:14 17:00 Temp 98.1 98.1 Pulse 100 86 Resp 24 18 B/P (MAP) 145/89 134/81 (98) Pulse Ox 100 100 94 O2 Delivery Room Air Room Air Room Air 10/30/18 10/30/18 10/30/18 10/30/18 19:00 19:15 19:34 19:34 Temp 98.0 98.0 Pulse 85 Resp 18 B/P (MAP) 130/74 (92) Pulse Ox 93 93 93 O2 Delivery Room Air Room Air Room Air 10/30/18 10/30/18 10/30/18 10/31/18 20:53 23:00 23:51 00:20 Temp 98.1 98.1 Pulse 85 90 Resp 24 20 20 B/P (MAP) 130/74 134/89 (104) Pulse Ox 91 93 93 O2 Delivery Room Air 10/31/18 10/31/18 10/31/18 10/31/18 03:00 07:00 07:51 08:27 Temp 98.2 98.0 98.2 98.0 Pulse 98 91 Resp 22 20 B/P (MAP) 135/81 (99) 140/89 (106) Pulse Ox 90 91 96 O2 Delivery Room Air Room Air 10/31/18 10/31/18 09:12 09:34 Pulse 91 B/P (MAP) 140/89 O2 Delivery Room Air Intake and Output 10/30/18 10/30/18 10/31/18 15:00 23:00 07:00 Intake Total 300 ml 1089 ml 1200 ml Output Total 440 ml 590 ml 575 ml Balance -140 ml 499 ml 625 ml Nutrition Consultation Dietary Evaluation: Recommendations by RD: Decrease Calorie Intake, Protein supplementation, PPN/TPN Comments: REC re-start PPN when able for short-term non-oral nutrition recommend feeding tube placement for tube feeds to adequately meet nutrition needs Expected Outcomes/Goals: New goal 10/27: Nutrition as appropriate per PRINTED CIRCUIT BOARDS INSPECTOR and goals of care -ongoing Interpretation of weight loss: >7.5% in 3 months Malnutrition Findings: Weight Status: Appropriate ANGI BARCENAS MD October 31, 2018 10:06
[2018-10-31 11:00] VITALS: BP 141/86
--- NOTE | 2018-10-31 11:06 | PDOC ---
Infectious Disease Note Subjective Subjective pt is lethargic ROS ROS no n/v/d/ a lot of secretions in mouth/upper chest Vital Sign Vital Signs Vital Signs Date Time Temp Pulse Resp B/P (MAP) Pulse Ox O2 Delivery O2 Flow Rate FiO2 10/31/18 09:34 91 140/89 10/31/18 09:12 Room Air 10/31/18 07:51 96 10/31/18 07:00 98.0 20 98.0 Physical Exam PHYSICAL EXAM GENERAL: lethargic HEENT: Pupils equal and reactive. OC/Op - dry LUNGS: Clear anteriorly HEART: S1, S2, paced ABDOMEN: Soft, NT : Frye is in place. EXTREMITIES: Contracted, there is 2+ edema in his lower extremities. His right wrist is contracted, it is swollen, but slightly warm and painful to move. SKIN: Without signs of rash. He has multiple unstageable pressure ulcers on his left hip. Coccyx area wound vac SKIN: Without warmth or rash. NEUROLOGIC: lethargic RIJ (10/27) clean Labs Lab Laboratory Tests Test 10/31/18 05:00 White Blood Count 17.0 x10^3/uL (4.0-11.0) Red Blood Count 4.32 x10^6/uL (4.30-5.70) Hemoglobin 10.5 g/dL (13.0-17.5) Hematocrit 34.9 % (39.0-53.0) Mean Corpuscular Volume 81 fL (79-100) Mean Corpuscular Hemoglobin 24 pg (25-35) Mean Corpuscular Hemoglobin Concent 30 g/dL (31-37) Red Cell Distribution Width 18.0 % (11.5-14.5) Platelet Count 79 x10^3/uL (140-400) Neutrophils (%) (Auto) 91 % (31-73) Lymphocytes (%) (Auto) 8 % (24-48) Monocytes (%) (Auto) 0 % (0-9) Eosinophils (%) (Auto) 0 % (0-3) Basophils (%) (Auto) 0 % (0-3) Neutrophils # (Auto) 15.5 x10^3uL (1.8-7.7) Lymphocytes # (Auto) 1.3 x10^3/uL (1.0-4.8) Monocytes # (Auto) 0.1 x10^3/uL (0.0-1.1) Eosinophils # (Auto) 0.0 x10^3/uL (0.0-0.7) Basophils # (Auto) 0.0 x10^3/uL (0.0-0.2) Prothrombin Time 27.8 SEC (11.7-14.0) Prothromb Time International Ratio 2.6 (0.8-1.1) Sodium Level 144 mmol/L (136-145) Potassium Level 4.2 mmol/L (3.5-5.1) Chloride Level 113 mmol/L (98-107) Carbon Dioxide Level 17 mmol/L (21-32) Anion Gap 14 (6-14) Blood Urea Nitrogen 56 mg/dL (8-26) Creatinine 1.4 mg/dL (0.7-1.3) Estimated GFR (Cockcroft-Gault) 60.4 Glucose Level 112 mg/dL (70-99) Calcium Level 8.1 mg/dL (8.5-10.1) Micro BLOOD CULTURE LC Final Final report BLD CULT RESULT 1 Final Escherichia coli Recovered from aerobic bottle only. Susceptibility profile is consistent with a probable ESBL. ANTIMICROBIAL SUSCEPTIBILITY Final Comment S = Susceptible; I = Intermediate; R = Resistant P = Positive; N = Negative MICS are expressed in micrograms per mL Antibiotic RSLT#1 RSLT#2 RSLT#3 RSLT#4 Amoxicillin/Clavulanic Acid S =8 Ampicillin R>=32 Cefazolin R>=64 Cefepime I =8 Ceftriaxone R>=64 Cefuroxime R>=64 Ciprofloxacin R>=4 Ertapenem S<=0.12 Gentamicin S<=1 Imipenem S<=0.25 Levofloxacin R>=8 Meropenem S<=0.25 Nitrofurantoin S<=16 Piperacillin/Tazobactam S<=4 Tetracycline S =2 Tobramycin S<=1 Trimethoprim/Sulfa R>=320 Performed at: DA - [facility] [address], [place], [place] [id number] Treatment Counselor: ALBERT Sinclair MD, Phone: [phone] Objective Assessment GNR sepsis with hypotension POA 10/25 - off Levophed. repeat BC 10/27 neg so far Leukocytosis - in part sepsis/ reactive and steroids, trending down Urinary obstruction - s/p Frye placement 10/25 by Urology UTI - POA Multiple unstageable wounds - not a surgical candidate Lactic acidosis - slowly correcting MRSA + Right hand swelling and pain for over a month per - h/o gout and states has been off gout med at home because it interacted with other meds - some better -uric acid 6.2 RICK -stable Resp failure - off Bipap - states cont to cough at times Loose stools, C. diff neg, 10/27 Thrombocytopenia Plan Plan of Care cont zosyn, Repeat blood cults 10/27 neg so far Not surgical candidate CBC in am f/u BC Local wound care Contact for MRSA DNR/DNI prognosis poor SEMAJ KHAN MD October 31, 2018 11:06
[2018-10-31] MEDS: SCOPOLAMINE 1.5MG PATCH. TD SCH (11:30)
--- NOTE | 2018-10-31 12:14 | NUR ---
Pharmacy Warfarin Dosing Note S:Pharmacy consulted to assist with anticoagulation therapy started with target INR: 2 -3 O:MADHAV RUDOLPH is a 72 year old M with Atrial Fibrillation h/o DVT LABS: Last INR: 2.6 Last HGB: 10.5 Last HCT: 34.9 Last PLT: 79 Last dose of Hold given on 10/30/18 at 1600 Previous Regimen: 5 mg/day Vitamin K given: N Drug Interaction Changes: Same Interacting Drug Ongoing Drug Interactions: allopurinol Holding per Carmen for possible procedure. A:INR of 2.6 is within desired range. Target range for this patient is: 2 -3 P: Warfarin dose: Hold Today at 1600 Bridge Therapy: None Next INR due 11/01/18 Pharmacy anticoagulation service will continue to follow. IGNACIO CONTRERAS [facility], 10/31/18 0109
[2018-10-31] MEDS ORDERED: fentaNYL PF VIAL 100 MCG/2 ML VIAL IV PRN (13:00)
[2018-10-31] MEDS: ATROPINE 1% OPHTH SOLUTION 5ML BOTTLE. SL PRN (13:32)
--- NOTE | 2018-10-31 14:02 | PDOC2 ---
PALLIATIVE CARE Palliative Care Note Palliative Care Patient more lethargic. Increased secretions. Complains of pain. Has required x5 doses of Fentanyl 25mcg in last 24 hours. Lindsey requested conversation. Discussed goals of care. She wants her to be kept comfortable. Shared that he is saying he's "tired and to let him go" Discussed options for care and management of symptoms. Also talked with Verona --sister per phone and discussed medical condition and options per request of Lindsey. Dr. Morales called for symptom management order per RN Oxygen saturations declining 84% on 3 L NC. also asking about PEG tube and suprapubic catheter. Informed that patient likely would not tolerated sedation needed ---likely would not be a candidate for those procedures [id number] Patient's oldest son Jesu here. Reviewed medical condition and spoke with Scout from [facility] at the request of Lindsey. Scout supportive of keeping patient comfortable with IP Hospice. Lindsey and Jesu are in agreement to focus on comfort care with IP Hospice. They request [facility] IP evaluation and treatment. Discussed discharge options if patient's symptoms become manageable at home. Patient would go home with Hospice ([facility] whom he was living with prior to admission) Manjit informed of family request and IP Hospice evaluation. Plan: Evaluation by [facility] AL AGUERO October 31, 2018 14:02
[2018-10-31 15:00] VITALS: BP 142/75
--- NOTE | 2018-10-31 15:57 | NUR ---
SW notified family wants to do GIP with [facility]. MILTON phoned and faxed referral. Pt acceptance and admission pending. Will continue to follow.
[2018-10-31 19:00] VITALS: BP 140/72
--- NOTE | 2018-10-31 22:57 | NUR ---
outside machinist helper here to evaluate patient for GIP. Pt appears comfortable and in no distress. Visible pain when repositioned, does have gurgling to lungs but does not appear in respiratory distress at this time therefore does not qualify for GIP. Stated patient could qualify for GIP to monitor transition from IV Fentanyl to po Roxanol, then discharge to home tomorrow but family does not have a discharge plan in place at this time. Family is not able to agree at this time on a discharge plan. Hospice will not admit at this time but will have SW meet with family in am to help outline a discharge plan to home, skilled or hospice house.
[2018-10-31 23:00] VITALS: BP 128/99
[2018-11-01 03:00] VITALS: BP 135/95
[2018-11-01 06:51] LABS: BASO % 0 % (0-3); EOS % 0 % (0-3); HEMATOCRIT 31.8 % (39.0-53.0); LYMPH # 1.1 x10^3/uL (1.0-4.8); LYMPH % 8 % (24-48); MEAN CORPUSCULAR HEMOGLOBIN 25 pg (25-35); MEAN CORPUSCULAR HGB CONC 31 g/dL (31-37); MEAN CORPUSCULAR VOLUME 80 fL (79-100); MONO # 0.8 x10^3/uL (0.0-1.1); MONO % 6 % (0-9); NEUT # 12.5 x10^3uL (1.8-7.7); NEUT % 87 % (31-73); PLATELET COUNT 93 x10^3/uL (140-400); RED BLOOD COUNT 3.97 x10^6/uL (4.30-5.70); RED CELL DISTRIBUTION WIDTH 17.7 % (11.5-14.5); WHITE BLOOD COUNT 14.4 x10^3/uL (4.0-11.0)
[2018-11-01 06:56] LABS: PROTHROMBIN TIME PATIENT 29.1 SEC (11.7-14.0)
[2018-11-01 07:00] VITALS: BP 134/83
[2018-11-01] MEDS: IPRATRPIUM/ALBUTEROL 0.5/2.5MG 3 ML NEBU. NEB SCH ×4 (07:12→19:56)
[2018-11-01 07:55] LABS: CALCIUM 8.1 mg/dL (8.5-10.1); CREATININE 1.2 mg/dL (0.7-1.3); GFR 72.2; POTASSIUM 4.3 mmol/L (3.5-5.1)
[2018-11-01] MEDS: METOPROLOL TARTRATE 5 MG/5 ML VIAL. IVP SCH ×2 (08:37→21:03)
[2018-11-01] MEDS: PANTOPRAZOLE IV PUSH 40 MG VIAL. IVP SCH (08:37)
[2018-11-01] MEDS: methylPREDNISolone SOD SUCC PF 40 MG/ML VIAL. IV SCH (08:37)
[2018-11-01] MEDS: SODIUM HYPOCHLORITE 0.125% 473 ML BOTTLE. TP SCH ×2 (09:00→21:03)
--- NOTE | 2018-11-01 09:01 | PDOC ---
PULMONARY PROGRESS NOTES Subjective LESS PAIN TODAY Vitals Vital Signs Date Time Temp Pulse Resp B/P (MAP) Pulse Ox O2 Delivery O2 Flow Rate FiO2 11/01/18 08:37 81 134/83 11/01/18 07:39 Room Air 3.0 11/01/18 07:12 100 11/01/18 07:00 98.6 20 98.6 General: Alert HEENT: Other (nc at perrl nose clear) Lungs: Other (a few rhonchi) Cardiovascular: S1, S2 Abdomen: Soft, Non-tender Neuro Exam: Alert Extremities: No Edema, Other Skin: Warm Labs Laboratory Tests Test 10/31/18 05:00 11/01/18 06:30 White Blood Count 17.0 x10^3/uL (4.0-11.0) 14.4 x10^3/uL (4.0-11.0) Red Blood Count 4.32 x10^6/uL (4.30-5.70) 3.97 x10^6/uL (4.30-5.70) Hemoglobin 10.5 g/dL (13.0-17.5) 10.0 g/dL (13.0-17.5) Hematocrit 34.9 % (39.0-53.0) 31.8 % (39.0-53.0) Mean Corpuscular Volume 81 fL (79-100) 80 fL (79-100) Mean Corpuscular Hemoglobin 24 pg (25-35) 25 pg (25-35) Mean Corpuscular Hemoglobin Concent 30 g/dL (31-37) 31 g/dL (31-37) Red Cell Distribution Width 18.0 % (11.5-14.5) 17.7 % (11.5-14.5) Platelet Count 79 x10^3/uL (140-400) 93 x10^3/uL (140-400) Neutrophils (%) (Auto) 91 % (31-73) 87 % (31-73) Lymphocytes (%) (Auto) 8 % (24-48) 8 % (24-48) Monocytes (%) (Auto) 0 % (0-9) 6 % (0-9) Eosinophils (%) (Auto) 0 % (0-3) 0 % (0-3) Basophils (%) (Auto) 0 % (0-3) 0 % (0-3) Neutrophils # (Auto) 15.5 x10^3uL (1.8-7.7) 12.5 x10^3uL (1.8-7.7) Lymphocytes # (Auto) 1.3 x10^3/uL (1.0-4.8) 1.1 x10^3/uL (1.0-4.8) Monocytes # (Auto) 0.1 x10^3/uL (0.0-1.1) 0.8 x10^3/uL (0.0-1.1) Eosinophils # (Auto) 0.0 x10^3/uL (0.0-0.7) 0.0 x10^3/uL (0.0-0.7) Basophils # (Auto) 0.0 x10^3/uL (0.0-0.2) 0.0 x10^3/uL (0.0-0.2) Prothrombin Time 27.8 SEC (11.7-14.0) 29.1 SEC (11.7-14.0) Prothromb Time International Ratio 2.6 (0.8-1.1) 2.8 (0.8-1.1) Sodium Level 144 mmol/L (136-145) 146 mmol/L (136-145) Potassium Level 4.2 mmol/L (3.5-5.1) 4.3 mmol/L (3.5-5.1) Chloride Level 113 mmol/L (98-107) 115 mmol/L (98-107) Carbon Dioxide Level 17 mmol/L (21-32) 18 mmol/L (21-32) Anion Gap 14 (6-14) 13 (6-14) Blood Urea Nitrogen 56 mg/dL (8-26) 57 mg/dL (8-26) Creatinine 1.4 mg/dL (0.7-1.3) 1.2 mg/dL (0.7-1.3) Estimated GFR (Cockcroft-Gault) 60.4 72.2 Glucose Level 112 mg/dL (70-99) 102 mg/dL (70-99) Calcium Level 8.1 mg/dL (8.5-10.1) 8.1 mg/dL (8.5-10.1) Laboratory Tests Test 11/01/18 06:30 White Blood Count 14.4 x10^3/uL (4.0-11.0) Red Blood Count 3.97 x10^6/uL (4.30-5.70) Hemoglobin 10.0 g/dL (13.0-17.5) Hematocrit 31.8 % (39.0-53.0) Mean Corpuscular Volume 80 fL (79-100) Mean Corpuscular Hemoglobin 25 pg (25-35) Mean Corpuscular Hemoglobin Concent 31 g/dL (31-37) Red Cell Distribution Width 17.7 % (11.5-14.5) Platelet Count 93 x10^3/uL (140-400) Neutrophils (%) (Auto) 87 % (31-73) Lymphocytes (%) (Auto) 8 % (24-48) Monocytes (%) (Auto) 6 % (0-9) Eosinophils (%) (Auto) 0 % (0-3) Basophils (%) (Auto) 0 % (0-3) Neutrophils # (Auto) 12.5 x10^3uL (1.8-7.7) Lymphocytes # (Auto) 1.1 x10^3/uL (1.0-4.8) Monocytes # (Auto) 0.8 x10^3/uL (0.0-1.1) Eosinophils # (Auto) 0.0 x10^3/uL (0.0-0.7) Basophils # (Auto) 0.0 x10^3/uL (0.0-0.2) Prothrombin Time 29.1 SEC (11.7-14.0) Prothromb Time International Ratio 2.8 (0.8-1.1) Sodium Level 146 mmol/L (136-145) Potassium Level 4.3 mmol/L (3.5-5.1) Chloride Level 115 mmol/L (98-107) Carbon Dioxide Level 18 mmol/L (21-32) Anion Gap 13 (6-14) Blood Urea Nitrogen 57 mg/dL (8-26) Creatinine 1.2 mg/dL (0.7-1.3) Estimated GFR (Cockcroft-Gault) 72.2 Glucose Level 102 mg/dL (70-99) Calcium Level 8.1 mg/dL (8.5-10.1) Medications Active Scripts Medications Dose Route/Sig Max Daily Dose Days Date Category Vitamin D2 (Ergocalciferol (Vitamin D2)) 50,000 Unit Capsule 1 Cap PO WEEKLY 10/25/18 Reported Trazodone Hcl 50 Mg Tablet 1 Tab PO QHS PRN 10/25/18 Reported Famotidine 20 Mg Tablet 20 Mg PO BID 10/25/18 Reported Carvedilol (Carvedilol) 12.5 Mg Tablet 12.5 Mg PO BIDWMEALS 10/25/18 Reported Bumetanide 1 Mg Tablet 1 Tab PO DAILY 10/25/18 Reported Allopurinol 100 Mg Tablet 1 Tab PO DAILY 10/25/18 Reported Furosemide 40 Mg Tablet 1 Tab PO DAILY 10/25/18 Reported Klor-Con 10 (Potassium Chloride) 10 Meq Tablet.er 2 Tab PO DAILY 10/25/18 Reported Methocarbamol 500 Mg Tablet 500 Mg PO TID PRN 04/04/18 Reported Citalopram Hbr (Citalopram Hydrobromide) 20 Mg Tablet 20 Mg PO DAILY 04/04/18 Reported Tramadol Hcl 50 Mg Tablet 50 Mg PO PRN Q8HRS PRN 04/04/18 Reported Atorvastatin Calcium 40 Mg Tablet 40 Mg PO QHS 04/04/18 Reported Amlodipine Besylate 10 Mg Tablet 10 Mg PO DAILY 04/04/18 Reported Warfarin Sodium 5 Mg Tablet 1 Tab PO DAILY 04/04/18 Reported Namenda (Memantine Hcl) 10 Mg Tablet 1 Tab PO BID 09/01/14 Reported Impression . 1. Acute respiratory failure secondary to septic shock. 2. Septic shock. 3. Positive blood cultures with gram-negative rods. 4. Encephalopathy secondary to septic shock, improving. 5. Acute kidney injury, contributed by septic shock. 6. 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 7. History of deep venous thrombosis, on coumadin. 8. History of pacemaker. 9. History of cerebrovascular accident and dementia. 10. Severe metabolic acidosis, lactic acidosis, resolved 11. Abnormal cxr 10/26. no PTX, 12. Leukocytosis, improving Plan . WILL DEFER TO DR BARCENAS FOR DISPOSITION RESP STATUS IS COMPENSATED . RONNI PIMENTEL MD November 01, 2018 09:01
--- NOTE | 2018-11-01 09:51 | PDOC ---
JOSE RAMSAY LOADING UNIT OPERATOR [employer] 11/01/18 0951: SUBJECTIVE Subjective Patient is now receiving hospice care. He is too much of an anesthesia risk for SP tube OBJECTIVE Objective Physical Exam: General appearance: Sleeping, appears comfortable. Head: Normocephalic, without obvious abnormality Eyes: conjunctivae/corneas clear. PERRL, EOM's intact. Fundi benign Lungs: Regular respirations, non labored breathing Abdomen: soft, non-tender. Bowel sounds normal. No masses, no organomegaly Pelvic: + Frye catheter in place draining clear yellow urine. Device in good working order. Vital Signs Vital Signs Date Time Temp Pulse Resp B/P (MAP) Pulse Ox O2 Delivery O2 Flow Rate FiO2 11/01/18 08:37 81 134/83 11/01/18 07:39 Room Air 3.0 11/01/18 07:12 100 Nasal Cannula 5.0 11/01/18 07:00 98.6 81 20 134/83 (100) 100 Nasal Cannula 3.0 98.6 11/01/18 03:00 98.1 79 18 135/95 (108) 100 Nasal Cannula 3.0 98.1 10/31/18 23:00 98.9 83 18 128/99 (109) 96 Nasal Cannula 3.0 98.9 10/31/18 21:14 100 Nasal Cannula 4.0 10/31/18 21:12 97 140/72 10/31/18 20:00 Nasal Cannula 3.0 10/31/18 19:00 97.8 97 16 140/72 (94) 86 Nasal Cannula 3.0 97.8 10/31/18 18:15 Nasal Cannula 2.0 10/31/18 17:20 Nasal Cannula 3.0 10/31/18 16:16 100 Nasal Cannula 2.5 10/31/18 15:00 97.9 100 16 142/75 (97) 86 Nasal Cannula 3.0 97.9 10/31/18 12:40 Nasal Cannula 3.0 10/31/18 12:16 Room Air 10/31/18 11:00 97.9 98 18 141/86 (104) 84 Nasal Cannula 3.0 97.9 I & O Intake and Output 11/01/18 07:00 Intake Total 1000 ml Output Total 550 ml Balance 450 ml Intake Oral 0 ml IV Total 1000 ml Output Urine Total 550 ml # Bowel Movements 1 PHYSICAL EXAM Physical Exam Physical Exam: General appearance: Sleeping, appears comfortable. Head: Normocephalic, without obvious abnormality Eyes: conjunctivae/corneas clear. PERRL, EOM's intact. Fundi benign Lungs: Regular respirations, non labored breathing Abdomen: soft, non-tender. Bowel sounds normal. No masses, no organomegaly Pelvic: + Frye catheter in place draining clear yellow urine. Device in good working order. ASSESSMENT/PLAN Assessment/Plan Pt is currently too much of a risk for SP tube placement due to need for sedation. Family requesting to keep catheter in. An appointment has been arranged for him to see Dr. Snyder for replacement on 11/22/2018 at the [facility] location. Appointment card and new patient paperwork given to RN. Will sign off at this time, but please call with questions or changes in patient condition. COMMENT Lab Laboratory Tests Test 11/01/18 06:30 White Blood Count 14.4 x10^3/uL (4.0-11.0) Red Blood Count 3.97 x10^6/uL (4.30-5.70) Hemoglobin 10.0 g/dL (13.0-17.5) Hematocrit 31.8 % (39.0-53.0) Mean Corpuscular Volume 80 fL (79-100) Mean Corpuscular Hemoglobin 25 pg (25-35) Mean Corpuscular Hemoglobin Concent 31 g/dL (31-37) Red Cell Distribution Width 17.7 % (11.5-14.5) Platelet Count 93 x10^3/uL (140-400) Neutrophils (%) (Auto) 87 % (31-73) Lymphocytes (%) (Auto) 8 % (24-48) Monocytes (%) (Auto) 6 % (0-9) Eosinophils (%) (Auto) 0 % (0-3) Basophils (%) (Auto) 0 % (0-3) Neutrophils # (Auto) 12.5 x10^3uL (1.8-7.7) Lymphocytes # (Auto) 1.1 x10^3/uL (1.0-4.8) Monocytes # (Auto) 0.8 x10^3/uL (0.0-1.1) Eosinophils # (Auto) 0.0 x10^3/uL (0.0-0.7) Basophils # (Auto) 0.0 x10^3/uL (0.0-0.2) Prothrombin Time 29.1 SEC (11.7-14.0) Prothromb Time International Ratio 2.8 (0.8-1.1) Sodium Level 146 mmol/L (136-145) Potassium Level 4.3 mmol/L (3.5-5.1) Chloride Level 115 mmol/L (98-107) Carbon Dioxide Level 18 mmol/L (21-32) Anion Gap 13 (6-14) Blood Urea Nitrogen 57 mg/dL (8-26) Creatinine 1.2 mg/dL (0.7-1.3) Estimated GFR (Cockcroft-Gault) 72.2 Glucose Level 102 mg/dL (70-99) Calcium Level 8.1 mg/dL (8.5-10.1) Nutrition Consultation Dietary Evaluation: Recommendations by RD: Decrease Calorie Intake, Protein supplementation, PPN/TPN Comments: REC re-start PPN when able for short-term non-oral nutrition recommend feeding tube placement for tube feeds to adequately meet nutrition needs Expected Outcomes/Goals: New goal 10/27: Nutrition as appropriate per SUCCESSFACTORS CONSULTANT and goals of care -ongoing Interpretation of weight loss: >7.5% in 3 months Malnutrition Findings: Weight Status: Appropriate ASA SNYDER MD 11/04/18 1630: JOSE RAMSAY APRN November 01, 2018 09:51 ASA SNYDER MD November 04, 2018 16:30
--- NOTE | 2018-11-01 10:04 | PDOC ---
PROGRESS NOTES Subjective Subjective soft voice Objective Objective Vital Signs Date Time Temp Pulse Resp B/P (MAP) Pulse Ox O2 Delivery O2 Flow Rate FiO2 11/01/18 08:37 81 134/83 11/01/18 07:39 Room Air 3.0 11/01/18 07:12 100 11/01/18 07:00 98.6 20 98.6 Intake and Output 11/01/18 07:00 Intake Total 1000 ml Output Total 550 ml Balance 450 ml Intake Oral 0 ml IV Total 1000 ml Output Urine Total 550 ml # Bowel Movements 1 Physical Exam Abdomen: Soft Heart: Regular rate, Normal S1, Normal S2, Other (tachy) Extremities: Other (contracted extremities ) General: mild distress HEENT: Other (cough present ) Lungs: Other (sonal crackes) Neck: Supple Skin: Other (vac in place) Assessment Assessment FINAL IMPRESSION: 1. Severe Sepsis with hypotension, 2. Lactic acidosis. 3. Gram-negative bacteremia, positive blood cultures.E Coli 4. Infected wounds over the sacrum as well as trochanteric area. 5. Chronic atrial fibrillation, on Coumadin. 6. Chronic systolic heart failure, on cardiac medication. 7. History of previous stroke with contractures. 8. Protein-calorie malnutrition, severe. 9. General debility. 10. Hyperlipidemia. 11. History of AAA endovascular repair. 12. Acute tubular necrosis. 13.Urethral stenosis and bph PLAN: spoke with , wanting feeding tube placed and take him home with hospice after that. E Coli bacteremia,ELBS clinically improving wbc 14 down from 50 cr stable iv antibiotics procalamine for nutrition aspirating cr 1.2 sono kidneys scarring left kidney cystoscopy and placement of irving iv antibiotics dapto+zosyn+doxycycline procalamine for nutrition central /piccline spoke with pts small dose of steroids for hypotension and sepsis. inr 2.8 . spoke with pts family members at bed side Comment Review of Relevant I have reviewed the following items chidi (where applicable) has been applied. Labs Laboratory Tests Test 11/01/18 06:30 White Blood Count 14.4 x10^3/uL (4.0-11.0) Red Blood Count 3.97 x10^6/uL (4.30-5.70) Hemoglobin 10.0 g/dL (13.0-17.5) Hematocrit 31.8 % (39.0-53.0) Mean Corpuscular Volume 80 fL (79-100) Mean Corpuscular Hemoglobin 25 pg (25-35) Mean Corpuscular Hemoglobin Concent 31 g/dL (31-37) Red Cell Distribution Width 17.7 % (11.5-14.5) Platelet Count 93 x10^3/uL (140-400) Neutrophils (%) (Auto) 87 % (31-73) Lymphocytes (%) (Auto) 8 % (24-48) Monocytes (%) (Auto) 6 % (0-9) Eosinophils (%) (Auto) 0 % (0-3) Basophils (%) (Auto) 0 % (0-3) Neutrophils # (Auto) 12.5 x10^3uL (1.8-7.7) Lymphocytes # (Auto) 1.1 x10^3/uL (1.0-4.8) Monocytes # (Auto) 0.8 x10^3/uL (0.0-1.1) Eosinophils # (Auto) 0.0 x10^3/uL (0.0-0.7) Basophils # (Auto) 0.0 x10^3/uL (0.0-0.2) Prothrombin Time 29.1 SEC (11.7-14.0) Prothromb Time International Ratio 2.8 (0.8-1.1) Sodium Level 146 mmol/L (136-145) Potassium Level 4.3 mmol/L (3.5-5.1) Chloride Level 115 mmol/L (98-107) Carbon Dioxide Level 18 mmol/L (21-32) Anion Gap 13 (6-14) Blood Urea Nitrogen 57 mg/dL (8-26) Creatinine 1.2 mg/dL (0.7-1.3) Estimated GFR (Cockcroft-Gault) 72.2 Glucose Level 102 mg/dL (70-99) Calcium Level 8.1 mg/dL (8.5-10.1) Microbiology 10/27/18 Blood Culture - Final, Complete NO GROWTH AFTER 5 DAYS 10/26/18 Urine Culture - Final, Complete 10/26/18 Urine Culture Result 1 (KAI) - Final, Complete Medications Current Medications Atropine Sulfate (Isopto Atropine) 1 drop PRN Q2HR PRN SL SECRETIONS Last administered on 10/31/18at 13:32; Start 10/31/18 at 13:00 Fentanyl Citrate (Fentanyl 2ml Vial) 25 mcg PRN Q2HRS PRN IV PAIN; Start 10/31/18 at 13:00; Stop 10/31/18 at 16:00; Status DC Fentanyl Citrate (Fentanyl 2ml Vial) 50 mcg PRN Q2HRS PRN IV PAIN Last administered on 10/31/18at 21:13; Start 10/31/18 at 16:00 Scopolamine (Transderm-Scop) 1 patch Q3DAYS TD Last administered on 10/31/18at 11:30; Start 10/31/18 at 11:30 Warfarin Sodium (Coumadin - No Dose Today) 1 each 1X WARF ONCE MC Last administered on 10/31/18at 16:00; Start 10/31/18 at 16:00; Stop 10/31/18 at 16:01; Status DC Vitals/I & O Vital Sign - Last 24 Hours 10/31/18 10/31/18 10/31/18 10/31/18 11:00 12:16 12:40 15:00 Temp 97.9 97.9 97.9 97.9 Pulse 98 100 Resp 18 16 B/P (MAP) 141/86 (104) 142/75 (97) Pulse Ox 84 86 O2 Delivery Nasal Cannula Room Air Nasal Cannula Nasal Cannula O2 Flow Rate 3.0 3.0 3.0 10/31/18 10/31/18 10/31/18 10/31/18 16:16 17:20 18:15 19:00 Temp 97.8 97.8 Pulse 97 Resp 16 B/P (MAP) 140/72 (94) Pulse Ox 100 86 O2 Delivery Nasal Cannula Nasal Cannula Nasal Cannula Nasal Cannula O2 Flow Rate 2.5 3.0 2.0 3.0 10/31/18 10/31/18 10/31/18 10/31/18 20:00 21:12 21:14 23:00 Temp 98.9 98.9 Pulse 97 83 Resp 18 B/P (MAP) 140/72 128/99 (109) Pulse Ox 100 96 O2 Delivery Nasal Cannula Nasal Cannula Nasal Cannula O2 Flow Rate 3.0 4.0 3.0 11/01/18 11/01/18 11/01/18 11/01/18 03:00 07:00 07:12 07:39 Temp 98.1 98.6 98.1 98.6 Pulse 79 81 Resp 18 20 B/P (MAP) 135/95 (108) 134/83 (100) Pulse Ox 100 100 100 O2 Delivery Nasal Cannula Nasal Cannula Nasal Cannula Room Air O2 Flow Rate 3.0 3.0 5.0 3.0 11/01/18 08:37 Pulse 81 B/P (MAP) 134/83 Intake and Output 10/31/18 10/31/18 11/01/18 15:00 23:00 07:00 Intake Total 0 ml 1000 ml Output Total 550 ml Balance -550 ml 1000 ml Nutrition Consultation Dietary Evaluation: Recommendations by RD: Decrease Calorie Intake, Protein supplementation, PPN/TPN Comments: REC re-start PPN when able for short-term non-oral nutrition recommend feeding tube placement for tube feeds to adequately meet nutrition needs Expected Outcomes/Goals: New goal 10/27: Nutrition as appropriate per FERRULER and goals of care -ongoing Interpretation of weight loss: >7.5% in 3 months Malnutrition Findings: Weight Status: Appropriate ANGI BARCENAS MD November 01, 2018 10:04
[2018-11-01] MEDS: AMINO AC 3%/ELECTROLYTE/GLYCER 1,000 ML IV SCH (10:30)
[2018-11-01 11:00] VITALS: BP 114/52
--- NOTE | 2018-11-01 12:12 | PDOC2 ---
GI CONSULT Reason For Consult: PEG HPI: HPI: 73 y/o male who was declining at home. Admitted last week w/ sepsis, multiple wounds, resp failure, and urinary obstruction/UTI. Not a candidate for surgery re: wounds or suprapubic cath placement. Was apparently eating at home. Had BALLISTICS TESTER eval - high risk of aspiration w/ suspected silent aspiration. Previously discussed w/ Pat/PC, RN, and Dr. Morales. Pt noted w/ increased lethargy, secretions, and pain yesterday. Had inpatient hospice eval yesterday, apparently some issues w/ discharge plan. would now like to discuss PEG placement. Has had previous PEG placement w/ Dr. Mauricio in 2013 - was removed later that year. First EGD noted tortuous esophagus and reflux. Colonoscopy in 2014 showed polyps in sigmoid colon and hepatic flexure and diverticulosis. No GB, liver, or pancreas history. H/o DVT/PE on Coumadin which has been held - INR is 2.8 today. On PPI, scopolamine, IV PPI. PMH: PMH: CHF, HTN, BPH, DVT/PE, GERD, colon polyps, diverticulosis ventral hernia repair w/ mesh, cystoscopy, PEG placement, right shoulder surgery, IVC filter, pacemaker, endovascular repair of AAA FH: Family History: No pertinent hx Social History: Smoke: Quit ROS: Unable to obtain. Vitals: Vitals: Vital Signs Date Time Temp Pulse Resp B/P (MAP) Pulse Ox O2 Delivery O2 Flow Rate FiO2 11/01/18 11:18 96 Nasal Cannula 4.0 11/01/18 11:00 98.0 70 16 114/52 (72) 98.0 Labs: Labs: Laboratory Tests Test 11/01/18 06:30 White Blood Count 14.4 x10^3/uL (4.0-11.0) Red Blood Count 3.97 x10^6/uL (4.30-5.70) Hemoglobin 10.0 g/dL (13.0-17.5) Hematocrit 31.8 % (39.0-53.0) Mean Corpuscular Volume 80 fL (79-100) Mean Corpuscular Hemoglobin 25 pg (25-35) Mean Corpuscular Hemoglobin Concent 31 g/dL (31-37) Red Cell Distribution Width 17.7 % (11.5-14.5) Platelet Count 93 x10^3/uL (140-400) Neutrophils (%) (Auto) 87 % (31-73) Lymphocytes (%) (Auto) 8 % (24-48) Monocytes (%) (Auto) 6 % (0-9) Eosinophils (%) (Auto) 0 % (0-3) Basophils (%) (Auto) 0 % (0-3) Neutrophils # (Auto) 12.5 x10^3uL (1.8-7.7) Lymphocytes # (Auto) 1.1 x10^3/uL (1.0-4.8) Monocytes # (Auto) 0.8 x10^3/uL (0.0-1.1) Eosinophils # (Auto) 0.0 x10^3/uL (0.0-0.7) Basophils # (Auto) 0.0 x10^3/uL (0.0-0.2) Prothrombin Time 29.1 SEC (11.7-14.0) Prothromb Time International Ratio 2.8 (0.8-1.1) Sodium Level 146 mmol/L (136-145) Potassium Level 4.3 mmol/L (3.5-5.1) Chloride Level 115 mmol/L (98-107) Carbon Dioxide Level 18 mmol/L (21-32) Anion Gap 13 (6-14) Blood Urea Nitrogen 57 mg/dL (8-26) Creatinine 1.2 mg/dL (0.7-1.3) Estimated GFR (Cockcroft-Gault) 72.2 Glucose Level 102 mg/dL (70-99) Calcium Level 8.1 mg/dL (8.5-10.1) BLOOD CULTURE Final NO GROWTH AFTER 5 DAYS Allergies: Coded Allergies: I S O L A T I O N *CONTACT* (Verified Allergy, Unknown, 10/31/18) mrsa/ESBL No Known Medication Allergies (Verified Allergy, Unknown, 10/27/18) Medications: Current Medications Medications (Trade) Dose Ordered Sig/Leena Route PRN Reason Start Time Stop Time Status Last Admin Dose Admin Warfarin Sodium (Coumadin - No Dose Today) 1 each 1X WARF ONCE MC 10/31/18 16:00 11/01/18 10:06 DC 10/31/18 16:00 Atropine Sulfate (Isopto Atropine) 1 drop PRN Q2HR PRN SL SECRETIONS 10/31/18 13:00 10/31/18 13:32 Fentanyl Citrate (Fentanyl 2ml Vial) 50 mcg PRN Q2HRS PRN IV PAIN 10/31/18 16:00 10/31/18 21:13 Imaging: Imaging: CXR 10/27 Findings/ Lower lung volumes and technique accentuates heart size and pulmonary vascularity. Left-sided cardiac pacer is identified. Right-sided internal jugular line is identified. Prominent appearing bilateral interstitial lung markings likely congestive changes similar to prior exam. The previously visualized questionable pneumothorax in the right apical lung is not evident on this examination suggesting probable artifact from skinfold. Renal US 10/26 IMPRESSION: 1. Limited exam. 2. Mildly increased right renal parenchymal echogenicity suggesting medical renal disease. 3. No evidence of right renal obstruction. 4. Nonvisualization of the left kidney. Bedside Swallow Eval Bedside swallow eval completed earlier this date. Pt has hx of dysphagia dating back to 2013 w/[facility] videoswallow showing aspiration of puree and honey thick liquids. He has a hx of PEG but po intake was resumed at some point. IMPRESSIONS: Laryngeal dysfunction; weak cough, swallow and phonation. High risk of aspiration w/suspected SILENT aspiration of even single ice chips. Suspect pt may be aspirating his own secretions. NPO indicated. No safe consistency identified. Poor prognosis for resuming safe po intake given current severity and long-standing hx of dysphagia. RECOMMENDATIONS: NPO meds and nutrition. PE: GEN: NAD, contractures, ill HEENT: Atraumatic LUNGS: NC HEART: distant ABD: soft NEURO/PSYCH: did not awaken during exam A/P: A/P: Sepsis, multiple wounds, BPH/obstruction, dysphagia/aspiration H/o DVT/PE on Coumadin - held, INR 2.8 GERD H/o PEG placement - removed in 2013 CRC screen, h/o colon polyps - 2014 Diverticulosis -- Not a good candidate for PEG placement/sedation. SANJIV CHANDRA November 01, 2018 12:12
--- NOTE | 2018-11-01 13:14 | PDOC2 ---
PALLIATIVE CARE Palliative Care Note Palliative Care Spoke with Lindsey. Understands that patient is not a candidate for PEG tube or suprapubic catheter. Does not qualify for IP Hospice. Discussed going home with [facility]. States she discussed this with Dr. Morales this am. Will need overlay mattress on bed. AL AGUERO November 01, 2018 13:14
[2018-11-01] MEDS: fentaNYL PF VIAL 100 MCG/2 ML VIAL IV PRN (13:33)
--- NOTE | 2018-11-01 13:59 | NUR ---
Wound Care: Replaced Veraflow wound vac dressing to wounds on sacrum and L lateral hip. Wounds still have foul odor but it is reduced from Tuesday, slough is beginning to soften as well. Applied skin prep, and ostomy ring to periwound on left hip, and hydrocolloid to edge of dressing nearest anus to protect from stool incontinence. NPWT: 125 mmHg continuous suction, Kay waffle foam and solid foam placed in each wound with 30 ml. Dakins soak for 5 min every 4 hours. Bridged to L anterior thigh. Pt on P-500 bed. Dressing to L lateral lower leg changed. Plan to follow up for next vac change Tuesday. Addendum: 11/01/18 at 1401 by ORALIA ROWE RN Change on Tuesday if patient still inpatient.
[2018-11-01 15:00] VITALS: BP 115/69
--- NOTE | 2018-11-01 16:13 | NUR ---
SW following Pt. SW phoned and faxed referral to [facility] after discussing with Palliative care. Pt acceptance and admission pending. Will continue to follow.
[2018-11-01 19:00] VITALS: BP 137/86
[2018-11-01 23:00] VITALS: BP 131/74
[2018-11-02 03:00] VITALS: BP 124/75
[2018-11-02 07:00] VITALS: BP 128/63
[2018-11-02] MEDS: IPRATRPIUM/ALBUTEROL 0.5/2.5MG 3 ML NEBU. NEB SCH ×2 (08:14→10:50)
[2018-11-02] MEDS: methylPREDNISolone SOD SUCC PF 40 MG/ML VIAL. IV SCH (08:24)
[2018-11-02] MEDS: PANTOPRAZOLE IV PUSH 40 MG VIAL. IVP SCH (08:25)
[2018-11-02] MEDS: METOPROLOL TARTRATE 5 MG/5 ML VIAL. IVP SCH (08:28)
[2018-11-02] MEDS: SODIUM HYPOCHLORITE 0.125% 473 ML BOTTLE. TP SCH (08:28)
--- NOTE | 2018-11-02 09:18 | NUR ---
SW following pt. Spoke with DJ at [facility]. They will be reaching out to family this morning to coordinate discharge.
--- NOTE | 2018-11-02 09:43 | PDOC ---
PROGRESS NOTES Subjective Subjective pt more awake and talking in sentences Objective Objective Vital Signs Date Time Temp Pulse Resp B/P (MAP) Pulse Ox O2 Delivery O2 Flow Rate FiO2 11/02/18 08:28 72 128/63 11/02/18 08:15 96 Nasal Cannula 4.0 11/02/18 07:00 98.1 20 98.1 Intake and Output 11/02/18 07:00 Intake Total 0 ml Output Total 400 ml Balance -400 ml Intake Oral 0 ml Output Urine Total 400 ml Physical Exam Abdomen: Soft Heart: Regular rate, Normal S1, Normal S2, Other (tachy) Extremities: Other (contracted extremities ) General: No acute distress HEENT: Other (cough present ) Lungs: Other (sonal crackes) Neck: Supple Psych/Mental Status: Mood NL Skin: Other (vac in place) Assessment Assessment FINAL IMPRESSION: 1. Severe Sepsis with hypotension, 2. Lactic acidosis. 3. Gram-negative bacteremia, positive blood cultures.E Coli 4. Infected wounds over the sacrum as well as trochanteric area. 5. Chronic atrial fibrillation, on Coumadin. 6. Chronic systolic heart failure, on cardiac medication. 7. History of previous stroke with contractures. 8. Protein-calorie malnutrition, severe. 9. General debility. 10. Hyperlipidemia. 11. History of AAA endovascular repair. 12. Acute tubular necrosis. 13.Urethral stenosis and bph PLAN: DNR spoke with wanted to take him home with hospice . E Coli bacteremia,ELBS clinically improved wbc 14 down cr stable Poor prognosis spoke with pts family members at bed side Comment Review of Relevant I have reviewed the following items chidi (where applicable) has been applied. Labs Microbiology 10/27/18 Blood Culture - Final, Complete NO GROWTH AFTER 5 DAYS 10/26/18 Urine Culture - Final, Complete 10/26/18 Urine Culture Result 1 (KAI) - Final, Complete Vitals/I & O Vital Sign - Last 24 Hours 11/01/18 11/01/18 11/01/18 11/01/18 11:00 11:18 13:33 14:12 Temp 98.0 98.0 Pulse 70 Resp 16 B/P (MAP) 114/52 (72) Pulse Ox 92 96 O2 Delivery Nasal Cannula Nasal Cannula Nasal Cannula Nasal Cannula O2 Flow Rate 3.0 4.0 2.0 3.0 11/01/18 11/01/18 11/01/18 11/01/18 15:00 15:54 19:00 19:57 Temp 98.5 98.2 98.5 98.2 Pulse 79 89 Resp 18 18 B/P (MAP) 115/69 (84) 137/86 (103) Pulse Ox 95 89 96 O2 Delivery Nasal Cannula Nasal Cannula Nasal Cannula Nasal Cannula O2 Flow Rate 3.0 4.0 3.0 4.0 11/01/18 11/01/18 11/01/18 11/02/18 20:00 21:03 23:00 03:00 Temp 98.0 98.0 98.0 98.0 Pulse 93 80 83 Resp 18 18 B/P (MAP) 134/73 131/74 (93) 124/75 (91) Pulse Ox 90 93 O2 Delivery Nasal Cannula Nasal Cannula Nasal Cannula O2 Flow Rate 4.0 3.0 3.0 11/02/18 11/02/18 11/02/18 11/02/18 07:00 08:00 08:15 08:28 Temp 98.1 98.1 Pulse 72 72 Resp 20 B/P (MAP) 128/63 (84) 128/63 Pulse Ox 91 96 O2 Delivery Nasal Cannula Nasal Cannula Nasal Cannula O2 Flow Rate 4.0 4.0 4.0 Intake and Output 0 11/01/18 11/01/18 11/02/18 15:00 23:00 07:00 Intake Total 0 ml 0 ml 0 ml Output Total 400 ml Balance 0 ml -400 ml 0 ml Nutrition Consultation Dietary Evaluation: Recommendations by RD: Increase Calorie Intake, Protein supplementation Comments: REC Glucerna 1.2 @ 20 ml/hr, increase 10 ml q8 hrs as tolerated to goal rate 60 ml/hr w/100 ml water flushes q4 hrs. Also rec liquid MVI and Mark BID for wound healing, note wound care notes. Expected Outcomes/Goals: PEG placement home on hospice vs home w/ hospice Interpretation of weight loss: >7.5% in 3 months Malnutrition Findings: Weight Status: Appropriate ANGI BARCENAS MD November 02, 2018 09:43
[2018-11-02] MEDS ORDERED: SCOP1PAT11 TD (09:50)
--- NOTE | 2018-11-02 09:52 | SNU/HH DC ---
DISCHARGE ORDERS DISCHARGE INFORMATION: DISCHARGE DATE: November 02, 2018 FINAL DIAGNOSIS sepsis CONDITION ON DISCHARGE: Guarded CODE STATUS: Code Status: DNR/DNI HOSPICE: HOSPICE: Yes HOSPICE EVAL & TREAT: Yes POST DISCHARGE ORDERS: ACTIVITY ORDERS: Activity as tolerated WEIGHT BEARING STATUS: As tolerated DISCHARGE MEDICATIONS: Home Meds Active Scripts Scopolamine (TRANSDERM-SCOP) 1 Each Patch.td72, 1 PATCH TD Q3DAYS for secretions for 30 Days, #30 PATCH Prov:ANGI BARCENAS MD 11/02/18 Discontinued Reported Medications Ergocalciferol (Vitamin D2) (VITAMIN D2) 50,000 Unit Capsule, 1 CAP PO WEEKLY for REPLACEMENT, #4 CAP 5 Refills 10/25/18 Trazodone Hcl (TRAZODONE HCL) 50 Mg Tablet, 1 TAB PO QHS PRN for INSOMNIA, #30 TAB 2 Refills 10/25/18 Famotidine (FAMOTIDINE) 20 Mg Tablet, 20 MG PO BID for UNKNOWN, TAB 10/25/18 Carvedilol (CARVEDILOL ) 12.5 Mg Tablet, 12.5 MG PO BIDWMEALS for CARDIAC, TAB 10/25/18 Bumetanide (BUMETANIDE) 1 Mg Tablet, 1 TAB PO DAILY for UNKNOWN, #30 TAB 5 Refills 10/25/18 Allopurinol (ALLOPURINOL) 100 Mg Tablet, 1 TAB PO DAILY for UNKNOWN, #30 TAB 5 Refills 10/25/18 Furosemide (FUROSEMIDE) 40 Mg Tablet, 1 TAB PO DAILY for CHF, #90 TAB 3 Refills 10/25/18 Potassium Chloride (KLOR-CON 10) 10 Meq Tablet.er, 2 TAB PO DAILY for REPLACEMENT, #90 TAB 1 Refill 10/25/18 Methocarbamol (METHOCARBAMOL) 500 Mg Tablet, 500 MG PO TID PRN for PAIN 04/04/18 Citalopram Hydrobromide (CITALOPRAM HBR) 20 Mg Tablet, 20 MG PO DAILY 04/04/18 Tramadol Hcl (TRAMADOL HCL) 50 Mg Tablet, 50 MG PO PRN Q8HRS PRN for PAIN 04/04/18 Atorvastatin Calcium (ATORVASTATIN CALCIUM) 40 Mg Tablet, 40 MG PO QHS 04/04/18 Amlodipine Besylate (AMLODIPINE BESYLATE) 10 Mg Tablet, 10 MG PO DAILY 04/04/18 Warfarin Sodium (WARFARIN SODIUM) 5 Mg Tablet, 1 TAB PO DAILY for UNKNOWN 04/04/18 Memantine Hcl (NAMENDA) 10 Mg Tablet, 1 TAB PO BID, #180 TAB 1 Refill 09/01/14 ANGI BARCENAS MD November 02, 2018 09:52
--- NOTE | 2018-11-02 10:12 | PDOC ---
PULMONARY PROGRESS NOTES Subjective LESS PAIN TODAY Vitals Vital Signs Date Time Temp Pulse Resp B/P (MAP) Pulse Ox O2 Delivery O2 Flow Rate FiO2 11/02/18 08:28 72 128/63 11/02/18 08:15 96 Nasal Cannula 4.0 11/02/18 07:00 98.1 20 98.1 General: Alert HEENT: Other (nc at perrl nose clear) Lungs: Other (a few rhonchi) Cardiovascular: S1, S2 Abdomen: Soft, Non-tender Neuro Exam: Alert Extremities: No Edema, Other Skin: Warm Labs Laboratory Tests Test 11/01/18 06:30 White Blood Count 14.4 x10^3/uL (4.0-11.0) Red Blood Count 3.97 x10^6/uL (4.30-5.70) Hemoglobin 10.0 g/dL (13.0-17.5) Hematocrit 31.8 % (39.0-53.0) Mean Corpuscular Volume 80 fL (79-100) Mean Corpuscular Hemoglobin 25 pg (25-35) Mean Corpuscular Hemoglobin Concent 31 g/dL (31-37) Red Cell Distribution Width 17.7 % (11.5-14.5) Platelet Count 93 x10^3/uL (140-400) Neutrophils (%) (Auto) 87 % (31-73) Lymphocytes (%) (Auto) 8 % (24-48) Monocytes (%) (Auto) 6 % (0-9) Eosinophils (%) (Auto) 0 % (0-3) Basophils (%) (Auto) 0 % (0-3) Neutrophils # (Auto) 12.5 x10^3uL (1.8-7.7) Lymphocytes # (Auto) 1.1 x10^3/uL (1.0-4.8) Monocytes # (Auto) 0.8 x10^3/uL (0.0-1.1) Eosinophils # (Auto) 0.0 x10^3/uL (0.0-0.7) Basophils # (Auto) 0.0 x10^3/uL (0.0-0.2) Prothrombin Time 29.1 SEC (11.7-14.0) Prothromb Time International Ratio 2.8 (0.8-1.1) Sodium Level 146 mmol/L (136-145) Potassium Level 4.3 mmol/L (3.5-5.1) Chloride Level 115 mmol/L (98-107) Carbon Dioxide Level 18 mmol/L (21-32) Anion Gap 13 (6-14) Blood Urea Nitrogen 57 mg/dL (8-26) Creatinine 1.2 mg/dL (0.7-1.3) Estimated GFR (Cockcroft-Gault) 72.2 Glucose Level 102 mg/dL (70-99) Calcium Level 8.1 mg/dL (8.5-10.1) Medications Active Scripts Medications Dose Route/Sig Max Daily Dose Days Date Category Vitamin D2 (Ergocalciferol (Vitamin D2)) 50,000 Unit Capsule 1 Cap PO WEEKLY 10/25/18 Reported Trazodone Hcl 50 Mg Tablet 1 Tab PO QHS PRN 10/25/18 Reported Famotidine 20 Mg Tablet 20 Mg PO BID 10/25/18 Reported Carvedilol (Carvedilol) 12.5 Mg Tablet 12.5 Mg PO BIDWMEALS 10/25/18 Reported Bumetanide 1 Mg Tablet 1 Tab PO DAILY 10/25/18 Reported Allopurinol 100 Mg Tablet 1 Tab PO DAILY 10/25/18 Reported Furosemide 40 Mg Tablet 1 Tab PO DAILY 10/25/18 Reported Klor-Con 10 (Potassium Chloride) 10 Meq Tablet.er 2 Tab PO DAILY 10/25/18 Reported Methocarbamol 500 Mg Tablet 500 Mg PO TID PRN 04/04/18 Reported Citalopram Hbr (Citalopram Hydrobromide) 20 Mg Tablet 20 Mg PO DAILY 04/04/18 Reported Tramadol Hcl 50 Mg Tablet 50 Mg PO PRN Q8HRS PRN 04/04/18 Reported Atorvastatin Calcium 40 Mg Tablet 40 Mg PO QHS 04/04/18 Reported Amlodipine Besylate 10 Mg Tablet 10 Mg PO DAILY 04/04/18 Reported Warfarin Sodium 5 Mg Tablet 1 Tab PO DAILY 04/04/18 Reported Namenda (Memantine Hcl) 10 Mg Tablet 1 Tab PO BID 09/01/14 Reported Impression . 1. Acute respiratory failure secondary to septic shock. 2. Septic shock. 3. Positive blood cultures with gram-negative rods. 4. Encephalopathy secondary to septic shock, improving. 5. Acute kidney injury, contributed by septic shock. 6. Underlying multiple comorbid conditions including paralysis and chronic wou nds. 7. History of deep venous thrombosis, on coumadin. 8. History of pacemaker. 9. History of cerebrovascular accident and dementia. 10. Severe metabolic acidosis, lactic acidosis, resolved 11. Abnormal cxr 10/26. no PTX, 12. Leukocytosis, improving Plan . D/C HOME WITH HOSPICE TODAY . RONNI PIMENTEL MD November 02, 2018 10:12
[2018-11-02 11:00] VITALS: BP 122/61
--- NOTE | 2018-11-02 11:04 | NUR ---
SW following Pt. SW phoned and faxed orders to [facility]. Spoke with pt's and notified her [facility] will be reaching out to her to set up a time for evaluation and delivering equipment. Pt's stated they will only need overlay matters and they already have the hospital bed and home 02. Discussed with DJ regarding equipment request. SW will await to hear back from [facility] and family to set up transport. Pt's aware of plan and verbalized understanding.
[2018-11-02] MEDS: ATROPINE 1% OPHTH SOLUTION 5ML BOTTLE. SL PRN (11:06)
[2018-11-02] MEDS: SCOPOLAMINE 1.5MG PATCH. TD SCH (11:06)
[2018-11-02 15:00] VITALS: BP 137/88
--- NOTE | 2018-11-02 16:14 | NUR ---
SW following pt. SW notified by hospice agency equipment will be delivered around 1630. SW arranged transport via [facility] at 1800. Pt's choice and rights forms signed by pt's and copies on chart. Pt's agreeable with plans. Hospice agency notified of transport time.
--- NOTE | 2018-11-02 18:39 | NUR ---
pt discharged home with hospice via non emergent EMS. family present. irving left in place. R triple lumen IJ removed.
--- NOTE | 2018-11-03 10:02 | PDOC ---
Provider Note Provider Note Discharge summary dictated.#[id number] ANGI BARCENAS MD November 03, 2018 10:02
--- NOTE | 2018-11-03 12:23 | DS ---
DATE OF DISCHARGE: 11/02/2018 REASON FOR ADMISSION TO THE HOSPITAL: Sepsis, fever, infected wounds. Escherichia coli bacteremia. CONSULTATIONS: Dr. Mackay, Dr. Sage. Wound care consult. Pulmonary critical care consult. PROCEDURES DONE: Cystoscopy, placement of a catheter. HOSPITAL COURSE: The patient is a 73-year-old male with history of declining health. He has a chronic dementia, stroke, bedridden, and he has developed some wounds, has been draining wounds. He has been having fever, was brought to the hospital. He was hypotensive, sepsis and lactic acidosis, acute renal insufficiency. The patient was admitted to the ICU, was started on fluids, Levophed. After broad spectrum cultures, started on broad spectrum antibiotics and the culture was done. The patient had blood cultures positive for E. coli bacteremia, multiresistant drug E. coli . The patient had a pulmonary critical care and wound care consult. The patient had a problem with urination. Urology was consulted. The patient had cystoscopy, had a stricture with a false passage. Cystoscopy was done to put in a Irving catheter. The patient's condition remained critical and his white count went up to 50,000, was coming down. Blood cultures E. coli, was treated with antibiotics, and the patient is in a lot of pain and seen by palliative team. Because of the patient's poor prognosis, the family opted for DNR and take home with hospice. FINAL DIAGNOSES: 1. Acute Sepsis. 2. Lactic acidosis. 3. Hypotension. 4. Escherichia coli bacteremia, multidrug resistant. 5. Bladder outlet obstruction, had a cystoscopy and irving placed. 6. Protein calorie malnutrition severe. 7. Chronic atrial fibrillation, on anticoagulation. 8. Infected wounds stage 4. 9. Old cerebrovascular accident. 10. Hypertension history. 11. History of dementia. The patient's prognosis is poor, and the patient is not going to survive more than a couple of weeks. The patient's family decided to take him home with hospice. ANGI BARCENAS MD DR: ESTHER/coby JOB#: [id number] / [id number] THOM
== END 2018-11-02 18:40 | disposition hospice, home (50) | DRG 871 ==
LOC: ER 09:41 → 6 SOUTH 11:16 → 1 WEST ICU 16:47 → OBSVTOIN 16:47 → 5 NORTH 10-30 17:25
PROVIDERS: ADMIT Internal Medicine; ATTEND Internal Medicine
PROC: 0T9B80Z Drainage of Bladder with Drainage Device, Via Natural or Artificial Opening Endoscopic (ICD-10-PCS; principal; 2018-10-25)
PROC: 5A09357 Assistance with Respiratory Ventilation, Less than 24 Consecutive Hours, Continuous Positive Airway Pressure (ICD-10-PCS; 2018-10-25)
PROC: 5A09357 Assistance with Respiratory Ventilation, Less than 24 Consecutive Hours, Continuous Positive Airway Pressure (ICD-10-PCS; 2018-10-26)
PROC: 02HV33Z Insertion of Infusion Device into Superior Vena Cava, Percutaneous Approach (ICD-10-PCS; 2018-10-27)
PROC: B548ZZA Ultrasonography of Superior Vena Cava, Guidance (ICD-10-PCS; 2018-10-27)
DX: A41.51 Sepsis due to Escherichia coli [E. coli] (principal); J96.01 Acute respiratory failure with hypoxia; E43 Unspecified severe protein-calorie malnutrition; N17.0 Acute kidney failure with tubular necrosis; R65.21 Severe sepsis with septic shock; G93.41 Metabolic encephalopathy; I50.22 Chronic systolic (congestive) heart failure; N13.8 Other obstructive and reflux uropathy; N39.0 Urinary tract infection, site not specified; Z66 Do not resuscitate; Z51.5 Encounter for palliative care; Z16.24 Resistance to multiple antibiotics; N32.0 Bladder-neck obstruction; I48.2 Chronic atrial fibrillation; F03.90 Unspecified dementia, unspecified severity, without behavioral disturbance, psychotic disturbance, mood disturbance, and anxiety; D69.6 Thrombocytopenia, unspecified; D72.823 Leukemoid reaction; E11.9 Type 2 diabetes mellitus without complications; E78.5 Hyperlipidemia, unspecified; J44.9 Chronic obstructive pulmonary disease, unspecified; F32.9 Major depressive disorder, single episode, unspecified; F41.9 Anxiety disorder, unspecified; M19.90 Unspecified osteoarthritis, unspecified site; M48.00 Spinal stenosis, site unspecified; M62.50 Muscle wasting and atrophy, not elsewhere classified, unspecified site; K21.9 Gastro-esophageal reflux disease without esophagitis; K43.9 Ventral hernia without obstruction or gangrene; K57.90 Diverticulosis of intestine, part unspecified, without perforation or abscess without bleeding; M10.9 Gout, unspecified; N35.919 Unspecified urethral stricture, male, unspecified site; I25.10 Atherosclerotic heart disease of native coronary artery without angina pectoris; I11.0 Hypertensive heart disease with heart failure; N40.1 Benign prostatic hyperplasia with lower urinary tract symptoms; G83.9 Paralytic syndrome, unspecified; Z86.73 Personal history of transient ischemic attack (TIA), and cerebral infarction without residual deficits; Z86.718 Personal history of other venous thrombosis and embolism; Z87.891 Personal history of nicotine dependence; Z99.3 Dependence on wheelchair; Z79.899 Other long term (current) drug therapy; Z86.010 Personal history of colon polyps; Z87.11 Personal history of peptic ulcer disease; Z79.01 Long term (current) use of anticoagulants; Z86.79 Personal history of other diseases of the circulatory system; Z86.711 Personal history of pulmonary embolism; Z74.01 Bed confinement status; L89.150 Pressure ulcer of sacral region, unstageable; L89.220 Pressure ulcer of left hip, unstageable
CPT/HCPCS: 36415; 36556; 36569; 36600; 51701; 71045; 76770; 76937; 80048; 80053; 80061; 81001; 82565; 82805; 82962; 83605; 83690; 84145; 84550; 85007; 85025; 85610; 87040; 87077; 87086; 87205; 87493; 87641; 93005; 94640; 94660; 94760; 96361; 96365; 96375; C1892; C9113; G0378; G0379; J0456; J0696; J0878; J1450; J2248; J2405; J2543; J2920; J2930; J3010; J3370; J3490; J7030; J7040; J7620; J7626; 92610; 99285-25